=== PATIENT | male | born 1945 | race Caucasian/White ===

== ENCOUNTER 2017-12-15 10:30 | Outpatient (RCR) | payer OTHER, SELFPAY ==
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
--- NOTE | 2017-12-15 10:30 | DT_ITS ---
This patient was seen during an EMR downtime December 12, 2017 - December 19, 2017. This patient may have a combination of paper and electronic documentation or all paper documentation. All documentation is viewable within the e-chart portion of [facility] for each patient visit.
--- NOTE | 2018-01-08 13:30 | HP.PTDCSUM ---
HP - PT D/C Summary It has been my pleasure to treat ALBINO JIMENEZ JR under orders from Out of Town Doctor, for the diagnosis of LUMBAR STENOSIS for a total of 6 visit(s). Discharge Date: 12/15/17 Please see the following information for a summary of their discharge status. - Subjective Subjective: PATIENT STATES THE POOL HAS HELPED ME QUITE A BIT. LBP AND RIGHT LE ACHING AND WEAKNESS HAVE IMPROVED. STTES HE HAS HIS WON POOL. RIGHT LOW BACK PAIN RANGING 0-5/10. - Pain Lumbar Spine Pain Intensity (Out of 10): 3 Hips Pain Intensity (Out of 10): Unrated - Overall Improvement % Improvement: 50 - Objective Objective/Function: PATIENT DEMO'S INDEP TRANSFER SIT TO STAND WITHOUT UE ASSIST. INDEP GAIT INTO PT WITHOUT AD BUT INCREASED TRUNK FLEX. LLE MMT 5/5. RIGHT LE HIP FLEX 4/5, KNEE EXT 4/5 KNEE FLEX 4/5, ANKLE DORSI FLEX 5/5. LUMBAR MVMT LOSS: FLEX - NIL, EXT - LEO, TINO SG - MOD. PATIENT DENIES INCREASED LBP WITH TESING TODAY. INDEP WITH WRITTEN POOL PROGRAM. - Goals Goal 1:: DECREASE C/O BACK AND LE SX'S Goal Progress: Goal Met Goal 2:: IMPROVE LIFTING, WALKING, SITTING, STANDING, SOCIAL LIFE, TRAVEL AND HOMEMAKING FUNCTION Goal Progress: Not Progressing Goal 3:: INSTRUCT IN PROPHYLAXIS Goal Progress: Goal Met - Plan Plan: D/C TO [facility] AT THIS TIME. [facility] - D/C Information If there are questions or concerns regarding this patient's physical therapy, please feel free to call me at [phone]. Thank you for the referral of this patient. Sincerely, Clarice Horner
== END 2017-12-15 19:00 | disposition home or self-care (01) ==
LOC: PT 10:30
DX: M48.062 Spinal stenosis, lumbar region with neurogenic claudication (principal)
CPT/HCPCS: 97113; 97162; 97164; 97530; G8978; G8979; G8980

== ENCOUNTER 2018-06-09 10:00 | Outpatient (RCR) | payer OTHER, SELFPAY ==
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
--- NOTE | 2018-06-09 11:05 | HP.PTDCSUM ---
- PT D/C Summary It has been my pleasure to treat ALBINO JIMENEZ Jr. under orders from [facility] for the diagnosis of SPONDYLOSIS, LUMBAR REGION for a total of 8 visit(s). Discharge Date: 06/09/18 Please see the following information for a summary of their discharge status. - Subjective Subjective: I FEE PRETTY GOOD TODAY. PATIENT REPORTS HE IS BETTER. STATES HIS TORSO IS MOVING BETTER AND HE IS WALKING BETTER. PATIENT REPORTS HIS PAIN IS RANGING 0-7/10 NOW. PATIENT REPORTS HE HAS BEEN DISCHARGED [facility] WITH A HEP. HE PLANS TO JOIN THE [facility] TO CONTINUE INDEP WATER EX AT THIS TIME. - Pain Lumbar Spine Pain Intensity (Out of 10): 2 Neck/Shoulders Pain Intensity (Out of 10): Unrated - Overall Improvement % Improvement: 40 - Objective Objective/Function: INDEP TRANSFER SIT TO STAND WITHOUT UE ASSIST EASILY WITH ONE ATTEMPT TODAY. Motor deficit: TINO LE'S 5/5 WITH MMT EXCEPT HIPS GRADED 4+/5. Sensory deficit: TINO LE LIGHT TOUCH SENSATION APPEARS TO BE INTACT AND SYMMETRICAL EVEN IN RIGHT THIGH PER PATIENT REPORT. ROM deficit: VERY TIGHT TINO HIP FLEXORS, HS'S AND GASTROC SOLEUS COMPLEX'S. Dural Signs: NEGATIVE TINO LE DURAL SIGNS. Lumbar mvmt loss: flex - MIN. ext - LEO. R SG - MOD L SG - MOD. PATIENT DENIED INCREASED LOW BACK PAIN WITH LUMBAR ROM TESTING INTO ALL PLANES. Core strength: POOR. Palpation: NO ACUTE PALPABLE TENDERNESS IN THE LUMBAR, SACRAL OR HIP REGIONS. LUMBAR OSWESTRY HAS IMPROVED FROM 23 TO 18. - Goals Goal 1:: DECREASE C/O TINO LOW BACK AND TINO LE SX'S Goal Progress: Goal Met Goal 2:: IMPROVE LIFTING, WALKING, SITTING, STANDING, SLEEP, SOCIAL LIFE, TRAVEL AND HOMEMAKING FUNCTION Goal Progress: Goal Met Goal 3:: INSTRUCT IN PROPHYLAXIS/INDEP AQUATIC THERAPY PROGRAM Goal Progress: Goal Met - Plan Plan: ALL GOALS MET. D/C TO INDEP EX. PATIENT WAS AGREEABLE. - D/C Information If there are questions or concerns regarding this patient's physical therapy, please feel free to call me at [phone]. Thank you for the referral of this patient. Sincerely, Clarice Horner
== END 2018-06-09 19:00 | disposition home or self-care (01) ==
LOC: PT 10:00
DX: M47.896 Other spondylosis, lumbar region (principal)
CPT/HCPCS: 97113; 97162; 97530; G8978; G8979

== ENCOUNTER → 2021-07-09 17:41 | Outpatient (CLI) | payer OTHER, SELFPAY ==
--- NOTE | 2021-07-09 17:56 | CT_ITS ---
STUDY: CT CHEST WITHOUT CONTRAST- LOW DOSE SCREENING PROTOCOL REASON FOR EXAM: Male, 75 years old. Current smoker. 75 pack per year history. No current symptoms of lung cancer or pulmonary infection. Shared decision-making with referring PCP documented in patient''s record. RADIATION DOSAGE (If Supplied By Facility): CTDIvol = ( 3.02 ) mGy, DLP = ( 115.51 ) mGycm TECHNIQUE: Low dose screening CT examination performed from the base of the neck to the upper abdomen. Sagittal and coronal reformatted images performed. Sagittal and coronal MIP images provided. The measurements provided are average, rounded measurements per ACR guidelines. COMPARISON: None. FINDINGS: Mild bilateral apical scarring. Mild emphysema. Right lower lobe linear scar. Linear scar in the lingula. No noncalcified nodule or mass. There is no demonstrated pleural abnormality. Normal heart and pericardium. There are calcifications of the coronary arteries. Normal mediastinum. Normal hilar regions. Normal unenhanced pulmonary arteries. There is atherosclerotic calcification of the aortic arch with tortuosity and elongation of the aortic arch and descending thoracic aorta. Normal osseous structures. There is no demonstrated abnormality of the visualized upper abdomen. CT/Low Dose CT Lung Screening IMPRESSION: 1. No significant indeterminate incidental findings requiring additional imaging. 2. Incidental findings include mild emphysema and bilateral apical scarring. ASSESSMENT CATEGORY: LungRADS 1 - Negative. Continue annual screening with LDCT in 12 months, per established ACR guidelines. Electronically Signed: Haja Talamantes MD at 10:08 EST Tel , Service support ,
== END ==
DX: F17.210 Nicotine dependence, cigarettes, uncomplicated (principal)
CPT/HCPCS: 71271

== ENCOUNTER 2022-08-12 18:22 | Inpatient (IN) | payer OTHER, SELFPAY ==
[2022-08-12] VITALS (8 sets, daily range): BP systolic 112–146; BP diastolic 67–86; PULSE 100–114; RESP 20–28; TEMP 36.6–36.8; O2SAT 90–94; BMI 28.6
--- NOTE | 2022-08-12 18:26 | HP.PCM.HOS_ITS ---
HPI - General General Date of Admission: 08/12/22 Date of Service: 08/12/22 Chief Complaint: shortness of breath HPI Narrative ALBINO JIMENEZ, is a 76 M who presents 2 days of shortness of breath. Patient today was doing well and had been off oxygen, patient normally is on oxygen around 2 L due to his underlying COPD, but beginning yesterday, started getting more short of breath and coughing. Patient was coughing up some yellow phlegm. Shortness of breath just got worse and presented to [facility] ED today. Patient was found to have a right-sided pneumonia as well as a lactic acid of 6. Patient was checked for influenza and COVID which were both negative. Patient received ceftriaxone and azithromycin there. Patient requested transfer to [facility]. [facility] Medical History (Updated 08/12/22 @ 18:[address] Felix Ribeiro DO) COPD (chronic obstructive pulmonary disease) Heart attack Perforated ulcer PUD (peptic ulcer disease) TIA (transient ischemic attack) Allergy/AdvReac Type Severity Reaction Status Date / Time oxycodone AdvReac Upset Verified 08/12/22 18:32 Stomach Family History Grandmother Lung cancer Father COPD (chronic obstructive pulmonary disease) Grandfather Bone cancer Brother Bone cancer Surgical History H/O hernia repair Total knee replacement status Social History Smoking Status: Former smoker Tobacco: How many years used: 65 how long ago did patient quit smokin months ago substance use type: does not use ROS ROS Narrative All review of systems were negative except as mentioned above in the history of present illness and the other review of systems. Vital Signs Vital Signs Vital Signs: 08/12/22 18:00 Temperature 36.7 C Temperature Source Oral Pulse Rate 100 Respiratory Rate 22 H Blood Pressure 146/86 H Blood Pressure Mean 106 Blood Pressure Source Monitor Blood Pressure Position Semi-Fowlers Blood Pressure Location Left Arm Pulse Ox 94 Oxygen Delivery Method Nasal Cannula Oxygen Flow Rate (L/min) 3 Weight Weight: 88.042 kg Body Mass Index (BMI) 28.6 Physical Exam Narrative - Physical Exam General: Alert, Oriented x3, Cooperative HEENT: Atraumatic, PERRLA, EOMI, Normocephalic Oral: Moist Mucosa, No Gingival or Mucosal Lesions/ Ulcerations Neck: Supple, No JVD, Negative Carotid Bruits Lungs: Diminished. Faint wheeze. Cardiovascular: Regular rate, Normal S1, Normal S2, No murmurs Abdomen: Bowel Sounds Present, Soft, Non Tender, Non-Distended, No Hepato-sple nomegaly Extremities: No clubbing, No cyanosis, No edema, Capillary Refill Less than 3 Seconds Skin: No rashes, No breakdown Musculoskeletal: No Tenderness to Palpation of Joints or Extremities Neurological: Neuro grossly intact Psych/Mental Status: Normal Affect, Appropriate Results Lab / Micro Data Lab results narrative: CBC: White count 10, hemoglobin 14, platelets 198 BMP: Sodium 132, potassium 4, creatinine 1.12 Troponin 8.7 Influenza a and B- COVID-19 negative Lactic acid of 6 and subsequent lactic acid of 2.7 Chest x-ray not available Assessment & Plan Assessment/Plan (1) Pneumonia: PLAN: Suspect pneumococcal Check sputum culture, strep and Legionella antigens Outside hospital, influenza and COVID-19 were negative Continue with antibiotics with ceftriaxone and azithromycin which he received at the outside hospital Pep therapy (2) COPD exacerbation: PLAN: Steroids and bronchodilators (3) Lactic acidosis: PLAN: Probably due to his respiratory distress and not sepsis. Currently patient is stable. PLAN: Plan Chronic conditions * CAD * PUD VTE prophylaxis with enoxaparin. Charges/Coding Visit Charges Inpatient E&M: 91805 In Hosp L3
[2022-08-12] MEDS: Ipratropium/Albuterol Sulfate 3 ML AMPUL.NEB INHALATION ×2 (19:09→22:37)
[2022-08-12] MEDS: predniSONE 20 MG Tablet 40 MG PO (19:37)
[2022-08-12] MEDS: guaiFENesin 1,200 MG Tablet 1200 MG PO (23:30)
[2022-08-13] VITALS (23 sets, daily range): BP systolic 101–124; BP diastolic 66–85; PULSE 100–123; RESP 16–24; TEMP 36.7–37; O2SAT 90–99
[2022-08-13] MEDS: Albuterol 2.5 MG/3 ML VIAL.NEB. INHALATION ×2 (00:26→05:30)
[2022-08-13] MEDS: 0.9% Saline Lock 10 ML Syringe IV ×2 (01:57→22:19)
--- NOTE | 2022-08-13 02:11 | RAD_ITS ---
EXAM: XR CHEST, 1 VIEW CLINICAL INDICATION: SOB TECHNIQUE: Frontal view of the chest. This report was created using [employer] report generation technology. COMPARISON: None. FINDINGS: LUNGS AND PLEURAL SPACES: Mild bibasilar atelectasis. No pneumothorax. No effusion. No acute airspace disease. HEART: Unremarkable. Cardiac silhouette not enlarged. MEDIASTINUM: Central airways and mediastinal contour are unremarkable. BONES/JOINTS: Unremarkable. SOFT TISSUES: Unremarkable. RAD/Chest 1 View (Portable) IMPRESSION: No acute findings in the chest. Electronically Signed: Jose Luis Lackey MD at 3:03 EST ,
[2022-08-13] MEDS: Ipratropium/Albuterol Sulfate 3 ML AMPUL.NEB INHALATION ×6 (02:40→23:17)
[2022-08-13] MEDS: 0.9% Normal Saline 1,000 ML 75 ML IV (03:05)
[2022-08-13] MEDS: Benzonatate 100 MG Capsule PO (03:14)
[2022-08-13 06:00] LABS: Absolute Neutrophil Count 9.1 X10^3/uL (2.0-7.7); Basophil# 0.04 X10^3/uL; Basophil% 0.4 % (0-1); Eosinophil# 0.01 X10^3/uL; Eosinophils% 0.1 % (0-5); Hematocrit 40.7 % (40-54); Hemoglobin 13.4 g/dL (13.0-16.5); Lymphocyte % 6.9 % (19-41); Mean Corp Hgb Conc 32.9 g/dL (32-36); Mean Corpuscular Hgb 32.5 pg (27.0-32.0); Mean Corpuscular Volume 98.8 fL (80-94); Mean Platelet Vol. 10.4 fl (6.2-12.0); Monocyte% 2.9 % (0-10); NRBC Flagged by Analyzer 0 % (0-5); Neutrophil # 9.06 X10^3/uL (2.7-7.7); Neutrophil % 88.9 % (47-70); Platelet Count 186 K/mm3 (150-450); RBC Distribution Width CV 14.7 % (11.6-14.6); RBC Distribution Width SD 53.1 fl (35.1-43.9); Red Blood Count 4.12 M/mm3 (4.6-6.2); White Blood Count 10.2 K/mm3 (4.4-11.0)
[2022-08-13 06:21] LABS: Anion Gap 9 (5-15); BUN 18 mg/dL (7-18); Calcium,Total 9.2 mg/dL (8.5-10.1); Chloride 102 mmol/L (98-107); Creatinine, Serum 0.75 mg/dL (0.70-1.30); EST Glomerular Filtration Rate 108 mL/min (>60); Est Glom Filt Rate - Afr Amer 130 mL/min (>60); Estimated Creatinine Clearance 63.83 ml/min; Glucose 126 mg/dL (74-106); Potassium 3.7 mmol/L (3.5-5.1); Sodium Level 136 mmol/L (136-145)
--- NOTE | 2022-08-13 06:30 | NURSING ---
Patient had a coughing spell and was struggling to breathe Oxygen increased from 7L to 10L by charge nurse
--- NOTE | 2022-08-13 06:46 | PCM.PN.BLA ---
Progress Note Called to see at 3am progressive shortness of breath. Patient was admitted as a transfer from pulmonary emergency room. He was reportedly more short of breath, his oxygen requirement had gone up to 7 to 8 L of oxygen Stat chest x-ray is negative for acute infiltrate Patient's prednisone was changed to IV Solu-Medrol for acute COPD exacerbation He was continued on breathing treatment. Physical exam shows a mildly dyspneic patient on 7 to 8 L of oxygen, oxygen sat was 91% Focused Chest exam: Mild use of accessory muscles of respiration, diminished breath sounds, scattered wheezes Further reports of worsening hypoxia to 10 L; ABG requested, pulmonology consulted
--- NOTE | 2022-08-13 07:08 | CPS ---
Pt not using PEP currently because it causes severe coughing spells/spasms. reminded him to DB & C.
[2022-08-13 07:40] LABS: Allen Test Positive; Base Excess -4 mmol/L (-2 to +2); Bicarbonate 20.8 mmol/L (22-26); Blood Gas Specimen Type ART; O2 Delivery Device Cannula; PO2 60 mmHG (75-100); SITE R Radial; SO2 92 % (95-99); Total Carbon Dioxide 22 mmol/L; pCO2 31.3 mmHg (35-45); pH 7.43 (7.35-7.45)
--- NOTE | 2022-08-13 08:34 | CT_ITS ---
STUDY: CTA CHEST REASON FOR EXAM: Male, 76 years old. RESPIRATORY FAILURE -- R/O PE. Shortness of breath. Hypoxia. RADIATION DOSAGE (If Supplied By Facility): CTDIvol = ( 7.75 ) mGy, DLP = ( 527.88 ) mGycm TECHNIQUE: The examination was performed with the intravenous administration of IV 75mL [id number]-[id number]. Post-processing of the angiographic images was performed, with multiplanar reformation and 3D reconstruction. Individualized dose optimization techniques were used for this CT. COMPARISON: Comparison is made with prior study dated 07/09/2021. FINDINGS: Normal enhancement of the main pulmonary artery and right and left pulmonary arteries. Normal enhancement of the bilateral peripheral pulmonary arteries. There is no demonstrated pulmonary embolism. There is atherosclerotic calcification of the aortic arch with tortuosity. There is no demonstrated aortic dissection. There are calcifications of the coronary arteries. Calcified subcarinal lymph nodes. Normal hilar regions. Normal visualized trachea and bronchi. Hyperinflation. Emphysematous changes more prominent in the upper lobes. Increased markings at the lung bases with areas of confluence worse in the left lower lobe suggestive of a atelectasis and/or infiltrate superimposed on the scarring. Mild degree of bronchiectasis. Calcified granuloma in the right lower lobe. Minimal pleural thickening. Normal chest wall structures. Normal osseous structures. Prior cholecystectomy. CT/CTA Chest W/WO Contrast IMPRESSION: Emphysematous changes worse in the upper lobes. Atelectasis and/or infiltrates at the lung bases superimposed on chronic scarring and bronchiectasis. Electronically Signed: Ricky Pino MD at 9:40 EST ,
--- NOTE | 2022-08-13 08:58 | CPS ---
Explained NT sx'ing to patient and the reason why, pt tolerated it fairly well via right nares. one small white mucus plug was aspirated. Pt said he can breathe better after sx.
[2022-08-13] MEDS: guaiFENesin 1,200 MG Tablet 1200 MG PO ×3 (09:35→22:20)
[2022-08-13] MEDS: Enoxaparin 40 MG/0.4 ML Syringe SC (09:35)
--- NOTE | 2022-08-13 10:41 | CON.PCM.CC_ITS ---
Assessment & Plan Assessment/Plan (1) COPD exacerbation: PLAN: Plan RECOMMENDATIONS: 1. Continue bronchodilators, steroids, mucolytic 2. Consider transitioning to Airvo 3. Obtain echocardiogram for pulmonary hypertension 4. Wean supplemental oxygen as tolerated 5. Continue antibiotics pending sputum culture 6. No need to transfer to intensive care unit at this time IMPRESSIONS: 1. Acute hypoxic respiratory failure secondary to COPD/bronchiectasis exacerbation Patient does not appear to have any significant infiltrate on CT scan of the chest. However, patient does have bronchiectasis and advanced emphysematous changes. Patient is appropriately being treated with bronchodilators, steroids, antibiotics and mucolytic's. Would recommend continuing antibiotics until sputum culture can be evaluated. Will obtain an echocardiogram for evaluation of pulmonary hypertension as a confounding factor. Patient does not have significant lower extremity edema to suggest congestive heart failure, but does carry a diagnosis of previous [place]. 2. Advanced age/lack of wafer polishing worker/hyperglycemia Complicates care, management, recovery and prognosis. We will continue to watch blood sugars on daily labs. Cannot exclude the need for sliding scale insulin and basal insulin given the need for steroids secondary to problem #1. Patient will need an outpatient established wafer polishing worker to evaluate for complications and optimization of baseline function. HPI Consult Data Date of Consult: 08/13/22 HPI Narrative Reason for Consultation: Hypoxic respiratory failure HPI Narrative: ALBINO HUDSON, is a 76 M, with past medical history listed below, who presents as a direct transfer from [facility] secondary to hypoxic respiratory failure. Patient does carry diagnosis of COPD and is on 2 L nasal cannula chronically. Patient reportedly started to develop increased shortness of breath and coughing productive of yellow sputum over the last 2 to 3 days. Patient reportedly had a right-sided pneumonia with a lactate of 6. Viral studies were negative as an outpatient. Patient did receive ceftriaxone and azithromycin prior to discharge/transfer. Since being at [facility], patient has required increased FiO2 up to 10 L/min. Patient states he is very dyspneic, but overall feels subjectively improved compared to previous. Patient did have an NT suction this morning and thought this was significantly helpful. Patient still has shortness of breath with minimal exertion and feels that in retrospect he has been going downhill for months. Patient does carry diagnosis of COPD. Patient states he is never seen a wafer polishing worker or had a pulmonary function test previously. Patient is on triple therapy at home along with 2 L nasal cannula. Patient states he is readily compliant with his supplemental oxygen. Patient states that his breathing is gotten so poor that he actually quit smoking recently. Patient states he is to meet with a wafer polishing worker at the [place] in September and was hoping to make it till then. Patient is not aware of any sick contacts. Patient denies any current chest pain, palpitations, nausea or vomiting. Patient has not had any aspiration events. Patient is not reporting any lower extremity edema. Patient is not aware of any other work-up. Patient has not had a history of PE that he is aware of. Review of systems otherwise negative from a constitutional, HEENT, respiratory, cardiovascular, GI, genitourinary, musculoskeletal, skin, neurologic, psychiatric and hematologic system unless stated above. [facility] Medical History COPD (chronic obstructive pulmonary disease) Heart attack Perforated ulcer PUD (peptic ulcer disease) TIA (transient ischemic attack) Home Medications atorvastatin 40 mg tablet 40 mg PO QHS Check with primary doctor 08/13/22 [History Last Taken Unknown] cholecalciferol (vitamin D3) 50 mcg (2,000 unit) tablet 50 mcg PO DAILY Check with primary doctor 08/13/22 [History Last Taken Unknown] cyclobenzaprine 10 mg tablet 10 mg PO QHS PRN PRN muscle spasms 08/13/22 [History Last Taken Unknown] fluticasone 250 mcg-salmeterol 50 mcg/dose blistr powdr for inhalation 1 inh inhalation BID Check with primary doctor 08/13/22 [History Last Taken Unknown] gabapentin 900 mg PO/SL QHS Check with primary doctor 08/13/22 [History Last Taken Unknown] gabapentin 600 mg tablet 600 mg PO DAILY Check with primary doctor 08/13/22 [History Last Taken Unknown] ipratropium 0.5 mg-albuterol 3 mg (2.5 mg base)/3 mL nebulization soln 3 ml inhalation Q6H PRN Shortness Of Breath 08/13/22 [History Last Taken Unknown] isosorbide mononitrate 30 mg tablet,extended release 24 hr 30 mg PO DAILY Check with primary doctor 08/13/22 [History Last Taken Unknown] lisinopril 5 mg tablet 5 mg PO DAILY Check with primary doctor 08/13/22 [History Last Taken Unknown] metoprolol succinate 100 mg tablet,extended release 24 hr 100 mg PO DAILY Check with primary doctor 08/13/22 [History Last Taken Unknown] pantoprazole 40 mg tablet,delayed release 40 mg PO DAILY Check with primary doctor 08/13/22 [History Last Taken Unknown] tiotropium bromide 2.5 mcg/actuation mist for inhalation (Spiriva Respimat) 2 puff inhalation BID Check with primary doctor 08/13/22 [History Last Taken Unknown] tramadol 50 mg tablet 50 mg PO Q6H PRN Breakthrough Pain 08/13/22 [History Last Taken Unknown] trazodone 50 mg tablet 50 mg PO QHS PRN leg cramps 08/13/22 [History Last Taken Unknown] Allergy/AdvReac Type Severity Reaction Status Date / Time oxycodone AdvReac Upset Verified 08/12/22 18:32 Stomach Family History Grandmother Lung cancer Father COPD (chronic obstructive pulmonary disease) Grandfather Bone cancer Brother Bone cancer Surgical History H/O hernia repair Total knee replacement status Social History Smoking Status: Former smoker Tobacco: How many years used: 65 how long ago did patient quit smokin months ago substance use type: does not use ROS ROS Narrative See HPI Physical Exam Const alert and oriented x3 General Appearance: in distress Positive for moderate (Respiratory) and frail HEENT normocephalic and head/scalp atraumatic HEENT Narrative: Slight temporal wasting noted Eyes PERRL, EOMs intact bilaterally, conjunctivae normal and no scleral icterus Neck full ROM, supple and no JVD Chest Chest: abnormal inspection of the chest increased A-P diameter Resp Auscultation: wheezes expiratory wheezes and lower bilaterally; Negative for rales or rhonchi Cardio regular rhythm, S1 normal heart sound, S2 normal heart sound, no murmurs, no rub and no gallops Rate: tachycardic GI normal to inspection, nondistended, normoactive bowel sounds Extremity General Extremity: clubbing; Negative for edema Skin Skin Narrative: Dermal atrophy noted Neuro oriented x3, CN's II-XII intact bilaterally, moves all extremities and no focal motor deficits Psych Activity / Motor Behavior: restless Mood & Affect: anxious Medical Records Data Attestation: I reviewed the patient's medical records Lab / Micro Data Attestation: I reviewed the patient's lab results. Result Diagrams: 08/13/22 05:32 08/13/22 05:32 Labs: Laboratory Results - last 24 hr 08/13/22 05:32: WBC 10.2, RBC 4.12 L, Hgb 13.4, Hct 40.7, MCV 98.8 H, MCH 32.5 H , MCHC 32.9, RDW Std Deviation 53.1 H, RDW Coeff of Chadd 14.7 H, Plt Count 186, MPV 10.4, Immature Gran % (Auto) 0.800, Neut % (Auto) 88.9 H, Lymph % (Auto) 6.9 L, [place] % (Auto) 2.9, Eos % (Auto) 0.1, Baso % (Auto) 0.4, Absolute Neuts (auto) 9.1 H, Absolute Lymphs (auto) 0.70 L, Nucleated RBC % 0 08/13/22 05:32: Sodium 136, Potassium 3.7, Chloride 102, Carbon Dioxide 25.0, A nion Gap 9, BUN 18, Creatinine 0.75, Estim Creat Clear Calc 63.83, Est GFR (MDRD) Af Amer 130, Est GFR (MDRD) Non-Af 108, BUN/Creatinine Ratio 24.0 H, Glucose 126 H, Calcium 9.2 Micro: Microbiology 08/13/22 00:10 Urine, Clean Catch Legionella Antigen - Final 08/13/22 00:10 Urine, Clean Catch Streptococcus pneumoniae Antigen (M - Final ABG Data ABG results: ABG 08/13/22 07:32 Specimen Type ART Sample Site R Radial pH 7.43 Bicarbonate Actual 20.8 L Total CO2 22 Base Excess -4 L O2 Saturation 92 L ABG pCO2 31.3 L ABG pO2 60 L Deven Test Positive O2 Delivery Device Cannula Liter Flow 10.0 Attestation: I personally reviewed and interpreted this ABG as follows: (Partially compensated metabolic acidosis with increased AA gradient) Radiology Impression Chest X-Ray 08/13/22 02:11 IMPRESSION: No acute findings in the chest. Electronically Signed: Jose Luis Lackey MD at 3:03 EST , Chest CTA 08/13/22 08:34 IMPRESSION: Emphysematous changes worse in the upper lobes. Atelectasis and/or infiltrates at the lung bases superimposed on chronic scarring and bronchiectasis. Electronically Signed: Ricky Pino MD at 9:40 EST , Charges/Coding Visit Charges Inpatient E&M: 33097 Init Hosp L3
--- NOTE | 2022-08-13 10:45 | ECHOCS_ITS ---
Reason For Study: PHTN Procedure This was a 2D Doppler, Color Flow transthoracic echocardiogram. Exam performed portable in patient room. Left Ventricle Normal LV size. The estimated ejection fraction is 70 %. Unable to assess diastolic dysfunction. No regional wall motion abnormalities noted. Right Ventricle Normal RV size. Normal systolic function. Atria Normal left atrium. Normal right atrium. No doppler evidence for ASD. Mitral Valve There is no mitral valve stenosis. No mitral valve insufficiency. Tricuspid Valve There is no tricuspid stenosis. Unable to estimate RV systolic pressure due to inadequate jet, pulmonary artery pressure probably normal. Aortic Valve There is no aortic stenosis. No aortic valve insufficiency. Pulmonic Valve There is no pulmonic valvular stenosis. No pulmonic valve insufficiency. Great Vessels Normal aortic root. Pericardium/Pleural No pericardial effusion. MMode/2D Measurements & Calculations Ao root diam: 3.3 cm LAV(MOD-bp): 49.5 ml LVAd ap4: 22.2 cm2 LAV(MOD-bp) Indexed: 24.3 ml/m2 LVLd ap4: 7.3 cm LAV(MOD-sp2): 55.5 ml EDV(MOD-sp4): 56.4 ml LAV(MOD-sp4): 44.7 ml EDV(sp4-el): 57.6 ml LVAs ap4: 11.2 cm2 LVLs ap4: 6.6 cm ESV(MOD-sp4): 16.4 ml ESV(sp4-el): 16.1 ml EF(MOD-sp4): 70.9 % EF(sp4-el): 72.0 % SV(MOD-sp4): 40.0 ml SV(sp4-el): 41.5 ml LA A4 area: 17.1 cm2 LA dimension(2D): 3.5 cm RA A4 area: 12.1 cm2 Doppler Measurements & Calculations MV E max miesha: 133.7 cm/sec MV V2 max: 124.7 cm/sec Ao V2 max: 134.6 cm/sec MV max P.3 mmHg Ao max P.3 mmHg MV V2 mean: 77.1 cm/sec Ao V2 mean: 89.7 cm/sec MV mean P.8 mmHg Ao mean P.7 mmHg MV V2 VTI: 25.2 cm Ao V2 VTI: 20.2 cm LV V1 max: 124.0 cm/sec LV V1 max P.2 mmHg ECHO/Echo Complete W/ Contrast Interpretation Summary The estimated ejection fraction is 70 %. Unable to assess diastolic dysfunction. Ordering Physician: Flip Snyder Referring Physician: SHANNON PCP Performed By: Lolly Peralta RCS
--- NOTE | 2022-08-13 12:45 | CM.UR ---
Addendum entered by Clarice Nieves 08/13/22 15:39: Call received back from Mary Jo @ [facility]. [facility] She states pt is not active w/HHC. She states they have a home-based care team made up of: SW, leather scrubber, therapy, and SW who do assessments in the home and make recommendations, but they do not provide in-home care or therapy. She states, if pt does need HHC @ discharge they can notify Dr Yeh and then they would evaluate if pt meets criteria for HHC thru the [facility]. OFFSET PRESS OPERATOR APPRENTICE CM, Roxanne, made aware of above. Addendum entered by Clarice Nieves 08/13/22 14:55: Call placed to the [facility] @ [phone]. Message left on nurse Mary Jo's VM for return call to verify home O2 orders and HHC. Original Note: CAROL RAMOS SKIP TRACER RICHARD to room to meet with patient for initial transition planning/care coordination assessment. CAROL RAMOS introduced self and role at [facility]. Pt voices understanding and consents to assessment at this time. Pt sitting up in chair in room in no distress at this time. in room visiting. Pt is A/O at this time and answers all questions appropriately. Care providers, pharmacy, and demographics verified/updated at this time. PCP: [facility] Dr Yeh. Pt had an appt yesterday but had to cancel d/t coming to hospital Specialists: Quill Winder @ [facility]. [place] [employer]--pt has an initial visit/appt scheduled in September. Palliative Care: Discussed Palliative care for mgmt of COPD and questions answered. Pt states he would like to discuss this with his before deciding if he would like a referral placed to meet w/liaison. CAROL RAMOS informed him RICHARD can f/u with him on Tuesday re: his decision. He voices appreciation. Preferred Pharmacy: [facility] Retail Insurance: Anca CUR[employer] [facility]: None. [facility] all meds throught the [facility] Living Will/HPOA: Has LW and HCPOA, who is his . Pt is considering doing updated POA paperwork to list alternatives, but wants to talk things over with his first. CAROL RAMOS informed him KATHIE can f/u with him on Tuesday re: if he wishes to complete new AD. He voices appreciation. Елена VÁZQUEZ, made aware. LNOK: , Trini. 4 children Living Arrangements: Lives w/his in one-story home w/2 steps to enter. Pt states does okay with the stairs. Indep w/ADL's and manages his own medications. does most home mgmt tasks. works daytime caregiver and prepares meals for pt to heat up when she is away. Transportation: DME: States has the following DME: shower chair, quad cane, electric scooter, grab bars, hand held shower, walker, medical alert, nebulizer, [facility] 2 l/m n/c. Pt has concentrator and portable oxygen tanks. states she can bring one in for pt to go home on @ d/c. Pt does not have a pulse ox. He states he was supposed to get one @ his app[facility] yesterday. Pt states no need for further DME at this time. HHC/SNF: No hx of SNF. Pt states he [facility], leather scrubber, therapist, and SW and he would like to resume with them when he discharges home. OFFSET PRESS OPERATOR APPRENTICE Roxanne RAMOS, made aware . Pt wishes to return home and states has no concerns with going home at time of discharge. CM to follow for any increase in home oxygen needs and any further discharge planning/needs. Pt and voice no further concerns/needs at this time. Advised them to ask for CM if any further questions/concerns/needs arise. They voice understanding. PLAN: Home w/[facility]. Follow for any increase in O2 @ d/c. Pt may need a pulse ox. SW to f/u with pt next week re: if he wishes to do new AD CM to f/u with pt next week re: possible Palliative referral. Michael BSN RN RICHARD
[2022-08-13] MEDS: levoFLOXacin 750 MG Tablet PO (12:46)
[2022-08-13] MEDS: Isosorbide Mononitrate 30 MG Tablet PO (15:46)
[2022-08-13] MEDS: Lisinopril 5 MG Tablet PO (15:46)
[2022-08-13] MEDS: Metoprolol(XL)Succ 100 MG Tablet PO (15:46)
[2022-08-13] MEDS: Gabapentin 600 MG Tablet PO (15:46)
--- NOTE | 2022-08-13 17:05 | PN.HOSP_ITS ---
Subjective Subjective Patient was seen and examined today, his oxygen requirement is increased today, at the time of this dictation, he is on Airvo. Pulmonary medicine saw the patient today and recommended continuing bronchodilators, IV corticosteroids, and antibiotic coverage-they felt that the patient had a flareup of his bronchiectasis and COPD. Patient's oxygen requirement at home is usually 2 L. He states he has been on oxygen since June of last year. Pulmonary medicine does not think the patient has a community-acquired pneumonia. Objective Data Objective Data Vital Signs: Vital Signs Temp Pulse Resp BP Pulse Ox O2 Del Method O2 Flow Rate 98.4 F 111 H 16 122/74 H 96 Airvo 40 08/13/22 14:35 08/13/22 15:46 08/13/22 15:22 08/13/22 14:35 08/13/22 15:22 08/13/22 15:22 08/13/22 15:22 FiO2 79 08/13/22 15:22 Oxygen Flow Rate (L/min) 40 Oxygen Delivery Method Airvo Weight: 88.042 kg Body Mass Index (BMI) 28.6 Intake & Output: Intake and Output for Last 24 Hours 08/11/22 08/12/22 08/13/22 23:59 23:59 23:59 Intake Total 575 / 575 Output Total 1200 / 1200 Balance -625 / -625 Lab / Micro Data Result Diagrams: 08/13/22 05:32 08/13/22 05:32 Labs: Laboratory Results - last 24 hr 08/13/22 05:32: WBC 10.2, RBC 4.12 L, Hgb 13.4, Hct 40.7, MCV 98.8 H, MCH 32.5 H , MCHC 32.9, RDW Std Deviation 53.1 H, RDW Coeff of Chadd 14.7 H, Plt Count 186, MPV 10.4, Immature Gran % (Auto) 0.800, Neut % (Auto) 88.9 H, Lymph % (Auto) 6.9 L, [place] % (Auto) 2.9, Eos % (Auto) 0.1, Baso % (Auto) 0.4, Absolute Neuts (auto) 9.1 H, Absolute Lymphs (auto) 0.70 L, Nucleated RBC % 0 08/13/22 05:32: Sodium 136, Potassium 3.7, Chloride 102, Carbon Dioxide 25.0, Anion Gap 9, BUN 18, Creatinine 0.75, Estim Creat Clear Calc 63.83, Est GFR (MDRD) Af Amer 130, Est GFR (MDRD) Non-Af 108, BUN/Creatinine Ratio 24.0 H, Gluc ose 126 H, Calcium 9.2 Micro: Microbiology 08/12/22 22:50 Sputum, Expectorated/Coughed Gram Stain - Final 08/12/22 22:50 Sputum, Expectorated/Coughed Respiratory Culture - Preliminary Culture exhibits no growth. 08/13/22 00:10 Urine, Clean Catch Legionella Antigen - Final 08/13/22 00:10 Urine, Clean Catch Streptococcus pneumoniae Antigen (M - Final ABG Data ABG results: ABG 08/13/22 07:32 Specimen Type ART Sample Site R Radial pH 7.43 Bicarbonate Actual 20.8 L Total CO2 22 Base Excess -4 L O2 Saturation 92 L ABG pCO2 31.3 L ABG pO2 60 L Deven Test Positive O2 Delivery Device Cannula Liter Flow 10.0 Radiography Diagnostic Testing: Radiology Impression Chest X-Ray 08/13/22 02:11 IMPRESSION: No acute findings in the chest. Electronically Signed: Jose Luis Lackey MD at 3:03 EST , Chest CTA 08/13/22 08:34 IMPRESSION: Emphysematous changes worse in the upper lobes. Atelectasis and/or infiltrates at the lung bases superimposed on chronic scarring and bronchiectasis. Electronically Signed: Ricky Pino MD at 9:40 EST , Physical Exam Const alert, oriented x3, no apparent distress and average body habitus Constitutional Narrative: Patient appears older than his stated age General Appearance: cooperative, well kempt and well developed Orientation / Consciousness: awake, oriented to person, oriented to place and oriented to time HEENT normocephalic, head/scalp atraumatic and moist oral mucous membranes Eyes PERRL, EOMs intact bilaterally and conjunctivae normal Neck supple, no JVD, thyroid normal and no carotid bruits General: trachea midline Resp normal respiratory effort, no retractions and no use of accessory muscles Resp Narrative: Patient has expiratory rhonchi at the right base, overall breath sounds are diminished bilaterally Auscultation: rhonchi right lower; Negative for rales or wheezes Cardio regular rate, regular rhythm, S1 normal heart sound, S2 normal heart sound, no murmurs, no rub and no gallops GI normal to inspection, nondistended, normoactive bowel sounds, soft to palpation, non-tender and non-distended Extremity no clubbing, cyanosis or edema Skin no rashes or lesions noted General Skin Exam: no breakdown Neuro oriented x3, CN's II-XII intact bilaterally, moves all extremities, no focal motor deficits and no sensory deficits noted Sensorium / Orientation: awake, alert, oriented to person, oriented to place and oriented to time Speech: speech normal Psych affect normal Assessment & Plan Assessment/Plan (1) COPD exacerbation: PLAN: Plan 1. Exacerbation of COPD-patient will remain on his present medications, pulmonary medicine is participating in his care #2 acute on chronic hypoxic respiratory failure-pulse ox will be monitored, oxygen will be adjusted accordingly #3 coronary artery disease-complicates care, medical course, recovery, and prognosis #4 hyperlipidemia-patient is on atorvastatin #5 bronchiectasis-patient will remain on Levaquin at this time, pulmonary medicine is participating in his care. Total clinical time spent by myself addressing with patient's medical issues, reviewing all the data, and collaborating with the patient's care team: 37 minutes Charges/Coding Visit Charges Inpatient E&M: 77977 Subs Hosp L2
--- NOTE | 2022-08-13 21:22 | CPS ---
Offered vest to pt, he suggested 8:30 pm. Pt was sleeping at that time, will ask again at 10:45pm.
[2022-08-13] MEDS: Gabapentin 300 MG Capsule 900 MG PO (22:18)
[2022-08-13] MEDS: Atorvastatin Calcium 40 MG Tablet PO (22:20)
[2022-08-14] VITALS (15 sets, daily range): BP systolic 102–119; BP diastolic 63–85; PULSE 74–105; RESP 14–24; TEMP 36.6–36.7; O2SAT 92–97
[2022-08-14] MEDS: Acetaminophen 325 MG Tablet 650 MG PO (00:47)
[2022-08-14] MEDS: Albuterol 2.5 MG/3 ML VIAL.NEB. INHALATION (01:30)
[2022-08-14] MEDS: 0.9% Saline Lock 10 ML Syringe IV ×3 (06:30→21:34)
[2022-08-14] MEDS: levoFLOXacin 750 MG Tablet PO (06:30)
[2022-08-14 06:56] LABS: Absolute Lymphocyte Count 0.75 X10^3/uL (0.83-4.51); Absolute Neutrophil Count 11.4 X10^3/uL (2.0-7.7); Basophil# 0.02 X10^3/uL; Basophil% 0.2 % (0-1); Hematocrit 39.7 % (40-54); Lymphocyte # 0.75 X10^3/ul (0.83-4.51); Lymphocyte % 5.8 % (19-41); Mean Corp Hgb Conc 32.7 g/dL (32-36); Mean Corpuscular Volume 100.8 fL (80-94); Mean Platelet Vol. 10.1 fl (6.2-12.0); Monocyte# 0.67 X10^3/uL; Monocyte% 5.2 % (0-10); NRBC Flagged by Analyzer 0 % (0-5); Neutrophil # 11.35 X10^3/uL (2.7-7.7); Neutrophil % 87.9 % (47-70); Platelet Count 199 K/mm3 (150-450); RBC Distribution Width CV 15.1 % (11.6-14.6); RBC Distribution Width SD 55.9 fl (35.1-43.9); Red Blood Count 3.94 M/mm3 (4.6-6.2); White Blood Count 12.9 K/mm3 (4.4-11.0)
[2022-08-14] MEDS: Ipratropium/Albuterol Sulfate 3 ML AMPUL.NEB INHALATION ×5 (07:23→23:00)
[2022-08-14 07:30] LABS: Anion Gap 6 (5-15); BUN 23 mg/dL (7-18); BUN/Creat Ratio 29.8 RATIO (10-20); Calcium,Total 9.3 mg/dL (8.5-10.1); Chloride 104 mmol/L (98-107); Creatinine, Serum 0.77 mg/dL (0.70-1.30); EST Glomerular Filtration Rate 104 mL/min (>60); Est Glom Filt Rate - Afr Amer 126 mL/min (>60); Estimated Creatinine Clearance 63.83 ml/min; Glucose 122 mg/dL (74-106); Potassium 4.7 mmol/L (3.5-5.1); Sodium Level 136 mmol/L (136-145)
--- NOTE | 2022-08-14 08:19 | PCM.PN.INT ---
Assessment & Plan Assessment/Plan (1) COPD exacerbation: PLAN: Plan RECOMMENDATIONS: 1. Continue bronchodilators, steroids at current dosing, mucolytic 2. Wean Airvo as tolerated. Likely transition to nasal cannula once 50% or less 3. Obtain echocardiogram for pulmonary hypertension 4. Wean supplemental oxygen as tolerated 5. Potentially discontinue antibiotics if culture negative at 48 hours 6. No need to transfer to intensive care unit at this time IMPRESSIONS: 1. Acute hypoxic respiratory failure secondary to COPD/bronchiectasis exacerbation Patient does not appear to have any significant infiltrate on CT scan of the chest. However, patient does have bronchiectasis and advanced emphysematous changes. Patient is appropriately being treated with bronchodilators, steroids, antibiotics and mucolytic's. Would recommend continuing antibiotics until sputum culture can be evaluated. Will obtain an echocardiogram for evaluation of pulmonary hypertension as a confounding factor. Patient does not have significant lower extremity edema to suggest congestive heart failure, but does carry a diagnosis of previous MS. Patient appears to be responding well to therapy, but will keep steroids at the current dosing until oxygenation improves 2. Advanced age/lack of deputy county clerk/hyperglycemia Complicates care, management, recovery and prognosis. We will continue to watch blood sugars on daily labs. Cannot exclude the need for sliding scale insulin and basal insulin given the need for steroids secondary to problem #1. Patient will need an outpatient established deputy county clerk to evaluate for complications and optimization of baseline function. Subjective Subjective Patient did well overnight. Patient did have to be transition to Airvo to maintain oxygen saturations. Patient states the vest has been helpful in dealing with secretions. Patient continues to have shortness of breath with minimal exertion. Objective Data Objective Data Vital Signs: Vital Signs Temp Pulse Resp BP Pulse Ox O2 Del Method O2 Flow Rate 36.6 C 79 24 H 116/85 H 94 Airvo 40 08/14/22 02:45 08/14/22 07:21 08/14/22 07:21 08/14/22 02:45 08/14/22 02:45 08/14/22 07:30 08/14/22 07:30 FiO2 70 08/14/22 07:30 Oxygen Flow Rate (L/min) 40 Oxygen Delivery Method Airvo Weight: 88.042 kg Body Mass Index (BMI) 28.6 Intake & Output: Intake and Output for Last 24 Hours 08/12/22 08/13/22 08/14/22 23:59 23:59 23:59 Intake Total 815 / 1215 600 / 600 Output Total 1550 / 2000 750 / 750 Balance -735 / -785 -150 / -150 Lab / Micro Data Attestation: I reviewed the patient's lab results. Result Diagrams: 08/14/22 06:35 08/14/22 06:35 Labs: Laboratory Results - last 24 hr 08/14/22 06:35: WBC 12.9 H, RBC 3.94 L, Hgb 13.0, Hct 39.7 L, MCV 100.8 H, MCH 33.0 H, MCHC 32.7, RDW Std Deviation 55.9 H, RDW Coeff of Chadd 15.1 H, Plt Count 199, MPV 10.1, Immature Gran % (Auto) 0.900, Neut % (Auto) 87.9 H, Lymph % (Auto) 5.8 L, [place] % (Auto) 5.2, Eos % (Auto) 0.0, Baso % (Auto) 0.2, Absolute Neuts (auto) 11.4 H, Absolute Lymphs (auto) 0.75 L, Nucleated RBC % 0 08/14/22 06:35: Sodium 136, Potassium 4.7, Chloride 104, Carbon Dioxide 26.0, Anion Gap 6, BUN 23 H, Creatinine 0.77, Estim Creat Clear Calc 63.83, Est GFR (MDRD) Af Amer 126, Est GFR (MDRD) Non-Af 104, BUN/Creatinine Ratio 29.8 H, Glucose 122 H, Calcium 9.3 Micro: Microbiology 08/12/22 22:50 Sputum, Expectorated/Coughed Gram Stain - Final 08/12/22 22:50 Sputum, Expectorated/Coughed Respiratory Culture - Preliminary Culture exhibits no growth. 08/13/22 00:10 Urine, Clean Catch Legionella Antigen - Final 08/13/22 00:10 Urine, Clean Catch Streptococcus pneumoniae Antigen (M - Final Radiography Diagnostic Testing: Radiology Impression Chest CTA 08/13/22 08:34 IMPRESSION: Emphysematous changes worse in the upper lobes. Atelectasis and/or infiltrates at the lung bases superimposed on chronic scarring and bronchiectasis. Electronically Signed: Ricky Pino MD at 9:40 EST , Physical Exam Const alert and oriented x3 Constitutional Narrative: On Airvo during my evaluation General Appearance: frail; Negative for in distress HEENT normocephalic and head/scalp atraumatic Eyes PERRL, EOMs intact bilaterally, conjunctivae normal and no scleral icterus Neck full ROM, supple and no JVD Chest Chest: abnormal inspection of the chest increased A-P diameter Resp Auscultation: wheezes expiratory wheezes and lower bilaterally; Negative for rales or rhonchi Cardio regular rhythm, S1 normal heart sound, S2 normal heart sound, no murmurs, no rub and no gallops Rate: tachycardic GI normal to inspection, nondistended, normoactive bowel sounds Extremity General Extremity: clubbing; Negative for edema Skin Skin Narrative: Dermal atrophy noted Neuro oriented x3, CN's II-XII intact bilaterally, moves all extremities and no focal motor deficits Psych cooperative and affect normal Charges/Coding Visit Charges Inpatient E&M: 91529 Subs Hosp L3
[2022-08-14] MEDS: guaiFENesin 1,200 MG Tablet 1200 MG PO ×2 (08:58→21:34)
[2022-08-14] MEDS: Pantoprazole Sodium 40 MG Tablet PO (08:58)
[2022-08-14] MEDS: Isosorbide Mononitrate 30 MG Tablet PO (08:58)
[2022-08-14] MEDS: Enoxaparin 40 MG/0.4 ML Syringe SC (08:58)
[2022-08-14] MEDS: Metoprolol(XL)Succ 100 MG Tablet PO (08:59)
[2022-08-14] MEDS: Lisinopril 5 MG Tablet PO (08:59)
--- NOTE | 2022-08-14 10:41 | PN.HOSP_ITS ---
Subjective Subjective Mr. Clement is a 76-year-old white male who presented to the emergency department on 08/12/2022 with worsening shortness of breath that has persistently gotten worse over the 2 days prior to presentation. At baseline he is on 2 L supplemental oxygen for his COPD but beginning the day prior to presentation he got more short of breath and developed coughing with production of yellow phlegm. His shortness of breath worsen and he presented to an outside ER because of that. He was found to have a right-sided pneumonia as well as a lactic acid of 6 on presentation. He was checked for influenza and COVID both of which were negative. He received ceftriaxone and azithromycin and transfer was requested to [facility]. Since being hospitalized he required increased FiO2 requirements up to 10 L/min and was very dyspneic but subjectively reported he was improved prior to presentation outside hospital. He was NT suctioned yesterday which he reported helped him considerably. He does carry a diagnosis of COPD however he is never followed up as an outpatient with pulmonary medicine or had pulmonary function test. He is on triple therapy at home along with supplemental oxygen as noted above. Patient states he is compliant at baseline. He does have an appointment to follow-up with a residential gas heat technician at the [facility] in September. He was evaluated by pulmonary medicine and given the fact that there is no significant infiltrate on the CTA of his chest pneumonia diagnosis is in doubt however it is suspected he has bronchiectasis and advanced emphysematous COPD. He is currently on 15 L of heated high flow nasal cannula, but did require Airvo at 40 L/min and an FiO2 of 70% through the night. Patient does feel his breathing is overall better. He remains on Airvo at this time. Having some sputum production. I did review utilization of the Acapella with him and discussed its importance. CODE STATUS reviewed the patient he opted for DNR CCA okay for short-term intubation. Objective Data Objective Data Vital Signs: Vital Signs Temp Pulse Resp BP Pulse Ox O2 Del Method O2 Flow Rate 98.1 F 87 16 119/68 93 High Flow 15 08/14/22 08:56 08/14/22 08:59 08/14/22 08:56 08/14/22 08:59 08/14/22 08:56 08/14/22 08:56 08/14/22 08:56 FiO2 70 08/14/22 07:30 Oxygen Flow Rate (L/min) 15 Oxygen Delivery Method High Flow Weight: 88.042 kg Body Mass Index (BMI) 28.6 Intake & Output: Intake and Output for Last 24 Hours 08/12/22 08/13/22 02 23:59 23:59 23:59 Intake Total 815 / 1215 600 / 600 Output Total 1550 / 2000 750 / 750 Balance -735 / -785 -150 / -150 Lab / Micro Data Result Diagrams: 08/14/22 06:35 08/14/22 06:35 Labs: Laboratory Results - last 24 hr 08/14/22 06:35: WBC 12.9 H, RBC 3.94 L, Hgb 13.0, Hct 39.7 L, MCV 100.8 H, MCH 3 3.0 H, MCHC 32.7, RDW Std Deviation 55.9 H, RDW Coeff of Chadd 15.1 H, Plt Count 199, MPV 10.1, Immature Gran % (Auto) 0.900, Neut % (Auto) 87.9 H, Lymph % (Auto) 5.8 L, [place] % (Auto) 5.2, Eos % (Auto) 0.0, Baso % (Auto) 0.2, Absolute Neuts (auto) 11.4 H, Absolute Lymphs (auto) 0.75 L, Nucleated RBC % 0 08/14/22 06:35: Sodium 136, Potassium 4.7, Chloride 104, Carbon Dioxide 26.0, Anion Gap 6, BUN 23 H, Creatinine 0.77, Estim Creat Clear Calc 63.83, Est GFR (MDRD) Af Amer 126, Est GFR (MDRD) Non-Af 104, BUN/Creatinine Ratio 29.8 H, Glucose 122 H, Calcium 9.3 Micro: Microbiology 08/12/22 22:50 Sputum, Expectorated/Coughed Gram Stain - Final 08/12/22 22:50 Sputum, Expectorated/Coughed Respiratory Culture - Preliminary Culture exhibits no growth. 08/13/22 00:10 Urine, Clean Catch Legionella Antigen - Final 08/13/22 00:10 Urine, Clean Catch Streptococcus pneumoniae Antigen (M - Final Physical Exam Const alert and oriented x3 Constitutional Narrative: Older white male sitting up in a chair at the bedside, currently on Airvo, family at bedside, patient appears comfortable nontoxic HEENT head/scalp atraumatic and moist oral mucous membranes HEENT Narrative: Dentition is poor, Mallampati is 2, no thrush Head and Scalp: normocephalic Resp Resp Narrative: Diffusely diminished, bibasilar wheezes Auscultation: wheezes; Negative for crackles or rhonchi Cardio regular rate, regular rhythm, S1 normal heart sound, S2 normal heart sound, no murmurs, no rub, no gallops and no clicks GI normal to inspection, nondistended, normoactive bowel sounds, soft to palpation, non-tender and non-distended Extremity no clubbing, cyanosis or edema Extremity Narrative: 2+ pedal pulses Neuro oriented x3, moves all extremities and no focal motor deficits Speech: speech normal Psych affect normal Psych Narrative: Pleasant, appropriately interactive Assessment & Plan Assessment/Plan (1) Acute and chronic respiratory failure with hypoxia: (2) Bronchiectasis: (3) COPD exacerbation: (4) Lactic acidosis: (5) Leukocytosis: (6) Hyperglycemia: PLAN: Plan Acute hypoxic respiratory failure secondary to acute exacerbation of COPD/bronchiectasis -Continue bronchodilators -Continue mucolytic's -Continue steroids at current dose -Check respiratory viral panel -Strep pneumo and Legionella antigens are negative Sputum culture is pending -Echocardiogram pending -Currently on heated high flow nasal cannula at 15 L -Wean as able -Baseline supplemental O2 is 2 L -Continue empiric antibiotics for now -If cultures are negative on Tuesday we will discontinue antibiotics -May be able to consider additional diuretics depending on echocardiogram Leukocytosis -Was normal on presentation -Have trended up -Likely related to steroids with demargination of neutrophils Lactic acidosis -Suspect related to hypoxia -Likely resolved -Patient clinically improving -No reason to reassess at this time -Anion gap is normal Hyperglycemia -Mild -Blood sugars running in the 120s predominantly -Likely related to steroid use -No reason to address further at this time Hyperlipidemia -Continue home atorvastatin Neuropathy -Continue home gabapentin Hypertension -Continue home Imdur -Continue home lisinopril -Continue home metoprolol GERD -Continue home Protonix Chronic pain -Continue home Ultram DVT prophylaxis -Continue enoxaparin 40 mg daily CODE STATUS -DNR CCA with no intubation per discussion at the bedside today Charges/Coding Visit Charges Inpatient E&M: 86776 Subs Hosp L2
[2022-08-14] MEDS: Atorvastatin Calcium 40 MG Tablet PO (21:34)
[2022-08-14] MEDS: Gabapentin 300 MG Capsule 900 MG PO (21:34)
[2022-08-15] VITALS (12 sets, daily range): BP systolic 102–117; BP diastolic 62–72; PULSE 67–93; RESP 15–20; TEMP 36.7–37.3; O2SAT 90–96
[2022-08-15] MEDS: Ipratropium/Albuterol Sulfate 3 ML AMPUL.NEB INHALATION ×6 (03:30→23:13)
[2022-08-15] MEDS: levoFLOXacin 750 MG Tablet PO (05:20)
[2022-08-15] MEDS: 0.9% Saline Lock 10 ML Syringe IV ×3 (05:20→21:15)
[2022-08-15 06:44] LABS: Absolute Neutrophil Count 7.7 X10^3/uL (2.0-7.7); Basophil# 0.01 X10^3/uL; Basophil% 0.1 % (0-1); Hematocrit 39.6 % (40-54); Hemoglobin 12.7 g/dL (13.0-16.5); Lymphocyte % 8.6 % (19-41); Mean Corp Hgb Conc 32.1 g/dL (32-36); Mean Corpuscular Hgb 32.4 pg (27.0-32.0); Mean Platelet Vol. 10.2 fl (6.2-12.0); Monocyte# 0.71 X10^3/uL; Monocyte% 7.7 % (0-10); NRBC Flagged by Analyzer 0 % (0-5); Neutrophil # 7.65 X10^3/uL (2.7-7.7); Neutrophil % 82.6 % (47-70); Platelet Count 211 K/mm3 (150-450); Red Blood Count 3.92 M/mm3 (4.6-6.2); White Blood Count 9.3 K/mm3 (4.4-11.0)
[2022-08-15 07:35] LABS: ALB/GLOB Ratio 1.1 RATIO (0.9-2.4); AST(SGOT) 19 U/L (15-37); Alanine Aminotransfer ALT/SGPT 20 U/L (16-61); Albumin, Serum 3.4 g/dL (3.2-5.0); Alkaline Phosphatase 49 U/L (45-117); Anion Gap 8 (5-15); BUN 25 mg/dL (7-18); BUN/Creat Ratio 29.4 RATIO (10-20); Chloride 103 mmol/L (98-107); Creatinine, Serum 0.85 mg/dL (0.70-1.30); EST Glomerular Filtration Rate 93 mL/min (>60); Est Glom Filt Rate - Afr Amer 113 mL/min (>60); Estimated Creatinine Clearance 75.09 ml/min; Globulin 3.1 g/dL (2.2-4.2); Glucose 117 mg/dL (74-106); Magnesium 2.2 mg/dL (1.6-2.6); Phosphorus 2.9 mg/dL (2.5-4.9); Potassium 4.3 mmol/L (3.5-5.1); Protein, Total 6.5 g/dL (6.4-8.2); Sodium Level 137 mmol/L (136-145); Thyroid Stim Hormone (TSH) 0.26 uIU/mL (0.358-3.74)
--- NOTE | 2022-08-15 08:33 | PCM.PN.INT ---
Assessment & Plan Assessment/Plan (1) COPD exacerbation: PLAN: Plan RECOMMENDATIONS: 1. Continue bronchodilators and mucolytic. Wean steroids 2. Wean Airvo as tolerated. Likely transition to nasal cannula later today 3. Patient will need a walking oximetry prior to discharge 4. Wean supplemental oxygen as tolerated 5. Okay to discontinue antibiotics from my perspective IMPRESSIONS: 1. Acute hypoxic respiratory failure secondary to COPD/bronchiectasis exacerbation Patient does not appear to have any significant infiltrate on CT scan of the chest. However, patient does have bronchiectasis and advanced emphysematous changes. Patient is appropriately being treated with bronchodilators, steroids, antibiotics and mucolytic's. Likely okay to discontinue antibiotics from my perspective. Echocardiogram is suggestive of diastolic dysfunction. Patient does not have significant lower extremity edema to suggest congestive heart failure, but does carry a diagnosis of previous MD. Patient appears to be responding well to therapy,, so will wean steroids 2. 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 We will continue to watch blood sugars on daily labs. Cannot exclude the need for sliding scale insulin and basal insulin given the need for steroids secondary to problem #1. Patient will need an outpatient established advanced practice psychiatric nurse to evaluate for complications and optimization of baseline function. Subjective Subjective Patient did well overnight. Patient subjectively feels improved compared to yesterday. Patient still has some shortness of breath with exertion, but overall feels he is moving in the right direction. Cough frequency is also improving. Objective Data Objective Data Vital Signs: Vital Signs Temp Pulse Resp BP Pulse Ox O2 Del Method O2 Flow Rate 36.8 C 80 20 H 105/62 93 Airvo 60 08/15/22 03:40 08/15/22 07:04 08/15/22 07:04 08/15/22 03:40 08/15/22 07:04 08/15/22 07:57 08/15/22 07:57 FiO2 64 08/15/22 07:57 Oxygen Flow Rate (L/min) 60 Oxygen Delivery Method Airvo Weight: 88.042 kg Body Mass Index (BMI) 28.6 Intake & Output: Intake and Output for Last 24 Hours 08/13/22 08/14/22 08/15/22 23:59 23:59 23:59 Intake Total 815 / 1215 1300 / 1540 480 / 480 Output Total 1550 / 2000 2800 / 3460 1260 / 1260 Balance -735 / -785 -1500 / -1920 -780 / -780 Lab / Micro Data Attestation: I reviewed the patient's lab results. Result Diagrams: 08/15/22 06:10 08/15/22 06:10 Labs: Laboratory Results - last 24 hr 08/15/22 06:10: WBC 9.3, RBC 3.92 L, Hgb 12.7 L, Hct 39.6 L, MCV 101.0 H, MCH 32.4 H, MCHC 32.1, RDW Std Deviation 56.0 H, RDW Coeff of Chadd 15.0 H, Plt Count 211, MPV 10.2, Immature Gran % (Auto) 1.000 H, Neut % (Auto) 82.6 H, Lymph % (Auto) 8.6 L, [place] % (Auto) 7.7, Eos % (Auto) 0.0, Baso % (Auto) 0.1, Absolute Neuts (auto) 7.7, Absolute Lymphs (auto) 0.80 L, Nucleated RBC % 0 08/15/22 06:10: Sodium 137, Potassium 4.3, Chloride 103, Carbon Dioxide 26.0, Anion Gap 8, BUN 25 H, Creatinine 0.85, Estim Creat Clear Calc 75.09, Est GFR (MDRD) Af Amer 113, Est GFR (MDRD) Non-Af 93, BUN/Creatinine Ratio 29.4 H, Glucose 117 H, Calcium 9.0, Phosphorus 2.9, Magnesium 2.2, Total Bilirubin 0.60, AST 19, ALT 20, Alkaline Phosphatase 49, Total Protein 6.5, Albumin 3.4, Globulin 3.1, Albumin/Globulin Ratio 1.1, TSH 0.26 L Micro: Microbiology 08/12/22 22:50 Sputum, Expectorated/Coughed Gram Stain - Final 08/12/22 22:50 Sputum, Expectorated/Coughed Respiratory Culture - Final Presumptive C albicans 08/13/22 00:10 Urine, Clean Catch Legionella Antigen - Final 08/13/22 00:10 Urine, Clean Catch Streptococcus pneumoniae Antigen (M - Final Radiography Diagnostic Testing: Radiology Impression Echocardiogram 08/13/22 10:45 Interpretation Summary The estimated ejection fraction is 70 %. Unable to assess diastolic dysfunction. Ordering Physician: Flip Snyder Referring Physician: SHANNON PCP Performed By: Lolly Peralta RCS Physical Exam Const alert and oriented x3 Constitutional Narrative: On Airvo during my evaluation General Appearance: frail; Negative for in distress HEENT normocephalic and head/scalp atraumatic Eyes PERRL, EOMs intact bilaterally, conjunctivae normal and no scleral icterus Neck full ROM, supple and no JVD Chest Chest: abnormal inspection of the chest increased A-P diameter Resp Auscultation: wheezes expiratory wheezes (Improved compared to previous) and lower bilaterally; Negative for rales or rhonchi Cardio regular rate, regular rhythm, S1 normal heart sound, S2 normal heart sound, no murmurs, no rub and no gallops GI normal to inspection, nondistended, normoactive bowel sounds Extremity General Extremity: clubbing; Negative for edema Skin Skin Narrative: Dermal atrophy noted Neuro oriented x3, CN's II-XII intact bilaterally, moves all extremities and no focal motor deficits Psych cooperative and affect normal Charges/Coding Visit Charges Inpatient E&M: 43354 Subs Hosp L2
[2022-08-15] MEDS: Pantoprazole Sodium 40 MG Tablet PO (08:47)
[2022-08-15] MEDS: Metoprolol(XL)Succ 100 MG Tablet PO (08:47)
[2022-08-15] MEDS: Enoxaparin 40 MG/0.4 ML Syringe SC (08:47)
[2022-08-15] MEDS: Lisinopril 5 MG Tablet PO (08:48)
[2022-08-15] MEDS: guaiFENesin 1,200 MG Tablet 1200 MG PO ×2 (08:48→21:15)
[2022-08-15 09:09] LABS: T4 Free Direct 1.24 ng/dL (0.76-1.46)
[2022-08-15] MEDS: Isosorbide Mononitrate 30 MG Tablet PO (10:22)
[2022-08-15] MEDS: Acetaminophen 325 MG Tablet 650 MG PO (11:31)
--- NOTE | 2022-08-15 14:50 | PN.HOSP_ITS ---
Subjective Subjective Patient subjectively reports that he feels much better. Has been weaned to Airvo at 60 L/min with an FiO2 of 64%. I think we can trial him on high flow today and this also was discussed with him by pulmonary medicine. He denies any current issues. Objective Data Objective Data Vital Signs: Vital Signs Temp Pulse Resp BP Pulse Ox O2 Del Method O2 Flow Rate 99.1 F 84 18 110/67 93 High Flow 15 08/15/22 08:45 08/15/22 11:12 08/15/22 11:12 08/15/22 08:47 08/15/22 11:12 08/15/22 11:12 08/15/22 11:12 FiO2 49 08/15/22 08:45 Oxygen Flow Rate (L/min) 15 Oxygen Delivery Method High Flow Weight: 88.042 kg Body Mass Index (BMI) 28.6 Intake & Output: Intake and Output for Last 24 Hours 08/13/22 08/14/22 08/15/22 23:59 23:59 23:59 Intake Total 815 / 1215 1300 / 1540 480 / 480 Output Total 1550 / 2000 2800 / 3460 1260 / 1260 Balance -735 / -785 -1500 / -1920 -780 / -780 Lab / Micro Data Result Diagrams: 08/15/22 06:10 08/15/22 06:10 Labs: Laboratory Results - last 24 hr 08/15/22 06:10: WBC 9.3, RBC 3.92 L, Hgb 12.7 L, Hct 39.6 L, MCV 101.0 H, MCH 32.4 H, MCHC 32.1, RDW Std Deviation 56.0 H, RDW Coeff of Chadd 15.0 H, Plt Count 211, MPV 10.2, Immature Gran % (Auto) 1.000 H, Neut % (Auto) 82.6 H, Lymph % (Auto) 8.6 L, [place] % (Auto) 7.7, Eos % (Auto) 0.0, Baso % (Auto) 0.1, Absolute Neuts (auto) 7.7, Absolute Lymphs (auto) 0.80 L, Nucleated RBC % 0 08/15/22 06:10: Sodium 137, Potassium 4.3, Chloride 103, Carbon Dioxide 26.0, Anion Gap 8, BUN 25 H, Creatinine 0.85, Estim Creat Clear Calc 75.09, Est GFR (MDRD) Af Amer 113, Est GFR (MDRD) Non-Af 93, BUN/Creatinine Ratio 29.4 H, Glucose 117 H, Calcium 9.0, Phosphorus 2.9, Magnesium 2.2, Total Bilirubin 0.60, AST 19, ALT 20, Alkaline Phosphatase 49, Total Protein 6.5, Albumin 3.4, Globulin 3.1, Albumin/Globulin Ratio 1.1, TSH 0.26 L 08/15/22 06:10: Free T4 1.24 Micro: Microbiology 08/15/22 08:34 Mucosa - Nasopharyngeal Respiratory Panel (PCR) - Final 08/12/22 22:50 Sputum, Expectorated/Coughed Gram Stain - Final 08/12/22 22:50 Sputum, Expectorated/Coughed Respiratory Culture - Final Presumptive C albicans 08/13/22 00:10 Urine, Clean Catch Legionella Antigen - Final 08/13/22 00:10 Urine, Clean Catch Streptococcus pneumoniae Antigen (M - Final Physical Exam Const alert, oriented x3, no apparent distress and average body habitus Constitutional Narrative: Older white male sitting up in bed, currently on Airvo, patient appears comfortable, nontoxic, watching television HEENT normocephalic, head/scalp atraumatic and moist oral mucous membranes HEENT Narrative: No thrush Resp normal respiratory effort, no retractions and no use of accessory muscles Resp Narrative: Diffusely diminished, diffuse scattered wheezes greater at the bases in the apices Auscultation: wheezes; Negative for crackles, rales or rhonchi Cardio regular rate, regular rhythm, S1 normal heart sound, S2 normal heart sound, no murmurs, no rub, no gallops and no clicks GI normal to inspection, nondistended, normoactive bowel sounds, soft to palpation, non-tender and non-distended Extremity no clubbing, cyanosis or edema Extremity Narrative: 2+ pedal pulses Neuro oriented x3, moves all extremities and no focal motor deficits Speech: speech normal Psych affect normal Psych Narrative: Pleasant, appropriately interactive Assessment & Plan Assessment/Plan (1) Acute and chronic respiratory failure with hypoxia: (2) Bronchiectasis: (3) COPD exacerbation: (4) Lactic acidosis: (5) Leukocytosis: (6) Hyperglycemia: (7) Euthyroid sick syndrome: PLAN: Plan Acute hypoxic respiratory failure secondary to acute exacerbation of COPD/bronchiectasis -Continue bronchodilators -Continue mucolytic's -Continue steroids at current dose -Respiratory viral panel is negative -Strep pneumo and Legionella antigens are negative -CTA of the chest done on admission shows emphysematous changes worse in the upper lobes as well as atelectasis and/or infiltrates at the lung bases with chronic scarring and bronchiectasis -COVID and flu negative at outside facility -Sputum culture thus far is only showing Yolanda albicans -Echocardiogram showed an EF of 70% with estimated pulmonary artery pressure normal and no valvular abnormalities -Currently on Airvo at 60 L/min and 64% FiO2 -Continue empiric antibiotics for now -If cultures are negative on Tuesday we will discontinue antibiotics -We will trial IV Lasix 20 mg IV push x1 dose to see if this helps with FiO2 wean Abnormal TSH -TSH 0.26 -Free T4 assessed and noted to be 1.24 -Suspect euthyroid sick with acute illness Leukocytosis -Normalized Lactic acidosis -Resolved Hyperglycemia -Mild -Blood sugars running in the 120s predominantly -Likely related to steroid use -No reason to address further at this time Hyperlipidemia -Continue home atorvastatin Neuropathy -Continue home gabapentin Hypertension -Continue home Imdur -Continue home lisinopril -Continue home metoprolol GERD -Continue home Protonix Chronic pain -Continue home Ultram DVT prophylaxis -Continue enoxaparin 40 mg daily CODE STATUS -DNR CCA with no intubation per discussion on 08/14/2021 Charges/Coding Visit Charges Inpatient E&M: 47824 Subs Hosp L2
[2022-08-15] MEDS: Furosemide 20 MG/2 ML VIAL IV (15:46)
--- NOTE | 2022-08-15 15:48 | CPS ---
when I walked into room, pt stated his nose was bleeding and the high flow NC is giving him a stuffed up nose. check pluse ox pt was 88%. placed pt back on Airvo at this time 60L and 50%. said he feels much better.
[2022-08-15] MEDS: Gabapentin 300 MG Capsule 900 MG PO (21:15)
[2022-08-15] MEDS: Atorvastatin Calcium 40 MG Tablet PO (21:15)
[2022-08-15] MEDS: traZODone 50 MG Tablet PO (21:24)
[2022-08-16] VITALS (17 sets, daily range): BP systolic 100–133; BP diastolic 65–84; PULSE 64–87; RESP 16–20; TEMP 36.2–36.8; O2SAT 88–96
[2022-08-16] MEDS: Ipratropium/Albuterol Sulfate 3 ML AMPUL.NEB INHALATION ×6 (02:46→23:45)
[2022-08-16] MEDS: levoFLOXacin 750 MG Tablet PO (06:29)
[2022-08-16 06:49] LABS: Absolute Lymphocyte Count 0.81 X10^3/uL (0.83-4.51); Absolute Neutrophil Count 5.2 X10^3/uL (2.0-7.7); Basophil# 0.01 X10^3/uL; Basophil% 0.1 % (0-1); Hematocrit 39.3 % (40-54); Hemoglobin 13.1 g/dL (13.0-16.5); Lymphocyte # 0.81 X10^3/ul (0.83-4.51); Lymphocyte % 11.8 % (19-41); Mean Corp Hgb Conc 33.3 g/dL (32-36); Mean Corpuscular Hgb 32.8 pg (27.0-32.0); Mean Corpuscular Volume 98.3 fL (80-94); Mean Platelet Vol. 10.3 fl (6.2-12.0); Monocyte# 0.79 X10^3/uL; Monocyte% 11.5 % (0-10); NRBC Flagged by Analyzer 0 % (0-5); Neutrophil # 5.18 X10^3/uL (2.7-7.7); Neutrophil % 75.1 % (47-70); Platelet Count 203 K/mm3 (150-450); RBC Distribution Width CV 14.7 % (11.6-14.6); RBC Distribution Width SD 53.5 fl (35.1-43.9); White Blood Count 6.9 K/mm3 (4.4-11.0)
[2022-08-16 07:13] LABS: Anion Gap 7 (5-15); BUN 26 mg/dL (7-18); BUN/Creat Ratio 32.3 RATIO (10-20); Calcium,Total 8.9 mg/dL (8.5-10.1); Chloride 104 mmol/L (98-107); Creatinine, Serum 0.81 mg/dL (0.70-1.30); EST Glomerular Filtration Rate 99 mL/min (>60); Est Glom Filt Rate - Afr Amer 120 mL/min (>60); Glucose 130 mg/dL (74-106); Potassium 4.2 mmol/L (3.5-5.1); Sodium Level 137 mmol/L (136-145)
[2022-08-16] MEDS: Pantoprazole Sodium 40 MG Tablet PO (08:41)
[2022-08-16] MEDS: guaiFENesin 1,200 MG Tablet 1200 MG PO ×2 (08:41→20:38)
[2022-08-16] MEDS: Isosorbide Mononitrate 30 MG Tablet PO (08:41)
[2022-08-16] MEDS: Lisinopril 5 MG Tablet PO (08:41)
[2022-08-16] MEDS: Enoxaparin 40 MG/0.4 ML Syringe SC (08:41)
[2022-08-16] MEDS: 0.9% Saline Lock 10 ML Syringe IV ×3 (08:41→20:39)
[2022-08-16] MEDS: Metoprolol(XL)Succ 100 MG Tablet PO (11:22)
--- NOTE | 2022-08-16 13:45 | PN.CC_ITS ---
Assessment & Plan Assessment/Plan (1) COPD exacerbation: PLAN: Plan RECOMMENDATIONS: 1. Continue scheduled bronchodilators and steroids. 2. Continue to wean supplemental oxygen for saturations greater than 90%. 3. Consider ongoing diuresis as tolerated by hemodynamics and renal function. 4. Encourage incentive spirometer use and mobilize patient as tolerated. 5. Recommend close outpatient pulmonary follow-up within 2 weeks of discharge. IMPRESSIONS: 1. Acute hypoxemic respiratory failure Likely secondary to underlying COPD with exacerbation. The patient did have radiographic evidence of bronchiectasis and advanced emphysematous changes. For now, it is reasonable to continue scheduled bronchodilators and IV steroids. Continue to wean supplemental oxygen as tolerated for saturations greater than 90%. Lastly, gentle diuresis can be considered as tolerated by hemodynamics and renal function, given concern for possible underlying heart failure with preserved ejection fraction. 2. History of neuropathy/hypertension/GERD/chronic pain syndrome Complicates care, management, recovery and prognosis. Continue home medications as indicated. This note was generated with [employer] dictation software. It may contain incorrect words, spelling, and punctuation that were not noted in checking the note before signing. Subjective Subjective The patient was seen and examined at the bedside this morning. Events from the last 24 hours have been reviewed. The patient is currently afebrile, hemodynamically stable and maintaining appropriate oxygen saturations on 10 L/min. The patient is documented to be overall net -4.7 L for the hospitalization. Objective Data Objective Data The patient's most recent lab work, culture data and imaging studies have all been personally reviewed. Infectious work-up has been unrevealing to date. Surface echocardiogram demonstrated normal LV size and function with an ejection fraction of 70%. Vital Signs: Vital Signs Temp Pulse Resp BP Pulse Ox O2 Del Method O2 Flow Rate 97.2 F L 80 16 133/84 H 93 High Flow 10 08/16/22 09:00 08/16/22 11:22 08/16/22 11:02 08/16/22 11:22 08/16/22 12:17 08/16/22 12:17 08/16/22 12:17 FiO2 45 08/16/22 10:00 Oxygen Flow Rate (L/min) 10 Oxygen Delivery Method High Flow Weight: 194 lb 1.59 oz Body Mass Index (BMI) 28.6 Intake & Output: Intake and Output for Last 24 Hours 08/14/22 08/15/22 08/16/22 23:59 23:59 23:59 Intake Total 1300 / 1540 1200 / 1200 1400 / 1400 Output Total 2800 / 3460 2560 / 2560 2500 / 2500 Balance -1500 / -1920 -1360 / -1360 -1100 / -1100 Lab / Micro Data Attestation: I reviewed the patient's lab results. Result Diagrams: 08/16/22 06:10 08/17/22 06:58 Labs: Laboratory Results - last 24 hr 08/16/22 06:10: WBC 6.9, RBC 4.00 L, Hgb 13.1, Hct 39.3 L, MCV 98.3 H, MCH 32.8 H, MCHC 33.3, RDW Std Deviation 53.5 H, RDW Coeff of Chadd 14.7 H, Plt Count 203, MPV 10.3, Immature Gran % (Auto) 1.500 H, Neut % (Auto) 75.1 H, Lymph % (Auto) 11.8 L, [place] % (Auto) 11.5 H, Eos % (Auto) 0.0, Baso % (Auto) 0.1, Absolute Neuts (auto) 5.2, Absolute Lymphs (auto) 0.81 L, Nucleated RBC % 0 08/16/22 06:10: Sodium 137, Potassium 4.2, Chloride 104, Carbon Dioxide 26.0, Anion Gap 7, BUN 26 H, Creatinine 0.81, Estim Creat Clear Calc 78.80, Est GFR (MDRD) Af Amer 120, Est GFR (MDRD) Non-Af 99, BUN/Creatinine Ratio 32.3 H, Glucose 130 H, Calcium 8.9 Micro: Microbiology 08/15/22 08:34 Mucosa - Nasopharyngeal Respiratory Panel (PCR) - Final 08/12/22 22:50 Sputum, Expectorated/Coughed Gram Stain - Final 08/12/22 22:50 Sputum, Expectorated/Coughed Respiratory Culture - Final Presumptive C albicans 08/13/22 00:10 Urine, Clean Catch Legionella Antigen - Final 08/13/22 00:10 Urine, Clean Catch Streptococcus pneumoniae Antigen (M - Final Physical Exam Const alert and no apparent distress Constitutional Narrative: Currently working with physical therapy. General Appearance: cooperative HEENT normocephalic, head/scalp atraumatic and moist oral mucous membranes Eyes PERRL, EOMs intact bilaterally and conjunctivae normal Neck supple General: trachea midline Chest inspection of chest normal Resp Auscultation: wheezes and diminished lung sounds Cardio regular rate and regular rhythm GI normal to inspection, nondistended, normoactive bowel sounds Extremity no clubbing, cyanosis or edema Skin no rashes or lesions noted Neuro oriented x3, CN's II-XII intact bilaterally and moves all extremities Psych cooperative and affect normal Charges/Coding Visit Charges Inpatient E&M: 19924 Subs Hosp L2
--- NOTE | 2022-08-16 15:02 | PN.HOSP_ITS ---
Subjective Subjective Patient reports that overall he does feel like he is improving. He did state he got a little bit of a bloody nose on high flow yesterday. Breathing is overall better. Objective Data Objective Data Vital Signs: Vital Signs Temp Pulse Resp BP Pulse Ox O2 Del Method O2 Flow Rate 97.2 F L 80 16 133/84 H 94 High Flow 10 08/16/22 09:00 08/16/22 11:22 08/16/22 11:02 08/16/22 11:22 08/16/22 14:35 08/16/22 14:35 08/16/22 14:35 FiO2 45 08/16/22 10:00 Oxygen Flow Rate (L/min) 10 Oxygen Delivery Method High Flow Weight: 88.042 kg Body Mass Index (BMI) 28.6 Intake & Output: Intake and Output for Last 24 Hours 08/14/22 08/15/22 08/16/22 23:59 23:59 23:59 Intake Total 1300 / 1540 1200 / 1200 1400 / 1400 Output Total 2800 / 3460 2560 / 2560 2500 / 2500 Balance -1500 / -1920 -1360 / -1360 -1100 / -1100 Lab / Micro Data Result Diagrams: 08/16/22 06:10 08/16/22 06:10 Labs: Laboratory Results - last 24 hr 08/16/22 06:10: WBC 6.9, RBC 4.00 L, Hgb 13.1, Hct 39.3 L, MCV 98.3 H, MCH 32.8 H, MCHC 33.3, RDW Std Deviation 53.5 H, RDW Coeff of Chadd 14.7 H, Plt Count 203, MPV 10.3, Immature Gran % (Auto) 1.500 H, Neut % (Auto) 75.1 H, Lymph % (Auto) 11.8 L, [place] % (Auto) 11.5 H, Eos % (Auto) 0.0, Baso % (Auto) 0.1, Absolute Neuts (auto) 5.2, Absolute Lymphs (auto) 0.81 L, Nucleated RBC % 0 08/16/22 06:10: Sodium 137, Potassium 4.2, Chloride 104, Carbon Dioxide 26.0, Anion Gap 7, BUN 26 H, Creatinine 0.81, Estim Creat Clear Calc 78.80, Est GFR (MDRD) Af Amer 120, Est GFR (MDRD) Non-Af 99, BUN/Creatinine Ratio 32.3 H, Glucose 130 H, Calcium 8.9 Micro: Microbiology 08/15/22 08:34 Mucosa - Nasopharyngeal Respiratory Panel (PCR) - Final 08/12/22 22:50 Sputum, Expectorated/Coughed Gram Stain - Final 08/12/22 22:50 Sputum, Expectorated/Coughed Respiratory Culture - Final Presumptive C albicans 08/13/22 00:10 Urine, Clean Catch Legionella Antigen - Final 08/13/22 00:10 Urine, Clean Catch Streptococcus pneumoniae Antigen (M - Final Physical Exam Const alert, oriented x3, no apparent distress and average body habitus Constitutional Narrative: Older white male sitting up in bed, currently on Airvo, patient appears comfortable, nontoxic, watching television HEENT normocephalic, head/scalp atraumatic and moist oral mucous membranes HEENT Narrative: Mallampati 2, no thrush Neck supple and no JVD Resp normal respiratory effort, no retractions and no use of accessory muscles Resp Narrative: Diffusely diminished, diffuse scattered wheezes greater at the bases in the apices, air movement is improved Auscultation: wheezes; Negative for crackles, rales or rhonchi Cardio regular rate, regular rhythm, S1 normal heart sound, S2 normal heart sound, no murmurs, no rub, no gallops and no clicks GI normal to inspection, nondistended, normoactive bowel sounds, soft to palpation and non-tender Extremity no clubbing, cyanosis or edema Extremity Narrative: 2+ pedal pulses Neuro oriented x3, moves all extremities and no focal motor deficits Speech: speech normal Psych affect normal Psych Narrative: Pleasant, appropriately interactive Assessment & Plan Assessment/Plan (1) Acute and chronic respiratory failure with hypoxia: (2) Bronchiectasis: (3) COPD exacerbation: (4) Lactic acidosis: (5) Leukocytosis: (6) Hyperglycemia: (7) Euthyroid sick syndrome: PLAN: Plan Acute hypoxic respiratory failure secondary to acute exacerbation of [employer] D/bronchiectasis -Continue bronchodilators -Continue mucolytic's -Continue Solu-Medrol every 12 -Respiratory viral panel is negative -Strep pneumo and Legionella antigens are negative -CTA of the chest done on admission shows emphysematous changes worse in the upper lobes as well as atelectasis and/or infiltrates at the lung bases with chronic scarring and bronchiectasis -COVID and flu negative at outside facility -Sputum culture thus far is only showing Yolanda albicans -Echocardiogram showed an EF of 70% with estimated pulmonary artery pressure normal and no valvular abnormalities -Currently on Airvo at 60 L/min and 45% FiO2 -Will trial high flow nasal cannula -We will discontinue antibiotics -We will go ahead and dose another 20 mg IV push today and reassess tomorrow as it seemed that the 20 mg dose did help some yesterday Abnormal TSH -TSH 0.26 -Free T4 assessed and noted to be 1.24 -Suspect euthyroid sick with acute illness Hyperglycemia -Mild -Blood sugars running in the 120-130 range predominantly -Likely related to steroid use -No reason to address further at this time Hyperlipidemia -Continue home atorvastatin Neuropathy -Continue home gabapentin Hypertension -Continue home Imdur -Continue home lisinopril -Continue home metoprolol GERD -Continue home Protonix Chronic pain -Continue home Ultram DVT prophylaxis -Continue enoxaparin 40 mg daily CODE STATUS -DNR CCA with no intubation per discussion on 08/14/2021 Charges/Coding Visit Charges Inpatient E&M: 37080 Subs Hosp L2 Reason for Visit Reason for Visit: Diagnoses Chronic obstructive pulmonary disease with (acute) exacerbation (08/12/22) Bronchiectasis, uncomplicated (08/12/22) Acute and chronic respiratory failure with hypoxia (08/12/22)
[2022-08-16] MEDS: Furosemide 20 MG/2 ML VIAL IV (17:40)
[2022-08-16] MEDS: Gabapentin 300 MG Capsule 900 MG PO (20:37)
[2022-08-16] MEDS: Atorvastatin Calcium 40 MG Tablet PO (20:40)
[2022-08-17] VITALS (19 sets, daily range): BP systolic 106–114; BP diastolic 60–80; PULSE 71–83; RESP 16–21; TEMP 36.7–36.9; O2SAT 90–96
[2022-08-17] MEDS: Ipratropium/Albuterol Sulfate 3 ML AMPUL.NEB INHALATION ×6 (03:40→23:10)
[2022-08-17 07:54] LABS: Anion Gap 8 (5-15); BUN 27 mg/dL (7-18); BUN/Creat Ratio 30.8 RATIO (10-20); Calcium,Total 9.1 mg/dL (8.5-10.1); Chloride 103 mmol/L (98-107); Creatinine, Serum 0.88 mg/dL (0.70-1.30); EST Glomerular Filtration Rate 90 mL/min (>60); Est Glom Filt Rate - Afr Amer 109 mL/min (>60); Estimated Creatinine Clearance 72.53 ml/min; Glucose 127 mg/dL (74-106); Sodium Level 137 mmol/L (136-145)
[2022-08-17] MEDS: Enoxaparin 40 MG/0.4 ML Syringe SC (09:14)
[2022-08-17] MEDS: Pantoprazole Sodium 40 MG Tablet PO (09:14)
[2022-08-17] MEDS: Metoprolol(XL)Succ 100 MG Tablet PO (09:14)
[2022-08-17] MEDS: guaiFENesin 1,200 MG Tablet 1200 MG PO ×2 (09:14→22:21)
[2022-08-17] MEDS: Furosemide 20 MG/2 ML VIAL IV (09:15)
[2022-08-17] MEDS: 0.9% Saline Lock 10 ML Syringe IV ×2 (09:15→22:26)
--- NOTE | 2022-08-17 16:44 | PCM.PN.HOSP ---
Reason for Visit Reason for Visit: Diagnoses Elevated white blood cell count, unspecified (08/12/22) Sick-euthyroid syndrome (08/12/22) Acidosis, unspecified (08/12/22) Pneumonia, unspecified organism (08/12/22) Chronic obstructive pulmonary disease with (acute) exacerbation (08/12/22) Bronchiectasis, uncomplicated (08/12/22) Acute and chronic respiratory failure with hypoxia (08/12/22) Hyperglycemia, unspecified (08/12/22) Subjective Subjective Patient is much improved clinically. He states his shortness of breath is improving and his sputum production is decreased. He has been weaned to 7 L heated high flow nasal cannula from 10 L yesterday. Objective Data Objective Data Vital Signs: Vital Signs Temp Pulse Resp BP Pulse Ox O2 Del Method O2 Flow Rate 98.4 F 83 20 H 109/74 96 Nasal Cannula 6 08/17/22 14:52 08/17/22 14:52 08/17/22 14:52 08/17/22 14:52 08/17/22 15:35 08/17/22 16:40 08/17/22 16:40 FiO2 45 08/16/22 10:00 Oxygen Flow Rate (L/min) 6 Oxygen Delivery Method Nasal Cannula Weight: 88.042 kg Body Mass Index (BMI) 28.6 Intake & Output: Intake and Output for Last 24 Hours 08/15/22 08/16/22 08/17/22 23:59 23:59 23:59 Intake Total 1200 / 1200 1400 / 1400 500 / 500 Output Total 2560 / 2560 2500 / 2500 Balance -1360 / -1360 -1100 / -1100 500 / 500 Lab / Micro Data Result Diagrams: 08/16/22 06:10 08/17/22 06:58 Labs: Laboratory Results - last 24 hr 08/17/22 06:58: Sodium 137, Potassium 4.0, Chloride 103, Carbon Dioxide 26.0, Anion Gap 8, BUN 27 H, Creatinine 0.88, Estim Creat Clear Calc 72.53, Est GFR (MDRD) Af Amer 109, Est GFR (MDRD) Non-Af 90, BUN/Creatinine Ratio 30.8 H, Glucose 127 H, Calcium 9.1 Micro: Microbiology 08/15/22 08:34 Mucosa - Nasopharyngeal Respiratory Panel (PCR) - Final 08/12/22 22:50 Sputum, Expectorated/Coughed Gram Stain - Final 08/12/22 22:50 Sputum, Expectorated/Coughed Respiratory Culture - Final Presumptive C albicans 08/13/22 00:10 Urine, Clean Catch Legionella Antigen - Final 08/13/22 00:10 Urine, Clean Catch Streptococcus pneumoniae Antigen (M - Final Physical Exam Const alert, oriented x3, no apparent distress and average body habitus Constitutional Narrative: Older white male sitting up in bed, has been weaned to heated high flow nasal cannula patient appears comfortable, nontoxic, watching television HEENT normocephalic, head/scalp atraumatic and moist oral mucous membranes HEENT Narrative: Edentulous, no thrush Resp normal respiratory effort, no retractions, no use of accessory muscles and clear to auscultation bilaterally Resp Narrative: Diffusely diminished, wheezing has resolved Auscultation: Negative for crackles, rales, rhonchi or wheezes Cardio regular rate, regular rhythm, S1 normal heart sound, S2 normal heart sound, no murmurs, no rub, no gallops and no clicks GI normal to inspection, nondistended, normoactive bowel sounds, soft to palpation, non-tender and non-distended Extremity no clubbing, cyanosis or edema Extremity Narrative: 2+ pedal pulses Neuro oriented x3, moves all extremities and no focal motor deficits Speech: speech normal Psych affect normal Psych Narrative: Pleasant, appropriately interactive Assessment & Plan Assessment/Plan (1) Acute and chronic respiratory failure with hypoxia: (2) Bronchiectasis: (3) COPD exacerbation: (4) Lactic acidosis: (5) Leukocytosis: (6) Hyperglycemia: (7) Euthyroid sick syndrome: PLAN: Plan Acute hypoxic respiratory failure secondary to acute exacerbation of COPD/bronchiectasis -Continue bronchodilators -Continue mucolytic's -Continue Solu-Medrol every 12 -At the time of discharge we will plan on slow taper of Solu-Medrol -Respiratory viral panel is negative -Strep pneumo and Legionella antigens are negative -CTA of the chest done on admission shows emphysematous changes worse in the upper lobes as well as atelectasis and/or infiltrates at the lung bases with chronic scarring and bronchiectasis -COVID and flu negative at outside facility -Sputum culture thus far is only showing Yolanda albicans -Echocardiogram showed an EF of 70% with estimated pulmonary artery pressure normal and no valvular abnormalities -Currently on heated high flow nasal cannula at 6 L -I did discuss with the patient he would need to be on regular nasal cannula with exertion at 6 L last prior to discharge -Continue daily Lasix and monitor BMPs daily Abnormal TSH -TSH 0.26 -Free T4 assessed and noted to be 1.24 -Suspect euthyroid sick with acute illness Hyperglycemia -Mild -Blood sugars running in the 120-130 range predominantly -Likely related to steroid use -No reason to address further at this time Hyperlipidemia -Continue home atorvastatin Neuropathy -Continue home gabapentin Hypertension -Continue home Imdur -Continue home lisinopril -Continue home metoprolol GERD -Continue home Protonix Chronic pain -Continue home Ultram DVT prophylaxis -Continue enoxaparin 40 mg daily CODE STATUS -DNR CCA with no intubation per discussion on 08/14/2021 Charges/Coding Visit Charges Inpatient E&M: 91974 Subs Hosp L2
[2022-08-17] MEDS: Acetaminophen 325 MG Tablet 650 MG PO (19:32)
[2022-08-17] MEDS: Gabapentin 300 MG Capsule 900 MG PO (22:20)
[2022-08-17] MEDS: Atorvastatin Calcium 40 MG Tablet PO (22:21)
[2022-08-17] MEDS: traZODone 50 MG Tablet PO (22:26)
[2022-08-17] MEDS: traMADol 50 MG Tablet PO (22:26)
[2022-08-18] VITALS (11 sets, daily range): BP systolic 108–117; BP diastolic 66–72; PULSE 60–79; RESP 15–20; TEMP 36.4–36.8; O2SAT 86–96
--- NOTE | 2022-08-18 01:15 | NURSING ---
This rn assuming care of pt at this time.
[2022-08-18] MEDS: Ipratropium/Albuterol Sulfate 3 ML AMPUL.NEB INHALATION ×3 (03:53→11:18)
[2022-08-18 05:55] LABS: Absolute Lymphocyte Count 0.83 X10^3/uL (0.83-4.51); Absolute Neutrophil Count 7.4 X10^3/uL (2.0-7.7); Basophil# 0.03 X10^3/uL; Basophil% 0.3 % (0-1); Hematocrit 42.9 % (40-54); Hemoglobin 14.6 g/dL (13.0-16.5); Lymphocyte # 0.83 X10^3/ul (0.83-4.51); Mean Corpuscular Hgb 33.1 pg (27.0-32.0); Mean Corpuscular Volume 97.3 fL (80-94); Mean Platelet Vol. 10.2 fl (6.2-12.0); Monocyte# 0.74 X10^3/uL; Monocyte% 8.1 % (0-10); NRBC Flagged by Analyzer 0 % (0-5); Neutrophil # 7.38 X10^3/uL (2.7-7.7); Neutrophil % 80.3 % (47-70); Platelet Count 228 K/mm3 (150-450); RBC Distribution Width CV 14.6 % (11.6-14.6); RBC Distribution Width SD 52.7 fl (35.1-43.9); Red Blood Count 4.41 M/mm3 (4.6-6.2); White Blood Count 9.2 K/mm3 (4.4-11.0)
[2022-08-18 06:35] LABS: Anion Gap 7 (5-15); BUN 30 mg/dL (7-18); BUN/Creat Ratio 32.2 RATIO (10-20); Chloride 104 mmol/L (98-107); Creatinine, Serum 0.93 mg/dL (0.70-1.30); EST Glomerular Filtration Rate 84 mL/min (>60); Est Glom Filt Rate - Afr Amer 101 mL/min (>60); Estimated Creatinine Clearance 68.63 ml/min; Glucose 137 mg/dL (74-106); Potassium 3.9 mmol/L (3.5-5.1); Sodium Level 135 mmol/L (136-145)
[2022-08-18] MEDS: Metoprolol(XL)Succ 100 MG Tablet PO (09:48)
[2022-08-18] MEDS: guaiFENesin 1,200 MG Tablet 1200 MG PO (09:48)
[2022-08-18] MEDS: Isosorbide Mononitrate 30 MG Tablet PO (09:48)
[2022-08-18] MEDS: Pantoprazole Sodium 40 MG Tablet PO (09:48)
[2022-08-18] MEDS: Enoxaparin 40 MG/0.4 ML Syringe SC (09:48)
[2022-08-18] MEDS: Lisinopril 5 MG Tablet PO (09:48)
--- NOTE | 2022-08-18 12:16 | CASEMGMT ---
Addendum entered and electronically signed by Cyndi Clark RN 08/18/22 12:21: Instructed pt that a pulse oximeter can be purchased at [facility]. Pt expressed understanding. Cecilio Clark RN CM Original Note: CAROL RAMOS face to face with patient. Discussed discharge needs. Pt states he is interested in obtaining a suction/yankauer machine for home use, would like to purchase a pulse oximeter, and continue with the home services through the [facility]. States he would like prescriptions covered by the [facility] and does not have other coverage through his medicare. States [facility] in [place] [facility] so changed pt's preferred pharmacy to [facility] in [place]. Quote from [employer] obtained for Y[employer]auer suction machine and provided to pt. Message left for Mary Jo at the [facility] to notify of pt's discharge for resumption of the home service evaluation process. States his is able to bring him a portable O2 tank to go home on. Pt denies any additional needs at this time. Cecilio Clark RN CM
--- NOTE | 2022-08-18 13:01 | DS.PCM_ITS ---
Providers Date of Admission: 08/12/22 Date of Discharge: 08/18/22 Consultations 08/13/22 06:45 Consult: Mechanical Maintenance Technician / Pulmonary Medicine Routine Consulting Provider: Pulmonary Medicine leticia Suero Reason for Consult: Resp failure EMERGENT Consult: No MD Notified: Yes Date Notified: 08/13/22 Time Notified: 06:45 Method of Notification: Text Reason For Visit: PNEUMONIA Diagnosis Discharge Diagnosis (1) Acute and chronic respiratory failure with hypoxia: Status: Chronic Code(s): J96.21 - Acute and chronic respiratory failure with hypoxia (2) Bronchiectasis: Status: Acute Code(s): J47.9 - Bronchiectasis, uncomplicated (3) COPD exacerbation: Status: Chronic Code(s): J44.1 - Chronic obstructive pulmonary disease with (acute) exacerbation (4) Lactic acidosis: Status: Acute Code(s): E87.20 - Acidosis, unspecified (5) Leukocytosis: Status: Acute Code(s): D72.829 - Elevated white blood cell count, unspecified (6) Hyperglycemia: Status: Acute Code(s): R73.9 - Hyperglycemia, unspecified (7) Euthyroid sick syndrome: Status: Acute Code(s): E07.81 - Sick-euthyroid syndrome Medications at Discharge Home Medications atorvastatin 40 mg tablet 40 mg PO QHS Check with primary doctor 08/13/22 cholecalciferol (vitamin D3) 50 mcg (2,000 unit) tablet 50 mcg PO DAILY Check with primary doctor 08/13/22 cyclobenzaprine 10 mg tablet 10 mg PO QHS PRN PRN muscle spasms 08/13/22 fluticasone 250 mcg-salmeterol 50 mcg/dose blistr powdr for inhalation 1 inh inhalation BID Check with primary doctor 08/13/22 gabapentin 900 mg PO/SL QHS Check with primary doctor 08/13/22 gabapentin 600 mg tablet 600 mg PO DAILY Check with primary doctor 08/13/22 ipratropium 0.5 mg-albuterol 3 mg (2.5 mg base)/3 mL nebulization soln 3 ml inhalation Q6H PRN Shortness Of Breath 08/13/22 isosorbide mononitrate 30 mg tablet,extended release 24 hr 30 mg PO DAILY Check with primary doctor 08/13/22 lisinopril 5 mg tablet 5 mg PO DAILY Check with primary doctor 08/13/22 metoprolol succinate 100 mg tablet,extended release 24 hr 100 mg PO DAILY Check with primary doctor 08/13/22 pantoprazole 40 mg tablet,delayed release 40 mg PO DAILY Check with primary doctor 08/13/22 tiotropium bromide 2.5 mcg/actuation mist for inhalation (Spiriva Respimat) 2 puff inhalation BID Check with primary doctor 08/13/22 tramadol 50 mg tablet 50 mg PO Q6H PRN Breakthrough Pain 08/13/22 trazodone 50 mg tablet 50 mg PO QHS PRN leg cramps 08/13/22 guaifenesin 1,200 mg tablet, extended release 12 hr (Mucus Relief ER) 1,200 mg PO BID #0 tabs 08/18/22 prednisone 10 mg tablet 10 mg PO DAILY #40 tabs 08/18/22 Hospital Course Operations None Procedures 2-D Echocardiogram and - (CTA of the chest) Summary of Care Provided Minutes Spent on Discharge: 37 Hospital Course: Mr. Clement is a 76-year-old white male who presented to the emergency dep artment at an outside hospital on 08/12/2022 with worsening shortness of breath that was persistently worsening over 2 days prior to presentation. At baseline the patient reported he was on 2 L of supplemental oxygen however when reviewed with his DME supplier he is actually supposed to be on 3 L. The day prior to presentation he became more short of breath and developed a cough with production of yellow sputum. His shortness of breath was worse so he presented to an outside emergency department. He was found to have a right-sided pneumonia as well as a lactic acid of 6 on presentation. He was assessed for COVID and influenza, both of which were negative. He received ceftriaxone and azithromycin and transferred to [facility]. He was initially maintained on azithromycin and ceftriaxone. His oxygen requirements steadily increased to the point where he did require Airvo but we were slowly able to wean him back to his baseline 3 L x 2 02/27/2023. We did assess a strep pneumo and Legionella antigen both of which were negative, respiratory viral panel which was negative, and a sputum culture which only showed Yolanda albicans. Antibiotic therapy was discontinued. Because of his increase in FiO2 requirements, pulmonary medicine was consulted and recommended obtaining an echocardiogram. His EF was 70% and he had no valvular abnormalities. He was maintained on steroids, aggressive pulmonary toilet, incentive spirometry and Pep therapy, and supplemental oxygen. As noted he slowly improved with time and we were able to test him with an ambulatory pulse ox on 08/18/2022 which demonstrated him requiring 3 L at rest and with exertion. This is his baseline oxygen requirement. He was discharged home with a slow steroid taper and the prescription was faxed to his pharmacy. We also recommended to continue Mucinex at discharge as well. We did ask him to follow-up with pulmonary medicine within the next month and he is to call tomorrow to make an appointment. He is also to follow-up with his PCP at the [facility] within the next 2 to 4 weeks. Discharge diagnoses: Acute on chronic hypoxic respiratory failure-resolved Acute exacerbation of COPD Bronchiectasis Euthyroid sick Hyperglycemia Hyperlipidemia Neuropathy Hypertension GERD Chronic pain Physical Exam Narrative Patient report she is feeling well and anxious to go home Const alert, oriented x3, no apparent distress and average body habitus Constitutional Narrative: Older white male sitting up in bed, on nasal cannula at 3 L, patient appears comfortable, nontoxic, watching television General Appearance: cooperative, comfortable, well kempt and well developed Orientation / Consciousness: awake, oriented to person, oriented to place and oriented to time Exam Limitations: no limitations Nutritional Appearance: overweight HEENT normocephalic, head/scalp atraumatic and moist oral mucous membranes HEENT Narrative: A dentulous, Mallampati 2, no thrush, mild hearing loss Eyes PERRL, EOMs intact bilaterally and conjunctivae normal Eyes Narrative: No scleral icterus Neck no lymphadenopathy, supple, no JVD, thyroid normal and no carotid bruits General: trachea midline Resp normal respiratory effort, no retractions, no use of accessory muscles and clear to auscultation bilaterally Resp Narrative: Diffusely diminished but air movement has improved dramatically since admission, all adventitious sounds are resolved Auscultation: Negative for crackles, rales, rhonchi or wheezes Cardio regular rate, regular rhythm, S1 normal heart sound, S2 normal heart sound, no murmurs, no rub, no gallops and no clicks GI normal to inspection, nondistended, normoactive bowel sounds, soft to palpation, non-tender and non-distended Extremity normal to inspection and no clubbing, cyanosis or edema Extremity Narrative: 2+ pedal pulses Skin no rashes or lesions noted, no wounds, skin turgor normal and no jaundice Neuro oriented x3, CN's II-XII intact bilaterally, moves all extremities, no focal motor deficits and no sensory deficits noted Sensorium / Orientation: awake, alert, oriented to person, oriented to place and oriented to time Speech: speech normal Psych affect normal Psych Narrative: Pleasant, appropriately interactive Weight / BMI Weight Weight: 88.042 kg Body Mass Index (BMI) 28.6 ABG / Lab / Microbiology Data Result Diagrams: 08/18/22 05:29 08/18/22 05:29 Laboratory: Laboratory Results - last 24 hr 08/18/22 05:29: WBC 9.2, RBC 4.41 L, Hgb 14.6, Hct 42.9, MCV 97.3 H, MCH 33.1 H, MCHC 34.0, RDW Std Deviation 52.7 H, RDW Coeff of Chadd 14.6, Plt Count 228, MPV 10.2, Immature Gran % (Auto) 2.300 H, Neut % (Auto) 80.3 H, Lymph % (Auto) 9.0 L , [place] % (Auto) 8.1, Eos % (Auto) 0.0, Baso % (Auto) 0.3, Absolute Neuts (auto) 7.4, Absolute Lymphs (auto) 0.83, Nucleated RBC % 0 08/18/22 05:29: Sodium 135 L, Potassium 3.9, Chloride 104, Carbon Dioxide 24.0, Anion Gap 7, BUN 30 H, Creatinine 0.93, Estim Creat Clear Calc 68.63, Est GFR (MDRD) Af Amer 101, Est GFR (MDRD) Non-Af 84, BUN/Creatinine Ratio 32.2 H, Glucose 137 H, Calcium 9.0 Microbiology: Microbiology 08/15/22 08:34 Mucosa - Nasopharyngeal Respiratory Panel (PCR) - Final 08/12/22 22:50 Sputum, Expectorated/Coughed Gram Stain - Final 08/12/22 22:50 Sputum, Expectorated/Coughed Respiratory Culture - Final Presumptive C albicans 08/13/22 00:10 Urine, Clean Catch Legionella Antigen - Final 08/13/22 00:10 Urine, Clean Catch Streptococcus pneumoniae Antigen (M - Final D/C Instructions Discharge Diet: Low fat / Low cholesterol Discharge Activity: Return to Normal Activity Meaningful Use Info Meaningful Use Diagnoses (Choose all that apply): None applicable Discharge Plan Admission Admit Date/Time: 08/12/22 18:22 Primary Reason for Your Visit: Shortness of breath Attending Provider: Rupali Grubbs Consulting Providers: Flip Snyder ; Jake Palomino ; Romie Pino ; Regulo Hernandez ; Kimberlee Timmons NP ; Felix Ribeiro ; Juan Lowe Instructions Additional Instructions / Restrictions: 1. Please wear 3 L of oxygen at all times Discharge Orders/Prescriptions Prescriptions: New Mucus Relief ER 1,200 mg Tablet Extended Release 12hr 1,200 mg PO BID Qty: 0 0RF prednisone 10 mg tablet 10 mg PO DAILY Qty: 40 0RF Rx Instructions: 4 tablets x 4 days, 3 tablets x 4 days, 2 tablets x 4 days, 1 tablet x 4 days Continued cyclobenzaprine 10 mg Tablet 10 mg PO QHS PRN PRN (Reason: muscle spasms) gabapentin 600 mg Tablet 600 mg PO DAILY trazodone 50 mg Tablet 50 mg PO QHS PRN (Reason: leg cramps) gabapentin 900 mg PO/SL QHS atorvastatin 40 mg Tablet 40 mg PO QHS fluticasone propion-salmeterol 250-50 mcg/dose Blister With Device 1 inh INHALATION BID ipratropium-albuterol 0.5 mg-3 mg(2.5 mg base)/3 mL Solution For Nebulization 3 ml INHALATION Q6H PRN (Reason: Shortness Of Breath) isosorbide mononitrate 30 mg Tablet Extended Release 24 Hr 30 mg PO DAILY metoprolol succinate 100 mg Tablet Extended Release 24 Hr 100 mg PO DAILY tramadol 50 mg Tablet 50 mg PO Q6H PRN (Reason: Breakthrough Pain) pantoprazole 40 mg Tablet,Delayed Release (Dr/Ec) 40 mg PO DAILY lisinopril 5 mg Tablet 5 mg PO DAILY cholecalciferol (vitamin D3) 50 mcg (2,000 unit) Tablet 50 mcg PO DAILY Spiriva Respimat 2.5 mcg/actuation Mist 2 puff INHALATION BID Referrals / Follow Up: Jake Palomino DO [Med Staff - Active Staff] - Within 1 Month (Call tomorrow to jennifer jackson an appointment to be seen within the next month) Disposition Disposition (needs filled in before D/C Order can be placed): Home, Self Care Charges/Coding Visit Charges Inpatient E&M: 41164 Disch Hosp >30min
--- NOTE | 2022-08-18 13:27 | CASEMGMT ---
CAROL CM: Return call received from Mary Jo at Dr. Barajas's office with the [facility]. Mary Jo requested copy of DC summary and therapy notes for Dr. Barajas to evaluate any home service needs. This was faxed as requested. Cecilio Clark RN CM
== END 2022-08-18 14:35 | disposition home or self-care (01) | DRG 190 ==
PROVIDERS: Internal Medicine; Visit Provider Internal Medicine
DX: J44.1 Chronic obstructive pulmonary disease with (acute) exacerbation (principal); J96.21 Acute and chronic respiratory failure with hypoxia; E87.20 Acidosis, unspecified; G62.9 Polyneuropathy, unspecified; B37.9 Candidiasis, unspecified; E07.81 Sick-euthyroid syndrome; I25.10 Atherosclerotic heart disease of native coronary artery without angina pectoris; I10 Essential (primary) hypertension; K21.9 Gastro-esophageal reflux disease without esophagitis; E78.5 Hyperlipidemia, unspecified; Z87.891 Personal history of nicotine dependence; Z66 Do not resuscitate; R73.9 Hyperglycemia, unspecified; Z79.01 Long term (current) use of anticoagulants; G89.29 Other chronic pain
CPT/HCPCS: 31720; 36415; 36600; 71045; 71275; 80048; 80053; 82803; 83735; 84100; 84439; 84443; 85025; 87070; 87205; 87449; 87633; 93306; 94640; 94660; 94667; 94668; 94762; 97110; 97162; 97165; 97530; 97535; 99252; J7030; Q9967; A4216; C8929; G0463; J0696; J1940

== ENCOUNTER 2024-05-03 10:49 | Emergency (ER) | payer OTHER, SELFPAY ==
[2024-05-03] VITALS (8 sets, daily range): BP systolic 121–143; BP diastolic 71–87; PULSE 88–105; RESP 16–22; TEMP 36.3–37.4; O2SAT 93–98; BMI 23.8
--- NOTE | 2024-05-03 12:14 | EDS_ITS ---
HPI History of Present Illness Chief Complaint: Shortness of Breath Informant: patient Narrative Narrative: 78-year-old male presenting to the emergency room chief complaint of dyspnea. Patient states that over the past 3 days he has had cough shortness of breath hot and cold flashes and rhinorrhea. He notes that he has a history of COPD has been using his aerosols. He called his microelectronics technician at the [facility] in [place] who referred him to emergency. He does not wear home oxygen. No diarrhea nor sore throat. He does note that his cough is occasionally productive of sputum. [facility] Medical History Bronchiectasis PUD (peptic ulcer disease) TIA (transient ischemic attack) Perforated ulcer COPD (chronic obstructive pulmonary disease) Heart attack Home Medications ?Medication ?Instructions ?Recorded ?Last Taken ?Type atorvastatin 40 mg tablet 40 mg PO QHS cholesterol 08/13/22 Unknown History cholecalciferol (vitamin D3) 50 50 mcg PO DAILY vitamin 08/13/22 Unknown History mcg (2,000 unit) tablet cyclobenzaprine 10 mg tablet 10 mg PO QHS PRN PRN muscle spasms 08/13/22 Unknown History fluticasone 250 mcg-salmeterol 50 1 inh inhalation BID breathing 08/13/22 Unknown History mcg/dose blistr powdr for inhalation gabapentin 900 mg PO/SL QHS nerve pain 08/13/22 Unknown History gabapentin 600 mg tablet 600 mg PO DAILY nerve pain 08/13/22 Unknown History ipratropium 0.5 mg-albuterol 3 mg 3 ml inhalation Q6H PRN Shortness 08/13/22 Unknown History (2.5 mg base)/3 mL nebulization Of Breath soln isosorbide mononitrate 30 mg 30 mg PO DAILY heart 08/13/22 Unknown History tablet,extended release 24 hr lisinopril 5 mg tablet 5 mg PO DAILY blood pressure 08/13/22 Unknown History metoprolol succinate 100 mg 100 mg PO DAILY blood pressure 08/13/22 Unknown History tablet,extended release 24 hr pantoprazole 40 mg tablet,delayed 40 mg PO DAILY reflux 08/13/22 Unknown History release tiotropium bromide 2.5 2 puff inhalation BID breathing 08/13/22 Unknown History mcg/actuation mist for inhalation (Spiriva Respimat) tramadol 50 mg tablet 50 mg PO Q6H PRN Breakthrough Pain 08/13/22 Unknown History trazodone 50 mg tablet 50 mg PO QHS PRN leg cramps 08/13/22 Unknown History guaifenesin 1,200 mg tablet, 1,200 mg PO BID #0 tabs 08/18/22 Unknown Rx extended release 12 hr (Mucus Relief ER) prednisone 10 mg tablet 10 mg PO DAILY #40 tabs 08/18/22 Unknown Rx nirmatrelvir 300 mg (150 mg See Rx Instructions PO .COMPLEX 05/03/24 Unknown Rx x2)-ritonavir 100 mg tablet,dose #30 tabs pack (Paxlovid) prednisone 20 mg tablet 60 mg (3 x 20 mg) PO DAILY #15 05/03/24 Unknown Rx TABLETS Allergy/AdvReac Type Severity Reaction Status Date / Time oxycodone AdvReac Upset Verified 05/03/24 10:49 Stomach Family History Grandmother Lung cancer Father COPD (chronic obstructive pulmonary disease) Grandfather Bone cancer Brother Bone cancer Surgical History H/O hernia repair Total knee replacement status Social History Smoking Status: Former smoker Tobacco: How many years used: 65 how long ago did patient quit smokin months ago substance use type: does not use ROS ROS ED Constitutional Constitutional ED: Reports chills and sweats; Denies weight loss Eyes Eyes: Denies change in vision or diplopia ENT ENT ED: Reports rhinorrhea; Denies ear pain or sore throat Cardiovascular Cardiovascular: Denies chest pain, orthopnea, palpitations or racing heartbeat Respiratory/Chest Respiratory/Chest: Reports cough, dyspnea, dyspnea on exertion and sputum; Denies orthopnea Gastrointestinal Gastrointestinal: Denies abdominal pain, diarrhea, nausea or vomiting Genitourinary Genitourinary ED: Denies dysuria, hematuria or urinary frequency Musculoskeletal Musculoskeletal: Denies arthralgias or myalgias Integumentary Denies abscess or rash Neurologic Neurologic: Denies headache(s) or weakness Psychiatric Psychiatric: Denies anxiety, depression, suicidal ideation or suicidal thoughts Endocrine Endocrinology: Denies polydipsia, polyphagia or polyuria Allergic/Immunologic Allergic/Immunologic ED: Denies mouth swelling, tongue swelling or urticaria EXAM Physical Exam Const Vital Signs: 05/03/24 10:50 05/03/24 10:51 05/03/24 11:25 Temperature 99.3 F H 97.3 F L Temperature Source Temporal Oral Pulse Rate 105 H 95 Respiratory Rate 20 H 22 H Respiratory Effort Normal Respiratory Depth Normal Respiratory Pattern Normal Blood Pressure 138/84 H 131/73 H Blood Pressure Mean 102 92 Pulse Ox 98 97 Oxygen Delivery Method Room Air Room Air Room Air 05/03/24 11:51 05/03/24 12:00 05/03/24 12:47 Temperature 97.4 F L 98.2 F Temperature Source Oral Oral Pulse Rate 90 88 91 Respiratory Rate 20 H 20 H 16 Respiratory Effort Respiratory Depth Respiratory Pattern Normal Blood Pressure 138/80 H 121/75 H Blood Pressure Mean 99 90 Pulse Ox 98 98 Oxygen Delivery Method Room Air Room Air 05/03/24 13:00 05/03/24 14:19 Temperature 98.2 F 97.9 F Temperature Source Oral Pulse Rate 101 H 89 Respiratory Rate 16 16 Respiratory Effort Respiratory Depth Respiratory Pattern Blood Pressure 133/71 H 143/87 H Blood Pressure Mean 91 105 Pulse Ox 93 93 Oxygen Delivery Method Room Air Positive well nourished and well developed General Appearance ED: well developed and NAD HEENT Reports normocephalic, head/scalp atraumatic and moist mucous membranes Eyes PERRL and EOMs intact bilaterally Neck no lymphadenopathy, supple and no JVD Resp Resp Narrative: Mild conversational dyspnea Auscultation: wheezes expiratory wheezes and inspiratory wheezes and diminished lung sounds Cardio regular rate, regular rhythm and no murmurs GI normal to inspection, nondistended, normoactive bowel sounds and non-tender Palpation: soft Back/Spine no CVA tenderness and normal ROM Extremity normal to inspection General Extremety ED: Negative for edema General Extremity: Negative for edema Neuro oriented x3 and CN's II-XII intact bilaterally Sensorium / Orientation: alert Motor Exam: strength 5/5 throughout Psych mental status grossly normal Mood & Affect: Negative for depressed or tearful Skin no rashes or lesions noted and no wounds MDM MDM MDM Narrative Medical decision making narrative: Differential diagnosis includes but not limited to viral syndrome pneumonia pneumothorax COPD exacerbation acute bronchitis bronchospasm pleural effusion Patient is COVID-positive troponin is 8 my independent interpretation the chest x-ray is no acute process. White count returns normal at 6 hemoglobin 12.5 patient received breathing treatments and Solu-Medrol. Repeat examination he is 98% on room air at rest. He is lung auscultation shows significant improvement. I no longer hear any wheezing. Spoke with him regarding admission versus outpatient treatment. I will start him on Paxlovid which we discussed as well as prednisone. He has albuterol nebulizers at home would recommend using those every 3-4 hours. He is advised that if he is worsening or has concerns he needs to come back to emergency he notes understanding. History & Record Review Discussion w/independent historian: Patient and Family Lab Data Attestation: I reviewed the patient's lab results. Labs: Laboratory Results - last 24 hr 05/03/24 12:05 WBC 6.0 RBC 4.12 L Hgb 12.5 L Hct 37.4 L MCV 90.8 MCH 30.3 MCHC 33.4 RDW Std Deviation 48.5 H RDW Coeff of Chadd 14.6 Plt Count 227 MPV 10.1 Immature Gran % (Auto) 0.300 Neut % (Auto) 66.9 Lymph % (Auto) 18.9 L [place] % (Auto) 13.6 H Eos % (Auto) 0.0 Baso % (Auto) 0.3 Absolute Neuts (auto) 4.0 Absolute Lymphs (auto) 1.13 Nucleated RBC % 0 Sodium 136 Potassium 3.2 L Chloride 104 Carbon Dioxide 23.0 Anion Gap 9 BUN 11 Creatinine 0.73 Estim Creat Clear Calc 74.81 Est GFR (MDRD) Af Amer 134 Est GFR (MDRD) Non-Af 110 BUN/Creatinine Ratio 15.0 Glucose 89 Calcium 9.4 Troponin I High Sens 8 Radiography Diagnostic Testing: Clinical Impression(s) from Imaging Studies Chest X-Ray 05/03/24 12:40 IMPRESSION: COPD/emphysema Electronically Signed: Ye Gonzalez MD at 13:10 EDT , EKG Initial EKG: Attestation: I personally reviewed and interpreted this EKG as follows: Comments: Normal sinus rhythm ventricular rate of 94 bpm Discharge Plan Triage Chief Complaint: Shortness of Breath ED Provider: Freddie Ramos Dx/Rx/DC Orders Clinical Impression: COVID-19, COPD exacerbation Instructions: ED COPD Flare Prescriptions: New prednisone 20 mg tablet 60 mg PO DAILY Qty: 15 0RF Paxlovid 300 mg (150 mg x 2)-100 mg tablets,dose pack See Rx Instructions .ROUTE .COMPLEX Qty: 30 0RF Rx Instructions: take TWO 150 mg tablets of nirmatrelvir with ONE 100 mg tablet of ritonavir twice daily for 5 days No Action cyclobenzaprine 10 mg Tablet 10 mg PO QHS PRN PRN (Reason: muscle spasms) gabapentin 600 mg Tablet 600 mg PO DAILY trazodone 50 mg Tablet 50 mg PO QHS PRN (Reason: leg cramps) gabapentin 900 mg PO/SL QHS atorvastatin 40 mg Tablet 40 mg PO QHS fluticasone propion-salmeterol 250-50 mcg/dose Blister With Device 1 inh INHALATION BID ipratropium-albuterol 0.5 mg-3 mg(2.5 mg base)/3 mL Solution For Nebulization 3 ml INHALATION Q6H PRN (Reason: Shortness Of Breath) isosorbide mononitrate 30 mg Tablet Extended Release 24 Hr 30 mg PO DAILY metoprolol succinate 100 mg Tablet Extended Release 24 Hr 100 mg PO DAILY tramadol 50 mg Tablet 50 mg PO Q6H PRN (Reason: Breakthrough Pain) pantoprazole 40 mg Tablet,Delayed Release (Dr/Ec) 40 mg PO DAILY lisinopril 5 mg Tablet 5 mg PO DAILY cholecalciferol (vitamin D3) 50 mcg (2,000 unit) Tablet 50 mcg PO DAILY Spiriva Respimat 2.5 mcg/actuation Mist 2 puff INHALATION BID Mucus Relief ER 1,200 mg Tablet Extended Release 12hr 1,200 mg PO BID Qty: 0 0RF prednisone 10 mg tablet 10 mg PO DAILY Qty: 40 0RF Rx Instructions: 4 tablets x 4 days, 3 tablets x 4 days, 2 tablets x 4 days, 1 tablet x 4 days Primary Care Provider: Abby Barajas Referrals: Abby Barajas MD [Primary Care Provider] - Keep Ladonna appointment Activity Restrictions/Additional Instructions: I would recommend using a albuterol aerosol every 3-4 hours as we discussed. You certainly have the potential to worsen. If you have any or feel that you are worsening please return to emergency Print Language: Ivorian Disposition Disposition: Home, Self Care Discharge Date/Time: 05/03/24 14:20
--- NOTE | 2024-05-03 12:14 | EKG12_ITS ---
Test Reason : SOB Blood Pressure : / mmHG Vent. Rate : 094 BPM Atrial Rate : 094 BPM P-R Int : 196 ms QRS Dur : 100 ms QT Int : 372 ms P-R-T Axes : 080 -68 066 degrees QTc Int : 465 ms Normal sinus rhythm Left axis deviation Abnormal ECG Confirmed by FREDY WEAVER, DALE ([id number]), pictures editor MARYAM ALLEN ([id number]) on 05/04/2024 9:59:14 AM Referred By: Confirmed By:DALE DANIEL MD
[2024-05-03 12:32] LABS: Absolute Lymphocyte Count 1.13 X10^3/uL (0.83-4.51); Basophil# 0.02 X10^3/uL; Basophil% 0.3 % (0-1); Hematocrit 37.4 % (40-54); Hemoglobin 12.5 g/dL (13.0-16.5); Lymphocyte # 1.13 X10^3/ul (0.83-4.51); Lymphocyte % 18.9 % (19-41); Mean Corp Hgb Conc 33.4 g/dL (32-36); Mean Corpuscular Hgb 30.3 pg (27.0-32.0); Mean Corpuscular Volume 90.8 fL (80-94); Mean Platelet Vol. 10.1 fl (6.2-12.0); Monocyte# 0.81 X10^3/uL; Monocyte% 13.6 % (0-10); NRBC Flagged by Analyzer 0 % (0-5); Neutrophil # 3.99 X10^3/uL (2.7-7.7); Neutrophil % 66.9 % (47-70); Platelet Count 227 K/mm3 (150-450); RBC Distribution Width CV 14.6 % (11.6-14.6); RBC Distribution Width SD 48.5 fl (35.1-43.9); Red Blood Count 4.12 M/mm3 (4.6-6.2)
[2024-05-03] MEDS: MethylPREDNISolone 125 MG/2 ML Vial IV (12:32)
--- NOTE | 2024-05-03 12:40 | RAD_ITS ---
STUDY: X-RAY CHEST REASON FOR EXAM: Male, 78 years old. cough TECHNIQUE: 2 AP portable view of the chest. COMPARISON: None. FINDINGS: No visualized consolidation or infiltrates. Scattered interstitial thickening/fibrosis. There is hyperinflation of the lungs consistent with chronic obstructive lung disease (COPD). There is no demonstrated pleural abnormality. Normal size heart. Normal mediastinum and santa. Normal visualized pulmonary arteries. There is atherosclerotic calcification of the aortic arch with tortuosity. There are diffuse degenerative changes of the visualized thoracic spine. Normal visualized ribs, clavicles, and shoulders. There is no demonstrated abnormality of the visualized soft tissue structures of the upper abdomen. RAD/Chest 1 View (Portable) IMPRESSION: COPD/emphysema Electronically Signed: Ye Gonzalez MD at 13:10 EDT ,
[2024-05-03] MEDS: Albuterol 2.5 MG/3 ML VIAL.NEB. INHALATION (12:47)
[2024-05-03] MEDS: Ipratropium/Albuterol Sulfate 3 ML AMPUL.NEB INHALATION (12:47)
[2024-05-03 13:38] LABS: Anion Gap 9 (5-15); BUN 11 mg/dL (7-18); Calcium,Total 9.4 mg/dL (8.5-10.1); Chloride 104 mmol/L (98-107); Creatinine, Serum 0.73 mg/dL (0.70-1.30); EST Glomerular Filtration Rate 110 mL/min (>60); Est Glom Filt Rate - Afr Amer 134 mL/min (>60); Estimated Creatinine Clearance 74.81 ml/min; Glucose 89 mg/dL (74-106); Potassium 3.2 mmol/L (3.5-5.1); Sodium Level 136 mmol/L (136-145); Troponin-I HS 8 pg/mL (3.0-78.0)
--- OUTSIDE RECORDS SUMMARY | 2024-05-03 14:26 | XMS RPT_ITS | CCD ---
Author Organization [facility] ion Partnership [facility] Care Team Providers Care Miller Head Wet Process Name Role Phone JESSICA ELIZONDO Unavailable Unavailable Physician, PCP Unknown Unavailable Unavailab YIFAN White Admitting Unavail able YIFAN CAMACHO Attending Unavail able No, Physician Primary Care Provider Unavailabl e Shyann, Physician Primary Care Provider UnavailMIMI Israel MD Attending Unavailable MIMI SANTA MD Primary Care Unavailable MIMI SANTA MD Admitting Unavailable BRIDGER WILEY Attending Unavailable BRIDGER WILEY Attending Unavailable BRIDGER WILEY Referring Unavailable LUIS WHITAKER Attending Unavailable NO, PHYSICIAN Primary Care Unavailable Allergies Allergy Classification Reported Allergen(s) Allergy Type Date of Onset Reaction(s) Facility (3 sources) oxyCODONE; Translations: [OXYCODONE] Drug Allergy 3 [facility] Repository (1 source) BEE STING; Translations: [BEE STING] Propensity to adverse reactions (disorder) [facility] Repository (2 sources) tamsulosin; Translations: [TAMSULOSIN] Drug Allergy 3 [facility] 3 Repository (2 sources) BEE VENOM PROTEIN (HONEY BEE); Translations: [BEE VENOM PROTEIN (HONEY BEE)] Propensity to adverse reactions to drug (disorder) 4 [facility] 3 Repository (2 sources) VENOM-YELLOW JACKET; Translations: [VENOM-YELLOW JACKET] Propensity to adverse reactions to drug (disorder) 6 [facility] 3 Repository Medications Current Medications Medication Drug Class(es) Dates Sig (Normalized) Sig (Original) 200 actuat albuterol 0.09 mg/actuat metered dose inhaler (1 source) beta2-Adrenergic Agonist take 2 puff(s) by inhalation every six hours as needed for wheezing albuterol 90 mcg/actuation inhaler Inhale 2 puffs every 6 (six) hours as needed for wheezing . 0 Active albuterol 90 mcg/actuation inhaler (1 source) take 2 puff(s) by inhalation every six hours as needed for wheezing albuterol 90 mcg/actuation inhaler Inhale 2 puffs every 6 (six) hours as needed for wheezing . 0 Active atorvastatin 40 mg oral tablet (2 sources) HMG-CoA Reductase Inhibitor take 1 tablet by mouth once daily atorvastatin (LIPITOR) 40 MG tablet Take 40 mg by mouth daily . 0 Active Budesonide / formoterol (2 sources) Corticosteroid, beta2-Adrenergic Agonist take 2 puff(s) by inhalation twice daily budesonide-formotero l (SYMBICORT) 160-4.5 mcg/actuation inhaler Inhale 2 puffs 2 (two) times a day . 0 Active cyclobenzaprine hydrochloride 10 mg oral tablet (2 sources) Muscle Relaxant take 1 tablet by mouth three times daily as needed for muscle spasms cyclobenzaprine (FLEXERIL) 10 MG tablet Take 10 mg by mouth 3 (three) times a day as needed for muscle spasms . 0 Active lisinopril 5 mg oral tablet (2 sources) Angiotensin Converting Enzyme Inhibitor take 1 tablet by mouth once daily lisinopril (PRINIVIL,ZESTRIL) 5 MG tablet Take 5 mg by mouth daily . 0 Active meloxicam 15 mg oral tablet (2 sources) Nonsteroidal Anti-inflammatory Drug take 1 tablet by mouth once daily meloxicam (MOBIC) 15 MG tablet Take 15 mg by mouth daily . 0 Active metoprolol tartrate 50 mg oral tablet (2 sources) beta-Adrenergic Kim take 1 tablet by mouth twice daily metoprolol tartrate (LOPRESSOR) 50 MG tablet Take 50 mg by mouth 2 (two) times a day . 0 Active nitroglycerin 0.4 mg sublingual tablet (2 sources) Nitrate Vasodilator nitroGLYCERI N (NITROSTAT) 0.[address] 0.4 mg under the tongue every 5 (five) minutes as needed for chest pain , if no relief after 3 doses call 911 . 0 Active tiotropium 0.018 mg inhalant powder (2 sources) Anticholinergic take 1 capsule by inhalation once daily tiotropium (SPIRIVA) [address] 18 mcg into inhaler and inhale daily . 0 Active Completed/Discontinued Medications Medication Drug Class(es) Dates Sig (Normalized) Sig (Original) calcium chloride 0.0014 meq/ml / potassium chloride 0.004 meq/ml / sodium chloride 0.103 meq/ml / sodium lactate 0.028 meq/ml injectable solution (2 sources) Start: 04-27-2019 End: 04-27-2019 take 100 mL intravenous route every hour 100 mL/hr, Intravenous, Continuous, Starting Tue04/27/19 at 1030, PACU (only) Start: 04-27-2019 End: 04-27-2019 lactated Ringers infusion gabapentin 300 mg oral capsule (1 source) Anti-epileptic Agent End: 04-27-2019 gabapentin (NEURONTIN) 300 MG capsule Take 300 mg by mouth every 8 (eight) hours (Days supply per fill: {DAYS SUPPLY:13033}) . 0 04/27/2019 Discontinued (Stop Taking at Discharge) 1 ml hydrALAZINE hydrochloride 20 mg/ml injection (1 source) Arteriolar Vasodilator Start: 04-27-2019 End: 04-27-2019 5 mg, Intravenous, Every 15 min PRN, SBP greater than 160 or DBP greater than 90, Starting Tue04/27/19 at 0933, For 4 doses, PACU (only) [] Do not give more than 20 mg total. [] Hold for HR greater than 100. [] Administer if labetalol or metoprolol ineffective at maximum dose or not ordered. 4 ml labetalol hydrochloride 5 mg/ml cartridge (1 source) beta-Adrenergic Kim Start: 04-27-2019 End: 04-27-2019 5 mg, Intravenous, Every 5 min PRN, SBP greater than 180 or DBP greater than 120, Starting Tue04/27/19 at 0933, For 4 doses, PACU (only) [] Do not give more than 20 mg total. [] Hold for HR less than 50. 2 ml ondansetron 2 mg/ml injection (1 source) Serotonin-3 Receptor Antagonist Start: 04-27-2019 End: 04-27-2019 take 4 mg intravenous route every twenty-four hours as needed 4 mg, Intravenous, Once as needed, nausea, vomiting, Starting Tue04/27/19 at 0933, For 1 dose, PACU (only) Administer first as needed for nausea/vomiting, or as directed by anesthesia 2 ml prochlorperazine 5 mg/ml injection (1 source) Phenothiazine Start: 04-27-2019 End: 04-27-2019 2.5 mg, Intravenous, Every 15 min PRN, nausea, Starting 04/27/19 at 0933, For 2 doses, PACU (only) Admini ster if ondansetron (Zofran), promethazine (Phenergan), and Metocolopramide (Reglan) ineffective or not ordered, or as directed by anesthesia, as needed for nausea/vomiting&nb sp; Do not give more than 2 doses. sodium phosphate, dibasic 59.3 mg/ml / sodium phosphate, monobasic 161 mg/ml enema (1 source) Start: 04-27-2019 End: 04-27-2019 sodium phosphates (FLEETS ADULT) 19-7 gram/118 mL enema 1 each Problems Problem Classification Problem Date Documented Da te Episodic/Chronic Calculus of urinary tract (4 sources) Calculus of kidney; Translations: [Calculus of kidney] Onset: 01-25-2024 Episodic Genitourinary symptoms and ill-defined conditions (2 sources) Nocturia; Translations: [Nocturia] Onset: 01-25-2024 Episodic Hyperplasia of prostate (2 sources) Benign prostatic hyperplasia with lower urinary tract symptoms; Translations: [Benign prostatic hyperplasia with lower urinary tract symptoms] Onset: 01-25-2024 Chronic Results Test Name Value Interpretation Reference Range Facility XR ABDOMEN 1 VIEWon 01-25-20 24 XR ABDOMEN 1 VIEW Interpreted By: José Gomez, STUDY: XR ABDOMEN 1 VIEW; 01/25/2024 11:14 am INDICATION: Signs/Symptoms:KIDNEY STONES. COMPARISON: None. ACCESSION NUMBER(S): [id number] ORDERING CLINICIAN: BRIDGER WILEY FINDINGS: Abdomen, two views No abnormal calcifications over the abdomen. Nonobstructive bowel gas pattern. Limited evaluation of pneumoperitoneum on supine imaging, however no gross evidence of free air is noted. Visualized lungs are clear. Osseous structures demonstrate no acute bony changes. IMPRESSION: 1. No radiopaque renal or ureteral calculi seen MACRO: None Signed by: José Gomez 01/26/2024 9:23 PM Dictation workstation: [id number] [facility] CT ABDOMEN/PELVIS WOon 11-13 CT ABDOMEN/PELVIS WO [address] [address] Patient: TIMUR JIMENEZ Phone#: : 1945 Age: 78 Gender: M Pt. Type: Out Account: [id number] Location: [facility] Ordering: MIMI SANTA Exam Date: 11/14/2023/7:22 Family Phys: Charge Code: 268818 Physician: Furnas Order #: [id number] Dose#: [id number] PROCEDURE: CT ABDOMEN/PELVIS WITHOUT CONTRAST COMPARISON: [facility], CT, ABDOMEN/PELVIS W CON, 10/07/2020, 16:14. INDICATIONS: Pain. TECHNIQUE: CT images were created without intravenous contrast. All CT scans at this facility use dose modulation, iterative reconstruction, and/or weight based dosing when appropriate to reduce radiation dose to as low as reasonably achievable. IV CONTRAST: No IV contrast used,0ml TOTAL DOSE: 8.60 CTDIvol(mGy) FINDINGS: LIVER: Normal. No enlargement, atrophy, abnormal density, or significant focal lesion. BILIARY: The gallbladder is absent. Surgical clips are present. PANCREAS: Normal. No lesion, fluid collection, ductal dilatation, or atrophy. SPLEEN: Calcified granulomas are present. No enlargement or focal lesion. KIDNEYS: Bilateral nonobstructing renal calculi are present. ADRENALS: Normal. No mass or enlargement. AORTA/VASCULAR: Calcification is present. No aneurysm. RETROPERITONEUM: Normal. No mass or adenopathy. BOWEL/MESENTERY: Large volume stool retention is present. ABDOMINAL WALL: Normal. No mass or hernia. URINARY BLADDER: Normal. No visible focal wall thickening, lesion, or calculus. PELVIC NODES: Normal. No adenopathy. PELVIC ORGANS: Normal. No visible mass. Pelvic organs appropriate for patient age. BONES: Moderately severe degenerative changes the spine are present.. No bony lesion or fracture. LUNG BASES: Normal. No visible pulmonary or pleural disease. OTHER: Negative. CONCLUSION: 1. Large volume stool retention. 2. Nonobstructing bilateral renal calculi. Continued Report - Page 2 of 2 Patient: TIMUR JIMENEZ Phone#: : [phone] Age: 78 Gender: M Pt. Type: Out Account: [id number] Location: [facility] Ordering: MIMI SANTA Exam Date: 11/14/2023/7:22 Family Phys: Charge Code: [id number] Physician: Furnas Order #: [id number] Dose#: [id number] 3. Dense aortic and branch artery calcification. Dictated by: Giselle Humphries MD on 11/14/2023 at 16:42 Approved by: Giselle Humphries MD on 11/14/2023 at 17:13 Normal [facility] CVFLURVon 06-29-2022 FLU A PCR Negative [facility] Comment on above: Result Comment: Note s Performed By: #### C VFLURV #### [place] [id number] FLU B PCR Negative [facility] Comment on above: Result Comment: Note s Performed By: #### C VFLURV #### [place] [id number] RSV PCR Negative [facility] Comment on above: Result Comment: Note s Performed By: #### C VFLURV #### [place] [address] SARS-CoV-2 (COVID-19) RNA ALEXUS+probe Ql (Unsp spec) Negative [facility] Comment on above: Result Comment: Note s This test has been authorized by FDA under an EUA for use by authorized laboratories and has not been FDA cleared or approved. Results from the Xpert Xpress SARS-CoV-2/Flu/RSV or Xpert Xpress SARS-CoV-2 only test should be correlated with the clinical history, epidemiological data, and other data available to the clinician evaluating the patient. Performance of the Xpert Xpress SARS-CoV-2/Flu/RSV or Xpert Xpress SARS-CoV-2 only test has only been established in nasopharyngeal swab specimens. Erroneous test results might occur from improper specimen collection; failure to follow the recommended sample collection, handling, and storage procedures; technical error; or sample mix-up.False negative results may occur if virus is present at levels below the analytical limit of detection. Viral nucleic acid may persist in vivo, independent of virus viability. Detection of analyte target(s) does not imply that the corresponding virus(es) are infectious or are the causative agents for clinical symptoms.Recent patient exposure to FluMist or other live attenuated influenza vaccines may cause inaccurate positive results. Performed By: #### C VFLURV #### [place] [address] SCAN OTHER ORDERSon 04-25-20 19 Ordered by an unspecified provider. [facility] PROGRESSon 10-05-2018 Protein mass conc HNO ID: [id number] Author: Cassidy Alfaro Service: ? Author Type: Feed Mixer Helper Type: Progress Notes Filed: 10/05/2018 10:11 AM Note Text: [facility] LUNCH COUNTER MANAGER QUICKNOTE Provider Action/FYI: I spoke with jenn and [facility]. Dr. Barron removed as pcp. Patient identified by name and . Cassidy Alfaro CMA [facility] PROGRESSon 10-02-2018 Protein mass conc HNO ID: [id number] Author: Maria G Velazquez Service: ? Author Type: Nurse Practitioner Type: Progress Notes Filed: 10/05/2018 10:11 AM Note Text: Needs OV then will place labs. 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 PSR Action/FYI: Due for Physical Patient identified by name and date of . Last BP/Labs: Blood Pressure: Last 3 Encounter BP Readings: Date: BP: 09/23/2017 120/60 06/24/2017 134/86 03/21/2017 110/60 Lipids: Cholesterol, Total (mg/dL) Date Value 10/22/2016 118 04/15/2016 178 HDL Cholesterol (mg/dL) Date Value 10/22/2016 46 04/15/2016 67 LDL Cholesterol (mg/dL) Date Value 10/22/2016 55 04/15/2016 93 Triglyceride (mg/dL) Date Value 10/22/2016 86 04/15/2016 92 HGB A1C: No results found for: HBA1C TSH: No results found for: TSH) ? Patient has the following care gap registry disease diagnosis:CHF ? HTN ? hyperlipidemia ? Patient has the following open care gaps: Health Maintenance Due: HEPATITIS C SCREENING due on 1990 ABDOMINAL AORTIC ANEURYSM SCREENING TOPIC due on 11/05/2011 PNEUMOVAX AGE 65 AND OVER WITH 5YR LOOKBACK(1) due on 11/05/2011 LDL CHOLESTEROL due on 10/22/2017 - order pending FECAL OCCULT BLOOD due on 12/09/2017 INFLUENZA(1) due on 03/11/2018 ANNUAL PCP TEAM CHRONIC DISEASE VISIT due on 09/23/2018 BP CONTROLLED (<130/80) due on 09/23/2018 ? Last office visit: 09/23/2017 ? Future office visit:Physical next available with pcp or director manufacturing engineering TRESA Lemus APRN.[facility] 10/05/2018 10:11 AM Signed Needs OV then will place labs. Maria G Velazquez APRN.[facility] Alfaro CMA 10/05/2018 10:11 AM Signed [facility] LUNCH COUNTER MANAGER QUICKNOTE Provider Action/FYI: I spoke with jenn and [facility]. Dr. Barron removed as pcp. Patient identified by name and . Cassidy Alfaro CMA Allergies As of Date: 09/29/2018 Noted Allergy Reaction VENOM-JONO ARREOLA 01/07/2016 7 - Swelling Date Reviewed: 09/23/2017 Reviewed by: Connie Bhatia LPN - Fully Assessed Reason for Visit: PHMA/Care Gap Outreach [3605] Primary Visit Diagnosis:Hyperlipide halima, mixed [E78.2] Other Visit Diagnoses:Hypertensio n, essential [I10] Obstructive chronic bronchitis with exacerbation (HCC) [J44.1] Order(s):LIPID PANEL BASIC [SQLIPB] Order #: [id number] FUTURE COMP METABOLIC PANEL [SQCMP] Order #: [id number] FUTURE CBC [SQCBC] Order #: [id number] FUTURE Prescriptions as of 09/29/2018 Sig: OXYCODONE 10 MG TABLET Take 1 tablet by mouth three * OXYCODONE 10 MG TABLET Take 1 tablet by mouth three * OXYCODONE 10 MG TABLET Take 1 tablet by mouth three * POLYETHYLENE GLYCOL 3350 17 G* 1 tablespoon a day for consti* METOPROLOL TARTRATE 50 MG TAB* Take 1 tablet by mouth twice * GABAPENTIN 300 MG CAPSULE Take 1 capsule by mouth at be* CYCLOBENZAPRINE 10 MG TABLET Take 1 tablet by mouth twice * DOCUSATE SODIUM 100 MG TABLET Take 1 tablet by mouth twice * LISINOPRIL 5 MG TABLET Take 1 tablet by mouth once d* BLOOD PRESSURE MONITOR KIT 1 Kit once daily as needed. O* ATORVASTATIN 80 MG TABLET Take 80 mg by mouth once rhett* ALBUTEROL SULFATE HFA 90 MCG/* Inhale 2 Puffs as instructed. BUDESONIDE-FORMOTEROL HFA 160* Inhale 2 Puffs as instructed * FLUNISOLIDE 25 MCG (0.025 %) * Use 2 Sprays in the nose twic* NITROSTAT 0.4 MG SUBLINGUAL T* Dissolve one(1) tablet under * Problem List As Of Date 09/29/2018 Noted Resolved CONGESTIVE HEART FAILURE NOS [I50.9] More... Coronary atherosclerosis [I25.10] More... ESOPHAGEAL REFLUX [K21.9] More... DYSTHYMIC DISORDER [F34.1] More... PMH - PAST MEDICAL HISTORY OF More... HYPERTENSION NOS [I10] More... MIXED HYPERLIPIDEMIA [E78.2] More... CVA [I67.89] OBST CHRON BRONCHITIS WITH EXAC [J44.1] More... Controlled substance agreement signed [Z79.899] INVALID FOR* Hyperlipidemia, mixed [E78.2] INVALID FOR* Chronic pain of both knees [M25.561, M25.562, G*INVALID FOR* Primary osteoarthritis of both knees [M17.0] INVALID FOR* Constipation due to pain medication [K59.03] INVALID FOR* Arthritis, multiple joint involvement [M12.9] INVALID FOR* Other chronic pain [G89.29] INVALID FOR* Hypertension, essential [I10] INVALID FOR* Overweight (BMI 25.0-29.9) [E66.3] INVALID FOR* Encounter Status:Closed by CASSIDY ALFARO CMA on 10/05/18 [facility] PROGRESSon 09-29-2018 Protein mass conc HNO ID: [id number] Author: Cassidy Alfaro Service: ? Author Type: Feed Mixer Helper Type: Progress Notes Filed: 10/05/2018 10:11 AM Note Text: [facility] CARE GAP REGISTRY DOCUMENTATION (OUTSIDE TEAMLET) Provider Action/FYI: Please file labs and advise if wanting anything additional. PSR Action/FYI: Due for Physical Patient identified by name and date of . Last BP/Labs: Blood Pressure: Last 3 Encounter BP Readings: Date: BP: 09/23/2017 120/60 06/24/2017 134/86 03/21/2017 110/60 Lipids: Cholesterol, Total (mg/dL) Date Value 10/22/2016 118 04/15/2016 178 HDL Cholesterol (mg/dL) Date Value 10/22/2016 46 04/15/2016 67 LDL Cholesterol (mg/dL) Date Value 10/22/2016 55 04/15/2016 93 Triglyceride (mg/dL) Date Value 10/22/2016 86 04/15/2016 92 HGB A1C: No results found for: HBA1C TSH: No results found for: TSH) ? Patient has the following care gap registry disease diagnosis:CHF ? HTN ? hyperlipidemia ? Patient has the following open care gaps: Health Maintenance Due: HEPATITIS C SCREENING due on 1990 ABDOMINAL AORTIC ANEURYSM SCREENING TOPIC due on 11/05/2011 PNEUMOVAX AGE 65 AND OVER WITH 5YR LOOKBACK(1) due on 11/05/2011 LDL CHOLESTEROL due on 10/22/2017 - order pending FECAL OCCULT BLOOD due on 12/09/2017 INFLUENZA(1) due on 03/11/2018 ANNUAL PCP TEAM CHRONIC DISEASE VISIT due on 09/23/2018 BP CONTROLLED (<130/80) due on 09/23/2018 ? Last office visit: 09/23/2017 ? Future office visit:Physical next available with pcp or director manufacturing engineering Cassidy Alfaro CMA Normal [facility] XR Chest 2 Viewson 8 XR Chest 2 views EXAMINATION TYPE: XR Chest 2 Views DATE OF EXAM : 05/08/2018 11:57 AMHISTORY: H/O CADFINDINGS: The cardiac silhouette is normal. The lungs are expanded and clear. There is no pleural effusion. Pulmonary vascularity is normal.IMPRESSION: Normal chestMokeenan Kwan thanks you for the opportunity to care for your patient. Workstation ID: [id number] FINAL REPORT Dictated By: Trini Santillan MD 05/08/2018 14:03Assigned Physician: Trini Santilaln MDviewewilly and Electronically Signed By: Trini Santillan MD 05/08/2018 14:03Transcribed by: YANELY 05/08/2018 14:03Technologist: VIK Friedman [facility] [place] 11-29-2017 [facility] Patient Outreach ([facility]) TIMUR JIMENEZ ([id number]) 1945 M Date Time Provider Department 11/29/17 [facility] During your visit today, we recorded the following information about you: Allergies As of Date: 11/29/2017 Noted Allergy Reaction VENOM-YELLOW JACKET 01/07/2016 7 - Swelling Date Reviewed: 09/23/2017 Reviewed by: Connie Maribel-Green AQUATIC DIRECTOR - Fully Assessed Visit Diagnosis:Medication management [Z28.910] Order(s):LIPID PANEL BASIC [SQLIPB] Order #: [id number] FUTURE Prescriptions as of 11/29/2017 Sig: OXYCODONE 10 MG TABLET Take 1 tablet by mouth three * OXYCODONE 10 MG TABLET Take 1 tablet by mouth three * POLYETHYLENE GLYCOL 3350 17 G* 1 tablespoon a day for consti* METOPROLOL TARTRATE 50 MG TAB* Take 1 tablet by mouth twice * GABAPENTIN 300 MG CAPSULE Take 1 capsule by mouth at be* CYCLOBENZAPRINE 10 MG TABLET Take 1 tablet by mouth twice * DOCUSATE SODIUM 100 MG TABLET Take 1 tablet by mouth twice * LISINOPRIL 5 MG TABLET Take 1 tablet by mouth once d* BLOOD PRESSURE MONITOR KIT 1 Kit once daily as needed. O* ATORVASTATIN 80 MG TABLET Take 80 mg by mouth once rhett* ALBUTEROL SULFATE HFA 90 MCG/* Inhale 2 Puffs as instructed. BUDESONIDE-FORMOTEROL HFA 160* Inhale 2 Puffs as instructed * FLUNISOLIDE 25 MCG (0.025 %) * Use 2 Sprays in the nose twic* NITROSTAT 0.4 MG SUBLINGUAL T* Dissolve one(1) tablet under * Problem List As Of Date 11/29/2017 Noted Resolved CONGESTIVE HEART FAILURE NOS [I50.9] More... Coronary atherosclerosis [I25.10] More... ESOPHAGEAL REFLUX [K21.9] More... DYSTHYMIC DISORDER [F34.1] More... PMH - PAST MEDICAL HISTORY OF More... HYPERTENSION NOS [I10] More... MIXED HYPERLIPIDEMIA [E78.2] More... CVA [I67.89] OBST CHRON BRONCHITIS WITH EXAC [J44.1] More... Controlled substance agreement signed [Z44.088] INVALID FOR* Hyperlipidemia, mixed [E78.2] INVALID FOR* Chronic pain of both knees [M25.561, M25.562, G*INVALID FOR* Primary osteoarthritis of both knees [M17.0] INVALID FOR* Constipation due to pain medication [K59.03] INVALID FOR* Arthritis, multiple joint involvement [M12.9] INVALID FOR* Other chronic pain [G89.29] INVALID FOR* Hypertension, essential [I10] INVALID FOR* Overweight (BMI 25.0-29.9) [E66.3] INVALID FOR* Encounter Status:Closed by EPIC, PRODUSER on 04/21/18 Normal [facility] Vital Signs Date Time Vital Sign Value Performing Clinician Anali jacobson 04-27-2019 09:50-0400 BP Diastolic 82 mm[Hg] [facility] 04-27-2019 09:50-0400 BP Systolic 115 mm[Hg] [facility] 04-27-2019 09:50-0400 Pulse (Heart Rate) 85 /min [facility] 04-27-2019 09:50-0400 Pulse Oximetry 94 % [facility] 04-27-2019 09:50-0400 Respiratory Rate 16 /min [facility] 04-27-2019 09:28-0400 Body Temperature 98.4 [degF] [facility] 04-27-2019 08:17-0400 BMI (Body Mass Index) 28.35 kg/m2 [facility] 04-27-2019 08:17-0400 Body weight 87.09 kg [facility] 04-27-2019 08:17-0400 Height 175.3 cm [facility] Encounters Encounter Date Encounter Type Care Provider Facility Start: 03-06-2024 ambulatory LUIS WHITAKER [facility] Ambulatory Start: 01-26-2024 End: 01-26-[address] [facility] Ambulatory Start: 01-25-2024 End: 01-25-2024 ambulatory [facility] Start: 01-25-2024 End: 01-25-[address] [facility] Start: 11-14-2023 End: 11-14-2023 ambulatory [facility] Start: 08-16-2020 End: 08-16-2020 Orders Only Anu Ya Work Phone: [facility] Start: 04-27-2019 End: 04-27-2019 Patient encounter procedure [facility] Start: 04-27-2019 End: 04-27-2019 Subsequent hospital visit by physician Yifan Camacho Work Phone: [facility] Start: 05-09-2018 End: 05-09-2018 Patient encounter procedure JESSICA Somers CARO Facility:[facility] Procedures Date Procedure Procedure Detail Performing Clinician Start: 04-27-2019 Colonoscopy Yifan Camacho Work Phone: Start: 04-25-2019 SCAN OTHER ORDERS Provi radha Not In System Plan of Treatment Date Care Activity Detail Author Procedure on tissue specimen [facility] Comment on above: Once for 1 Occurrenc es starting 04/27/2019, 1 completed Payers Date Payer Category Payer Unknown [id number] 2019 Unknown [id number] 2019 Unknown [facility] xx xxxxxxx 2019-Present xxxxxxxxx [id number] 2019 Unknown [place] [facility] xx [id number] 2019-Present [id number] 2011 Medicare MEDICARE MEDICAR E PART A & B xxxxxxxxxx 2011-Present [place] xxxxxxxxxx [id number] 2011 Medicare MEDICARE MEDICAR E PART A & B [id number] 2011-Present [place] [id number] 2011 Medicare [id number] 1945 Unknown [id number] 1945 Unknown [id number] 1945 Unknown [id number] 4 1945 Unknown [id number] 4 1945 Unknown [id number] 3 1945 Unknown [id number] Unknown [id number] Social History Date Type Detail Facility Start: 04-27-2019 End: 04-30-2019 Tobacco smoking status NHIS Current every day smoker [facility] Start: 04-27-2019 End: 04-30-2019 Cigarettes smoked current (pack per day) - Reported [facility] Start: 04-27-2019 End: 04-30-2019 Alcohol intake Current drinker of alcohol (finding) [facility] Start: 04-27-2019 Alcohol Comment occ [facility] Sex Assigned At Not on file [facility] Start: 04-30-2019 Tobacco use and exposure Never used [facility] Clinical Note 08-17-2022 Note Date & Type Note Facility 08-17-2022 Note . MICRO - Microbiology PROCEDURE: Blood Culture (bacterial) [*1] SOURCE: Blood BODY SITE: COLLECTED DATE/TIME: 08/12/2022 13:16 EST RECEIVED DATE/TIME: 08/12/2022 18:58 EST START DATE/TIME: 08/12/2022 18:58 EST FREE TEXT SOURCE: FINAL REPORTS Final Report [] Verified Date/Time/Personnel: 08/17/2022 18:59 EST Blood Culture: No Growth at 5 days. PRELIMINARY REPORTS Preliminary Report [] Verified Date/Time/Personnel: 08/12/2022 19:59 EST Culture has been received in lab and is no growth to date. Routine cultures are held for 5 days. Performing Locations *1: This test was performed at: [facility], [address] [place] [address], [id number] , [facility] Clinical Note 08-17-2022 Note Date & Type Note Facility 08-17-2022 Note . MICRO - Microbiology PROCEDURE: Blood Culture (bacterial) [*1] SOURCE: Blood BODY SITE: COLLECTED DATE/TIME: 08/12/2022 13:20 EST RECEIVED DATE/TIME: 08/12/2022 18:58 EST START DATE/TIME: 08/12/2022 18:58 EST FREE TEXT SOURCE: FINAL REPORTS Final Report [] Verified Date/Time/Personnel: 08/17/2022 18:59 EST Blood Culture: No Growth at 5 days. PRELIMINARY REPORTS Preliminary Report [] Verified Date/Time/Personnel: 08/12/2022 19:59 EST Culture has been received in lab and is no growth to date. Routine cultures are held for 5 days. Performing Locations *1: This test was performed at: [address]) Clinical Note 06-14-2022 Note Date & Type Note Facility 06-14-2022 Note . MICRO - Microbiology PROCEDURE: Blood Culture (bacterial) [*1] SOURCE: Blood BODY SITE: COLLECTED DATE/TIME: 06/08/2022 19:00 EST RECEIVED DATE/TIME: 06/09/2022 18:05 EST START DATE/TIME: 06/09/2022 18:06 EST FREE TEXT SOURCE: FINAL REPORTS Final Report [] Verified Date/Time/Personnel: 06/14/2022 18:59 EST Blood Culture: No Growth at 5 days. PRELIMINARY REPORTS Preliminary Report [] Verified Date/Time/Personnel: 06/09/2022 18:59 EST Culture has been received in lab and is no growth to date. Routine cultures are held for 5 days. Performing Locations *1: This test was performed at: [address], [address] [place] [address] ([place]) Clinical Note 06-14-2022 Note Date & Type Note Facility 06-14-2022 Note . MICRO - Microbiology PROCEDURE: Blood Culture (bacterial) [*1] SOURCE: Blood BODY SITE: COLLECTED DATE/TIME: 06/08/2022 19:00 EST RECEIVED DATE/TIME: 06/09/2022 18:06 EST START DATE/TIME: 06/09/2022 18:07 EST FREE TEXT SOURCE: FINAL REPORTS Final Report [] Verified Date/Time/Personnel: 06/14/2022 18:59 EST Blood Culture: No Growth at 5 days. PRELIMINARY REPORTS Preliminary Report [] Verified Date/Time/Personnel: 06/09/2022 18:59 EST Culture has been received in lab and is no growth to date. Routine cultures are held for 5 days. 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 Your doctor and dietitian will help you make a high-fiber eating plan based on your personal needs.The plan will include the things you like to eat. It will also make sure that you get 30 grams of fiber a day. Before you make changes to the way you eat, be sure to talk with your doctor or dietitian. Follow-up care is a da silva part of your treatment and safety. Be sure to make and go to all appointments, and call your doctor if you are having problems. It's also a good idea to know your test resultsand keep a list of the medicines you take. How can you care for yourself at home? You can increase how much fiber you get if you eat more of certain foods. These foods include: ? Whole-grain breads and cereals. ? Fruits, such as pears, apples, and peaches. Eat the skins, peels, and seeds, if you can. ? Vegetables, such as broccoli, cabbage, spinach, carrots, asparagus, and squash. ? Starchy vegetables. These include potatoes with skins, kidney beans, and parsons beans. Take a fiber supplement every day if your doctor recommends it. Examples are Benefiber, Citrucel, FiberCon, and Metamucil. Ask your doctor how much to take. Drink plenty of fluids, enough so that your urine is light yellow or clear like water. If you have kidney, heart, or liver disease and have to limit fluids, talk with your doctor before you increase the amount of fluids you drink. Get some exercise every day. Exercise helps stool move through the colon. It also helps prevent constipation. Keep a food diary. Try to notice and write down what foods cause gas, pain, or other symptoms. Thenyou can avoid these foods. Where can you learn more? Log into your personal health record on https://[employer] and enter U654 in the Education box to learn more about High-Fiber Diet: Care Instructions. Current as of: May 17, 2018 Content Version: .[id number] [employer]. Care instructions adapted under license by your healthcare professional. If you have questions about a medical condition or this instruction, always ask your healthcare professional. [employer] disclaims any warranty or liability for your use of this information. Diverticulosis: Care Instructions Your Care Instructions In diverticulosis, pouches called diverticula form in the wall of the large intestine (colon). The pouches do not cause any pain or other symptoms. Most people who have diverticulosis do not know they have it. But the pouches sometimes bleed, and if they become infected, they can cause pain and other symptoms. When this happens, it is called diverticulitis. Diverticula form when pressure pushes the wall of the colon outward at certain weak points. A diet that is too low in fiber can cause diverticula. Follow-up care is a da silva part of your treatment and safety. Be sure to make and go to all appointments, and call your doctor if you are having problems. It's also a good idea to know your test resultsand keep a list of the medicines you take. How can you care for yourself at home? Include fruits, leafy green vegetables, beans, and whole grains in your diet each day. These foods are high in fiber. Take a fiber supplement, such as Citrucel or Metamucil, every day if needed. Read and follow all instructions on the label. Drink plenty of fluids, enough so that your urine is light yellow or clear like water. If you have kidney, heart, or liver disease and have to limit fluids, talk with your doctor before you increase the amount of fluids you drink. Get at least 30 minutes of exercise on most days of the week. Walking is a good choice. You also may want to do other activities, such as running, swimming, cycling, or playing tennis or team sports. Cut out foods that cause gas, pain, or other symptoms. When should you call for help? Call your doctor now or seek immediate medical care if: You have belly pain. You pass maroon or very bloody stools. You have a fever. You have nausea and vomiting. You have unusual changes in your bowel movements or abdominal swelling. You have burning pain when you urinate. You have abnormal vaginal discharge. You have shoulder pain. You have cramping pain that does not get better when you have a bowel movement or pass gas. You pass gas or stool from your urethra while urinating. Watch closely for changes in your health, and be sure to contact your doctor if you have any problems. Where can you learn more? Log into your personal health record on https://[employer] and enter K072 in the Education box to learn more about Diverticulosis: Care Instructions. Current as of: May 17, 2018 Content Version: [id number] [employer]. Care instructions adapted under license by your healthcare professional. If you have questions about a medical condition or this instruction, always ask your healthcare professional. [employer] disclaims any warranty or liability for your use of this information. Hemorrhoids: Care Instructions Your Care Instructions Hemorrhoids are enlarged veins that develop in the anal canal. Bleeding during bowel movements, itching, swelling, and rectal pain are the most common symptoms. They can be uncomfortable at times, but hemorrhoids rarely are a serious problem. You can treat most hemorrhoids with simple changes to your diet and bowel habits. These changes include eating more fiber and not straining to pass stools. Most hemorrhoids do not need surgery or other treatment unless they are very large and painful or bleed a lot. Follow-up care is a da silva part of your treatment and safety. Be sure to make and go to all appointments, and call your doctor if you are having problems. It's also a good idea to know your test resultsand keep a list of the medicines you take. How can you care for yourself at home? Sit in a few inches of warm water (sitz bath) 3 times a day and after bowel movements. The warm water helps with pain and itching. Put ice on your anal area several times a day for 10 minutes at a time. Put a thin cloth between the ice and your skin. Follow this by placing a warm, wet towel on the area for another 10 to 20 minutes. Take pain medicines exactly as directed. ? If the doctor gave you a prescription medicine for pain, take it as prescribed. ? If you are not taking a prescription pain medicine, ask your doctor if you can take an qvop-zzy-qjzyxvm medicine. Keep the anal area clean, but be gentle. Use water and a fragrance-free soap, such as Ivory, or usebaby wipes or medicated pads, such as Tucks. Wear cotton underwear and loose clothing to decrease moisture in the anal area. Eat more fiber. Include foods such as whole-grain breads and cereals, raw vegetables, raw and driedfruits, and beans. Drink plenty of fluids, enough so that your urine is light yellow or clear like water. If you have kidney, heart, or liver disease and have to limit fluids, talk with your doctor before you increase the amount of fluids you drink. Use a stool softener that contains bran or psyllium. You can save money by buying bran or psyllium (available in bulk at most health food stores) and sprinkling it on foods or stirring it into fruit juice. Or you can use a product such as Metamucil or Hydrocil. Practice healthy bowel habits. ? Go to the bathroom as soon as you have the urge. ? Avoid straining to pass stools. Relax and give yourself time to let things happen naturally. ? Do not hold your breath while passing stools. ? Do not read while sitting on the toilet. Get off the toilet as soon as you have finished. Take your medicines exactly as prescribed. Call your doctor if you think you are having a problem with your medicine. When should you call for help? Call 911 anytime you think you may need emergency care. For example, call if: You pass maroon or very bloody stools. Call your doctor now or seek immediate medical care if: You have increased pain. You have increased bleeding. Watch closely for changes in your health, and be sure to contact your doctor if: Your symptoms have not improved after 3 or 4 days. Where can you learn more? Log into your personal health record on https://[employer] and enter F228 in the Education box to learn more about Hemorrhoids: Care Instructions. Current as of: May 17, 2018 Content Version: .[id number] [employer]. Care instructions adapted under license by your healthcare professional. If you have questions about a medical condition or this instruction, always ask your healthcare professional. [employer] disclaims any warranty or liability for your use of this information. Colon Polyps: Care Instructions Your Care Instructions Colon polyps are growths in the colon or the rectum. The cause of most colon polyps is not known, and most people who get them do not have any problems. But a certain kind can turn into cancer. For this reason, regular testing for colon polyps is important for people as they get older. It is also important for anyone who has an increased risk for colon cancer. Polyps are usually found through routine colon cancer screening tests. Although most colon polyps are not cancerous, they are usually removed and then tested for cancer. Screening for colon cancer saves lives because the cancer can usually be cured if it is caught early. If you have a polyp that is the type that can turn into cancer, you may need more tests to examine your entire colon. The doctor will remove any other polyps that he or she finds, and you will be tested more often. Follow-up care is a da silva part of your treatment and safety. Be sure to make and go to all appointments, and call your doctor if you are having problems. It's also a good idea to know your test resultsand keep a list of the medicines you take. How can you care for yourself at home? Regular exams to look for colon polyps are the best way to prevent polyps from turning into colon cancer. These can include stool tests, sigmoidoscopy, colonoscopy, and CT colonography. Talk with your doctor about a testing schedule that is right for you. To prevent polyps There is no home treatment that can prevent colon polyps. But these steps may help lower your risk for cancer. Stay active. Being active can help you get to and stay at a healthy weight. Try to exercise on mostdays of the week. Walking is a good choice. Eat well. Choose a variety of vegetables, fruits, legumes (such as peas and beans), fish, poultry, and whole grains. Do not smoke. If you need help quitting, talk to your doctor about stop-smoking programs and medicines. These can increase your chances of quitting for good. If you drink alcohol, limit how much you drink. Limit alcohol to 2 drinks a day for men and 1 drinka day for women. When should you call for help? Call your doctor now or seek immediate medical care if: You have severe belly pain. Your stools are maroon or very bloody. Watch closely for changes in your health, and be sure to contact your doctor if: You have a fever. You have nausea or vomiting. You have a change in bowel habits (new constipation or diarrhea). Your symptoms get worse or are not improving as expected. Where can you learn more? Log into your personal health record on https://[employer] and enter C571 in the Education box to learn more about Colon Polyps: Care Instructions. Current as of: June 28, 2018 Content Version: 12.1 3322-7070 [employer]. Care instructions adapted under license by your healthcare professional. If you have questions about a medical condition or this instruction, always ask your healthcare professional. [employer] disclaims any warranty or liability for your use of this information. documented in this encounter Additional Source Comments (unrecognized sect ion and content) No Status Records FoundNo Status Records FoundNo Status Records FoundNo Status Records FoundNo Status Records FoundNo Status Records FoundNo Status Records FoundNo Status Records Found INFORMATION SOURCE (unrecogn ized section and content) DATE CREATED AUTHOR 06/12/2018 [facility] DATE CREATED AUTHOR AUTHOR'S ORGANIZ ATION 10/09/2018 [facility] DATE CREATED AUTHOR AUTHOR'S ORGANIZ ATION 04/27/2019 [facility] DATE CREATED AUTHOR AUTHOR'S ORGANIZ ATION 08/18/2022 [facility] ([place]) DATE CREATED AUTHOR AUTHOR'S ORGANIZ ATION 11/15/2023 [facility] DATE CREATED AUTHOR AUTHOR'S ORGANIZ ATION 01/29/2024 [facility] DATE CREATED AUTHOR AUTHOR'S ORGANIZ ATION 01/29/2024 [facility] DATE CREATED AUTHOR AUTHOR'S ORGANIZ ATION 03/08/2024 [facility] Reason for Visit (unrecogniz ed section and content) Status Reason Specialty Diagnoses / Procedures Referre d By Contact Referred To Contact Diagnoses Z12.11 SCREENING COLONOSCOPY Procedures COLONOSCOPY Yifan Camacho MD - 04/27/2019 9:02 AM EDT H&P Notes (unrecognized sect ion and content) INTERVAL HISTORY AND PHYSICAL Patient Name: Timur Jimenez Admit Date: [id number] MR #: [id number] : 1945 The H&P has been reviewed and the patient has been examined. I concur with the findings of the H&P. There are no significant changes. It is appropriate to proceed with the planned procedure. Yifan Camacho MD 04/27/2019 9:02 AM documented in this encounter Jessica Romo RN - 04/27/2019 8:21 AM Jessica Pizarro RN - 04/27/2019 8:13 AM Jessica Pizarro RN - 04/27/2019 7:57 AM EDT Nursing Notes (unrecognized section and content) carola held d/t CAD history. Pt. States he had a sip of black coffee at 0530 today. Pt. Is allergic to yellow Jackets - eyes got swollen shut - was stung on forehead. Pt is with Trini documented in this encounter FOR RECORDS PERTAINING TO PATIENTS WHO ARE OR HAVE BEEN ENROLLED IN A CHEMICAL DEPENDENCY/SUBSTANCEABUSE PROGRAM, SOME INFORMATION MAY BE OMITTED. This clinical summary was aggregated from multiple sources. Caution should be exercised in using it in the provision of clinical care. This summary normalizes information from multiple sources, and as a consequence, information in this document may materially change the coding, format and clinical context of patient data. In addition, data may be omitted in some cases. CLINICAL DECISIONS SHOULD BE BASED ON THE PRIMARY CLINICAL RECORDS. [facility] [employer] [facility]. provides no warranty or guarantee of the accuracy or completeness of information in this document.
== END 2024-05-03 14:20 | disposition home or self-care (01) ==
PROVIDERS: Emergency Provider Emergency Medicine; PCP Internal Medicine; Visit Provider Emergency Medicine
DX: U07.1 COVID-19 (principal); J44.1 Chronic obstructive pulmonary disease with (acute) exacerbation; Z87.891 Personal history of nicotine dependence; I25.2 Old myocardial infarction; Z86.73 Personal history of transient ischemic attack (TIA), and cerebral infarction without residual deficits
CPT/HCPCS: 71045; 80048; 84484; 85025; 87631; 93005; 94640; 96374; 99284

== ENCOUNTER 2024-08-03 17:28 | Observation (INO) | payer OTHER, SELFPAY ==
[2024-08-03] VITALS (11 sets, daily range): BP systolic 85–220; BP diastolic 53–147; PULSE 95–118; RESP 18–23; TEMP 36.1–36.8; O2SAT 96–100; BMI 23.8; BMI 23.2
--- NOTE | 2024-08-03 17:34 | CT_ITS ---
We are attempting to reach an attending provider to discuss findings. An addendum with communication details will be sent when the communication is complete. INDICATION: Neuro deficit, acute, stroke suspected EXAMINATION: CT BRAIN - CT Head Stroke Protocol W/O Contrast Injection TECHNIQUE: Multiple axial images were obtained of the head without intravenous contrast. The protocol utilizes one or more of the following dose reduction techniques: automated exposure control, adjustment of mA and/or kV according to patient size,and/or use of iterative reconstruction technique. IV Contrast dosage and agent: None. RADIATION DOSAGE (If Supplied By Facility): CTDIvol = ( ) mGy, DLP = ( 880.47 ) mGycm COMPARISON: FINDINGS: BRAIN PARENCHYMA: No intra- or extra-axial hemorrhage. No evidence of acute infarct. No intracranial mass or mass effect. Periventricular white matter hypoattenuation likely representing chronic small vessel ischemic changes There is preservation of the dolan/white matter interface. Posterior fossa structures are unremarkable. CSF SPACES: Mild cortical atrophy. No hydrocephalus. Basal cisterns are patent. CALVARIUM, SKULL BASE, PARANASAL SINUSES AND MASTOID AIR CELLS: Clear. No discrete lytic or blastic abnormalities. ORBITS: Both globes, extraocular muscles, optic nerves and retrobulbar fat appear unremarkable. Calcific plaquing of the cavernous carotids bilaterally as well as severe calcific plaquing of the distal left vertebral which appears severely narrowed and right vertebral which appears occluded distally.. CT/STROKE Brain/Head without Cont IMPRESSION: Mild atrophy and periventricular white matter ischemic changes.. No mass or acute bleed. If concern for acute infarct MRI recommended especially if symptoms suggest posterior fossa stroke due to severe vertebral artery atherosclerosis Electronically Signed: Cruz Perez MD at 17:49 EST ,
--- NOTE | 2024-08-03 17:34 | EKG12_ITS ---
Test Reason : STROKE ALERT Blood Pressure : */* mmHG Vent. Rate : 107 BPM Atrial Rate : 107 BPM P-R Int : 190 ms QRS Dur : 90 ms QT Int : 344 ms P-R-T Axes : 66 -67 67 degrees QTcB Int : 459 ms Sinus tachycardia with occasional Premature ventricular complexes Left axis deviation Abnormal ECG Confirmed by DEEP WEAVER, MELANY ([id number]), clinical editor MARYAM ALLEN ([id number]) on 08/07/2024 6:09:17 AM Referred By: Confirmed By: MELANY ADAME MD
--- NOTE | 2024-08-03 17:35 | CT_ITS ---
We are attempting to reach an attending provider to discuss findings. An addendum with communication details will be sent when the communication is complete. STUDY: CTA HEAD AND NECK WITH CONTRAST REASON FOR EXAM: Male, 78 years old. Neuro deficit, acute, stroke suspected RADIATION DOSAGE (If Supplied By Facility): CTDIvol = ( 23.73 ) mGy, DLP = ( 733.63 ) mGycm TECHNIQUE: CT angiography was performed with a multi-detector CT scanner. Data acquisition was obtained from the skull base through the vertex following intravenous administration of [id number] 100ML. MIP images were reconstructed from the axial data set. Post-processing of the angiographic images was performed, with multiplanar reformation and 3D reconstruction. Individualized dose optimization techniques were used for this CT. The protocol utilizes one or more of the following dose reduction techniques: automated exposure control, adjustment of mA and/or kV according to patient size,and/or use of iterative reconstruction technique. COMPARISON: CT brain August 03, 2024 FINDINGS: Normal bilateral petrous carotid arteries. There is calcified plaque formation of the right cavernous carotid artery, with a moderate stenosis (50-75%). There is calcified plaque formation of the left cavernous carotid artery, with a moderate stenosis (50-75%). Normal right A1 segments of the anterior cerebral artery. Normal left A1 segments of the anterior cerebral artery. Normal intact anterior communicating artery (ACOM). Normal bilateral A2 segments of the anterior cerebral arteries. Normal right M1 and M2 segments of the middle cerebral arteries, with a normal M1 bifurcation. Normal left M1 and M2 segments of the middle cerebral arteries, with a normal M1 bifurcation. There is non-visualization of the right posterior communicating artery (PCOM). There is non-visualization of the left posterior communicating artery (PCOM). Left vertebral artery is dominant. Severe stenosis right vertebral artery with occlusion or near occlusion distally. Less than 50% stenosis left vertebral artery due to diffuse plaque. Normal basilar artery with a normal basilar bifurcation. The visualized bilateral superior cerebellar (SCA) arteries are normal. Normal bilateral P1, P2 and visualized P3 segments of the posterior cerebral arteries. There is no demonstrated aneurysm of the eek of [place]. There is no demonstrated abnormality of the visualized brain. AORTIC ARCH: Normal visualized aortic arch. Normal origins of the brachiocephalic, left common carotid, and left subclavian arteries. RIGHT CAROTID ARTERIES: Normal right common carotid artery (CCA). Normal right common carotid bulb. Normal origin of the right internal carotid (ICA) artery without a hemodynamically significant stenosis. Normal visualized cervical portion of the right internal carotid artery. Normal origin of the right external carotid artery (ECA). LEFT CAROTID ARTERIES: Normal left common carotid artery (CCA). Normal left common carotid bulb. Normal origin of the left internal carotid (ICA) artery without a hemodynamically significant stenosis. Normal visualized cervical portion of the left internal carotid artery. Normal origin of the left external carotid artery (ECA). VERTEBRAL ARTERIES: Calcified plaque at the origin of the left vertebral artery with probable moderate stenosis. Left vertebral artery is dominant. There is also calcified plaque and mild stenosis of the V4 segment on the left. The right vertebral artery is patent proximally but demonstrates severe stenosis of the V4 segment distally. 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 Severe stenosis distal right vertebral artery. Moderate stenosis at the origin of the left vertebral artery. Electronically Signed: Jayy Mauricio MD at 18:27 EST ,
--- NOTE | 2024-08-03 17:36 | EX.ED.DYSGE1 ---
HPI History of Present Illness Chief Complaint: Stroke Alert [facility] Medical History (Updated 08/03/24 @ 19:[address] Shannen Jung MD) Benign essential tremor Chronic pain syndrome Neuropathy Tobacco use HLD (hyperlipidemia) HTN (hypertension) Bronchiectasis PUD (peptic ulcer disease) TIA (transient ischemic attack) Perforated ulcer COPD (chronic obstructive pulmonary disease) Heart attack Home Medications ?Medication ?Instructions ?Recorded ?Last Taken ?Type atorvastatin 40 mg tablet 40 mg PO QHS cholesterol 08/13/22 08/02/24 History cholecalciferol (vitamin D3) 50 50 mcg PO QODAY vitamin 08/13/22 08/02/24 History mcg (2,000 unit) tablet cyclobenzaprine 10 mg tablet 10 mg PO QHS PRN PRN muscle spasms 08/13/22 08/02/24 History fluticasone 250 mcg-salmeterol 50 1 inh inhalation BID breathing 08/13/22 08/03/24 History mcg/dose blistr powdr for inhalation gabapentin 600 mg tablet 600 mg PO BID nerve pain 08/13/22 08/03/24 History ipratropium 0.5 mg-albuterol 3 mg 3 ml inhalation Q6H PRN Shortness 08/13/22 08/03/24 History (2.5 mg base)/3 mL nebulization Of Breath soln isosorbide mononitrate 30 mg 30 mg PO DAILY heart 08/13/22 08/03/24 History tablet,extended release 24 hr lisinopril 5 mg tablet 5 mg PO DAILY blood pressure 08/13/22 08/03/24 History metoprolol succinate 100 mg 100 mg PO DAILY blood pressure 08/13/22 08/03/24 History tablet,extended release 24 hr pantoprazole 40 mg tablet,delayed 40 mg PO DAILY reflux 08/13/22 08/03/24 History release tramadol 50 mg tablet 50 mg PO Q6H PRN Breakthrough Pain 08/13/22 08/03/24 History trazodone 50 mg tablet 50 mg PO QHS PRN leg cramps 08/13/22 08/02/24 History albuterol sulfate 90 mcg/actuation 2 inh inhalation Q6H PRN shortness 08/03/24 08/03/24 History aerosol inhaler (Ventolin HFA) of breath or wheezing Allergy/AdvReac Type Severity Reaction Status Date / Time oxycodone AdvReac Upset Verified 08/03/24 20:32 Stomach Family History Grandmother Lung cancer Father COPD (chronic obstructive pulmonary disease) Grandfather Bone cancer Brother Bone cancer Mother Heart disease Surgical History H/O hernia repair Total knee replacement status Social History household members: spouse Smoking Status: Former smoker Tobacco: How many years used: 66 how long ago did patient quit smoking: Quit ~ 6 months ago (current date 08/03/24), prior 1-1.5 ppd. alcohol intake: former details: Sober x 5 years. substance use type: does not use EXAM Physical Exam Const Vital Signs: 08/03/24 17:30 08/03/24 17:34 08/03/24 17:34 Temperature 96.9 F L Temperature Source Temporal Pulse Rate 118 H 110 H Respiratory Rate 20 H 23 H Blood Pressure 220/147 H 100/53 L Blood Pressure Mean 171 68 Pulse Ox 97 98 Oxygen Delivery Method Room Air Room Air Room Air 08/03/24 17:41 08/03/24 18:00 08/03/24 18:30 Temperature 98.2 F Temperature Source Oral Pulse Rate 104 H 101 H Respiratory Rate 18 18 Blood Pressure 110/93 H 89/65 L Blood Pressure Mean 98 73 Pulse Ox 98 97 Oxygen Delivery Method Room Air Room Air 08/03/24 19:00 08/03/24 19:07 Temperature 97.8 F Temperature Source Pulse Rate 95 95 Respiratory Rate 18 18 Blood Pressure 85/62 L 85/62 L Blood Pressure Mean 69 69 Pulse Ox 96 96 Oxygen Delivery Method Room Air MDM MDM MDM Narrative Medical decision making narrative: HISTORY OF PRESENT ILLNESS: 78-year-old male presents with concern for acute stroke. Last well was 10 AM on 08/03/2024. He is brought in by his who provides majority history. She states at approximately 10 AM the patient did have a trouble with his speech. He refused coming to the hospital initially. She denies any falls. Denies any blood thinners. States he has problems with his heart, COPD, hypertension. Patient does note issues with his speech as well. REVIEW OF SYSTEMS: Pertinent positives: Speech difficulties Pertinent negatives: Chest pain PHYSICAL EXAM: Nursing triage notes reviewed, Vital signs reviewed Constitutional: please see mdm HENT: MMM Eyes: Pupils equal round and reactive to light, Extraocular muscles intact Neck: No stridor, no JVD, full neck ROM Lungs: Clear to auscultation, No wheezing or rales. No increased work of breathing, no conversational dyspnea, no accessory muscle use, no nasal flaring. No respiratory distress noted Heart: Regular rate and rhythm, No murmurs, No rubs and No gallops, 2+ distal pulses (radial, femoral, posterior tibial) in all extremities Abdomen: Soft, there is no tenderness, rigidity, rebound or guarding, no obvious peritoneal signs, no palpable pulsatile abdominal masses, no auscultated abdominal bruit : No CVAT Extremities: No edema Neuro: alert, oriented to person and time, place, intact strength sensation bilateral upper lower extremities, no ataxia, noted aphasia and dysarthria NIH of 2 Skin: No rash or lesions noted MEDICAL DECISION MAKING: Chief Complaint: Speech difficulties External records reviewed: Reviewed prior imaging studies, reviewed prior medical history, reviewed current medications. No blood thinners noted Factors affecting care: COPD, peptic ulcer disease, TIA, Social determinants of health: Smoker History obtained from others: The patient's Consults: Stroke neurology, radiology, internal medicine (Dr. Jung) [facility] Narrative: The patient was initially hypertensive with a blood pressure 220/147, tachycardic with a heart rate of 118, breathing at 20 times a minute. Initial NIH of 2 for aphasia and dysarthria. His last known well was approximately 7-1/2 hours prior to arrival, he was not a TNK candidate. Given his focal neurologic deficit within the 24-hour window I did activate a stroke team was taken immediately to the CT suite for CT scan of the head without contrast and a CTA of the head neck with contrast I considered the following differential diagnosis: Acute CVA, TIA, Jorje's paralysis, ICH, focal seizure Broad lab and images were obtained. Frequent neurologic checks were obtained. Patient was kept on the monitor. ALL IMAGES (IF OBTAINED) HAVE BEEN PERSONALLY REVIEWED AND INTERPRETED BY MYSELF. EKG with sinus tachycardia, LAD, QTc 459, no STEMI, occasional PVCs. CBC with no leukocytosis, n no anemia, no thrombocytopenia No coagulopathy BMP with mild hypokalemia, no acute kidney injury, High-sensitivity troponin is negative, no evidence of myocardial ischemia I have personally reviewed the patient's chest x-ray. Chest x-ray is unremarkable for pulmonary edema, pneumothorax, pneumonia or focal cardiopulmonary abnormality. CT scan of the head without contrast shows no evidence of obvious ICH or mass CT of the head and neck showed no evidence of large vessel occlusion. Upon reevaluation patient blood pressure improved to 103/83, heart rate improved to 104, respiratory rate improved 18. Discussed with stroke neurologist Dr. Francine Grubbs who noted the patient does not meet criteria for TNK given last known well. He still candidate for thrombectomy. She states if the CT of the head and neck are negative for large vessel occlusion can be admitted here [facility] for MRI and further risk factor modification. Given negative CTA, no large vessel occlusion and no indication for transfer for thrombectomy discussed with hospitalist who recommended admission to the PCU. The patient and/or family, caregivers express understanding. The patient and/or family, caregivers agrees with the plan. Shared decision making: I will have a discussion with the patient and or visitors regarding risk/benefits of further testing or admission. They will be made aware of of the risk/benefits inherent in this decision they will be given the opportunity to voice understanding. Total critical care time today provided was at least 35 minutes. This excludes separately billable procedures. Critical care time (if documented) is secondary to the patient having high probability of clinically significant/life threatening deterioration in the patient's condition which required my urgent intervention. Impression: 1. Acute CVA 2. History of COPD 3. History of hypertension Dispo: Admit to PCU This note was generated with [employer] dictation software. It may contain incorrect words, spelling, and punctuation that were not noted in review of the chart prior to signing. Lab Data Labs: Laboratory Results - last 24 hr 08/03/24 17:44 WBC 9.5 RBC 4.37 L Hgb 13.0 Hct 39.4 L MCV 90.2 MCH 29.7 MCHC 33.0 RDW Std Deviation 49.6 H RDW Coeff of Chadd 14.9 H Plt Count 230 MPV 9.8 Immature Gran % (Auto) 0.600 Neut % (Auto) 65.3 Lymph % (Auto) 19.1 Daniels % (Auto) 14.6 H Eos % (Auto) 0.0 Baso % (Auto) 0.4 Absolute Neuts (auto) 6.2 Absolute Lymphs (auto) 1.82 Nucleated RBC % 0 PT 15.6 H INR 1.2 APTT 26.8 Sodium 141 Potassium 3.3 L Chloride 107 Carbon Dioxide 25.0 Anion Gap 9 BUN 26 H Creatinine 1.54 H Estim Creat Clear Calc 38.86 Est GFR (MDRD) Af Amer 57 L Est GFR (MDRD) Non-Af 47 L BUN/Creatinine Ratio 16.9 Glucose 109 H Calcium 9.5 Magnesium 2.2 Troponin I High Sens 29 Radiography Diagnostic Testing: Clinical Impression(s) from Imaging Studies Brain CT 08/03/24 17:34 IMPRESSION: Mild atrophy and periventricular white matter ischemic changes.. No mass or acute bleed. If concern for acute infarct MRI recommended especially if symptoms suggest posterior fossa stroke due to severe vertebral artery atherosclerosis Electronically Signed: Cruz Perez MD at 17:49 EST , ADDENDUM: 08/03/24 1804 IMPRESSION: Mild atrophy and periventricular white matter ischemic changes.. No mass or acute bleed. If concern for acute infarct MRI recommended especially if symptoms suggest posterior fossa stroke due to severe vertebral artery atherosclerosis N.B. : The above Results were Read Back by Cruz Perez MD to Mich Madera, , , and understanding confirmed on 08/03/2024 17:58:01 (ET). 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 Severe stenosis distal right vertebral artery. Moderate stenosis at the origin of the left vertebral artery. 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 Severe stenosis distal right vertebral artery. Moderate stenosis at the origin of the left vertebral artery. N.B. : The above Results were Read Back by Jayy Mauricio MD to Mich Madera DO, and understanding confirmed on 08/03/2024 18:28:02 (ET). Electronically Signed: Jayy Mauricio MD at 18:27 EST , Chest X-Ray 08/03/24 18:05 IMPRESSION: Hyperinflation but no acute cardiopulmonary pathology. Electronically Signed: Cruz Perez MD at 18:52 EST , Discharge Plan Disposition Disposition: Acute Care Hospital [facility] Discharge Date/Time: 08/03/24 20:08
[2024-08-03 17:56] LABS: Absolute Lymphocyte Count 1.82 X10^3/uL (0.83-4.51); Absolute Neutrophil Count 6.2 X10^3/uL (2.0-7.7); Basophil# 0.04 X10^3/uL; Basophil% 0.4 % (0-1); Hematocrit 39.4 % (40-54); Lymphocyte # 1.82 X10^3/ul (0.83-4.51); Lymphocyte % 19.1 % (19-41); Mean Corpuscular Hgb 29.7 pg (27.0-32.0); Mean Corpuscular Volume 90.2 fL (80-94); Mean Platelet Vol. 9.8 fl (6.2-12.0); Monocyte# 1.39 X10^3/uL; Monocyte% 14.6 % (0-10); NRBC Flagged by Analyzer 0 % (0-5); Neutrophil % 65.3 % (47-70); Platelet Count 230 K/mm3 (150-450); RBC Distribution Width CV 14.9 % (11.6-14.6); RBC Distribution Width SD 49.6 fl (35.1-43.9); Red Blood Count 4.37 M/mm3 (4.6-6.2); White Blood Count 9.5 K/mm3 (4.4-11.0)
--- NOTE | 2024-08-03 18:05 | RAD_ITS ---
STUDY: X-RAY CHEST REASON FOR EXAM: Male, 78 years old. Neuro deficit, acute, stroke suspected TECHNIQUE: AP portable COMPARISON: May 03, 2024 FINDINGS: Lungs are hyperinflated but clear.. There is no demonstrated pleural abnormality. Normal size heart. Normal mediastinum and santa. Normal visualized pulmonary arteries. Mildly calcified aortic arch and descending thoracic aorta. Mild degenerative changes of thoracic spine.. Normal visualized ribs, clavicles, and shoulders. There is no demonstrated abnormality of the visualized soft tissue structures of the upper abdomen. RAD/Chest 1 View IMPRESSION: Hyperinflation but no acute cardiopulmonary pathology. Electronically Signed: Cruz Perez MD at 18:52 EST ,
[2024-08-03 18:06] LABS: International Normalized Ratio 1.2; Prothrombin Time (Protime)PT. 15.6 SECONDS (11.7-14.9)
[2024-08-03 18:11] LABS: Partial Thromboplast Time 26.8 Seconds (24.1-36.2)
[2024-08-03 18:17] LABS: Anion Gap 9 (5-15); BUN 26 mg/dL (7-18); BUN/Creat Ratio 16.9 RATIO (10-20); Calcium,Total 9.5 mg/dL (8.5-10.1); Chloride 107 mmol/L (98-107); Creatinine, Serum 1.54 mg/dL (0.70-1.30); EST Glomerular Filtration Rate 47 mL/min (>60); Est Glom Filt Rate - Afr Amer 57 mL/min (>60); Estimated Creatinine Clearance 38.86 ml/min; Glucose 109 mg/dL (74-106); Potassium 3.3 mmol/L (3.5-5.1); Sodium Level 141 mmol/L (136-145); Troponin-I HS 29 pg/mL (3.0-78.0)
--- NOTE | 2024-08-03 19:26 | PCM.HP.STD ---
HPI - General General Date of Admission: 08/03/24 Date of Service: 08/03/24 Chief Complaint: Slurred speech, difficulty with words, dizziness. HPI Narrative The patient is a 78 y/o M w/ PMHx: Chronic essential tremors, Nonobstructive CAD w/ Hx NC, GERD w/ Hx perforated peptic ulcer/PUD, COPD/bronchiectasis, Hx TIA, Former EtOH abuse, Former Tobacco use, possible CKD underlying disease but uncertain as GFR vacillates although primarily stage I in appearance, HTN, HLD, Chronic neck pain w/ associated Chronic neuropathy w/ chronic LUE radiculopathy who presents to the [facility] ED on 08/03/24 with history of last known well 10 AM 07/30/2024 on day of presentation brought in by his noted that initially had onset of difficulty with his speech specifically slurred speech with expressive aphasia and mild dizziness but refused to present to the hospital however eventually she was able to bring him in. Workup in the ED included T96.9 Temporally, heart rate 118, BP 220/147, respiratory rate 20, 97% on room air with most recent repeat vitals T98.2 Orally, heart rate 101, BP 89/65, respiratory rate 18, 97% room air, CBC with WC of 9.5, and 113, platelet 230 without marked shift, unremarkable coags aside PT 15.6, BMP with potassium 3.3, BUN/plan 26/1.54, GFR 47, glucose 109, troponin 29, CT brain with mild atrophy and periventricular white matter ischemic changes with no acute intracranial findings, CTA head and neck with moderate stenosis bilateral cavernous segments of the internal carotid arteries, severe stenosis of the distal right vertebral artery, moderate stenosis at the origin of the left vertebral artery, chest x-ray with no acute cardiopulmonary findings, EKG with ST with nonspecific changes with no acute evidence of ischemia. In the ED per ED physician she had NIHSS 2 for aphasia and dysarthria. She improved and repeat NIHSS per Stroke Neurologist 1 for mild to moderate dysarthria only. In the ED given patient's symptoms less than 24 hours stroke alert was initiated. ED discussed case with stroke neurologist Dr. Grubbs. Patient did not meet TNK criteria. ON LICENSE OF [facility] Medical History (Updated 08/03/24 @ 19:[address] Shannen Jung MD) Benign essential tremor Chronic pain syndrome Neuropathy Tobacco use HLD (hyperlipidemia) HTN (hypertension) Bronchiectasis PUD (peptic ulcer disease) TIA (transient ischemic attack) Perforated ulcer COPD (chronic obstructive pulmonary disease) Heart attack Home Medications ?Medication ?Instructions ?Recorded ?Last Taken ?Type atorvastatin 40 mg tablet 40 mg PO QHS cholesterol 08/13/22 08/02/24 History cholecalciferol (vitamin D3) 50 50 mcg PO QODAY vitamin 08/13/22 08/02/24 History mcg (2,000 unit) tablet cyclobenzaprine 10 mg tablet 10 mg PO QHS PRN PRN muscle spasms 08/13/22 08/02/24 History fluticasone 250 mcg-salmeterol 50 1 inh inhalation BID breathing 08/13/22 08/03/24 History mcg/dose blistr powdr for inhalation gabapentin 600 mg tablet 600 mg PO BID nerve pain 08/13/22 08/03/24 History ipratropium 0.5 mg-albuterol 3 mg 3 ml inhalation Q6H PRN Shortness 08/13/22 08/03/24 History (2.5 mg base)/3 mL nebulization Of Breath soln isosorbide mononitrate 30 mg 30 mg PO DAILY heart 08/13/22 08/03/24 History tablet,extended release 24 hr lisinopril 5 mg tablet 5 mg PO DAILY blood pressure 08/13/22 08/03/24 History metoprolol succinate 100 mg 100 mg PO DAILY blood pressure 08/13/22 08/03/24 History tablet,extended release 24 hr pantoprazole 40 mg tablet,delayed 40 mg PO DAILY reflux 08/13/22 08/03/24 History release tramadol 50 mg tablet 50 mg PO Q6H PRN Breakthrough Pain 08/13/22 08/03/24 History trazodone 50 mg tablet 50 mg PO QHS PRN leg cramps 08/13/22 08/02/24 History albuterol sulfate 90 mcg/actuation 2 inh inhalation Q6H PRN shortness 08/03/24 08/03/24 History aerosol inhaler (Ventolin HFA) of breath or wheezing Allergy/AdvReac Type Severity Reaction Status Date / Time oxycodone AdvReac Upset Verified 08/03/24 17:30 Stomach Family History Grandmother Lung cancer Father COPD (chronic obstructive pulmonary disease) Grandfather Bone cancer Brother Bone cancer Mother Heart disease Surgical History H/O hernia repair Total knee replacement status Social History household members: spouse Smoking Status: Former smoker Tobacco: How many years used: 65 how long ago did patient quit smoking: Quit ~ 6 months ago (current date 08/03/24), prior 1-1.5 ppd. alcohol intake: former details: Sober x 5 years. substance use type: does not use ROS ROS Narrative Admission Review of Systems: CONSTITUTIONAL: No weight loss, fever, chills, + weakness or fatigue. HEENT: + Dizziness. Eyes: No visual loss, blurred vision, double vision or yellow sclerae. Ears, Nose, Throat: No hearing loss, sneezing, congestion, runny nose or sore throat. SKIN: No rash or itching, lesions, wounds. CARDIOVASCULAR: + Dizziness. No chest pain, chest pressure or chest discomfort, palpitations, edema, orthopnea, syncopal events. RESPIRATORY: + Chronic dyspnea, intermittent cough with occasional sputum, occasional wheezing. No hemoptysis. GASTROINTESTINAL: No anorexia, nausea, vomiting or diarrhea, abdominal pain, melena, BRBPR. GENITOURINARY: No dysuria, frequency, urgency or retention. NEUROLOGICAL: + Transient expressive aphasia/dysarthria which is improving, dizziness. Chronic LUE paresthesias. No headache, syncope, paralysis, ataxia, focal weakness, change in bowel or bladder control, seizure. MUSCULOSKELETAL: + muscle, back pain, joint pain or stiffness. HEMATOLOGIC: No anemia, bleeding or bruising. LYMPHATICS: No enlarged nodes. No history of splenectomy. PSYCHIATRIC: No history of depression or anxiety. ENDOCRINOLOGIC: No reports of sweating, cold or heat intolerance. No polyuria or polydipsia. ALLERGIES: No history of asthma, hives, eczema or rhinitis. Vital Signs Vital Signs Vital Signs: 08/03/24 17:30 08/03/24 17:34 08/03/24 17:34 Temperature 96.9 F L Temperature Source Temporal Pulse Rate 118 H 110 H Respiratory Rate 20 H 23 H Blood Pressure 220/147 H 100/53 L Blood Pressure Mean 171 68 Pulse Ox 97 98 Oxygen Delivery Method Room Air Room Air Room Air 08/03/24 17:41 08/03/24 18:00 08/03/24 18:30 Temperature 98.2 F Temperature Source Oral Pulse Rate 104 H 101 H Respiratory Rate 18 18 Blood Pressure 110/93 H 89/65 L Blood Pressure Mean 98 73 Pulse Ox 98 97 Oxygen Delivery Method Room Air Room Air 08/03/24 19:00 08/03/24 19:07 Temperature 97.8 F Temperature Source Pulse Rate 95 95 Respiratory Rate 18 18 Blood Pressure 85/62 L 85/62 L Blood Pressure Mean 69 69 Pulse Ox 96 96 Oxygen Delivery Method Room Air Weight Weight: 156 lb 8.451 oz Body Mass Index (BMI) 23.8 Physical Exam Narrative Physical Examination: General: Awake, alert, oriented x 3 and cooperative, seated upright in the ED bed in no apparent distress, notes improvement of his symptoms. Skin: Normal color, normal turgor, no icterus, no cyanosis. HEENT: AT/NC, EOMI, PERRLA, mildly dry MM, no carotid bruits or JVD noted. Lungs: Diminished, > bases, mildly increased RR without distress, occasional wheezing with patient noting this is his baseline, no rales or ronchi. Heart: Mildly tachycardic with regular rhythm; no gallop, rub audible. Abdomen: Soft, NTTP, ND, mildly hyperactive BS, no appreciated HSM. Extremities: No cyanosis, clubbing, or edema. Neurological: Patient awake, alert, oriented as noted, cognitive function intact; pupils equally reactive to light and accommodation, cranial nerves grossly normal, improving aphasia, improving dysarthria per who is present, fluid conversation, chronic unchanged LUE radiculopathy/paresthesias, chronic notable BL UE essential tremors, moving all 4 extremities, no focal deficits, strength mildly to moderately globally decreased, FTN appropriate aside from essential tremors, HTS appropriate, equivocal babinski. Psychiatric: Affect appears fatigued otherwise normal, no acute evidence of depressive or anxiety feelings. Results Lab / Micro Data 08/03/24 17:44 08/03/24 17:44 Labs: Laboratory Results - last 24 hr 08/03/24 17:44: WBC 9.5, RBC 4.37 L, Hgb 13.0, Hct 39.4 L, MCV 90.2, MCH 29.7, MCHC 33.0, RDW Std Deviation 49.6 H, RDW Coeff of Chadd 14.9 H, Plt Count 230, MPV 9.8, Immature Gran % (Auto) 0.600, Neut % (Auto) 65.3, Lymph % (Auto) 19.1, [place] % (Auto) 14.6 H, Eos % (Auto) 0.0, Baso % (Auto) 0.4, Absolute Neuts (auto) 6.2, Absolute Lymphs (auto) 1.82, Nucleated RBC % 0, PT 15.6 H, INR 1.2, APTT 26.8, Sodium 141, Potassium 3.3 L, Chloride 107, Carbon Dioxide 25.0, Anion Gap 9, BUN 26 H, Creatinine 1.54 H, Estim Creat Clear Calc 38.86, Est GFR (MDRD) Af Amer 57 L, Est GFR (MDRD) Non-Af 47 L, BUN/Creatinine Ratio 16.9, Glucose 109 H, Calcium 9.5, Troponin I High Sens 29 Imaging Radiology Impression Brain CT 08/03/24 17:34 IMPRESSION: Mild atrophy and periventricular white matter ischemic changes.. No mass or acute bleed. If concern for acute infarct MRI recommended especially if symptoms suggest posterior fossa stroke due to severe vertebral artery atherosclerosis Electronically Signed: Cruz Perez MD at 17:49 EST Reading Location ID and State: [facility] / [place] Tel [phone], Service support , ADDENDUM: 08/03/24 1804 IMPRESSION: Mild atrophy and periventricular white matter ischemic changes.. No mass or acute bleed. If concern for acute infarct MRI recommended especially if symptoms suggest posterior fossa stroke due to severe vertebral artery atherosclerosis N.B. : The above Results were Read Back by Cruz Perez MD to Mich Madera, , , and understanding confirmed on 08/03/2024 17:58:01 (ET). 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 Severe stenosis distal right vertebral artery. Moderate stenosis at the origin of the left vertebral artery. Electronically Signed: Jayy Mauricio MD at 18:27 EST Reading Location ID and State: [facility] / [place] Tel , Service support , ADDENDUM: 08/03/24 1834 IMPRESSION: Moderate stenosis bilateral cavernous segments internal carotid arteries. Severe stenosis distal right vertebral artery. Moderate stenosis at the origin of the left vertebral artery. N.B. : The above Results were Read Back by Jayy Mauricio MD to Mich Madera DO, and understanding confirmed on 08/03/2024 18:28:02 (ET). Electronically Signed: Jayy Mauricio MD at 18:27 EST Reading Location ID and State: [facility] / [place] Tel , Service support , Chest X-Ray 08/03/24 18:05 IMPRESSION: Hyperinflation but no acute cardiopulmonary pathology. Electronically Signed: Cruz Perez MD at 18:52 EST , Assessment & Plan Assessment/Plan (1) CVA (cerebral vascular accident): PLAN: Plan The patient is a 78 y/o M w/ PMHx: Chronic essential tremors, Nonobstructive CAD w/ Hx NC, GERD w/ Hx perforated peptic ulcer/PUD, COPD/bronchiectasis, Hx TIA, Former EtOH abuse, Former Tobacco use, possible CKD underlying disease but uncertain as GFR vacillates although primarily stage I in appearance, HTN, HLD, Chronic neck pain w/ associated Chronic neuropathy w/ chronic LUE radiculopathy who presents to the [facility] ED on 08/03/24 with history of last known well 10 AM 07/30/2024 on day of presentation brought in by his noted that initially had onset of difficulty with his speech specifically slurred speech with expressive aphasia and mild dizziness but refused to present to the hospital however eventually she was able to bring him in. #1. Aphasia, expressive, dysarthria, mild dizziness concerning for CVA with significant moderate stenosis bilateral cavernous segments of the ICAs as well as severe stenosis distal right vertebral artery and moderate stenosis at the origin of the left vertebral artery: Will admit to PCU, will obtain MRI Brain, ECHO, PT/OT/Speech/Nutrition evaluation per protocol. Will allow permissive HTN, will administer full-strength aspirin and maintain on baby asa, statin w/ AM FLP, fall precautions. Mag, TSH, FLP, HgbA1c requested. Maintain on fall and aspiration precautions. Continue neurology consultation. Will need aggressive follow-up also given noted findings on CTA as high risk especially with bilateral disease in the vertebral arteries. #2. Acute kidney injury with previous GFR consistent with primarily stage I although transiently GFR has been in stage II range but certainly could have been acute: Unclear etiology, possibly dehydration component and medications. Admission BUN/Cr 26/1.54, GFR 47, prior baseline creatinine noted to be primarily 0.7-0.8. Will hydrate, hold nephrotoxic medications and repeat chemistry in AM. Urinalysis requested. If not improving worsens further we will further investigate. #3. Hypokalemia: Admission K+ 3.3, magnesium level requested, supplementation given, repeat level in AM. #4. Chronic COPD/bronchiectasis: Will hold home inhalers in the interim maintain on ATC budesonide therapy, PRN albuterol, HOB, IS parameters. #5. Hypertension: Will maintain permissive hypertension especially given noted findings on CTA, will have as needed agents per stroke protocol only. #6. Hyperlipidemia: Continue home statin regimen. AM FLP. #7. Chronic pain syndrome/chronic neuropathy: Continue patient on gabapentin regimen. Will hold for sedation. #8. GERD: Continue patient on PPI. #9. Chronic essential tremors: Holding BB therapy, notable chronic essential tremors primarily upper extremities. #10. Nonobstructive CAD: Patient does have history of previous NC x 2 who reports and notes that [facility] issues to his underlying lung disease and exposure previously to agent orange but uncertain, notes he is had previous cardiac catheterization with nonobstructive disease, current medications did not list aspirin therapy but initiated as noted, continue statin, temporally maintaining permissive hypertension. #11. DVT prophylaxis: Lovenox. #12. CODE status: Patient HCPOA is not in place but his who is present would be his medical decision maker and living will is currently in place. Discussed CODE status at length including difference between FULL code, DNR-CCA and DNR-CC status. Following discussions about the differences in these status, requested DNR-CCA, no intubation. Advanced Care Planning Face to Face Time: 16 minutes. Charges/Coding Visit Charges Inpatient E&M: 45584 Init Hosp L3 Procedures Hospitalists Procedures: 00648 Advncd Care Plan 30 Min
--- NOTE | 2024-08-03 20:15 | ECHOD_ITS ---
Reason For Study: TIA/CVA Procedure This was a 2D Doppler, Color Flow transthoracic echocardiogram. Exam performed portable in patient room. Left Ventricle Normal LV size. The estimated ejection fraction is 65 %. No evidence for diastolic dysfunction. No regional wall motion abnormalities noted. Right Ventricle Normal RV size. Normal systolic function. Atria The left and right atria are normal. No doppler evidence for ASD. Mitral Valve There is no mitral valve stenosis. No mitral valve insufficiency. Tricuspid Valve There is no tricuspid stenosis. No tricuspid valve insufficiency. Aortic Valve Trisinus/trileaflet aortic valve. There is no aortic stenosis. No aortic valve insufficiency. Pulmonic Valve There is no pulmonic valvular stenosis. No pulmonic valve insufficiency. Great Vessels Normal aortic root. Pericardium/Pleural No pericardial effusion. MMode/2D Measurements & Calculations LVIDd: 5.1 cm IVSd: 0.75 cm LAV(MOD-bp): 35.1 ml LVIDs: 3.2 cm LVPWd: 0.78 cm LAV(MOD-bp) Indexed: 19.0 ml/m2 FS: 38.3 % LAV(MOD-sp2): 32.3 ml LAV(MOD-sp4): 30.6 ml SV(MOD-sp4): 46.1 ml SV(sp4-el): 43.0 ml LVAd ap4: 25.1 cm2 LVLd ap4: 8.0 cm SI(MOD-sp4): 25.0 ml/m2 EDV(MOD-sp4): 70.4 ml EDV(sp4-el): 66.8 ml LVAs ap4: 13.6 cm2 LVLs ap4: 6.6 cm ESV(MOD-sp4): 24.3 ml ESV(sp4-el): 23.8 ml EF(MOD-sp4): 65.5 % EF(sp4-el): 64.4 % LA A4 area: 14.1 cm2 RA A4 area: 14.8 cm2 Time Measurements MV dec time: 0.09 sec Doppler Measurements & Calculations MV E max chandana: 86.5 cm/sec Lat Peak E' Chandana: 12.4 cm/sec Med Peak E' Chandana: 7.3 cm/sec MV A max chandana: 101.1 cm/sec E/E' lat: 7.0 E/E' med: 11.8 MV E/A: 0.86 MV dec slope: 945.6 cm/sec2 Ao V2 max: 144.7 cm/sec LV V1 max: 135.6 cm/sec Ao max P.4 mmHg LV V1 max P.4 mmHg Ao V2 mean: 91.0 cm/sec LV V1 mean P.8 mmHg Ao mean P.0 mmHg LV V1 mean: 92.2 cm/sec Ao V2 VTI: 24.2 cm LV V1 VTI: 22.8 cm AV (velocity ratio): 0.94 PA V2 max: 117.5 cm/sec PA V2 mean: 80.0 cm/sec ECHO/Echo Complete Interpretation Summary The estimated ejection fraction is 65 %. No evidence for diastolic dysfunction. Ordering Physician: Shannen Jung Referring Physician: Jenn Mora Performed By: Lolly Peralta RCS
--- NOTE | 2024-08-03 20:18 | CM.ED ---
Social Work Reason for visit: Stroke alert SW met with patient and . stated she had a hard time convincing patient to go the hospital. stated he has had strokes in the past. Emotional support provided. No further needs identified. Dalia Oden, RELAY MECHANIC, PSYCHOLOGY ASSOCIATE
[2024-08-03 20:30] LABS: Magnesium 2.2 mg/dL (1.6-2.6)
[2024-08-03] MEDS: 0.9% Normal Saline (1000mL) 1,000 ML 100 ML IV (21:45)
[2024-08-03] MEDS: Atorvastatin Calcium 40 MG Tablet PO (21:47)
[2024-08-03] MEDS: Potassium Chloride Oral Tablet 20 MEQ 40 MEQ PO (21:47)
[2024-08-03] MEDS: Gabapentin 600 MG Tablet PO (21:47)
[2024-08-03] MEDS: Aspirin 325 MG Tablet PO (21:47)
[2024-08-04] VITALS (11 sets, daily range): BP systolic 92–146; BP diastolic 60–77; PULSE 87–108; RESP 16–24; TEMP 36.6–37.1; O2SAT 94–100; BMI 23.2
[2024-08-04] MEDS: Albuterol 2.5 MG/3 ML VIAL.NEB. INHALATION ×3 (01:17→18:56)
[2024-08-04] MEDS: Acetaminophen 325 MG Tablet 650 MG PO ×2 (04:40→16:53)
[2024-08-04] MEDS: Budesonide Respules 0.5 MG/2 ML AMPUL.NEB. INHALATION ×2 (07:02→18:56)
[2024-08-04 07:18] LABS: Absolute Lymphocyte Count 1.92 X10^3/uL (0.83-4.51); Absolute Neutrophil Count 3.8 X10^3/uL (2.0-7.7); Basophil# 0.02 X10^3/uL; Basophil% 0.3 % (0-1); Hematocrit 37.4 % (40-54); Hemoglobin 11.9 g/dL (13.0-16.5); Lymphocyte # 1.92 X10^3/ul (0.83-4.51); Lymphocyte % 28.6 % (19-41); Mean Corp Hgb Conc 31.8 g/dL (32-36); Mean Corpuscular Hgb 29.1 pg (27.0-32.0); Mean Corpuscular Volume 91.4 fL (80-94); Monocyte# 0.93 X10^3/uL; Monocyte% 13.8 % (0-10); NRBC Flagged by Analyzer 0 % (0-5); Neutrophil # 3.82 X10^3/uL (2.7-7.7); Neutrophil % 56.9 % (47-70); Platelet Count 215 K/mm3 (150-450); RBC Distribution Width CV 14.8 % (11.6-14.6); Red Blood Count 4.09 M/mm3 (4.6-6.2); White Blood Count 6.7 K/mm3 (4.4-11.0)
--- NOTE | 2024-08-04 07:57 | PN.HOSP_ITS ---
Reason for Visit Reason for Visit: Diagnoses Cerebral infarction, unspecified (08/03/24) Subjective Subjective Patient is a 78-year-old gentleman was brought to the emergency department by the with slurred speech, and dizziness. Last known well was outside the window for TNK. Admitted to a monitored bed for possible CVA workup. Objective Data Objective Data Vital Signs: Vital Signs Temp Pulse Resp BP Pulse Ox O2 Del Method 97.8 F 100 18 109/71 94 Room Air 08/04/24 04:28 08/04/24 04:28 08/04/24 04:28 08/04/24 04:28 08/04/24 04:28 08/04/24 04:30 Oxygen Delivery Method Room Air Weight: 71.4 kg Body Mass Index (BMI) 23.2 Lab / Micro Data 08/04/24 06:27 08/03/24 17:44 Labs: Laboratory Results - last 24 hr 08/03/24 17:44: WBC 9.5, RBC 4.37 L, Hgb 13.0, Hct 39.4 L, MCV 90.2, MCH 29.7, MCHC 33.0, RDW Std Deviation 49.6 H, RDW Coeff of Chadd 14.9 H, Plt Count 230, MPV 9.8, Immature Gran % (Auto) 0.600, Neut % (Auto) 65.3, Lymph % (Auto) 19.1, [place] % (Auto) 14.6 H, Eos % (Auto) 0.0, Baso % (Auto) 0.4, Absolute Neuts (auto) 6.2, Absolute Lymphs (auto) 1.82, Nucleated RBC % 0, PT 15.6 H, INR 1.2, APTT 26.8, Sodium 141, Potassium 3.3 L, Chloride 107, Carbon Dioxide 25.0, Anion Gap 9, BUN 26 H, Creatinine 1.54 H, Estim Creat Clear Calc 38.86, Est GFR (MDRD) Af Amer 57 L, Est GFR (MDRD) Non-Af 47 L, BUN/Creatinine Ratio 16.9, Glucose 109 H, Calcium 9.5, Magnesium 2.2, Troponin I High Sens 29 08/04/24 06:27: WBC 6.7, RBC 4.09 L, Hgb 11.9 L, Hct 37.4 L, MCV 91.4, MCH 29.1, MCHC 31.8 L, RDW Std Deviation 50.0 H, RDW Coeff of Chadd 14.8 H, Plt Count 215, MPV 10.0, Immature Gran % (Auto) 0.400, Neut % (Auto) 56.9, Lymph % (Auto) 28.6, [place] % (Auto) 13.8 H, Eos % (Auto) 0.0, Baso % (Auto) 0.3, Absolute Neuts (auto) 3.8, Absolute Lymphs (auto) 1.92, Nucleated RBC % 0 Radiography Diagnostic Testing: Radiology Impression Brain CT 08/03/24 17:34 IMPRESSION: Mild atrophy and periventricular white matter ischemic changes.. No mass or acute bleed. If concern for acute infarct MRI recommended especially if symptoms suggest posterior fossa stroke due to severe vertebral artery atherosclerosis Electronically Signed: Cruz Perez MD at 17:49 EST Reading Location ID and State: [address] [place] [address] Tel , Service support , ADDENDUM: 08/03/24 1804 IMPRESSION: Mild atrophy and periventricular white matter ischemic changes.. No mass or acute bleed. If concern for acute infarct MRI recommended especially if symptoms suggest posterior fossa stroke due to severe vertebral artery atherosclerosis N.B. : The above Results were Read Back by Cruz Perez MD to Mich Madera, DO, and understanding confirmed on 08/03/2024 17:58:01 (ET). 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 Severe stenosis distal right vertebral artery. Moderate stenosis at the origin of the left vertebral artery. 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 Severe stenosis distal right vertebral artery. Moderate stenosis at the origin of the left vertebral artery. N.B. : The above Results were Read Back by Jayy Mauricio MD to Mich Madera DO, and understanding confirmed on 08/03/2024 18:28:02 (ET). Electronically Signed: Jayy Mauricio MD at 18:27 EST , Chest X-Ray 08/03/24 18:05 IMPRESSION: Hyperinflation but no acute cardiopulmonary pathology. Electronically Signed: Cruz Perez MD at 18:52 EST , Physical Exam Narrative GENERAL: cooperative HEENT: Atraumatic; normocephalic EYES; Anicteric, Normal Conjunctiva NECK; supple, normal thyroid, RESPIRATORY: Diminished to auscultation CARDIOVASCULAR: Regular S1 S2, GI: soft, normoactive bowel sounds, : No Renal angle tenderness; EXTREMITIES: No edema, no clubbing, MUSCULOSKELETAL: no muscle wasting NEURO: Awake; no lateralizing signs. Tremors at rest SKIN: No Rash PSYCH; Flat affect Assessment & Plan Assessment/Plan (1) CVA (cerebral vascular accident): PLAN: Plan Patient is a 78-year-old gentleman was brought to the emergency department by the with slurred speech, and dizziness. Last known well was outside the window for TNK. Admitted to a monitored bed for possible CVA workup. 1. Suspected CVA ? Patient presented with expressive aphasia and dysarthria as well as dizziness. Admitted to monitored bed requested for every 4 neurochecks ordered 2D echo as well as MRI. CT of the head and neck obtained on admission demonstrated m oderate stenosis bilateral cavernous segments internal carotid arteries. Severe stenosis distal right vertebral artery. Moderate stenosis at the origin of the left vertebral artery. Patient was started on antiplatelet therapy as well as statin therapy and consult placed to [facility] 2. Acute kidney injury ? Patient started on rehydration with subsequent monitoring of electrolytes ordered 3. Essential hypertension ? Will allow for permissive hypertension given patient presentation 4. Hypokalemia ? Corrected for protocol repeat labs ordered for a.m. 5. Dyslipidemia ?Patient is on statin therapy, continued at home dose 6. COPD ? Currently not in exacerbation aerosol treatment as needed 7. GERD ? On PPI 7. History of peptic ulcer disease with complication including perforated peptic ulcer ? Currently on PPI 8. DVT prophylaxis ? On enoxaparin Time spent in the patient's overall evaluation,decision-making process, review of diagnostic data, adjustment of management, discussion with other providers, nursing nursing and ancillary staff involved in patient's care documentation, 50 Minutes Charges/Coding Visit Charges Inpatient E&M: 98136 [facility] Hosp L3
--- NOTE | 2024-08-04 08:00 | MRI_ITS ---
STUDY: MRI BRAIN WITHOUT CONTRAST REASON FOR EXAM: Male, 78 years old. CVA TECHNIQUE: Multiplanar multisequence imaging of the brain was performed without the administration of intravenous contrast. COMPARISON: Noncontrast head CT 08/03/2024 FINDINGS: The ventricles, cisterns, and sulci are prominent consistent with age-related volume loss. There is no restricted diffusion to suggest acute ischemia or infarction. No succeptibility artifict to suggest intracranial hemorrhage or mineralization. Major intracranial signal voids are preserved. There is high T2/FLAIR signal seen in the periventricular deep white matter. There is no midline shift, mass effect, or extra axial fluid collections are seen. No CP angle or IAC mass is seen. The orbits are unremarkable. The sella turcica and craniovertebral junction are within normal limits. The visualized paranasal sinuses are clear. Inflammatory signal changes in the left mastoid air cells. MRI/Brain without Contrast IMPRESSION: Chronic microvascular ischemic changes. No intracranial hemorrhage, acute infarct, or space occupying lesion seen on this noncontrast MRI of the brain. Electronically Signed: Bi Nava MD at 16:56 EST ,
[2024-08-04] MEDS: 0.9% Saline Lock 10 ML Syringe IV ×2 (08:07→18:33)
[2024-08-04] MEDS: Aspirin 81 MG TAB.CHEW PO (08:07)
--- NOTE | 2024-08-04 08:50 | STROKE.CONS ---
Assessment and Plan: Stroke Assessment/Plan ALBINO JIMENEZ Jr. is a 78 M with a history of Chronic essential tremors, Nonobstructive CAD w/ Hx MS, GERD w/ Hx perforated peptic ulcer/PUD, COPD/bronchiectasis, Hx TIA, Former EtOH abuse, Former Tobacco use, possible CKD, HTN, HLD, Chronic neck pain w/ associated Chronic neuropathy w/ chronic LUE radiculopathy who presents with difficulty with his speech specifically slurred speech with expressive aphasia and mild dizziness. This has resolved. Likely had a TIA. Not a TNK or thrombectomy candidate. Neurological examination shows mild decreased sensation on left. Neuroimaging shows the following: CT brain with mild atrophy and periventricular white matter ischemic changes with no acute intracranial findings CTA head and neck with moderate stenosis bilateral cavernous segments of the internal carotid arteries, severe stenosis of the distal right vertebral artery, moderate stenosis at the origin of the left vertebral artery MRI Brain: Negative DWI per my read LDL: 37 HbA1C: 5.4 Plan Continue ASA Statin to keep LDL <70 Stroke w/up pending - ECHO. If negative can get 30 day event monitor as out patient HTN: Gradually normalize it PT,OT, Speech, swallow evaluation Stroke education Thanks for the consultation. Spent 30 minutes in evaluation of this patient HPI Consult Data Date of Consult: 08/04/24 HPI Narrative HPI Narrative: ALBINO JIMENEZ, is a 78 M with Chronic essential tremors, Nonobstructive CAD w/ Hx MS, GERD w/ Hx perforated peptic ulcer/PUD, COPD/bronchiectasis, Hx TIA, Former EtOH abuse, Former Tobacco use, possible CKD underlying disease but uncertain as GFR vacillates although primarily stage I in appearance, HTN, HLD, Chronic neck pain w/ associated Chronic neuropathy w/ chronic LUE radiculopathy who presents to the ED on 08/03/24 with history of last known well 10 AM 08/03/2024 on day of presentation brought in by his noted that initially had onset of difficulty with his speech specifically slurred speech with expressive aphasia and mild dizziness. In the ED he had NIHSS 2 for aphasia and dysarthria that improved to 1 for mild to moderate dysarthria only. Patient did not meet TNK criteria as out of window.he feels he is back to baseline CT brain with mild atrophy and periventricular white matter ischemic changes with no acute intracranial findings CTA head and neck with moderate stenosis bilateral cavernous segments of the internal carotid arteries, severe stenosis of the distal right vertebral artery, moderate stenosis at the origin of the left vertebral artery chest x-ray with no acute cardiopulmonary findings, EKG with ST with nonspecific changes with no acute evidence of ischemia. [facility] Medical History (Updated 08/03/24 @ 19:[address] Shannen Jung MD) Benign essential tremor Chronic pain syndrome Neuropathy Tobacco use HLD (hyperlipidemia) HTN (hypertension) Bronchiectasis PUD (peptic ulcer disease) TIA (transient ischemic attack) Perforated ulcer COPD (chronic obstructive pulmonary disease) Heart attack Home Medications ?Medication ?Instructions ?Recorded ?Last Taken ?Type atorvastatin 40 mg tablet 40 mg PO QHS cholesterol 08/13/22 08/02/24 History cholecalciferol (vitamin D3) 50 50 mcg PO QODAY vitamin 08/13/22 08/02/24 History mcg (2,000 unit) tablet cyclobenzaprine 10 mg tablet 10 mg PO QHS PRN PRN muscle spasms 08/13/22 08/02/24 History fluticasone 250 mcg-salmeterol 50 1 inh inhalation BID breathing 08/13/22 08/03/24 History mcg/dose blistr powdr for inhalation gabapentin 600 mg tablet 600 mg PO BID nerve pain 08/13/22 08/03/24 History ipratropium 0.5 mg-albuterol 3 mg 3 ml inhalation Q6H PRN Shortness 08/13/22 08/03/24 History (2.5 mg base)/3 mL nebulization Of Breath soln isosorbide mononitrate 30 mg 30 mg PO DAILY heart 08/13/22 08/03/24 History tablet,extended release 24 hr lisinopril 5 mg tablet 5 mg PO DAILY blood pressure 08/13/22 08/03/24 History metoprolol succinate 100 mg 100 mg PO DAILY blood pressure 08/13/22 08/03/24 History tablet,extended release 24 hr pantoprazole 40 mg tablet,delayed 40 mg PO DAILY reflux 08/13/22 08/03/24 History release tramadol 50 mg tablet 50 mg PO Q6H PRN Breakthrough Pain 08/13/22 08/03/24 History trazodone 50 mg tablet 50 mg PO QHS PRN leg cramps 08/13/22 08/02/24 History albuterol sulfate 90 mcg/actuation 2 inh inhalation Q6H PRN shortness 08/03/24 08/03/24 History aerosol inhaler (Ventolin HFA) of breath or wheezing Allergy/AdvReac Type Severity Reaction Status Date / Time oxycodone AdvReac Upset Verified 08/03/24 20:32 Stomach Family History Grandmother Lung cancer Father COPD (chronic obstructive pulmonary disease) Grandfather Bone cancer Brother Bone cancer Mother Heart disease Surgical History H/O hernia repair Total knee replacement status Social History household members: spouse Smoking Status: Current some day smoker tobacco type: cigarettes Tobacco: How many years used: 66 how long ago did patient quit smoking: Quit ~ 6 months ago (current date 08/03/24), prior 1-1.5 ppd. alcohol intake: former details: Sober x 5 years. substance use type: does not use Vital Signs Vital Signs Vital Signs: 08/03/24 17:30 08/03/24 17:34 08/03/24 17:34 Temperature 96.9 F L Temperature Source Temporal Pulse Rate 118 H 110 H Pulse Strength Respiratory Rate 20 H 23 H Respiratory Effort Respiratory Depth Respiratory Pattern Blood Pressure 220/147 H 100/53 L Blood Pressure Mean 171 68 Blood Pressure Source Blood Pressure Position Blood Pressure Location Pulse Ox 97 98 Oxygen Delivery Method Room Air Room Air Room Air 08/03/24 17:41 08/03/24 18:00 08/03/24 18:30 Temperature 98.2 F Temperature Source Oral Pulse Rate 104 H 101 H Pulse Strength Respiratory Rate 18 18 Respiratory Effort Respiratory Depth Respiratory Pattern Blood Pressure 110/93 H 89/65 L Blood Pressure Mean 98 73 Blood Pressure Source Blood Pressure Position Blood Pressure Location Pulse Ox 98 97 Oxygen Delivery Method Room Air Room Air 08/03/24 19:00 08/03/24 19:07 08/03/24 19:30 Temperature 97.8 F Temperature Source Pulse Rate 95 95 111 H Pulse Strength Respiratory Rate 18 18 20 H Respiratory Effort Respiratory Depth Respiratory Pattern Blood Pressure 85/62 L 85/62 L 99/61 Blood Pressure Mean 69 69 73 Blood Pressure Source Blood Pressure Position Blood Pressure Location Pulse Ox 96 96 98 Oxygen Delivery Method Room Air Room Air 08/03/24 20:00 08/03/24 20:30 08/03/24 20:30 Temperature 97.4 F L Temperature Source Oral Pulse Rate 106 H 104 H Pulse Strength Respiratory Rate 18 18 Respiratory Effort Normal Non-Labored Respiratory Depth Normal Respiratory Pattern Normal Blood Pressure 93/60 103/83 H Blood Pressure Mean 71 89 Blood Pressure Source Monitor Blood Pressure Position Semi-Fowlers Blood Pressure Location Left Arm Pulse Ox 98 100 Oxygen Delivery Method Room Air Room Air Room Air 08/03/24 22:00 08/03/24 23:20 08/04/24 00:28 Temperature 98.0 F Temperature Source Oral Pulse Rate 103 H Pulse Strength Normal (2+) Respiratory Rate 18 Respiratory Effort Respiratory Depth Respiratory Pattern Blood Pressure 92/60 Blood Pressure Mean 70 Blood Pressure Source Manual Blood Pressure Position Semi-Fowlers Blood Pressure Location Left Arm Pulse Ox 97 94 Oxygen Delivery Method Room Air Room Air 08/04/24 01:16 08/04/24 04:28 08/04/24 04:30 Temperature 97.8 F Temperature Source Oral Pulse Rate 101 H 100 Pulse Strength Respiratory Rate 24 H 18 Respiratory Effort Normal Non-Labored Respiratory Depth Normal Respiratory Pattern Normal Normal Blood Pressure 109/71 Blood Pressure Mean 83 Blood Pressure Source Monitor Blood Pressure Position Semi-Fowlers Blood Pressure Location Left Arm Pulse Ox 94 Oxygen Delivery Method Room Air Room Air 08/04/24 07:02 08/04/24 07:02 08/04/24 08:10 Temperature Temperature Source Pulse Rate 108 H 101 H Pulse Strength Respiratory Rate 20 H Respiratory Effort Normal Non-Labored Respiratory Depth Normal Respiratory Pattern Normal Normal Blood Pressure Blood Pressure Mean Blood Pressure Source Blood Pressure Position Blood Pressure Location Pulse Ox 96 Oxygen Delivery Method Room Air Room Air 08/04/24 08:14 Temperature 98 F Temperature Source Oral Pulse Rate 95 Pulse Strength Respiratory Rate 18 Respiratory Effort Respiratory Depth Respiratory Pattern Blood Pressure 95/72 Blood Pressure Mean 79 Blood Pressure Source Monitor Blood Pressure Position Semi-Fowlers Blood Pressure Location Left Arm Pulse Ox 94 Oxygen Delivery Method Room Air Weight Weight: 71.4 kg Body Mass Index (BMI) 23.2 EEG Results Procedure Details EEG Procedure Details: ALBINO ESCALONAHIP Carmita is a 78 year old M with a past medical history of , who presents for evaluation of Electroencephalogram on DATE at TIME NIHSS NIHSS Nursing Documentation NIHSS Nursing Documentation: NIHSS: Ischemic Stroke/TIA Start: 08/03/24 20:15 Text: For PCU Patients: NIH and Neuro Check every 4 Status: Active hours, PRN and with change in RN caregiver. Freq: [id number] Protocol: Activity Type Activity Date Activity User E-sign Co-sign Detail Recorded Client Recorded Date Recorded By Document 08/04/24 08:18 JS desktop 08/04/24 08:18 JS 08/04/24 08:18 NIH Stroke Scale [NIHSS] A score of 0 is normal or asymptomatic . Total possible score is 42. Inpatient: RN or Physician to activate a stroke alert for onset of new stroke symptoms or with NIHSS increase >/= 3 points. Following change in neurological status, NIHSS will be performed per physician order or more frequently PRN. -1a. Level of Consciousness Alert; keenly responsive -1b. LOC Questions Answers BOTH questions correctly. -1c. LOC Commands Performs both tasks correctly . -2. Best Gaze Normal -3. Visual No visual loss -4. Facial Palsy Normal symmetrical movements -5a. Left Arm No drift; arm holds 90 (or 45 ) degrees for full 10 seconds -5b. Right Arm No drift; arm holds 90 (or 45 ) degrees for full 10 seconds -6a. Left Leg No drift; leg holds 30-degree position for full 5 seconds -6b. Right Leg No drift; leg holds 30-degree position for full 5 seconds -7. Limb Ataxia Absent -8. Sensory Mild-to- moderate sensory loss; -9. Best Language No aphasia; normal -10. Dysarthria Normal -11. Extinction and Inattention No abnormality -Total 1 Query Text:A score of 0 is normal or asymptomatic. Total possible score is 42 . ED: Notify Physician for NIHSS increase by > / = 3 points. Inpatient: RN or Physician to activate a stroke alert for NIHSS increase of > / = 3 points. Coma Scale [Assess] -Eye Opening Spontaneous -Motor Obeys Commands -Verbal Oriented [Total] -Coma Scale Total 15 NIHSS 1a. Level of Consciousness: Alert; keenly responsive 1b. LOC Questions: Answers BOTH questions correctly. 1c. LOC Commands: Performs both tasks correctly. 2. Best Gaze: Normal 3. Visual: No visual loss 4. Facial Palsy: Normal symmetrical movements 5a. Left Arm: No drift; arm holds 90 (or 45) degrees for full 10 seconds 5b. Right Arm: No drift; arm holds 90 (or 45) degrees for full 10 seconds 6a. Left Leg: No drift; leg holds 30-degree position for full 5 seconds 6b. Right Leg: No drift; leg holds 30-degree position for full 5 seconds 7. Limb Ataxia: Absent 8. Sensory: [id number] sensory loss; 10. Dysarthria: Normal 11. Extinction and Inattention: No abnormality Total: 1 Physical Exam Const Orientation / Consciousness: awake and oriented to person HEENT normocephalic Eyes EOMs intact bilaterally Resp normal respiratory effort Neuro Neuro Narrative: Awake, alert, oriented X3 No aphasia or dysarthria Cranial nerves 2-12 intact Motor power 5/5 Sensation: Decreased on the left No ataxia Lab / Micro Data 08/04/24 06:27 08/04/24 06:27 Labs: Laboratory Results - last 24 hr 08/03/24 17:44: WBC 9.5, RBC 4.37 L, Hgb 13.0, Hct 39.4 L, MCV 90.2, MCH 29.7, MCHC 33.0, RDW Std Deviation 49.6 H, RDW Coeff of Chadd 14.9 H, Plt Count 230, MPV 9.8, Immature Gran % (Auto) 0.600, Neut % (Auto) 65.3, Lymph % (Auto) 19.1, Mcleod % (Auto) 14.6 H, Eos % (Auto) 0.0, Baso % (Auto) 0.4, Absolute Neuts (auto) 6.2, Absolute Lymphs (auto) 1.82, Nucleated RBC % 0, PT 15.6 H, INR 1.2, APTT 26.8, Sodium 141, Potassium 3.3 L, Chloride 107, Carbon Dioxide 25.0, Anion Gap 9, BUN 26 H, Creatinine 1.54 H, Estim Creat Clear Calc 38.86, Est GFR (MDRD) Af Amer 57 L, Est GFR (MDRD) Non-Af 47 L, BUN/Creatinine Ratio 16.9, Glucose 109 H, Calcium 9.5, Magnesium 2.2, Troponin I High Sens 29 08/04/24 06:27: WBC 6.7, RBC 4.09 L, Hgb 11.9 L, Hct 37.4 L, MCV 91.4, MCH 29.1, MCHC 31.8 L, RDW Std Deviation 50.0 H, RDW Coeff of Chadd 14.8 H, Plt Count 215, MPV 10.0, Immature Gran % (Auto) 0.400, Neut % (Auto) 56.9, Lymph % (Auto) 28.6, Mcleod % (Auto) 13.8 H, Eos % (Auto) 0.0, Baso % (Auto) 0.3, Absolute Neuts (auto) 3.8, Absolute Lymphs (auto) 1.92, Nucleated RBC % 0 Imaging Radiology Impression Brain CT 08/03/24 17:34 IMPRESSION: Mild atrophy and periventricular white matter ischemic changes.. No mass or acute bleed. If concern for acute infarct MRI recommended especially if symptoms suggest posterior fossa stroke due to severe vertebral artery atherosclerosis Electronically Signed: Cruz Perez MD at 17:49 EST Reading Location ID and State: [facility] / ID Tel [phone], Service support , ADDENDUM: 08/03/24 1804 IMPRESSION: Mild atrophy and periventricular white matter ischemic changes.. No mass or acute bleed. If concern for acute infarct MRI recommended especially if symptoms suggest posterior fossa stroke due to severe vertebral artery atherosclerosis N.B. : The above Results were Read Back by Cruz Perez MD to Mich Madera, DO, and understanding confirmed on 08/03/2024 17:58:01 (ET). 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 Severe stenosis distal right vertebral artery. Moderate stenosis at the origin of the left vertebral artery. Electronically Signed: Jayy Mauricio MD at 18:27 EST Reading Location ID and State: [facility] / MD Tel , Service support , ADDENDUM: 08/03/24 1834 IMPRESSION: Moderate stenosis bilateral cavernous segments internal carotid arteries. Severe stenosis distal right vertebral artery. Moderate stenosis at the origin of the left vertebral artery. N.B. : The above Results were Read Back by Jayy Mauricio MD to Mich Madera DO, and understanding confirmed on 08/03/2024 18:28:02 (ET). Electronically Signed: Jayy Mauricio MD at 18:27 EST Reading Location ID and State: [facility] / MD Tel , Service support , Chest X-Ray 08/03/24 18:05 IMPRESSION: Hyperinflation but no acute cardiopulmonary pathology. Electronically Signed: Cruz Perez MD at 18:52 EST , Active Medications Active Medications Active Medications: Current Medications Generic Name Dose Route Start Last Admin Trade Name Freq PRN Reason Stop Dose Admin Acetaminophen 650 mg 08/03/24 20:15 08/04/24 04:40 Acetaminophen 325 Mg Tablet PO 650 mg Q4H PRN PRN Administration Fever, pain 1-10/10 Al Hydroxide/Mg Hydroxide 30 ml 08/03/24 20:15 Mag Hydrox/Al Hydrox/Simeth 30 Ml Udc PO Q6H PRN PRN Gastric Burning Albuterol Sulfate 2.5 mg 08/03/24 20:15 08/04/24 07:02 Albuterol 2.5 Mg/3 Ml Vial.Neb. INHALATION 2.5 mg Q2H PRN PRN Administration Dyspnea, wheezing Aspirin 81 mg 08/04/24 08:00 08/04/24 08:07 Aspirin 81 Mg Tab.Chew PO 81 mg BREAKFAST BRITTANIE Administration Atorvastatin Calcium 40 mg 08/03/24 22:00 08/03/24 21:47 Atorvastatin Calcium 40 Mg Tablet PO 40 mg QHS BRITTANIE Administration Budesonide 0.5 mg 08/03/24 20:15 08/04/24 07:02 Budesonide Respules 0.5 Mg/2 Ml Ampul.Neb. INHALATION 0.5 mg BID.RT BRITTANIE Administration Enoxaparin Sodium 40 mg 08/04/24 10:00 Enoxaparin 40 Mg/0.4 Ml Syringe SC DAILY BRITTANIE Gabapentin 600 mg 08/03/24 22:00 08/03/24 21:47 Gabapentin 600 Mg Tablet PO 600 mg BID BRITTANIE Administration Guaifenesin 20 ml 08/03/24 20:15 Guaifenesin 10 Ml Udc (200mg/10ml) PO Q4H PRN PRN COUGH Hydralazine HCl 5 mg 08/03/24 20:15 Hydralazine 20 Mg/Ml Vial IV 08/04/24 20:15 Q30M PRN maintain BP parameters with HR <60 Sodium Chloride 100 mls @ 15 mls/hr 08/03/24 20:17 IV .Q6H40M PRN Saline Flush Sodium Chloride 100 mls @ 15 mls/hr 08/03/24 20:17 IV .Q6H40M PRN Additional IVPB Infusion Labetalol HCl 10 mg 08/03/24 20:15 Labetalol 20mg/4ml Syringe IV 08/04/24 20:15 Q10M PRN PRN maintain BP parameters with HR >/=60 Melatonin 3 mg 08/03/24 20:15 Melatonin 3 Mg Tablet PO QHS PRN PRN INSOMNIA Ondansetron HCl 4 mg 08/03/24 20:15 Ondansetron 4 Mg/2 Ml Vial IV Q8H PRN PRN NAUSEA/VOMITING Pantoprazole Sodium 40 mg 08/04/24 10:00 Pantoprazole Sodium 40 Mg Tablet PO DAILY BRITTANIE Prochlorperazine Edisylate 5 mg 08/03/24 20:15 Prochlorperazine 10 Mg/2 Ml Vial IV Q4H PRN PRN Breakthrough Nausea/Vomiting Senna/Docusate Sodium 2 tablet 08/03/24 20:15 Senna/Docusate Sodium 1 Tablet PO BID PRN PRN Constipation Sodium Chloride 10 - 40 ml 08/03/24 20:17 08/04/24 08:07 0.9% Saline Lock 10 Ml Syringe IV 10 ml UD PRN Administration SALINE FLUSH Tramadol HCl 50 mg 08/03/24 20:15 Tramadol 50 Mg Tablet PO Q6H PRN Breakthrough Pain 1-10 Trazodone HCl 50 mg 08/03/24 20:15 Trazodone 50 Mg Tablet PO QHS PRN leg cramps
[2024-08-04 09:40] LABS: ALB/GLOB Ratio 1.1 RATIO (0.9-2.4); AST(SGOT) 11 U/L (15-37); Alanine Aminotransfer ALT/SGPT 11 U/L (16-61); Albumin, Serum 3.3 g/dL (3.2-5.0); Alkaline Phosphatase 71 U/L (45-117); Anion Gap 7 (5-15); BUN 23 mg/dL (7-18); Chloride 109 mmol/L (98-107); Cholesterol 104 mg/dL (200); EST Glomerular Filtration Rate 77 mL/min (>60); Est Glom Filt Rate - Afr Amer 93 mL/min (>60); Estimated Creatinine Clearance 61.86 ml/min; Globulin 2.9 g/dL (2.2-4.2); Glucose 101 mg/dL (74-106); High Density Lipoprotein 50 mg/dL; Potassium 3.7 mmol/L (3.5-5.1); Protein, Total 6.2 g/dL (6.4-8.2); Sodium Level 139 mmol/L (136-145); Thyroid Stim Hormone (TSH) 0.689 uIU/mL (0.358-3.740); Triglycerides 86 mg/dL; Very Low Density Lipoprotein 17 mg/dL (5-40)
--- NOTE | 2024-08-04 09:40 | CASEMGMT ---
Social Work SW met w/pt, PHQ-9 completed. Pt scored a 4. He was diagnosed earlier this week w/lung disease, so has been coping w/this. He also has had 4 TIAs since January, so states concentration and memory have been difficult since then. Pt has depression at his baseline, takes duloxetine and buspirone, states they help. Pt has been in counseling in the past, not at present. Pt is not interested in counseling resources at this time. SW offered support to pt in light of his recent diagnosis and now current hospital stay. SW remains available for support to pt should it be needed. YURI Moreno
[2024-08-04 10:20] LABS: Hemoglobin A1c 5.4 % (3.8-5.6)
[2024-08-04] MEDS: Gabapentin 600 MG Tablet PO ×2 (11:13→21:13)
[2024-08-04] MEDS: Pantoprazole Sodium 40 MG Tablet PO (11:13)
[2024-08-04] MEDS: Enoxaparin 40 MG/0.4 ML Syringe SC (11:13)
--- NOTE | 2024-08-04 15:38 | CASEMGMT ---
Addendum entered by Shy Serna 08/04/24 15:41: Social Work Please note, PHQ-9 entered at 9:38 was in error, the corrected PHQ-9 was documented at 15:37. YURI Moreno Original Note: Social Work PHQ-9 completed, pt scored a 1, no indications of depression. GUSTAVO MorenoS
[2024-08-04 16:05] LABS: Phosphorus 3.3 mg/dL (2.5-4.9)
--- NOTE | 2024-08-04 16:21 | CASEMGMT ---
Social Work SW reviewed therapy evaluations, PT recommending outpt therapy. OT and METHODS TIME ANALYST not recommending further therapy. SW spoke w/pt in regard to oupt PT, pt states he will follow up at the [facility], has an appt on Tuesday. Pt declined any outpt referrals for therapy at this time. YURI Moreno
--- NOTE | 2024-08-04 18:20 | CASEMGMT ---
CAROL RAMOS NOTE: Intro role of CM to patient and ROSS form explained re: Observation status for treatment of stroke symptoms.? Explained hospitalization will be paid per?his insurance policy for Outpatient billing?and condition will continue to be evaluated for Inpt necessity. Also let pt know that [facility] sends paper in the billing packet with their phone number if questions arise. Pt verbalizes understanding and does not have further questions. ?Form signed, copy made and placed in chart, and original given to pt. Michael ASENCIO RN CM
[2024-08-04] MEDS: Magnesium Sulfate 2 GM in Dextrose 5%-Water (100mL Bag) 100 ML IV (18:31)
[2024-08-04] MEDS: Atorvastatin Calcium 40 MG Tablet PO (21:13)
[2024-08-05] MEDS: Acetaminophen 325 MG Tablet 650 MG PO (01:10)
[2024-08-05 05:20] VITALS: BP 117/82; PULSE 97; RESP 16; TEMP 36.7; O2SAT 96
[2024-08-05 05:40] VITALS: BMI 23.8
[2024-08-05 06:51] VITALS: PULSE 101; RESP 20
[2024-08-05] MEDS: Budesonide Respules 0.5 MG/2 ML AMPUL.NEB. INHALATION (06:51)
[2024-08-05] MEDS: Albuterol 2.5 MG/3 ML VIAL.NEB. INHALATION (06:51)
--- NOTE | 2024-08-05 07:14 | DS.PCM_ITS ---
Providers Date of Admission: 08/03/24 Primary Care Physician: Dr. Abby Barajas MD Consultations 08/03/24 20:15 Consult: Tele-Neurology Routine Consulting Provider: [facility] Reason for Consult: Acute Ischemic Stroke/TIA EMERGENT Consult: No Notified: Yes Date Notified: 08/04/24 Time Notified: 05:44 Method of Notification: Answering Service Nursing Unit Staff Notify [facility] of Tele-Neurology Consult: Yes Reason For Visit: CVA? Diagnosis Discharge Diagnosis (1) CVA (cerebral vascular accident): Status: Acute Code(s): I63.9 - Cerebral infarction, unspecified Plan Patient is a 78-year-old gentleman was brought to the emergency department by the with slurred speech, and dizziness. Last known well was outside the window for TNK. Admitted to a monitored bed for possible CVA workup. 1. Transient ischemic attack ? Patient presented with expressive aphasia and dysarthria as well as dizziness. Admitted to monitored bed requested for every 4 neurochecks ordered 2D echo as well as MRI. CT of the head and neck obtained on admission demonstrated m oderate stenosis bilateral cavernous segments internal carotid arteries. Severe stenosis distal right vertebral artery. Moderate stenosis at the origin of the left vertebral artery. Patient was started on antiplatelet therapy as well as statin therapy and consult placed to [facility] teleneuro ? 08/05/2024 MRI did show chronic microvascular ischemic changes. No intracranial hemorrhage, acute infarct, or space occupying lesion seen on this noncontrast MRI of the brain.. 2D echo demonstrated estimated ejection fraction is 65 %. No evidence for diastolic dysfunction. Patient had runs of nonsustained VT was found to have magnesium of 2.0 additional magnesium given. Patient was discharged home with a 30-day event monitor 2. Acute kidney injury ? Patient started on rehydration with subsequent monitoring of electrolytes ordered ? Resolved with rehydration 3. Essential hypertension ? Will allow for permissive hypertension given patient presentation 4. Hypokalemia ? Corrected for protocol repeat labs ordered for a.m. 5. Dyslipidemia ?Patient is on statin therapy, continued at home dose 6. COPD ? Currently not in exacerbation aerosol treatment as needed 7. GERD ? On PPI 7. History of peptic ulcer disease with complication including perforated peptic ulcer ? Currently on PPI 8. DVT prophylaxis ? On enoxaparin Time spent in the patient's overall evaluation,decision-making process, review of diagnostic data, adjustment of management, discussion with other providers, nursing nursing and ancillary staff involved in patient's care documentation, 35 Minutes Medications at Discharge Home Medications atorvastatin 40 mg tablet 40 mg PO QHS cholesterol 08/13/22 cholecalciferol (vitamin D3) 50 mcg (2,000 unit) tablet 50 mcg PO QODAY vitamin 08/13/22 cyclobenzaprine 10 mg tablet 10 mg PO QHS PRN PRN muscle spasms 08/13/22 fluticasone 250 mcg-salmeterol 50 mcg/dose blistr powdr for inhalation 1 inh inhalation BID breathing 08/13/22 gabapentin 600 mg tablet 600 mg PO BID nerve pain 08/13/22 ipratropium 0.5 mg-albuterol 3 mg (2.5 mg base)/3 mL nebulization soln 3 ml inhalation Q6H PRN Shortness Of Breath 08/13/22 isosorbide mononitrate 30 mg tablet,extended release 24 hr 30 mg PO DAILY heart 08/13/22 lisinopril 5 mg tablet 5 mg PO DAILY blood pressure 08/13/22 metoprolol succinate 100 mg tablet,extended release 24 hr 100 mg PO DAILY blood pressure 08/13/22 pantoprazole 40 mg tablet,delayed release 40 mg PO DAILY reflux 08/13/22 tramadol 50 mg tablet 50 mg PO Q6H PRN Breakthrough Pain 08/13/22 trazodone 50 mg tablet 50 mg PO QHS PRN leg cramps 08/13/22 albuterol sulfate 90 mcg/actuation aerosol inhaler (Ventolin HFA) 2 inh inhalation Q6H PRN shortness of breath or wheezing 08/03/24 aspirin 81 mg chewable tablet 81 mg PO BREAKFAST #90 tabs 08/05/24 magnesium oxide 400 mg (241.3 mg magnesium) tablet (MagOx) 400 mg PO DAILY #60 tabs 08/05/24 Physical Exam Narrative GENERAL: cooperative HEENT: Atraumatic; normocephalic EYES; Anicteric, Normal Conjunctiva NECK; supple, normal thyroid, RESPIRATORY: Diminished to auscultation CARDIOVASCULAR: Regular S1 S2, GI: soft, normoactive bowel sounds, : No Renal angle tenderness; EXTREMITIES: No edema, no clubbing, MUSCULOSKELETAL: no muscle wasting NEURO: Awake; no lateralizing signs. Tremors at rest SKIN: No Rash PSYCH; Flat affect Weight / BMI Weight Weight: 73.3 kg Body Mass Index (BMI) 23.8 ABG / Lab / Microbiology Data 08/04/24 06:27 08/04/24 06:27 Laboratory: Laboratory Results - last 24 hr 08/04/24 06:27: Sodium 139, Potassium 3.7, Chloride 109 H, Carbon Dioxide 23.0, Anion Gap 7, BUN 23 H, Creatinine 1.00, Estim Creat Clear Calc 61.86, Est GFR (MDRD) Af Amer 93, Est GFR (MDRD) Non-Af 77, BUN/Creatinine Ratio 23.0 H, Glucose 101, Hemoglobin A1c 5.4, Calcium 9.0, Phosphorus 3.3, Magnesium 2.0, Total Bilirubin 0.60, AST 11 L, ALT 11 L, Alkaline Phosphatase 71, Total Protein 6.2 L, Albumin 3.3, Globulin 2.9, Albumin/Globulin Ratio 1.1, Triglycerides 86, Cholesterol 104, LDL Cholesterol 37, VLDL Cholesterol 17, HDL Cholesterol 50, TSH 0.689 Radiography Diagnostic Testing: Radiology Impression Echocardiogram 08/03/24 20:15 Interpretation Summary The estimated ejection fraction is 65 %. No evidence for diastolic dysfunction. Ordering Physician: Shannen Jung Referring Physician: Jenn Mora Performed By: Lolly Peralta RCS Brain MRI 08/04/24 08:00 IMPRESSION: Chronic microvascular ischemic changes. No intracranial hemorrhage, acute infarct, or space occupying lesion seen on this noncontrast MRI of the brain. Electronically Signed: Bi Nava MD at 16:56 EST , D/C Instructions Discharge Diet: No restrictions Discharge Activity: Return to Normal Activity Call your doctor if you observe: Fever of 101 or Higher, Shortness of breath, Fainting spells and Chest pain DC O2, CPAP, BIPAP Needs Home O2 Discharge instructions: No Meaningful Use Info Meaningful Use Meaningful Use Diagnoses (Choose all that apply): None applicable Ischemic Stroke Statin Dosing Therapy Reference: STATIN DOSE THERAPY REFERENCE: * Patients > 75 years receive moderate or high dose statin therapy. * Patients 75 years or YOUNGER should receive HIGH intensity statin dose unless contraindicated. You will be required to document reason for non-treatment if statin daily dose does not meet guidelines. HIGH DOSE STATIN THERAPY DAILY Atorvastatin > than or = to 40 mg Rosuvastatin > than or = to 20 mg Amlodipine + Atorvastatin > than or = to 2.5/40 mg Ezetimibe + Simvastatin 10/80 mg Simvastatin 80mg Discharge Plan Admission Admit Date/Time: 08/03/24 19:27 Attending Provider: Oz Mart Primary Care Provider: Abby Barajas Consulting Providers: Jacobo Krause; Ulises Greco; Bee Avina; Naz Terrell; Cynthia Lieberman; Umesh Garcia; Katalina Mckenzie; Enmanuel Contreras; Shekhar Mckeon; Nirmal Barbosa; Amna Jimenez; Shakeel Varela; Wandy Valenzuela; Roman Younger; Garret Carney; Jani Cordero; Cedric Nielsen; Jesus Avery; Francine Grubbs; Rj Sampson; Shannen Jung Discharge Orders/Prescriptions Prescriptions: New aspirin 81 mg Tablet,Chewable 81 mg PO BREAKFAST Qty: 90 0RF magnesium oxide [MagOx] 400 mg (241.3 mg magnesium) tablet 400 mg PO DAILY Qty: 60 0RF Continued cyclobenzaprine 10 mg Tablet 10 mg PO QHS PRN PRN (Reason: muscle spasms) gabapentin 600 mg Tablet 600 mg PO BID Patient Comments: pt states he takes 2 am and 3 hs trazodone 50 mg Tablet 50 mg PO QHS PRN (Reason: leg cramps) atorvastatin 40 mg Tablet 40 mg PO QHS fluticasone propion-salmeterol 250-50 mcg/dose Blister With Device 1 inh INHALATION BID ipratropium-albuterol 0.5 mg-3 mg(2.5 mg base)/3 mL Solution For Nebulization 3 ml INHALATION Q6H PRN (Reason: Shortness Of Breath) isosorbide mononitrate 30 mg Tablet Extended Release 24 Hr 30 mg PO DAILY metoprolol succinate 100 mg Tablet Extended Release 24 Hr 100 mg PO DAILY tramadol 50 mg Tablet 50 mg PO Q6H PRN (Reason: Breakthrough Pain) pantoprazole 40 mg Tablet,Delayed Release (Dr/Ec) 40 mg PO DAILY lisinopril 5 mg Tablet 5 mg PO DAILY cholecalciferol (vitamin D3) 50 mcg (2,000 unit) Tablet 50 mcg PO QODAY albuterol sulfate [Ventolin HFA] 90 mcg/actuation HFA aerosol inhaler 2 inh inhalation Q6H PRN (Reason: shortness of breath or wheezing) Other Ambulatory Orders: 30 Day Event Recorder Preventi (Urgent) Timeframe: 1 Day Facility: [facility] - Location: Cardiovascular Services Ordered By: Dr. Oz Mart Referrals / Follow Up: Abby Barajas MD [Primary Care Provider] - Disposition Disposition (needs filled in before D/C Order can be placed): Home, Self Care Charges/Coding Visit Charges Inpatient E&M: 85022 Disch Hosp >30min
[2024-08-05] MEDS: Aspirin 81 MG TAB.CHEW PO (07:40)
[2024-08-05] MEDS: Pantoprazole Sodium 40 MG Tablet PO (07:40)
[2024-08-05] MEDS: Gabapentin 600 MG Tablet PO (08:54)
[2024-08-05 08:55] VITALS: BP 124/84; PULSE 101; RESP 16; O2SAT 95
[2024-08-05 10:21] VITALS: BMI 23.8
== END 2024-08-05 08:18 | disposition home or self-care (01) ==
LOC: ED 17:48 → PCU 20:13
PROVIDERS: Admitting Provider Family Medicine; Emergency Provider Emergency Medicine; PCP Internal Medicine; Visit Provider Internal Medicine
DX: G45.9 Transient cerebral ischemic attack, unspecified (principal); J44.9 Chronic obstructive pulmonary disease, unspecified; G89.4 Chronic pain syndrome; R42 Dizziness and giddiness; I10 Essential (primary) hypertension; K27.9 Peptic ulcer, site unspecified, unspecified as acute or chronic, without hemorrhage or perforation; E78.5 Hyperlipidemia, unspecified; G25.0 Essential tremor; E87.6 Hypokalemia; R47.01 Aphasia; R47.81 Slurred speech; K21.9 Gastro-esophageal reflux disease without esophagitis; Z87.891 Personal history of nicotine dependence; N17.9 Acute kidney failure, unspecified; Z79.51 Long term (current) use of inhaled steroids; Z79.899 Other long term (current) drug therapy; R47.1 Dysarthria and anarthria; G62.9 Polyneuropathy, unspecified; I25.10 Atherosclerotic heart disease of native coronary artery without angina pectoris; Z66 Do not resuscitate
CPT/HCPCS: 36415; 70450; 70496; 70498; 70551; 71045; 80048; 80053; 80061; 83036; 83735; 84100; 84443; 84484; 85025; 85610; 85730; 93005; 93306; 94640; 94668; 94762; 96360; 96361; 96372; 97162; 97166; 97802; 99221; 99285; 99406; Q9967; A4216; G0378

== ENCOUNTER → 2024-11-06 | Outpatient (CLI) | payer OTHER, SELFPAY | END | disposition home or self-care (01) | LOC: PSN 07:28 | PROVIDERS: PCP Internal Medicine | DX: J44.9 Chronic obstructive pulmonary disease, unspecified (principal) | CPT/HCPCS: 94060; 94726; 94729 ==

== ENCOUNTER → 2024-12-21 | Outpatient (CLI) | payer OTHER, SELFPAY ==
--- OUTSIDE RECORDS SUMMARY | 2024-12-21 06:22 | XMS RPT_ITS | CCD ---
Author Organization [facility] CliniSyfl Care Team Providers Care Swim Coach Name Role Phone JESSICA ELIZONDO Unavailable Unavailable Physician, PCP Unknown Unavailable Unavailab RAFA White Admitting Unavail able RAFA CAMACHO Attending Unavail able No, Physician Primary Care Provider Unavailabl e No, Physician Primary Care Provider Unavailabl e Town Doctor, Out of Primary Care Provider Dr. Felix De Leon Admit Provider Dr. Felix Ribeiro Attending Provider Dr. Felix Ribeiro Other Provider Dr. Flip Snyder Other Provider Dr. Jake Plaomino Other Provider Dr. Romie Pino Other Provider [phone] Regulo Neil Other Provider Unavailab pao Timmons TRUCK CRANE OPERATOR, TRUCK CRANE OPERATOR-C Kimberlee Other Provider Dr. Sima Emmanuel Attending Provider [phone] Flip Snyder Attending Provider Dr. Juan Lowe Other Provider Dr. William Vaughn Attending Provider Dr. Rupali Grubbs Other Provider Dr. Rupali Grubbs Attending Provider Dr. Jake Palomino Attending Provider MIMI SANTA MD Attending Unavailable MIMI SANTA MD Primary Care Unavailable MIMI SANTA MD Admitting Unavailable BRIDGER WILEY Attending Unavailable BRIDGER WILEY Attending Unavailable LUIS WHITAKER Attending Unavailable NO, PHYSICIAN Primary Care Unavailable Unavailable Primary Care Provider Unavailbrit WILEY, BRIDGER W Referring Unavailable Jenn WEAVER, Dr. Mora Primary Care Provider Cassy VELASCO, Dr. Epps Emergency Provider Fabiana WEAVER, Dr. Shannen Harley Admit Provider Fabiana WEAVER, Dr. Shannen Harley Other Provider Nelida WEAVER, Jacobo Other Provider Unavailable Fannie WEAVER, Dr. Montgomery Other Provider Bee Avina MD Other Provider Unavailable Xander VELASCO, Dr. Childs Other Provider Luisana WEAVER, Dr. Marie Other Provider Radha WEAVER, Dr. Calvo Other Provider Jonah WEAVER, Dr. Darden Other Provider Ben WEAVER, Dr. Singer Other Provider Mike WEAVER, Dr. Corrigan Other Provider Familia WEAVER, Dr. Kinney Other Provider Barbara WEAVER, Amna Other Provider Avery WEAVER, Dr. Beckford Other Provider Nicolas WEAVER, Dr. Saba Other Provider Carisa WEAVER, Dr. Owens Other Provider Rommel WEAVER, Dr. Garret Ceron Other Provider Gil WEAVER, Dr. Gunter Other Provider Morales WEAVER, Dr. Steele Other Provider Gena WEAVER, Dr. Lee Other Provider Romie WEAVER, Dr. Escamilla Other Provider Unavailable Adrián WEAVER, Yousecleopatra Other Provider Unavailable Dr. Jessica Mart MD Attending Provider Unavailzachery Jung MD, Dr. Shannen Harley Attending Provider Barron WEAVER, Dr. Clinton Other Provider Unavailable Johana WEAVER, Dr. Thoams Attending Provider CA CORRIGAN Attending Provider [phone] [place] CORRIGAN Referring Provider [phone] [id number] Jenn WEAVER, Dr. Mora Referring Provider [phone] Vanna WEAVER, Dr. Donis Attending Provider [phone] Shannen Jung Admitting Unavailable [place], Jacobo Consulting Unavailable [facility] Unavailable Jessica Mart Attending Unavailable Adeli, Amir Consulting Unavailable Hinduja, Bee Consulting Unavailable Xander, Naz Consulting Unavailable Zha, Cynthia Consulting Unavailable Radha, Umesh Consulting Unavailable Jonah, Katalina Consulting Unavailable Bittar, Enmanuel Consulting Unavailable Shekhar Mckeon Consulting Unavailable Nirmal Barbosa Consulting Unavailable BeAmna fernandez Consulting Unavailable Gusprasad, Shakeel Consulting Unavailable Nicolas, Wandy Consulting Unavailable Ridha, Mohamed Consulting Unavailable Zaghlouleh, Mhd Osmany Consulting UnavailJani Storey Consulting Unavailable Nielsen, Rami Consulting Unavailable Gena, Jesus Consulting Unavailable Romie, Francine Consulting Unavailable Hannawi, Yousef Consulting Unavailable Shannen Jung Consulting Unavailable FANNY, S Referring Unavailable [facility] Unavailable Jake Palomino Attending Unavailable William Vaughn Attending Unavailformerly [facility] Unavailable Shannen Jung Admitting Unavailable Nelida, Jacobo Consulting Unavailable [facility] Unavailable Jessica Mart Attending Unavailable Adeli, Amir Consulting Unavailable Hinduja, Bee Consulting Unavailable Xander, Naz Consulting Unavailable Zha, Cynthia Consulting Unavailable Radha, Umesh Consulting Unavailable Jonah, Katalina Consulting Unavailable Bittar, Enmanuel Consulting Unavailable Shekhar Mckeon Consulting Unavailable Nirmal Barbosa Consulting Unavailable Amna Jimenez Consulting Unavailable Shakeel Varela Consulting Unavailable Nicolas, Wandy Consulting Unavailable Ridha, Mohamed Consulting Unavailable Zaghlouleh, Mhd Osmany Consulting UnavailJani Storey Consulting Unavailable Nielsen, Rami Consulting Unavailable Gena, Jesus Consulting Unavailable Romie, Francine Consulting Unavailable Hannawi, Yousef Consulting Unavailable Shannen Jung Consulting Unavailable Jessica Mart Consulting Unavailable White, Shannen L Admitting Unavailable White, Shannen L Consulting Unavailable White, Shannen L Attending Unavailable [facility] Unavailable Gagandeep Prabhakar Attending Unavailable [place] [facility] [facility] Unavailable [place] Referring Unavailable Freddie Ramos Attending Unavailable [facility] Unavailable Angeles ESCOBEDO Attending Unavailable Allergies Allergy Classification Reported Allergen(s) Allergy Type Date of Onset Reaction(s) Facility (8 sources) oxyCODONE; Translations: [OXYCODONE] Drug Allergy 3 Unknown [facility] (1 source) oxyCODONE Drug Allergy [facility] (1 source) BEE STING; Translations: [BEE STING] Propensity to adverse reactions (disorder) [facility] (5 sources) tamsulosin; Translations: [TAMSULOSIN] Drug Allergy 3 Dizziness [facility] 3 Repository (8 sources) BEE VENOM PROTEIN (HONEY BEE); Translations: [BEE VENOM PROTEIN (HONEY BEE)] Propensity to adverse reactions to drug (disorder) 4 Unknown [facility] 3 Repository (5 sources) VENOM-YELLOW JACKET; Translations: [VENOM-YELLOW JACKET] Propensity to adverse reactions to drug (disorder) 6 Swelling [facility] 3 Repository (1 source) oxyCODONE Drug Allergy 5 [facility] Repository Medications Current Medications Medication Drug Class(es) Dates Sig (Normalized) Sig (Original) acetaminophen 325 mg oral tablet (3 sources) Start: 08-09-2022 acetaminophen (Tylenol) 325 mg tablet Take 1 tablet (325 mg) by mouth. 08/09/2022 Active [id number] 200 actuat albuterol 0.09 mg/actuat metered dose inhaler (6 sources) beta2-Adrenergic Agonist Start: 08-03-2024 Albuterol Sulfate (Ventolin Hfa) 90 mcg/actuation HFA aerosol inhaler Active 2 NMA INHALATION EVERY 6 HOURS as needed for shortness of breath or wheezing August 03, 2024 1:00am Start: 01-23-2024 albuterol 90 m cg/actuation inhaler Inhale. 01/23/2024 Active take 2 puff(s) by in halation every six hours as needed for wheezing albuterol 90 mcg/actuation inhaler Inhale 2 puffs every 6 (six) hours as needed for wheezing . 0 Active albuterol 0.833 mg/ml / ipratropium bromide 0.167 mg/ml inhalation solution (6 sources) Anticholinergic, beta2-Adrenergic Agonist Start: 06-06-2023 ipratropium-albuteroL (Duo-Neb) 0.5-2.5 mg/3 mL nebulizer solution Inhale. 06/06/2023 Active Start: 08-13-2022 take 1 mL by inhalat ion every six hours as needed Ipratropium-Albuterol 0.5 mg-3 mg(2.5 mg base)/3 mL Solution For Nebulization Active 3 mL INHALATION EVERY 6 HOURS as needed for Shortness Of Breath August 13, 2022 1:00am Start: 08-13-2022 take 1 mL by inhalat ion every six hours Ipratropium-Albuterol Active 3 ML INHALATION EVERY 6 HOURS August 13, 2022 12:00am albuterol 90 mcg/actuation inhaler (1 source) take 2 puff(s) by inhalation every six hours as needed for wheezing albuterol 90 mcg/actuation inhaler Inhale 2 puffs every 6 (six) hours as needed for wheezing . 0 Active 24 hr alfuzosin hydrochloride 10 mg extended release oral tablet (3 sources) alpha-Adrenergic Kim Start: 024 take 1 tablet by mouth every twenty-four hours alfuzosin (Uroxatral) 10 mg 24 hr tablet Take 1 tablet (10 mg) by mouth. 11/17/2023 Active aspirin 81 mg chewable tablet (5 sources) Platelet Aggregation Inhibitor, Nonsteroidal Anti-inflammatory Drug Start: 025 take 1 tablet by mouth at breakfast Aspirin 81 mg Tablet,Chewable Active 81 mg PO WITH BREAKFAST August 05, 2024 1:00am Start: 12-03-2022 aspirin 500 mg EC tablet Take by mouth. 12/03/2022 Active atorvastatin 40 mg oral tablet (8 sources) HMG-CoA Reductase Inhibitor Start: 08-13-2022 take 1 tablet by mouth at bedtime Atorvastatin 40 mg Tablet Active 40 mg PO AT BEDTIME August 13, 2022 1:00am take 1 tablet by mouth once rhett y atorvastatin (LIPITOR) 40 MG tablet Take 40 mg by mouth daily . 0 Active budesonide 0.032 mg/actuat metered dose nasal spray (3 sources) Corticosteroid Start: 09-20-2023 budesonide (Rhinocort AQ) 32 mcg/actuation nasal spray Administer into affected nostril(s). 09/20/2023 Active Budesonide / formoterol (2 sources) Corticosteroid, beta2-Adrenergic Agonist take 2 puff(s) by inhalation twice daily budesonide-formote rol (SYMBICORT) 160-4.5 mcg/actuation inhaler Inhale 2 puffs 2 (two) times a day . 0 Active Budesonide-Glyco pyr-Formoterol (5 sources) Corticosteroid, beta2-Adrenergic Agonist Start: 10-29-2024 Budesonide-Glycopy r-Formoterol (Breztri Aerosphere) 160-9-4.8 mcg/actuation HFA aerosol inhaler Active 2 NMA INHALATION TWICE A DAY October 29, 2024 12:00am Start: 01-23-2024 budesonide-gly copyr-formoterol (BREZTRI) 160-9-4.8 mcg/actuation HFA aerosol inhaler Inhale. 01/23/2024 Active cholecalciferol 0.05 mg oral tablet (6 sources) Vitamin D Start: 08-13-2022 take 1 tablet by mouth every other day Cholecalciferol (Vitamin D3) 50 mcg (2,000 unit) Tablet Active 50 ug PO EVERY OTHER DAY August 13, 2022 1:00am Start: 08-13-2022 cholecalcifero l (Vitamin D-3) 50 MCG (2000 UT) tablet Take by mouth. 08/13/2022 Active cyclobenzaprine hydrochloride 10 mg oral tablet (6 sources) Muscle Relaxant Start: 01-26-2024 take 1 tablet by mouth twice daily as needed for muscle spasms cyclobenzaprine (Flexeril) 10 mg tablet Indications: Kidney stones Take 1 tablet (10 mg) by mouth 2 times a day as needed for muscle spasms. 30 tablet 01/26/2024 Active Start: 08-13-2022 take 1 tablet by az th at bedtime as needed for muscle spasms Cyclobenzaprine 10 mg Tablet Active 10 mg PO AT BEDTIME NEEDED as needed for muscle spasms August 13, 2022 1:00am take 1 tablet by az th three times daily as needed for muscle spasms cyclobenzaprine (FLEXERIL) 10 MG tablet Take 10 mg by mouth 3 (three) times a day as needed for muscle spasms . 0 Active ferrous sulfate 325 mg oral tablet (2 sources) Start: 10-29-2024 take 1 tablet by mouth every other day Ferrous Sulfate 325 mg (65 mg iron) tablet Active 325 mg PO .QOD October 29, 2024 12:00am fexofenadine hydrochloride 180 mg oral tablet (3 sources) Histamine-1 Receptor Antagonist Start: 09-20-2023 fexofenadine (Megha) 180 mg tablet Take 1 tablet (180 mg) by mouth. 09/20/2023 Active Fluticasone Propion-Salmeterol (3 sources) Corticosteroid, beta2-Adrenergic Agonist Start: 08-13-2022 Fluticasone Propion-Salmeterol 250-50 mcg/dose Blister With Device Active 1 NMA INHALATION TWICE A DAY August 13, 2022 1:00am Start: 08-13-2022 Fluticasone Pr opion-Salmeterol Active 1 INH INHALATION TWICE A DAY August 13, 2022 12:00am gabapentin 300 mg oral capsule (10 sources) Anti-epileptic Agent Start: 11-08-2023 gabapenti n (Neurontin) 300 mg capsule Take 2 capsules (600 mg) by mouth. 11/08/2023 Active Start: 08-13-2022 take 1 tablet by az th twice daily Gabapentin 600 mg Tablet Active 600 mg PO TWICE A DAY August 13, 2022 1:00am Start: 08-13-2022 End: 08-03-2024 take 900 mg by mouth at bedtime gabapentin Discontinue d 900 mg SL/PO AT BEDTIME August 13, 2022 1:00am August 03, 2024 8:14pm Start: 08-13-2022 take 600 mg by mouth once rhett y Gabapentin Active 600 MG PO DAILY August 13, 2022 12:00am Start: 08-13-2022 take 900 mg by mouth at bedtim e gabapentin Active 900 MG SL/PO AT BEDTIME August 13, 2022 12:00am End: 04-27-2019 gabapentin (NEURONTIN) 300 M G capsule Take 300 mg by mouth every 8 (eight) hours (Days supply per fill: {DAYS SUPPLY:49743}) . 0 04/27/2019 Discontinued (Stop Taking at Discharge) 24 hr isosorbide mononitrate 30 mg extended release oral tablet (6 sources) Nitrate Vasodilator Start: 08-13-2022 take 1 tablet by mouth every twenty-four hours isosorbide mononitrate ER (Imdur) 30 mg 24 hr tablet Take 1 tablet (30 mg) by mouth. 08/13/2022 Active Start: 08-13-2022 take 1 tablet by az th once daily, then take 1 tablet by mouth every twenty-four hours Isosorbide Mononitrate 30 mg Tablet Extended Release 24 Hr Active 30 mg PO DAILY August 13, 2022 1:00am lisinopril 5 mg oral tablet (5 sources) Angiotensin Converting Enzyme Inhibitor Start: 08-13-2022 take 1 tablet by mouth once daily Lisinopril 5 mg Tablet Active 5 mg PO DAILY August 13, 2022 1:00am take 1 tablet by mouth once rhett y lisinopril (PRINIVIL,ZESTRIL) 5 MG tablet Take 5 mg by mouth daily . 0 Active loratadine 10 mg oral tablet (2 sources) Start: 10-29-2024 take 1 capsule by mouth once daily Loratadine (Allergy Relief (Loratadine)) 10 mg capsule Active 10 mg PO daily October 29, 2024 12:00am losartan potassium 25 mg oral tablet (3 sources) Angiotensin 2 Receptor Kim Start: 10-20-2023 losartan (Cozaar) 25 mg tablet Take 1 tablet (25 mg) by mouth. 10/20/2023 Active magnesium oxide 400 mg oral tablet (2 sources) Start: 08-05-2024 take 1 tablet by mouth once daily Magnesium Oxide (Magox) 400 mg (241.3 mg magnesium) tablet Active 400 mg PO DAILY August 05, 2024 1:00am meloxicam 15 mg oral tablet (2 sources) Nonsteroidal Anti-inflammatory Drug take 1 tablet by mouth once daily meloxicam (MOBIC) 15 MG tablet Take 15 mg by mouth daily . 0 Active 24 hr metoprolol succinate 100 mg extended release oral tablet (8 sources) beta-Adrenergic Kim Start: 08-13-2022 take 1 tablet by mouth every twenty-four hours metoprolol succinate XL (Toprol-XL) 100 mg 24 hr tablet Take 1 tablet (100 mg) by mouth. 08/13/2022 Active Start: 08-13-2022 take 1 tablet by az th once daily Metoprolol Succinate 100 mg Tablet Extended Release 24 Hr Active 100 mg PO DAILY August 13, 2022 1:00am take 1 tablet by az th twice daily metoprolol tartrate (LOPRESSOR) 50 MG tablet Take 50 mg by mouth 2 (two) times a day . 0 Active montelukast 10 mg oral tablet (3 sources) Leukotriene Receptor Antagonist Start: 06-15-2023 montelukast (Singulair) 10 mg tablet Take 1 tablet (10 mg) by mouth. 06/15/2023 Active nitroglycerin 0.4 mg sublingual tablet (5 sources) Nitrate Vasodilator nitroglyceri n (Nitrostat) 0.[address] 1 tablet (0.4 mg) under the tongue every 5 minutes if needed. Active pantoprazole 40 mg delayed release oral tablet (6 sources) Proton Pump Inhibitor Start: 08-13-2022 take 1 tablet by mouth once daily Pantoprazole 40 mg Tablet,Delayed Release (Dr/Ec) Active 40 mg PO DAILY August 13, 2022 1:00am Roflumilast (5 sources) Phosphodiesterase 4 Inhibitor Start: 10-29-2024 take 1 tablet by mouth once daily Roflumilast 250 mcg tablet Active 500 ug PO daily October 29, 2024 12:00am Start: 09-20-2023 roflumilast (D aliresp) 500 mcg tablet Take 1 tablet (500 mcg) by mouth. 09/20/2023 Active topiramate 50 mg oral tablet (3 sources) Start: 03-22-2023 topiramate (Topamax) 50 mg tablet Take 1 tablet (50 mg) by mouth. 03/22/2023 Active traMADol hydrochloride 50 mg oral tablet (3 sources) Opioid Agonist Start: 08-13-2022 take 1 tablet by mouth every six hours as needed for pain Tramadol 50 mg Tablet Active 50 mg PO EVERY 6 HOURS as needed for Breakthrough Pain August 13, 2022 1:00am traZODone hydrochloride 50 mg oral tablet (3 sources) Serotonin Reuptake Inhibitor Start: 08-13-2022 take 1 tablet by mouth at bedtime as needed Trazodone 50 mg Tablet Active 50 mg PO AT BEDTIME as needed for leg cramps August 13, 2022 1:00am Completed/Discontinued Medications Medication Drug Class(es) Dates Sig (Normalized) Sig (Original) calcium chloride 0.0014 meq/ml / potassium chloride 0.004 meq/ml / sodium chloride 0.103 meq/ml / sodium lactate 0.028 meq/ml injectable solution (2 sources) Start: 04-27-2019 End: 04-27-2019 take 100 mL intravenous route every hour 100 mL/hr, Intravenous, Continuous, Starting Tue04/27/19 at 1030, PACU (only) Start: 04-27-2019 End: 04-27-2019 lactated Ringers infusion 12 hr guaiFENesin 1200 mg extended release oral tablet (3 sources) Start: 08-18-2022 End: 08-03-2024 take 1 tablet by mouth twice daily, then take 1 tablet by mouth every twelve hours Guaifenesin (Mucus Relief Er) 1,200 mg Tablet Extended Release 12hr Discontinued 1200 mg PO TWICE A DAY 0 August 18, 2022 1:00am August 03, 2024 8:16pm 1 ml hydrALAZINE hydrochloride 20 mg/ml injection [...] [] Hold for HR less than 50. Nirmatrelvir-Ritona vir (Paxlovid) 300 mg (150 mg x 2)-100 mg tablets,dose pack (2 sources) Start: 05-03-2024 End: 08-03-2024 Nirmatrelvir-Subhash navir (Paxlovid) 300 mg (150 mg x 2)-100 mg tablets,dose pack Discontinued 0 PO .COMPLEX May 03, 2024 12:00am August 03, 2024 8:13pm take TWO 150 mg tablets of nirmatrelvir with ONE 100 mg tablet of ritonavir twice daily for 5 days 2 ml ondansetron 2 mg/ml injection (1 source) Serotonin-3 Receptor Antagonist Start: 04-27-2019 End: 04-27-2019 take 4 mg intravenous route every twenty-four hours as needed 4 mg, Intravenous, Once as needed, nausea, vomiting, Starting Tue04/27/19 at 0933, For 1 dose, PACU (only) Administer first as needed for nausea/vomiting, or as directed by anesthesia predniSONE 20 mg oral tablet (8 sources) Start: 05-03-2024 End: 08-03-2024 take 3 tablets by mouth once daily Prednisone 20 mg tablet Discontinued 60 mg PO DAILY May 03, 2024 12:00am August 03, 2024 8:17pm Start: 01-23-2024 predniSONE (De ltasone) 20 mg tablet Take 2 tablets (40 mg) by mouth. 01/23/2024 Active Start: 08-18-2022 End: 08-03-2024 Prednisone 10 mg tablet Disc ontinued 10 mg PO DAILY August 18, 2022 1:00am August 03, 2024 8:16pm 4 tablets x 4 days, 3 tablets x 4 days, 2 tablets x 4 days, 1 tablet x 4 days 2 ml prochlorperazine 5 mg/ml injection (1 source) Phenothiazine Start: 04-27-2019 End: 04-27-2019 2.5 mg, Intravenous, Every 15 min PRN, nausea, Starting Tue04/27/19 at 0933, For 2 doses, PACU (only) Administer if ondansetron (Zofran), promethazine (Phenergan), and Metocolopramide (Reglan) ineffective or not ordered, or as directed by anesthesia, as needed for nausea/vomiting Do not give more than 2 doses. sodium phosphate, dibasic 59.3 mg/ml / sodium phosphate, monobasic 161 mg/ml enema (1 source) Start: 04-27-2019 End: 04-27-2019 sodium phosphates (FLEETS ADULT) 19-7 gram/118 mL enema 1 each 60 actuat tiotropium 0.0025 mg/actuat inhalation spray (5 sources) Anticholinergic Start: 08-13-2022 End: 08-03-2024 take 2.5 ug by inhalation twice daily Tiotropium Olga (Spiriva Respimat) 2.5 mcg/actuation Mist Discontinued 2 NMA INHALATION TWICE A DAY August 13, 2022 1:00am August 03, 2024 8:14pm Start: 08-13-2022 take 1 puff(s) by in halation twice daily Tiotropium Olga (Spiriva Respimat) 2.5 mcg/actuation Mist Active 2 PUFF INHALATION TWICE A DAY August 13, 2022 12:00am take 1 capsule by in halation once daily tiotropium (SPIRIVA) [address] 18 mcg into inhaler and inhale daily . 0 Active Problems Active Problems Problem Classification Problem Date Documented Date Episodic/Chronic Acute cerebrovascular disease (5 sources) Cerebrovascular accident; Translations: [Cerebral infarction, unspecified] Onset: 08-06-2024 08-13-2024 Chronic Acute myocardial infarction (2 sources) Myocardial infarction; Translations: [Acute myocardial infarction, unspecified] 10-29-2024 Chronic Comment on above: Nonobstructive CAD Chronic obstructive pulmonary disease and bronchiectasis (13 sources) Bronchiectasis; Translations: [Bronchiectasis, uncomplicated] Onset: 11-26-2024 08-14-2022 Chronic Conditions associated with dizziness or vertigo (3 sources) Dizziness; Translations: [Dizziness and giddiness] Onset: 11-22-2024 10-29-2024 Episodic Coronary atherosclerosis and other heart disease (3 sources) Coronary arteriosclerosis; Translations: [Atherosclerotic heart disease of [place] coronary artery without angina pectoris] Onset: 11-22-2024 10-29-2024 Chronic Deficiency and other anemia (2 sources) Iron deficiency anemia; Translations: [Iron deficiency anemia, unspecified] 10-29-2024 Episodic Diabetes mellitus without complication (4 sources) Hyperglycemia; Translations: [Hyperglycemia, unspecified] 08-14-2022 Episodic Diseases of white blood cells (4 sources) Leukocytosis; Translations: [Elevated white blood cell count, unspecified] 08-14-2022 Chronic Disorders of lipid metabolism (3 sources) Hyperlipidemia; Translations: [Hyperlipidemia, unspecified] Onset: 11-22-2024 10-29-2024 Chronic Essential hypertension (3 sources) Hypertensive disorder; Translations: [Essential (primary) hypertension] Onset: 11-22-2024 10-29-2024 Chronic Fluid and electrolyte disorders (4 sources) Lactic acidosis; Translations: [Lactic acidosis] 08-12-2022 Episodic Gastroduodenal ulcer (except hemorrhage) (4 sources) Peptic ulcer with perforation; Translations: [Chronic or unspecified peptic ulcer, site unspecified, with perforation] 10-29-2024 Chronic Genitourinary symptoms and ill-defined conditions (4 sources) Nocturia; Translations: [Nocturia] Onset: 01-25-2024 Episodic Hyperplasia of prostate (4 sources) Benign prostatic hyperplasia with lower urinary tract symptoms; Translations: [Benign prostatic hyperplasia] Onset: 01-25-2024 Chronic Nutritional deficiencies (2 sources) Vitamin D deficiency; Translations: [Vitamin D deficiency, unspecified] 10-29-2024 Chronic Other diseases of kidney and ureters (2 sources) Renal mass; Translations: [Other specified disorders of kidney and ureter] 10-29-2024 Chronic Other hereditary and degenerative nervous system conditions (2 sources) Essential tremor; Translations: [Essential tremor] 10-29-2024 Chronic Other lower respiratory disease (2 sources) Dyspnea; Translations: [Shortness of breath] 10-29-2024 Episodic Other lower respiratory disease (1 source) Shortness of breath; Translations: [Shortness of breath] Onset: 11-22-2024 Episodic Other nervous system disorders (2 sources) Neuropathy; Translations: [Polyneuropathy, unspecified] 10-29-2024 Chronic Other nervous system disorders (2 sources) Chronic pain syndrome; Translations: [Chronic pain syndrome] 10-29-2024 Chronic Respiratory failure; insufficiency; arrest (adult) (4 sources) Eesfi-zy-lmuextj respiratory failure; Translations: [Acute and chronic respiratory failure with hypoxia] 08-14-2022 Chronic Thyroid disorders (4 sources) Sick-euthyroid syndrome; Translations: [Sick-euthyroid syndrome] 08-15-2022 Episodic Transient cerebral ischemia (3 sources) Transient cerebral ischemia; Translations: [Transient cerebral ischemic attack, unspecified] Onset: 08-23-2024 10-29-2024 Chronic Viral infection (2 sources) Disease caused by 2019-nCoV; Translations: [COVID-19] 10-29-2024 Episodic Past or Other Problems Problem Classification Problem Date Documented Da te Episodic/Chronic Calculus of urinary tract (7 sources) Calculus of kidney; Translations: [Kidney stone] Onset: 01-25-2024 Episodic Unclassified (3 sources) Onset: 01-25-2024 01-25-2024 Results Test Name Value Interpretation Reference Range Facility 12 Lead EKG performed by [facility] on 11-21-2024 12 Lead EKG performed by [facility] [address] [place] [address] 12 Lead EKG performed by [facility] 11/21/24 0919 MR#: [id number] Acct: [id number] Name: TIMUR JIMENEZ Jr. Rep #: [id number] : 1945 79 From: Gagandeep Prabhakar MD Attending Dr: Dr. Gagandeep Prabhakar MD Status: DEP A MB Ordering Dr: Gagandeep Prabhakar MD Date: 11/21/24 Location: [facility] Sex: M C Admitted: [facility]/12 Lead EKG performed by [facility] ECG Report Interpretation ------Sinus Bradycardia -First degree A-V block Sabiha = 224-Left axis -anterior fascicular block. -Old anterior infarct. Low voltage with rightward P-axis and rotation -possible pulmonary disease. ABNORMAL Electronically signed on 11/28/2024 at 09:40 by Gagandeep Prabhakar Software Version [id number] 11/28/24 0942 Date Gagandeep Prabhakar MD CC: Dr. Mimi Santa MD Date Dictated: 11/21/24918 Date Transcribed: 11/21/24918 Building Appraiser: [place] Signed Normal [facility] Cardiology Visit Reporton Cardiology Visit Report [facility] [address] [place] [address] OFFICE VISIT Date of Service: 11/21/24 MR#: [id number] Acct: [id number] Name: TIMUR JIMENEZ Jr. Rep #: [id number] : 1945 Provider: Dr. Gagandeep Prabhakar MD Age/Sex: 79/M Location: [facility] Status: Signed HPI HPI History of Present Illness Details: 79-year-old man from the [facility] with a history of hypertension hyperlipidemia who it appears was diagnosed with a renal mass back in August 2024. It was felt that this would likely be a renal cell carcinoma and he is being referred here for further evaluation and preop evaluation regarding his stability for abdominal surgery. He denies any chest pain or shortness of breath or paroxysmal nocturnal dyspnea or pedal edema he has had no neck arm or jaw discomfort to suggest angina. He does have evidence of some peripheral vascular disease but his lipid profile demonstrates a total cholesterol of 104 LDL of 37 HDL of 50 and an echo done in July 2024 demonstrated an ejection fraction of 65% with no evidence of valvular abnormality or diastolic dysfunction. He has continued to be compliant with his medications and his last stress test which she had in 2018 demonstrated no evidence of reversible ischemia. His physical exam today is unremarkable his electrocardiogram demonstrates sinus bradycardia with a first-degree AV block and left anterior fascicular block with a rate of 54 bpm is noted. 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 Accompanied by: Self Is patient in pain?: No Allergies bee venom protein (honey bee) Allergy (Severe, Verified 11/21/24 09:26) Angioedema oxycodone Adverse Reaction (Verified 11/21/24 09:26) Upset Stomach Medications ???Medication ???Instructions ???Recorded ???Confirmed ???Type atorvastatin 40 mg tablet 40 mg PO QHS cholesterol 08/13/22 10/29/24 History cholecalciferol (vitamin D3) 50 50 mcg PO QODAY vitamin 08/13/22 0 10/29/24 History mcg (2,000 unit) tablet cyclobenzaprine 10 mg tablet 10 mg PO QHS PRN PRN muscle spasms 08/13/22 10/29/24 History fluticasone 250 mcg-salmeterol 50 1 inh inhalation BID breathing 10/29/24 History mcg/dose blistr powdr for inhalation gabapentin 600 mg tablet 600 mg PO BID nerve pain 08/13/22 10/29/24 History ipratropium 0.5 mg-albuterol 3 mg 3 ml inhalation Q6H PRN Shortness 08/13/22 10/29/24 History (2.5 mg base)/3 mL nebulization Of Breath soln isosorbide mononitrate 30 mg 30 mg PO DAILY heart 08/13/2210/10 History tablet,extended release 24 hr lisinopril 5 mg tablet 5 mg PO DAILY blood pressure 08/1310/29/24 History metoprolol succinate 100 mg 100 mg PO DAILY blood pressure 09/3010/29/24 History tablet,extended release 24 hr pantoprazole 40 mg tablet,delayed 40 mg PO DAILY reflux 08/13/22 History release tramadol 50 mg tablet 50 mg PO Q6H PRN Breakthrough Pain 08/13/22 10/29/24 History trazodone 50 mg tablet 50 mg PO QHS PRN leg cramps 10/29/24 History albuterol sulfate 90 mcg/actuation 2 inh inhalation Q6H PRN shortne ss 08/03/24 10/29/24 History aerosol inhaler (Ventolin HFA) of breath or wheezing aspirin 81 mg chewable tablet 81 mg PO BREAKFAST #90 tabs 10/29/24 Rx magnesium oxide 400 mg (241.3 mg 400 mg PO DAILY #60 tabs 08/05/24 10/29/24 Rx magnesium) tablet (MagOx) budesonide 160 mcg-glycopyr 9 2 inh inhalation BID 10/29/24 04/2 08/04 History mcg-formot 4.8 mcg/actuation HFA inhaler (Breztri Aerosphere) ferrous sulfate 325 mg (65 mg 325 mg PO .QOD 10/29/24 10/29/24 H istory iron) tablet loratadine 10 mg capsule (Allergy 10 mg PO QDAY 10/29/24 10/29/24 H istory Relief (loratadine)) roflumilast 250 mcg tablet 500 mcg PO QDAY 10/29/24 10/29/24 History Have you fallen in the past year?: No Nurse's Note: pt states he does not know his meds and did not bring a list [facility] Medical History Pre-operative cardiovascular examination Iron deficiency anemia Vitamin D deficiency CAD (coronary artery disease) Renal mass Dizziness SOB (shortness of breath) Benign essential tremor Chronic pain syndrome Neuropathy HLD (hyperlipidemia) HTN (hypertension) PUD (peptic ulcer disease) TIA (transient ischemic attack) Perforated ulcer COPD (chronic obstructive pulmonary disease) Heart attack Surgical History ... Normal [facility] Absolute lymphocyte countOrd ered By: Fabiana on 08-04-2024 Lymphocytes Auto (Unsp spec) [#/Vol] 1.92 10*3/uL 0.83-4.51 [facility] Absolute neutrophil countOrd ered By: on 08-04-2024 Neutrophils (Bld) [#/Vol] 3.8 10*3/uL 2.0-7.7 [facility] Albumin to globulin ratioOrd ered By: on 08-04-2024 Albumin/Globulin [Mass ratio] 1.1 {ratio} 0.9-2.4 [facility] Automated lymphocyte count a s percentage of total leukocytesOrdered By: on 08-04-2024 Lymphocytes/100 WBC Auto (Unsp spec) 28.6 % 19-41 [facility] Basophil percentageOrdered B y: on 08-04-2024 Basophils/100 WBC (Bld) 0.3 % 0-1 [facility] Bilirubin, totalOrdered By: Shannen Jung on 08-04-2024 Bilirubin [Mass/Vol] 0.60 mg/dL 0.20-1.00 [facility] Comment on above: For patients on eltr ombopag therapy, use of Dimension Empire TBIL is not recommended. Blood urea nitrogen (BUN)/cr eatinine ratioOrdered By: Shannen Jung on 08-04-2024 Urea nitrogen/Creatinine [Mass ratio] 23.0 mg/mg High 10-20 [facility] Brain without Contraston Brain without Contrast [facility] Imaging Services [address] [place] [address] Brain without Contrast MR#: [id number] Acct: [id number] Name: TIMUR JIMENEZ Jr. Rep #: [id number] : 1945 M 78 From: Bi Nava MD PCP: Dr. Mimi Santa MD Status: ADM JUSTO Study: Brain without Contrast Date of Exam: 08/04/24 Exam# [id number] Ordering Dr: Shannen Jung MD [id number] STUDY: MRI BRAIN WITHOUT CONTRAST REASON FOR EXAM: Male, 78 years old. CVA TECHNIQUE: Multiplanar multisequence imaging of the brain was performed without the administration of intravenous contrast. COMPARISON: Noncontrast head CT 08/03/2024 FINDINGS: The ventricles, cisterns, and sulci are prominent consistent with age-related volume loss. There is no restricted diffusion to suggest acute ischemia or infarction. No succeptibility artifict to suggest intracranial hemorrhage or mineralization. Major intracranial signal voids are preserved. There is high T2/FLAIR signal seen in the periventricular deep white matter. There is no midline shift, mass effect, or extra axial fluid collections are seen. No CP angle or IAC mass is seen. The orbits are unremarkable. The sella turcica and craniovertebral junction are within normal limits. The visualized paranasal sinuses are clear. Inflammatory signal changes in the left mastoid air cells. MRI/Brain without Contrast IMPRESSION: Chronic microvascular ischemic changes. No intracranial hemorrhage, acute infarct, or space occupying lesion seen on this noncontrast MRI of the brain. Electronically Signed: Bi Nava MD at 16:56 EST , CC: Dr. Shannen Jung MD; Dr. Mimi Santa MD Building Appraiser: Signed Normal [facility] CBC W/Diff, Automatedon 07-12 Absolute Lymph 1.92 X10 3/uL Normal 0.83-4.51 [facility] Comment on above: Performed By: #### L 500.4100, L500.4050, L501.9985, L100.0100, L501.9520 ####[facility] [address] [place], [address] Absolute Neut 3.8 X10 3/uL Normal 2.0-7.7 [facility] Comment on above: Performed By: #### L 500.4100, L500.4050, L501.9985, L100.0100, L501.9520 ####[facility] [address] [place], [address] Basophils/100 WBC (Bld) 0.3 % Normal 0-1 [facility] Comment on above: Performed By: #### L 500.4100, L500.4050, L501.9985, L100.0100, L501.9520 ####[facility] [address] [place], [address] Eosinophils/100 WBC (Bld) 0.0 % Normal 0-5 [facility] Comment on above: Performed By: #### L 500.4100, L500.4050, L501.9985, L100.0100, L501.9520 ####[facility] [address] [place], [address] Erythrocyte distribution width (RBC) [Ratio] 14.8 % High 11.6-14.6 [facility] Comment on above: Performed By: #### L 500.4100, L500.4050, L501.9985, L100.0100, L501.9520 ####[facility] [address] [place], [address] Hematocrit (Bld) [Volume fraction] 37.4 % Low 40-54 [facility] Comment on above: Performed By: #### L 500.4100, L500.4050, L501.9985, L100.0100, L501.9520 ####[facility] [address] [place], [address] Hemoglobin (Bld) [Mass/Vol] 11.9 g/dL Low 13.0-16.5 [facility] Comment on above: Performed By: #### L 500.4100, L500.4050, L501.9985, L100.0100, L501.9520 ####[facility] [address] [place], [address] IG% 0.400 Normal 0.0-0.9 [facility] Comment on above: Result Comment: IG% - Immature Granulocytes (promyelocytes, myelocytes and metamyelocytes) > 1% indicates that a LEFT SHIFT is Present. Performed By: #### L 500.4100, L500.4050, L501.9985, L100.0100, L501.9520 ####[facility] [address] [place], [address] Lymphocytes/100 WBC (Bld) 28.6 % Normal 19-41 [facility] Comment on above: Performed By: #### L 500.4100, L500.4050, L501.9985, L100.0100, L501.9520 ####[facility] [address] [place], [address] MCH (RBC) [Entitic mass] 29.1 pg Normal 27.0-32.0 [facility] Comment on above: Performed By: #### L 500.4100, L500.4050, L501.9985, L100.0100, L501.9520 ####[facility] [address] [place], [address] MCHC (RBC) [Mass/Vol] 31.8 g/dL Low 32-36 [facility] Comment on above: Performed By: #### L 500.4100, L500.4050, L501.9985, L100.0100, L501.9520 ####[facility] [address] [place], [address] MCV (RBC) [Entitic vol] 91.4 fL Normal 80-94 [facility] Comment on above: Performed By: #### L 500.4100, L500.4050, L501.9985, L100.0100, L501.9520 ####[facility] [address] [place], [address] Monocytes/100 WBC (Bld) 13.8 % High 0-10 [facility] Comment on above: Performed By: #### L 500.4100, L500.4050, L501.9985, L100.0100, L501.9520 ####[facility] [address] [place], [address] Neutrophils/100 WBC (Bld) 56.9 % Normal 47-70 [facility] Comment on above: Performed By: #### L 500.4100, L500.4050, L501.9985, L100.0100, L501.9520 ####[facility] [address] [place], [address] Nucleated RBC (Bld) [#/Vol] 0 10*3/uL Normal 0-5 [facility] Comment on above: Performed By: #### L 500.4100, L500.4050, L501.9985, L100.0100, L501.9520 ####[facility] [address] [place], [address] Platelet mean volume (Bld) [Entitic vol] 10.0 fL Normal 6.2-12.0 [facility] Comment on above: Performed By: #### L 500.4100, L500.4050, L501.9985, L100.0100, L501.9520 ####[facility] [address] [place], [address] Platelets (Bld) [#/Vol] 215 10*3/uL Normal 150-450 [facility] Comment on above: Performed By: #### L 500.4100, L500.4050, L501.9985, L100.0100, L501.9520 ####[facility] [address] [place], [address] RBC (Bld) [#/Vol] 4.09 10*6/uL Low 4.6-6.2 [facility] Comment on above: Performed By: #### L 500.4100, L500.4050, L501.9985, L100.0100, L501.9520 ####[facility] [address] [place], [address] RDW SD 50.0 fl High 35.1-43.9 [facility] Comment on above: Performed By: #### L 500.4100, L500.4050, L501.9985, L100.0100, L501.9520 ####[facility] [address] [place], [address] WBC (Bld) [#/Vol] 6.7 10*3/uL Normal 4.4-11.0 [facility] Comment on above: Performed By: #### L 500.4100, L500.4050, L501.9985, L100.0100, L501.9520 ####[facility] [address] [place], [address] Carbon dioxide measurementOr dered By: Shannen Jung on 08-04-2024 CO2 [Moles/Vol] 23.0 mmol/L 21.0-32.0 [facility] Chloride measurementOrdered By: Shannen Jung on 08-04-2024 Chloride [Moles/Vol] 109 mmol/L High 98-107 [facility] Comprehensive Metabolic Prof ilon 08-04-2024 Albumin [Mass/Vol] 3.3 g/dL Normal 3.2-5.0 [facility] Comment on above: Performed By: #### L 500.4100, L500.4050, L501.9985, L100.0100, L501.9520 ####[facility] [address] [place], [address] Albumin/Globulin [Mass ratio] 1.1 {ratio} Normal 0.9-2.4 [facility] Comment on above: Performed By: #### L 500.4100, L500.4050, L501.9985, L100.0100, L501.9520 ####[facility] [address] [place], [address] ALK P 71 U/L Normal 45-117 [facility] Comment on above: Performed By: #### L 500.4100, L500.4050, L501.9985, L100.0100, L501.9520 ####[facility] [address] [place], [address] ALT [Catalytic activity/Vol] 11 U/L Low 16-61 [facility] Comment on above: Performed By: #### L 500.4100, L500.4050, L501.9985, L100.0100, L501.9520 ####[facility] [address] [place], [address] AST [Catalytic activity/Vol] 11 U/L Low 15-37 [facility] Comment on above: Performed By: #### L 500.4100, L500.4050, L501.9985, L100.0100, L501.9520 ####[facility] [address] [place], [address] Bilirubin [Mass/Vol] 0.60 mg/dL Normal 0.20-1.00 [facility] Comment on above: Result Comment: For patients on eltrombopag therapy, use of Dimension Empire TBIL is not recommended. Performed By: #### L 500.4100, L500.4050, L501.9985, L100.0100, L501.9520 ####[facility] [address] [place], [address] BUN/CRE 23.0 RATIO High 10-20 [facility] Comment on above: Performed By: #### L 500.4100, L500.4050, L501.9985, L100.0100, L501.9520 ####[facility] [address] [place], [address] CA,Total 9.0 mg/dL Normal 8.5-10.1 [facility] Comment on above: Performed By: #### L 500.4100, L500.4050, L501.9985, L100.0100, L501.9520 ####[facility] [address] [place], [address] Chloride [Moles/Vol] 109 mmol/L High 98-107 [facility] Comment on above: Performed By: #### L 500.4100, L500.4050, L501.9985, L100.0100, L501.9520 ####[facility] [address] [place], [address] CO2 [Moles/Vol] 23.0 mmol/L Normal 21.0-32.0 [facility] Comment on above: Performed By: #### L 500.4100, L500.4050, L501.9985, L100.0100, L501.9520 ####[facility] [address] [place], [address] Creatinine [Mass/Vol] 1.00 mg/dL Normal 0.70-1.30 [facility] Comment on above: Result Comment: The validity of the calculated GFR GFRAA in patients over 70 years has not been determined. Clinical correlation is essential. Performed By: #### L 500.4100, L500.4050, L501.9985, L100.0100, L501.9520 ####[facility] [address] [place], [address] ECRCL 61.86 ml/min Normal [facility] Comment on above: Performed By: #### L 500.4100, L500.4050, L501.9985, L100.0100, L501.9520 ####[facility] [address] [place], [address] EST GFR - AA 93 mL/min Normal >60 [facility] Comment on above: Result Comment: Afri can Cymraes GFR Calc Performed By: #### L 500.4100, L500.4050, L501.9985, L100.0100, L501.9520 ####[facility] [address] [place], [address] GAP 7 Normal 5-15 [facility] Comment on above: Performed By: #### L 500.4100, L500.4050, L501.9985, L100.0100, L501.9520 ####[facility] [address] [place], [address] GFR/1.73 sq M.predicted among non-blacks MDRD (S/P/Bld) [Vol rate/Area] 77 mL/min/{1.73_m2} Normal >60 [facility] Comment on above: Result Comment: Non- GFR Calc Performed By: #### L 500.4100, L500.4050, L501.9985, L100.0100, L501.9520 ####[facility] [address] [place], [address] Globulin (S) [Mass/Vol] 2.9 g/dL Normal 2.2-4.2 [facility] Comment on above: Performed By: #### L 500.4100, L500.4050, L501.9985, L100.0100, L501.9520 ####[facility] [address] [place], [address] Glucose [Mass/Vol] 101 mg/dL Normal 74-106 [facility] Comment on above: Result Comment: Fast ing Glucose result from 100 to 125 mg/dL suggests IMPAIRED HOMEOSTASIS per A.D.A. criteria. Performed By: #### L 500.4100, L500.4050, L501.9985, L100.0100, L501.9520 ####[facility] [address] [place], [address] Potassium [Moles/Vol] 3.7 mmol/L Normal 3.5-5.1 [facility] Comment on above: Performed By: #### L 500.4100, L500.4050, L501.9985, L100.0100, L501.9520 ####[facility] [address] [place], [address] Sodium [Moles/Vol] 139 mmol/L Normal 136-145 [facility] Comment on above: Performed By: #### L 500.4100, L500.4050, L501.9985, L100.0100, L501.9520 ####[facility] [address] [place], [place], [id number] T PROT 6.2 g/dL Low 6.4-8.2 [facility] Comment on above: Performed By: #### L 500.4100, L500.4050, L501.9985, L100.0100, L501.9520 ####[facility] [address] [place], [address] Urea nitrogen [Mass/Vol] 23 mg/dL High 7-18 [facility] Comment on above: Performed By: #### L 500.4100, L500.4050, L501.9985, L100.0100, L501.9520 ####[facility] [address] [place], [place], [id number] Eosinophil percentageOrdered By: Shannen Jung on 08-04-2024 Eosinophils/100 WBC (Bld) 0.0 % 0-5 [facility] Erythrocyte distribution wid th ratioOrdered By: [facility] Fabiana on 08-04-2024 Erythrocyte distribution width (RBC) [Ratio] 14.8 % High 11.6-14.6 [facility] Erythrocyte distribution wid th standard deviationOrdered By: Shannen Fabiana on 08-04-2024 Erythrocyte distribution width (RBC) [Ratio] 50.0 fl High 35.1-43.9 [facility] Glomerular filtration rate ( GFR) estimationOrdered By: Shannen Jung on 08-04-2024 GFR/1.73 sq M.predicted among non-blacks MDRD (S/P/Bld) [Vol rate/Area] 77 mL/min/{1.73_m2} >60 [facility] Comment on above: Non- GFR Calc Glucose measurementOrdered B y: Shannen Jung on 08-04-2024 Glucose [Mass/Vol] 101 mg/dL 74-106 [facility] Comment on above: Fasting Glucose resu lt from 100 to 125 mg/dL suggests IMPAIRED HOMEOSTASIS per A.D.A. criteria. Hematocrit Auto (Bld) [Volum e fraction]Ordered By: Shannen Jung on 08-04-2024 Hematocrit (Bld) [Volume fraction] 37.4 % Low 40-54 [facility] Hemoglobin A1con 08-04-2024 HbA1c (Bld) [Mass fraction] 5.4 % Normal 3.8-5.6 [facility] Comment on above: Result Comment: Norm al < 5.7 % Prediabetic 5.7 - 6.4 % Diabetic >or= 6.5 % Please note range changes. Performed By: #### L 500.4100, L500.4050, L501.9985, L100.0100, L501.9520 ####[facility] [address] [place], [place], [id number] Hemoglobin A1c percentageOrd ered By: Shannen Jung on 08-04-2024 HbA1c (Bld) [Mass fraction] 5.4 % 3.8-5.6 [facility] Comment on above: Normal < 5.7 % Predi abetic 5.7 - 6.4 % Diabetic >or= 6.5 % Please note range changes. Hemoglobin measurementOrdere d By: Shannen Jung on 08-04-2024 Hemoglobin (Bld) [Mass/Vol] 11.9 g/dL Low 13.0-16.5 [facility] High density lipoprotein (HD L) measurementOrdered By: Shannen Jung on 08-04-2024 Cholesterol in HDL [Mass/Vol] 50 mg/dL >40 [facility] Comment on above: The drugs N-Acetylcy steine and Metamizole may falsely depress this assay. Reference Range HDL <40 mg/dL Low HDL Cholesterol HDL >or= 60 mg/dL High HDL Cholesterol Immature granulocytes/100 WB C Auto (Bld)Ordered By: Shannen Jung on 08-04-2024 Immature granulocytes/100 WBC (Bld) 0.400 % 0.0-0.9 [facility] Comment on above: IG% - Immature Granu locytes (promyelocytes, myelocytes and metamyelocytes) > 1% indicates that a LEFT SHIFT is Present. Laboratory - Chemistry and C hemistry - challengeOrdered By: Shannen Jung on 08-04-2024 AST [Catalytic activity/Vol] 11 U/L Low 15-37 [facility] Lipid Profileon 08-04-2024 Cholesterol [Mass/Vol] 104 mg/dL Normal 200 [facility] Comment on above: Result Comment: <200 mg/dL Desirable 200-240 mg/dL Borderline >240 mg/dL High Risk Performed By: #### L 500.4100, L500.4050, L501.9985, L100.0100, L501.9520 ####[facility] [address] [place], [address] Cholesterol in HDL [Mass/Vol] 50 mg/dL Normal [facility] - [employer] Comment on above: Result Comment: The drugs N-Acetylcysteine and Metamizole may falsely depress this assay. Reference Range HDL <40 mg/dL Low HDL Cholesterol HDL >or= 60 mg/dL High HDL Cholesterol Performed By: #### L 500.4100, L500.4050, L501.9985, L100.0100, L501.9520 ####[facility] [id number] [place], [address] Cholesterol in LDL [Mass/Vol] 37 mg/dL Normal 0-130 [facility] Comment on above: Performed By: #### L 500.4100, L500.4050, L501.9985, L100.0100, L501.9520 ####[facility] [address] [place], [address] Cholesterol in VLDL [Mass/Vol] 17 mg/dL Normal 5-40 [facility] Comment on above: Performed By: #### L 500.4100, L500.4050, L501.9985, L100.0100, L501.9520 ####[facility] [id number] [place], [address] Triglyceride [Mass/Vol] 86 mg/dL Normal [facility] Comment on above: Result Comment: The drugs N-Acetylcysteine and Metamizole may falsely depress this assay. Serum Triglycerides Reference Interval Normal <150 mg/dL Borderline high 150 - 199 mg/dL High 200 - 499 mg/dL Very High > or = 500 mg/dL Performed By: #### L 500.4100, L500.4050, L501.9985, L100.0100, L501.9520 ####[facility] [address] [place], [address] Low density lipoprotein (LDL ) cholesterol measurementOrdered By: Shannen Jung on 08-04-2024 Cholesterol in LDL [Mass/Vol] 37 mg/dL 0-130 [facility] MCV (mean corpuscular volume ) determinationOrdered By: Shannen Jung on 08-04-2024 MCV (RBC) [Entitic vol] 91.4 fL 80-94 [facility] MR/CON.PCM.NEon 08-04-2024 MR/CON.PCM.NE [facility] Medical Records Department [address] [place] [address] Consultation - Neurology 08/04/24 0850 MR#: [id number] Acct: [id number] Name: TIMUR JIMENEZ JrCarmita Rep #: [id number] : 1945 78 From: Bee Avina MD PCP: Dr. Mimi Santa MD Status:ADM JUSTO Location: [place] [address] Assessment and Plan: Stroke Assessment/Plan TIMUR JIMENEZ Jr. is a 78 M with a history of Chronic essential tremors, Nonobstructive CAD w/ Hx KS, GERD w/ Hx perforated peptic ulcer/PUD, COPD/bronchiectasis, Hx TIA, Former EtOH abuse, Former Tobacco use, possible CKD, HTN, HLD, Chronic neck pain w/ associated Chronic neuropathy w/ chronic LUE radiculopathy who presents with difficulty with his speech specifically slurred speech with expressive aphasia and mild dizziness. This has resolved. Likely had a TIA. Not a TNK or thrombectomy candidate. Neurological examination shows mild decreased sensation on left. Neuroimaging shows the following: CT brain with mild atrophy and periventricular white matter ischemic changes with no acute intracranial findings CTA head and neck with moderate stenosis bilateral cavernous segments of the internal carotid arteries, severe stenosis of the distal right vertebral artery, moderate stenosis at the origin of the left vertebral artery MRI Brain: Negative DWI per my read LDL: 37 HbA1C: 5.4 Plan Continue ASA Statin to keep LDL <70 Stroke w/up pending - ECHO. If negative can get 30 day event monitor as out patient HTN: Gradually normalize it PT,OT, Speech, swallow evaluation Stroke education Thanks for the consultation. Spent 30 minutes in evaluation of this patient HPI Consult Data Date of Consult: 08/04/24 HPI Narrative HPI Narrative: TIMUR JIMENEZ, is a 78 M with Chronic essential tremors, Nonobstructive CAD w/ Hx KS, GERD w/ Hx perforated peptic ulcer/PUD, COPD/bronchiectasis, Hx TIA, Former EtOH abuse, Former Tobacco use, possible CKD underlying disease but uncertain as GFR vacillates although primarily stage I in appearance, HTN, HLD, Chronic neck pain w/ associated Chronic neuropathy w/ chronic LUE radiculopathy who presents to the ED on 08/03/24 with history of last known well 10 AM 08/03/2024 on day of presentation brought in by his noted that initially had onset of difficulty with his speech specifically slurred speech with expressive aphasia and mild dizziness. In the ED he had NIHSS 2 for aphasia and dysarthria that improved to 1 for mild to moderate dysarthria only. Patient did not meet TNK criteria as out of window.he feels he is back to baseline CT brain with mild atrophy and periventricular white matter ischemic changes with no acute intracranial findings CTA head and neck with moderate stenosis bilateral cavernous segments of the internal carotid arteries, severe stenosis of the distal right vertebral artery, moderate stenosis at the origin of the left vertebral artery chest x-ray with no acute cardiopulmonary findings, EKG with ST with nonspecific changes with no acute evidence of ischemia. [facility] Medical History (Updated 08/03/24 @ 19:[address] Shannen Jung MD) Benign essential tremor Chronic pain syndrome Neuropathy Tobacco use HLD (hyperlipidemia) HTN (hypertension) Bronchiectasis PUD (peptic ulcer disease) TIA (transient ischemic attack) Perforated ulcer COPD (chronic obstructive pulmonary disease) Heart attack Home Medications ???Medication ???Instructions ???Recorded ???Last Taken ???Type atorvastatin 40 mg tablet 40 mg PO QHS cholesterol 08/13/22 08/02/24 History cholecalciferol (vitamin D3) 50 50 mcg PO QODAY vitamin 08/13/22 08/02/24 History mcg (2,000 unit) tablet cyclobenzaprine 10 mg tablet 10 mg PO QHS PRN PRN muscle spasms 08/13/22 08/02/24 History fluticasone 250 mcg-salmeterol 50 1 inh inhalation BID breathing 08/13/22 08/03/24 History mcg/dose blistr powdr for inhalation gabapentin 600 mg tablet 600 mg PO BID nerve pain 08/13/22 08/03/24 History ipratropium 0.5 mg-albuterol 3 mg 3 ml inhalation Q6H PRN Shortness 08/13/22 08/03/24 History (2.5 mg base)/3 mL nebulization Of Breath soln isosorbide mononitrate 30 mg 30 mg PO DAILY heart 08/13/22 08/03/24 History tablet,extended release 24 hr lisinopril 5 mg tablet 5 mg PO DAILY blood pressure 08/13/22 08/03/24 History metoprolol succinate 100 mg 100 mg PO DAILY blood pressure 08/13/22 08/03/24 History tablet,extended release 24 hr pantoprazole 40 mg tablet,delayed 40 mg PO DAILY reflux 08/13/22 08/03/24 History release tramadol 50 mg tablet 50 mg PO Q6H PRN Breakthrough Pain 08/13/22 08/03/24 History trazodone 50 mg tablet 50 mg PO QHS PRN leg cramps 08/13/22 08/02/24 History albuterol sulfate 90 mcg/actuation 2 inh inhalation Q6H PRN shortness 08/03/24 08/03/24 History aerosol inha (more content not included)... Normal [facility] Magnesiumon 08-04-2024 Magnesium [Mass/Vol] 2.0 mg/dL Normal 1.6-2.6 [facility] Comment on above: Performed By: #### L 501.2300, L501.5200 ####[facility] [id number] [place], [place], [id number] Magnesium measurementOrdered By: Jessica Mart on 08-04-2024 Magnesium [Mass/Vol] 2.0 mg/dL 1.6-2.6 [facility] Mean corpuscular hemoglobin (MCH) determinationOrdered By: Shannen Jung on 08-04-2024 MCH (RBC) [Entitic mass] 29.1 pg 27.0-32.0 [facility] Mean corpuscular hemoglobin concentration (MCHC) determinationOrdered By: White on 08-04-2024 MCHC (RBC) [Mass/Vol] 31.8 g/dL Low 32-36 [facility] Mean platelet volume determi nationOrdered By: White on 08-04-2024 Platelet mean volume (Bld) [Entitic vol] 10.0 fL 6.2-12.0 [facility] Monocyte percentageOrdered B y: White on 08-04-2024 Monocytes/100 WBC (Bld) 13.8 % High 0-10 [facility] Neutrophil percentageOrdered By: White on 08-04-2024 Neutrophils/100 WBC (Bld) 56.9 % 47-70 [facility] Nucleated red blood cell per centageOrdered By: White on 08-04-2024 Nucleated RBC/100 WBC (Bld) [Ratio] 0 % 0-5 [facility] Phosphoruson 08-04-2024 Phosphate [Mass/Vol] 3.3 mg/dL Normal 2.5-4.9 [facility] Comment on above: Performed By: #### L 501.2300, L501.5200 ####[facility] [id number] [place], [place], [id number] Platelet countOrdered By: Lainey tanvir Fabiana on 08-04-2024 Platelets (Bld) [#/Vol] 215 10*3/uL 150-450 [facility] Potassium measurementOrdered By: Shannen White on 08-04-2024 Potassium [Moles/Vol] 3.7 mmol/L 3.5-5.1 [facility] RBC Auto (Bld) [#/Vol]Ordere d By: White on 08-04-2024 RBC (Bld) [#/Vol] 4.09 10*6/uL Low 4.6-6.2 [facility] Serum anion gap measurementO rdered By: Shannen White on 08-04-2024 Anion gap [Moles/Vol] 7 mmol/L 5-15 [facility] Serum globulin measurementOr dered By: Shannen White on 08-04-2024 Globulin (S) [Mass/Vol] 2.9 g/dL 2.2-4.2 [facility] Serum or plasma alanine casas otransferase (ALT) measurementOrdered By: Shannen Jung on 08-04-2024 ALT [Catalytic activity/Vol] 11 U/L Low 16-61 [facility] Serum or plasma albumin iain urement (mass/volume)Ordered By: Shannen Jung 08-04-2024 Albumin [Mass/Vol] 3.3 g/dL 3.2-5.0 [facility] Serum or plasma alkaline joaquin sphatase measurementOrdered By: Shannen Jung on 08-04-2024 ALP [Catalytic activity/Vol] 71 U/L 45-117 [facility] Serum or plasma calcium iain urement (mass/volume)Ordered By: Shannen Jung 08-04-2024 Calcium [Mass/Vol] 9.0 mg/dL 8.5-10.1 [facility] Serum or plasma cholesterol measurement (mass/volume)Ordered By: Shannen Jung 08-04-2024 Cholesterol [Mass/Vol] 104 mg/dL <200 [facility] Comment on above: <200 mg/dL Desirable 200-240 mg/dL Borderline >240 mg/dL High Risk Serum or plasma creatinine m easurement (mass/volume)Ordered By: Shannen Jung 08-04-2024 Creatinine [Mass/Vol] 1.00 mg/dL 0.70-1.30 [facility] Comment on above: The validity of the calculated GFR & GFRAA in patients over 70 years has not been determined. Clinical correlation is essential. Serum or plasma thyroid stim ulating hormone (TSH) measurement (units/volume)Ordered By: Shannen Jung on 08-04-2024 TSH Qn 0.689 uIU/mL 0.358-3.740 [facility] Serum or plasma urea nitroge n measurement (mass/volume)Ordered By: Shannen Jung 08-04-2024 Urea nitrogen [Mass/Vol] 23 mg/dL High 7-18 [facility] Sodium levelOrdered By: Donna Jung on 08-04-2024 Sodium [Moles/Vol] 139 mmol/L 136-145 [facility] Thyroid Stim Hormone (TSH)on 08-04-2024 TSH 0.689 uIU/mL Normal 0.358-3.740 [facility] Comment on above: Performed By: #### L 500.4100, L500.4050, L501.9985, L100.0100, L501.9520 ####[facility] [address] [place], [address] Total proteinOrdered By: John Jung on 08-04-2024 Protein [Mass/Vol] 6.2 g/dL Low 6.4-8.2 [facility] Triglycerides measurementOrd ered By: Shannen Jung on 08-04-2024 Triglyceride [Mass/Vol] 86 mg/dL <199 [facility] Comment on above: The drugs N-Acetylcy steine and Metamizole may falsely depress this assay.Serum Triglycerides Reference Interval Normal <150 mg/dL Borderline high 150 - 199 mg/dL High 200 - 499 mg/dL Very High > or = 500 mg/dL Very low density lipoprotein (VLDL) cholesterol measurementOrdered By: Shannen Jung on 08-04-2024 Very low density lipoprotein (VLDL) cholesterol measurement 17 mg/dL 5-40 [facility] White blood cell (WBC) count Ordered By: Shannen Jung on 08-04-2024 WBC (Bld) [#/Vol] 6.7 10*3/uL 4.4-11.0 [facility] 12 Lead EKGon 08-03-2024 12 Lead EKG [facility] Cardiovascular Services [address] [place] [address] 12 Lead EKG 08/03/24 1809 MR#: [id number] Acct: [id number] Name: TIMUR JIMENEZ Jr. Rep #: [id number] : 1945 78 From: William Vaughn MD Attending Dr: Dr. Jessica Mart MD Status: DIS JUSTO Ordering Dr: Mich Madera DO Date: 08/03/24 Location: [facility] Sex: M C Admitted: 08/03/24 Test Reason : STROKE ALERT Blood Pressure : */* mmHG Vent. Rate : 107 BPM Atrial Rate : 107 BPM P-R Int : 190 ms QRS Dur : 90 ms QT Int : 344 ms P-R-T Axes : 66 -67 67 degrees QTcB Int : 459 ms Sinus tachycardia with occasional Premature ventricular complexes Left axis deviation Abnormal ECG Confirmed by JOHANA WEAVER, MACARIO ([id number]), photography editor MARYAM ALLEN ([id number]) on 08/07/2024 6:09:17 AM Referred By: Confirmed By: MACARIO VAUGHN MD 08/07/24 0609 Date William Vaughn MD CC: Dr. Mimi Santa MD; Dr. Jessica Mart MD; Dr. Mich Madera, DO Signed Normal [facility] Activated partial thrombopla stin time (aPTT) in platelet poor plasma by coagulation aOrdered By: Mich Madera on 08-03-2024 aPTT Coag (PPP) [Time] 26.8 s 24.1-36.2 [facility] Basic Metabolic Profile (BMP )on 08-03-2024 BUN/CRE 16.9 RATIO Normal 10-20 [facility] Comment on above: Order Comment: 'TROP ' Serial specimen #1, #2 or #3: 1 Performed By: #### L 300.4310, L501.4020, L100.0100, L300.3900, L500.2500 ####[facility] [address] [place], [address] CA,Total 9.5 mg/dL Normal 8.5-10.1 [facility] Comment on above: Order Comment: 'TROP ' Serial specimen #1, #2 or #3: 1 Performed By: #### L 300.4310, L501.4020, L100.0100, L300.3900, L500.2500 ####[facility] [address] [place], [address] Chloride [Moles/Vol] 107 mmol/L Normal 98-107 [facility] Comment on above: Order Comment: 'TROP ' Serial specimen #1, #2 or #3: 1 Performed By: #### L 300.4310, L501.4020, L100.0100, L300.3900, L500.2500 ####[facility] [address] [place], [address] CO2 [Moles/Vol] 25.0 mmol/L Normal 21.0-32.0 [facility] Comment on above: Order Comment: 'TROP ' Serial specimen #1, #2 or #3: 1 Performed By: #### L 300.4310, L501.4020, L100.0100, L300.3900, L500.2500 ####[facility] [address] [place], [address] Creatinine [Mass/Vol] 1.54 mg/dL High 0.70-1.30 [facility] Comment on above: Order Comment: 'TROP ' Serial specimen #1, #2 or #3: 1 Result Comment: The validity of the calculated GFR GFRAA in patients over 70 years has not been determined. Clinical correlation is essential. Performed By: #### L 300.4310, L501.4020, L100.0100, L300.3900, L500.2500 ####[facility] [address] [place], [address] ECRCL 38.86 ml/min Normal [facility] Comment on above: Order Comment: 'TROP ' Serial specimen #1, #2 or #3: 1 Performed By: #### L 300.4310, L501.4020, L100.0100, L300.3900, L500.2500 ####[facility] [address] [place], [address] EST GFR - AA 57 mL/min Low >60 [facility] Comment on above: Order Comment: 'TROP ' Serial specimen #1, #2 or #3: 1 Result Comment: Afri can Cymraes GFR Calc Performed By: #### L 300.4310, L501.4020, L100.0100, L300.3900, L500.2500 ####[facility] [address] [place], [address] GAP 9 Normal 5-15 [facility] Comment on above: Order Comment: 'TROP ' Serial specimen #1, #2 or #3: 1 Performed By: #### L 300.4310, L501.4020, L100.0100, L300.3900, L500.2500 ####[facility] [address] [place], [address] GFR/1.73 sq M.predicted among non-blacks MDRD (S/P/Bld) [Vol rate/Area] 47 mL/min/{1.73_m2} Low >60 [facility] Comment on above: Order Comment: 'TROP ' Serial specimen #1, #2 or #3: 1 Result Comment: Non- GFR Calc Performed By: #### L 300.4310, L501.4020, L100.0100, L300.3900, L500.2500 ####[facility] [address] [place], [address] Glucose [Mass/Vol] 109 mg/dL High 74-106 [facility] Comment on above: Order Comment: 'TROP ' Serial specimen #1, #2 or #3: 1 Result Comment: Fast ing Glucose result from 100 to 125 mg/dL suggests IMPAIRED HOMEOSTASIS per A.D.A. criteria. Performed By: #### L 300.4310, L501.4020, L100.0100, L300.3900, L500.2500 ####[facility] [address] [place], [address] Potassium [Moles/Vol] 3.3 mmol/L Low 3.5-5.1 [facility] Comment on above: Order Comment: 'TROP ' Serial specimen #1, #2 or #3: 1 Performed By: #### L 300.4310, L501.4020, L100.0100, L300.3900, L500.2500 ####[facility] [address] [place], [address] Sodium [Moles/Vol] 141 mmol/L Normal 136-145 [facility] Comment on above: Order Comment: 'TROP ' Serial specimen #1, #2 or #3: 1 Performed By: #### L 300.4310, L501.4020, L100.0100, L300.3900, L500.2500 ####[facility] [address] [place], [address] Urea nitrogen [Mass/Vol] 26 mg/dL High 7-18 [facility] Comment on above: Order Comment: 'TROP ' Serial specimen #1, #2 or #3: 1 Performed By: #### L 300.4310, L501.4020, L100.0100, L300.3900, L500.2500 ####[facility] [address] [place], [address] CBC W/Diff, Automatedon 07-12 Absolute Lymph 1.82 X10 3/uL Normal 0.83-4.51 [facility] Comment on above: Performed By: #### L 300.4310, L501.4020, L100.0100, L300.3900, L500.2500 ####[facility] [address] [place], [address] Absolute Neut 6.2 X10 3/uL Normal 2.0-7.7 [facility] Comment on above: Performed By: #### L 300.4310, L501.4020, L100.0100, L300.3900, L500.2500 ####[facility] [address] [place], [address] Basophils/100 WBC (Bld) 0.4 % Normal 0-1 [facility] Comment on above: Performed By: #### L 300.4310, L501.4020, L100.0100, L300.3900, L500.2500 ####[facility] [address] [place], [address] Eosinophils/100 WBC (Bld) 0.0 % Normal 0-5 [facility] Comment on above: Performed By: #### L 300.4310, L501.4020, L100.0100, L300.3900, L500.2500 ####[facility] [address] [place], [address] Erythrocyte distribution width (RBC) [Ratio] 14.9 % High 11.6-14.6 [facility] Comment on above: Performed By: #### L 300.4310, L501.4020, L100.0100, L300.3900, L500.2500 ####[facility] [address] [place], [address] Hematocrit (Bld) [Volume fraction] 39.4 % Low 40-54 [facility] Comment on above: Performed By: #### L 300.4310, L501.4020, L100.0100, L300.3900, L500.2500 ####[facility] [address] [place], [address] Hemoglobin (Bld) [Mass/Vol] 13.0 g/dL Normal 13.0-16.5 [facility] Comment on above: Performed By: #### L 300.4310, L501.4020, L100.0100, L300.3900, L500.2500 ####[facility] [address] [place], [address] IG% 0.600 Normal 0.0-0.9 [facility] Comment on above: Result Comment: IG% - Immature Granulocytes (promyelocytes, myelocytes and metamyelocytes) > 1% indicates that a LEFT SHIFT is Present. Performed By: #### L 300.4310, L501.4020, L100.0100, L300.3900, L500.2500 ####[facility] [address] [place], [address] Lymphocytes/100 WBC (Bld) 19.1 % Normal 19-41 [facility] Comment on above: Performed By: #### L 300.4310, L501.4020, L100.0100, L300.3900, L500.2500 ####[facility] [address] [place], [address] MCH (RBC) [Entitic mass] 29.7 pg Normal 27.0-32.0 [facility] Comment on above: Performed By: #### L 300.4310, L501.4020, L100.0100, L300.3900, L500.2500 ####[facility] [address] [place], [address] MCHC (RBC) [Mass/Vol] 33.0 g/dL Normal 32-36 [facility] Comment on above: Performed By: #### L 300.4310, L501.4020, L100.0100, L300.3900, L500.2500 ####[facility] [address] [place], [address] MCV (RBC) [Entitic vol] 90.2 fL Normal 80-94 [facility] Comment on above: Performed By: #### L 300.4310, L501.4020, L100.0100, L300.3900, L500.2500 ####[facility] [address] [place], [address] Monocytes/100 WBC (Bld) 14.6 % High 0-10 [facility] Comment on above: Performed By: #### L 300.4310, L501.4020, L100.0100, L300.3900, L500.2500 ####[facility] [address] [place], [address] Neutrophils/100 WBC (Bld) 65.3 % Normal 47-70 [facility] Comment on above: Performed By: #### L 300.4310, L501.4020, L100.0100, L300.3900, L500.2500 ####[facility] [address] [place], [address] Nucleated RBC (Bld) [#/Vol] 0 10*3/uL Normal 0-5 [facility] Comment on above: Performed By: #### L 300.4310, L501.4020, L100.0100, L300.3900, L500.2500 ####[facility] [address] [place], [address] Platelet mean volume (Bld) [Entitic vol] 9.8 fL Normal 6.2-12.0 [facility] Comment on above: Performed By: #### L 300.4310, L501.4020, L100.0100, L300.3900, L500.2500 ####[facility] [address] [place], [address] Platelets (Bld) [#/Vol] 230 10*3/uL Normal 150-450 [facility] Comment on above: Performed By: #### L 300.4310, L501.4020, L100.0100, L300.3900, L500.2500 ####[facility] [address] [place], [address] RBC (Bld) [#/Vol] 4.37 10*6/uL Low 4.6-6.2 [facility] Comment on above: Performed By: #### L 300.4310, L501.4020, L100.0100, L300.3900, L500.2500 ####[facility] [address] [place], [address] RDW SD 49.6 fl High 35.1-43.9 [facility] Comment on above: Performed By: #### L 300.4310, L501.4020, L100.0100, L300.3900, L500.2500 ####[facility] [address] [place], [address] WBC (Bld) [#/Vol] 9.5 10*3/uL Normal 4.4-11.0 [facility] Comment on above: Performed By: #### L 300.4310, L501.4020, L100.0100, L300.3900, L500.2500 ####[facility] [address] [place], [address] Chest 1 Viewon 08-03-2024 Chest 1 View [facility] Imaging Services [address] [place] [address] Chest 1 View MR#: [id number] Acct: [id number] Name: TIMUR JIMENEZ Jr. Rep #: [id number] : 1945 78 From: Cruz Perez MD PCP: Dr. Mimi Santa MD Status: REG ER Study: Chest 1 View Date of Exam: 08/03/24 Exam# [id number] Ordering Dr: Mich Madera DO [id number] STUDY: X-RAY CHEST REASON FOR EXAM: Male, 78 years old. Neuro deficit, acute, stroke suspected TECHNIQUE: AP portable COMPARISON: May 03, 2024 FINDINGS: Lungs are hyperinflated but clear.. There is no demonstrated pleural abnormality. Normal size heart. Normal mediastinum and santa. Normal visualized pulmonary arteries. Mildly calcified aortic arch and descending thoracic aorta. Mild degenerative changes of thoracic spine.. Normal visualized ribs, clavicles, and shoulders. There is no demonstrated abnormality of the visualized soft tissue structures of the upper abdomen. RAD/Chest 1 View IMPRESSION: Hyperinflation but no acute cardiopulmonary pathology. Electronically Signed: Cruz Perez MD at 18:52 EST Reading Location ID and State: [facility] / [place] Tel , Service support , CC: Dr. Mimi Santa MD; Dr. Mich Madera DO Building Appraiser: Signed Normal [facility] Echo Completeon 08-03-2024 Echo Complete [facility] Cardiovascular Services [address] [place] [address] Echo Complete 08/04/24 1034 MR#: [id number] Acct: [id number] Name: TIMUR JIMENEZ Jr. Rep #: [id number] : 1945 78 From: William Vaughn MD Attending Dr: Dr. Jessica Mart MD Status: ADM JUSTO Ordering Dr: Shannen Jung MD Date: 08/03/24 Location: U Sex: M C Admitted: 08/03/24 Reason For Study: TIA/CVA Procedure This was a 2D Doppler, Color Flow transthoracic echocardiogram. Exam performed portable in patient room. Left Ventricle Normal LV size. The estimated ejection fraction is 65 %. No evidence for diastolic dysfunction. No regional wall motion abnormalities noted. Right Ventricle Normal RV size. Normal systolic function. Atria The left and right atria are normal. No doppler evidence for ASD. Mitral Valve There is no mitral valve stenosis. No mitral valve insufficiency. Tricuspid Valve There is no tricuspid stenosis. No tricuspid valve insufficiency. Aortic Valve Trisinus/trileaflet aortic valve. There is no aortic stenosis. No aortic valve insufficiency. Pulmonic Valve There is no pulmonic valvular stenosis. No pulmonic valve insufficiency. Great Vessels Normal aortic root. Pericardium/Pleural No pericardial effusion. MMode/2D Measurements Calculations LVIDd: 5.1 cm IVSd: 0.75 cm LAV(MOD-bp): 35.1 ml LVIDs: 3.2 cm LVPWd: 0.78 cm LAV(MOD-bp) Indexed: 19.0 ml/m2 FS: 38.3 % LAV(MOD-sp2): 32.3 ml LAV(MOD-sp4): 30.6 ml _ SV(MOD-sp4): 46.1 ml SV(sp4-el): 43.0 ml LVAd ap4: 25.1 cm2 LVLd ap4: 8.0 cm SI(MOD-sp4): 25.0 ml/m2 EDV(MOD-sp4): 70.4 ml EDV(sp4-el): 66.8 ml LVAs ap4: 13.6 cm2 LVLs ap4: 6.6 cm ESV(MOD-sp4): 24.3 ml ESV(sp4-el): 23.8 ml EF(MOD-sp4): 65.5 % EF(sp4-el): 64.4 % _ LA A4 area: 14.1 cm2 RA A4 area: 14.8 cm2 Time Measurements MV dec time: 0.09 sec Doppler Measurements Calculations MV E max miesha: 86.5 cm/sec Lat Peak E' Miesha: 12.4 cm/sec Med Peak E' Miesha: 7.3 cm/sec MV A max miesha: 101.1 cm/sec E/E' lat: 7.0 E/E' med: 11.8 MV E/A: 0.86 _ MV dec slope: 945.6 cm/sec2 Ao V2 max: 144.7 cm/sec LV V1 max: 135.6 cm/sec Ao max P.4 mmHg LV V1 max P.4 mmHg Ao V2 mean: 91.0 cm/sec LV V1 mean P.8 mmHg Ao mean P.0 mmHg LV V1 mean: 92.2 cm/sec Ao V2 VTI: 24.2 cm LV V1 VTI: 22.8 cm AV (velocity ratio): 0.94 _ PA V2 max: 117.5 cm/sec PA V2 mean: 80.0 cm/sec ECHO/Echo Complete Interpretation Summary The estimated ejection fraction is 65 %. No evidence for diastolic dysfunction. Ordering Physician: Shannen Jugn Referring Physician: Jenn Mora Performed By: Lolly Peralta RCS 08/04/24 1328 Date William Vaughn MD CC: Dr. Shannen Jung MD; Dr. Mimi Santa MD; Dr. Jessica Mart MD Date Dictated: 08/04/24 1034 Date Transcribed: 08/04/24 1328 Building Appraiser: [facility] Emergency Department Summary on 08-03-2024 Emergency Department Summary [facility] Medical Records Department [address] [place] [address] Emergency Department Summary 08/03/24 MR#: [id number] Acct: [id number] Name: TIMUR JIMENEZ Jr. Rep #: [id number] : 1945 78 From: Mich Madera DO PCP: Dr. Mimi Santa MD Status:ADM JUSTO Location: [address] History of Present Illness Chief Complaint: Stroke Alert [facility] Medical History (Updated 08/03/24 @ 19:[address] Shannen Jung MD) Benign essential tremor Chronic pain syndrome Neuropathy Tobacco use HLD (hyperlipidemia) HTN (hypertension) Bronchiectasis PUD (peptic ulcer disease) TIA (transient ischemic attack) Perforated ulcer COPD (chronic obstructive pulmonary disease) Heart attack Home Medications ???Medication ???Instructions ???Recorded ???Last Taken ???Type atorvastatin 40 mg tablet 40 mg PO QHS cholesterol 08/13/22 08/02/24 History cholecalciferol (vitamin D3) 50 50 mcg PO QODAY vitamin 08/13/22 08/02/24 History mcg (2,000 unit) tablet cyclobenzaprine 10 mg tablet 10 mg PO QHS PRN PRN muscle spasms 08/13/22 08/02/24 History fluticasone 250 mcg-salmeterol 50 1 inh inhalation BID breathing 08/13/22 08/03/24 History mcg/dose blistr powdr for inhalation gabapentin 600 mg tablet 600 mg PO BID nerve pain 08/13/22 08/03/24 History ipratropium 0.5 mg-albuterol 3 mg 3 ml inhalation Q6H PRN Shortness 08/13/22 08/03/24 History (2.5 mg base)/3 mL nebulization Of Breath soln isosorbide mononitrate 30 mg 30 mg PO DAILY heart 08/13/22 08/03/24 History tablet,extended release 24 hr lisinopril 5 mg tablet 5 mg PO DAILY blood pressure 08/13/22 08/03/24 History metoprolol succinate 100 mg 100 mg PO DAILY blood pressure 08/13/22 08/03/24 History tablet,extended release 24 hr pantoprazole 40 mg tablet,delayed 40 mg PO DAILY reflux 08/13/22 08/03/24 History release tramadol 50 mg tablet 50 mg PO Q6H PRN Breakthrough Pain 08/13/22 08/03/24 History trazodone 50 mg tablet 50 mg PO QHS PRN leg cramps 08/13/22 08/02/24 History albuterol sulfate 90 mcg/actuation 2 inh inhalation Q6H PRN shortness 08/03/24 08/03/24 History aerosol inhaler (Ventolin HFA) of breath or wheezing Allergy/AdvReac Type Severity Reaction Status Date / Time oxycodone AdvReac Upset Verified 08/03/24 20:32 Stomach Family History Grandmother Lung cancer Father COPD (chronic obstructive pulmonary disease) Grandfather Bone cancer Brother Bone cancer Mother Heart disease Surgical History H/O hernia repair Total knee replacement status Social History household members: spouse Smoking Status: Former smoker Tobacco: How many years used: 65 how long ago did patient quit smoking: Quit 6 months ago (current date 08/03/24), prior 1-1.5 ppd. alcohol intake: former details: Sober x 5 years. substance use type: does not use EXAM Physical Exam Const Vital Signs: 08/03/24 17:30 08/03/24 17:34 08/03/24 17:34 Temperature 96.9 F L Temperature Source Temporal Pulse Rate 118 H 110 H Respiratory Rate 20 H 23 H Blood Pressure 220/147 H 100/53 L Blood Pressure Mean 171 68 Pulse Ox 97 98 Oxygen Delivery Method Room Air Room Air Room Air 08/03/24 17:41 08/03/24 18:00 08/03/24 18:30 Temperature 98.2 F Temperature Source Oral Pulse Rate 104 H 101 H Respiratory Rate 18 18 Blood Pressure 110/93 H 89/65 L Blood Pressure Mean 98 73 Pulse Ox 98 97 Oxygen Delivery Method Room Air Room Air 08/03/24 19:00 08/03/24 19:07 Temperature 97.8 F Temperature Source Pulse Rate 95 95 Respiratory Rate 18 18 Blood Pressure 85/62 L 85/62 L Blood Pressure Mean 69 69 Pulse Ox 96 96 Oxygen Delivery Method Room Air [facility] Narrative Medical decision making narrative: HISTORY OF PRESENT ILLNESS: 78-year-old male presents with concern for acute stroke. Last well was 10 AM on 08/03/2024. He is brought in by his who provides majority history. She states at approximately 10 AM the patient did have a trouble with his speech. He refused coming to the hospital initially. She denies any falls. Denies any blood thinners. States he has problems with his heart, COPD, hypertension. Patient does note issues with his speech as well. REVIEW OF SYSTEMS: Pertinent positives: Speech difficulties Pertinent negatives: Chest pain PHYSICAL EXAM: Nursing triage notes reviewed, Vital signs reviewed Constitutional: please see mdm HENT: MMM Eyes: Pupils equal round and reactive to light, Extraocular muscles intact Neck: No stridor, no JVD, full neck ROM Lungs: Clear t (more content not included)... Normal [facility] H AND P Exam - Hospitaliston 08-03-2024 H&P Exam - Hospitalist [facility] Medical Records Department [address] [place] [address] H P Exam - Hospitalist 08/03/241925 MR#: [id number] Acct: [id number] Name: TIMUR JIMENEZ JrCarmita Rep #: [id number] : 1945 78 From: Shannen Jung MD PCP: Dr. Mimi Santa MD Status:ADM JUSTO Location: [place] [address] HPI - General General Date of Admission: 08/03/24 Date of Service: 08/03/24 Chief Complaint: Slurred speech, difficulty with words, dizziness. HPI Narrative The patient is a 78 y/o M w/ PMHx: Chronic essential tremors, Nonobstructive CAD w/ Hx KS, GERD w/ Hx perforated peptic ulcer/PUD, COPD/bronchiectasis, Hx TIA, Former EtOH abuse, Former Tobacco use, possible CKD underlying disease but uncertain as GFR vacillates although primarily stage I in appearance, HTN, HLD, Chronic neck pain w/ associated Chronic neuropathy w/ chronic LUE radiculopathy who presents to the [facility] ED on 08/03/24 with history of last known well 10 AM 07/30/2024 on day of presentation brought in by his noted that initially had onset of difficulty with his speech specifically slurred speech with expressive aphasia and mild dizziness but refused to present to the hospital however eventually she was able to bring him in. Workup in the ED included T96.9 Temporally, heart rate 118, BP 220/147, respiratory rate 20, 97% on room air with most recent repeat vitals T98.2 Orally, heart rate 101, BP 89/65, respiratory rate 18, 97% room air, CBC with WC of 9.5, and 113, platelet 230 without marked shift, unremarkable coags aside PT 15.6, BMP with potassium 3.3, BUN/plan 26/1.54, GFR 47, glucose 109, troponin 29, CT brain with mild atrophy and periventricular white matter ischemic changes with no acute intracranial findings, CTA head and neck with moderate stenosis bilateral cavernous segments of the internal carotid arteries, severe stenosis of the distal right vertebral artery, moderate stenosis at the origin of the left vertebral artery, chest x-ray with no acute cardiopulmonary findings, EKG with ST with nonspecific changes with no acute evidence of ischemia. In the ED per ED physician she had NIHSS 2 for aphasia and dysarthria. She improved and repeat NIHSS per Stroke Neurologist 1 for mild to moderate dysarthria only. In the ED given patient's symptoms less than 24 hours stroke alert was initiated. ED discussed case with stroke neurologist Dr. Grubbs. Patient did not meet TNK criteria. [facility] Medical History (Updated 08/03/24 @ 19:[address] Shannen Jung MD) Benign essential tremor Chronic pain syndrome Neuropathy Tobacco use HLD (hyperlipidemia) HTN (hypertension) Bronchiectasis PUD (peptic ulcer disease) TIA (transient ischemic attack) Perforated ulcer COPD (chronic obstructive pulmonary disease) Heart attack Home Medications ???Medication ???Instructions ???Recorded ???Last Taken ???Type atorvastatin 40 mg tablet 40 mg PO QHS cholesterol 08/13/22 08/02/24 History cholecalciferol (vitamin D3) 50 50 mcg PO QODAY vitamin 08/13/22 08/02/24 History mcg (2,000 unit) tablet cyclobenzaprine 10 mg tablet 10 mg PO QHS PRN PRN muscle spasms 08/13/22 08/02/24 History fluticasone 250 mcg-salmeterol 50 1 inh inhalation BID breathing 08/13/22 08/03/24 History mcg/dose blistr powdr for inhalation gabapentin 600 mg tablet 600 mg PO BID nerve pain 08/13/22 08/03/24 History ipratropium 0.5 mg-albuterol 3 mg 3 ml inhalation Q6H PRN Shortness 08/13/22 08/03/24 History (2.5 mg base)/3 mL nebulization Of Breath soln isosorbide mononitrate 30 mg 30 mg PO DAILY heart 08/13/22 08/03/24 History tablet,extended release 24 hr lisinopril 5 mg tablet 5 mg PO DAILY blood pressure 08/13/22 08/03/24 History metoprolol succinate 100 mg 100 mg PO DAILY blood pressure 08/13/22 08/03/24 History tablet,extended release 24 hr pantoprazole 40 mg tablet,delayed 40 mg PO DAILY reflux 08/13/22 08/03/24 History release tramadol 50 mg tablet 50 mg PO Q6H PRN Breakthrough Pain 08/13/22 08/03/24 History trazodone 50 mg tablet 50 mg PO QHS PRN leg cramps 08/13/22 08/02/24 History albuterol sulfate 90 mcg/actuation 2 inh inhalation Q6H PRN shortness 08/03/24 08/03/24 History aerosol inhaler (Ventolin HFA) of breath or wheezing Allergy/AdvReac Type Severity Reaction Status Date / Time oxycodone AdvReac Upset Verified 08/03/24 17:30 Stomach Family History Grandmother Lung cancer Father COPD (chronic obstructive pulmonary disease) Grandfather Bone cancer Brother Bone cancer Mother Heart disease Surgical History H/O hernia repair Total knee replacement status Social History household members: spouse Smoking Status: Former smoker (more content not included)... Normal [facility] International normalized rat io (INR) calculationOrdered By: Mihc Madera on 08-03-2024 INR Coag (Bld) [Relative time] 1.2 {INR} [facility] L501.4020on 08-03-2024 TROPONIN-I HS 29 pg/mL Normal 3.0-78.0 [facility] Comment on above: Order Comment: 'TROP ' Serial specimen #1, #2 or #3: 1 Result Comment: Eliane aguilar Note: New Test Units and Gender Specific Reference Ranges. For more information see Policy Stat Procedure [place] High Sensitivity Troponin (TNIH) and attachments. Performed By: #### L 300.4310, L501.4020, L100.0100, L300.3900, L500.2500 ####[facility] [id number] [place], [address] Magnesiumon 08-03-2024 Magnesium [Mass/Vol] 2.2 mg/dL Normal 1.6-2.6 [facility] Comment on above: Order Comment: Comme nts: may add to ED labs Performed By: #### L 501.5200 #### [facility] Laboratory [address] [place], [address] Partial Thromboplast Timeon 08-03-2024 aPTT Coag (Bld) [Time] 26.8 s Normal 24.1-36.2 [facility] Comment on above: Performed By: #### L 300.4310, L501.4020, L100.0100, L300.3900, L500.2500 ####[facility] [id number] [place], [address] Prothrombin Time w/INRon INR Coag (PPP) [Relative time] 1.2 {INR} Normal [facility] Comment on above: Performed By: #### L 300.4310, L501.4020, L100.0100, L300.3900, L500.2500 ####[facility] [id number] [place], [address] PT Coag (PPP) [Time] 15.6 s High 11.7-14.9 [facility] Comment on above: Performed By: #### L 300.4310, L501.4020, L100.0100, L300.3900, L500.2500 ####[facility] [id number] [place], [place], [address] Prothrombin timeOrdered By: Mich Madera on 08-03-2024 PT Coag (PPP) [Time] 15.6 s High 11.7-14.9 [facility] STROKE Brain/Head without Co nton 08-03-2024 STROKE Brain/Head without Cont [facility] Imaging Services [address] [place], [place] [address] STROKE Brain/Head without Cont MR#: [id number] Acct: [id number] Name: TIMUR JIMENEZ Jr. Rep #: [id number] : 1945 M 78 From: Cruz Perez MD PCP: Dr. Mimi Santa MD Status: REG ER Study: STROKE Brain/Head without Cont Date of Exam: 0 08/03/24 Exam# [id number] Ordering Dr: Mich Madera DO ADDENDUM by Dr. Cruz Perez MD on 08/03/24 at 1744 [id number] INDICATION: Neuro deficit, acute, stroke suspected EXAMINATION: CT BRAIN - CT Head Stroke Protocol W/O Contrast Injection TECHNIQUE: Multiple axial images were obtained of the head without intravenous contrast. The protocol utilizes one or more of the following dose reduction techniques: automated exposure control, adjustment of mA and/or kV according to patient size,and/or use of iterative reconstruction technique. IV Contrast dosage and agent: None. RADIATION DOSAGE (If Supplied By Facility): CTDIvol = ( ) mGy, DLP = ( 880.47 ) mGycm COMPARISON: ____ FINDINGS: BRAIN PARENCHYMA: No intra- or extra-axial hemorrhage. No evidence of acute infarct. No intracranial mass or mass effect. Periventricular white matter hypoattenuation likely representing chronic small vessel ischemic changes There is preservation of the dolan/white matter interface. Posterior fossa structures are unremarkable. CSF SPACES: Mild cortical atrophy. No hydrocephalus. Basal cisterns are patent. CALVARIUM, SKULL BASE, PARANASAL SINUSES AND MASTOID AIR CELLS: Clear. No discrete lytic or blastic abnormalities. ORBITS: Both globes, extraocular muscles, optic nerves and retrobulbar fat appear unremarkable. Calcific plaquing of the cavernous carotids bilaterally as well as severe calcific plaquing of the distal left vertebral which appears severely narrowed and right vertebral which appears occluded distally.. 08/03/241748 Date cc: Dr. Mimi Santa MD; Dr. Mich Madera DO * Signed ADDENDUM by Dr. Cruz Perez MD on 08/03/[address]/STROKE Brain/Head without Cont IMPRESSION: Mild atrophy and periventricular white matter ischemic changes.. No mass or acute bleed. If concern for acute infarct MRI recommended especially if symptoms suggest posterior fossa stroke due to severe vertebral artery atherosclerosis N.B. : The above Results were Read Back by Cruz Perez MD to Mich Madera DO, and understanding confirmed on 08/03/2024 17:58:01 (ET). Electronically Signed: Cruz Perez MD at 17:49 EST Reading Location ID and State: [address] [place] [address] Tel , Service support , 08/03/24 3881 Date cc: Dr. Mimi Santa MD; Dr. Mich Madera DO * Signed We are attempting to reach an attending provider to discuss findings. An addendum with communication details will be sent when the communication is complete. [id number] INDICATION: Neuro deficit, acute, stroke suspected EXAMINATION: CT BRAIN - CT Head Stroke Protocol W/O Contrast Injection TECHNIQUE: Multiple axial images were obtained of the head without intravenous contrast. The protocol utilizes one or more of the following dose reduction techniques: automated exposure control, adjustment of mA and/or kV according to patient size,and/or use of iterative reconstruction technique. IV Contrast dosage and agent: None. RADIATION DOSAGE (If Supplied By Facility): CTDIvol = ( ) mGy, DLP = ( 880.47 ) mGycm COMPARISON: ____ FINDINGS: BRAIN PARENCHYMA: No intra- or extra-axial hemorrhage. No evidence of acute infarct. No intracranial mass or mass effect. Periventricular white matter hypoattenuation likely representing chronic small vessel ischemic changes There is preservation of the dolan/white matter interface. Posterior fossa structures are unremarkable. CSF SPACES: Mild cortical atrophy. No hydrocephalus. Basal cisterns are patent. CALVARIUM, SKULL BASE, PARANASAL SINUSES AND MASTOID AIR CELLS: Clear. No discrete lytic or blastic abnormalities. ORBITS: Both globes, extraocular muscles, optic nerves and retrobulbar fat appear unremarkable. Calcific plaquing of the cavernous carotids bilaterally as well as severe calcific plaquing of the distal left vertebral which appears severely narrowed and right vertebral which appears occluded distally.. CT/STROKE Brain/Head without Cont IMPRESSION: Mild atrophy and periventricular white matter ischemic changes.. No mass or acute bleed. If concern for acute infarct MRI recommended especially if symptoms suggest posterior fossa stroke due to severe (more content not included)... Normal [facility] STROKE CTA Head AND Neck W/C onon 08-03-2024 STROKE CTA Head AND Neck W/Con [facility] Imaging Services [address] [place] [address] STROKE CTA Head AND Neck W/Con MR#: [id number] Acct: [id number] Name: JIMENEZTIMUR Jr. Rep #: [id number] : 1945 M 78 From: Jayy Mcclain PCP: Dr. Mimi Santa MD Status: [facility] Study: STROKE CTA Head AND Neck W/Con Date of Exam: 0 08/03/24 Exam# [id number] Ordering Dr: Mich Madera DO ADDENDUM by Dr. Jayy Mauricio MD on 08/03/24 at 1827 [id number] STUDY: CTA HEAD AND NECK WITH CONTRAST REASON FOR EXAM: Male, 78 years old. Neuro deficit, acute, stroke suspected RADIATION DOSAGE (If Supplied By Facility): CTDIvol = ( 23.73 ) mGy, DLP = ( 733.63 ) mGycm TECHNIQUE: CT angiography was performed with a multi-detector CT scanner. Data acquisition was obtained from the skull base through the vertex following intravenous administration of [id number] 100ML. MIP images were reconstructed from the axial data set. Post-processing of the angiographic images was performed, with multiplanar reformation and 3D reconstruction. Individualized dose optimization techniques were used for this CT. The protocol utilizes one or more of the following dose reduction techniques: automated exposure control, adjustment of mA and/or kV according to patient size,and/or use of iterative reconstruction technique. COMPARISON: CT brain August 03, 2024 FINDINGS: Normal bilateral petrous carotid arteries. There is calcified plaque formation of the right cavernous carotid artery, with a moderate stenosis (50-75%). There is calcified plaque formation of the left cavernous carotid artery, with a moderate stenosis (50-75%). Normal right A1 segments of the anterior cerebral artery. Normal left A1 segments of the anterior cerebral artery. Normal intact anterior communicating artery (ACOM). Normal bilateral A2 segments of the anterior cerebral arteries. Normal right M1 and M2 segments of the middle cerebral arteries, with a normal M1 bifurcation. Normal left M1 and M2 segments of the middle cerebral arteries, with a normal M1 bifurcation. There is non-visualization of the right posterior communicating artery (PCOM). There is non-visualization of the left posterior communicating artery (PCOM). Left vertebral artery is dominant. Severe stenosis right vertebral artery with occlusion or near occlusion distally. Less than 50% stenosis left vertebral artery due to diffuse plaque. Normal basilar artery with a normal basilar bifurcation. The visualized bilateral superior cerebellar (SCA) arteries are normal. Normal bilateral P1, P2 and visualized P3 segments of the posterior cerebral arteries. There is no demonstrated aneurysm of the [place] of [place]. There is no demonstrated abnormality of the visualized brain. AORTIC ARCH: Normal visualized aortic arch. Normal origins of the brachiocephalic, left common carotid, and left subclavian arteries. RIGHT CAROTID ARTERIES: Normal right common carotid artery (CCA). Normal right common carotid bulb. Normal origin of the right internal carotid (ICA) artery without a hemodynamically significant stenosis. Normal visualized cervical portion of the right internal carotid artery. Normal origin of the right external carotid artery (ECA). LEFT CAROTID ARTERIES: Normal left common carotid artery (CCA). Normal left common carotid bulb. Normal origin of the left internal carotid (ICA) artery without a hemodynamically significant stenosis. Normal visualized cervical portion of the left internal carotid artery. Normal origin of the left external carotid artery (ECA). VERTEBRAL ARTERIES: Calcified plaque at the origin of the left vertebral artery with probable moderate stenosis. Left vertebral artery is dominant. There is also calcified plaque and mild stenosis of the V4 segment on the left. The right vertebral artery is patent proximally but demonstrates severe stenosis of the V4 segment distally. 08/03/24 182 Date cc: Dr. Mimi Santa MD; Dr. Mich Madera DO * Signed ADDENDUM by Dr. 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 Severe stenosis distal right vertebral artery. Moderate stenosis at the origin of the left vertebral artery. N.B. : The above Results were Read Back by Jayy Mauricio MD to Mich Madera DO, and understanding confirmed on 08/03/2024 18:28:02 (ET). Electronically Signed: Jayy Mauricio MD at 18:27 EST , 08/03/24 1834 Date cc: Dr. Mimi Fitzpatrick (more content not included)... Normal [facility] Troponin IOrdered By: Mich Madera on 08-03-2024 Troponin I 29 pg/mL 3.0-78.0 [facility] Comment on above: Please Note: [place] t Units and Gender Specific Reference Ranges. For more information see Policy Stat Procedure [facility] High Sensitivity Troponin (TNIH) and attachments. 12 Lead EKGon 05-03-2024 12 Lead EKG [facility] Cardiovascular Services [address] [place] [address] 12 Lead EKG 05/03/24 1102 MR#: [id number] Acct: [id number] Name: TIMUR JIMENEZ Jr. Rep #: [id number] : 1945 78 From: Gagandeep Prabhakar MD Attending Dr: Status: DEP ER Ordering Dr: Freddie Ramos DO Date: 05/03/24 Location: ED Sex: M C Admitted: Test Reason : SOB Blood Pressure : / mmHG Vent. Rate : 094 BPM Atrial Rate : 094 BPM P-R Int : 196 ms QRS Dur : 100 ms QT Int : 372 ms P-R-T Axes : 080 -68 066 degrees QTc Int : 465 ms Normal sinus rhythm Left axis deviation Abnormal ECG Confirmed by GAGANDEEP PRABHAKAR MD ([id number]), photography editor MARYAM ALLEN ([id number]) on 05/04/2024 9:59:14 AM Referred By: Confirmed By:GAGANDEEP PRABHAKAR MD 05/04/24 0959 Date Gagandeep Prabhakar MD CC: Dr. Mimi Santa MD; Dr. Freddie Ramos DO Signed Normal [facility] Basic Metabolic Profile (BMP )on 05-03-2024 BUN/CRE 15.0 RATIO Normal 04-29 [facility] Comment on above: Order Comment: 'TROP ' Serial specimen #1, #2 or #3: 1 Performed By: #### L 100.0100, L500.2500, L501.4020 #### [facility] Laboratory [address] [place], [address] CA,Total 9.4 mg/dL Normal 8.5-10.1 [facility] Comment on above: Order Comment: 'TROP ' Serial specimen #1, #2 or #3: 1 Performed By: #### L 100.0100, L500.2500, L501.4020 #### [facility] Laboratory [address] [place], [address] Chloride [Moles/Vol] 104 mmol/L Normal 98-107 [facility] Comment on above: Order Comment: 'TROP ' Serial specimen #1, #2 or #3: 1 Performed By: #### L 100.0100, L500.2500, L501.4020 #### [facility] Laboratory [address] [place], [address] CO2 [Moles/Vol] 23.0 mmol/L Normal 21.0-32.0 [facility] Comment on above: Order Comment: 'TROP ' Serial specimen #1, #2 or #3: 1 Performed By: #### L 100.0100, L500.2500, L501.4020 #### [facility] Laboratory [address] [place], [address] Creatinine [Mass/Vol] 0.73 mg/dL Normal 0.70-1.30 [facility] Comment on above: Order Comment: 'TROP ' Serial specimen #1, #2 or #3: 1 Result Comment: The validity of the calculated GFR GFRAA in patients over 70 years has not been determined. Clinical correlation is essential. Performed By: #### L 100.0100, L500.2500, L501.4020 #### [facility] Laboratory [address] [place], [address] ECRCL 74.81 ml/min Normal [facility] Comment on above: Order Comment: 'TROP ' Serial specimen #1, #2 or #3: 1 Performed By: #### L 100.0100, L500.2500, L501.4020 #### [facility] Laboratory [address] [place], [address] EST GFR - AA 134 mL/min Normal >60 [facility] Comment on above: Order Comment: 'TROP ' Serial specimen #1, #2 or #3: 1 Result Comment: Afri can Cymraes GFR Calc Performed By: #### L 100.0100, L500.2500, L501.4020 #### [facility] Laboratory [address] [place], [address] GAP 9 Normal 5-15 [facility] Comment on above: Order Comment: 'TROP ' Serial specimen #1, #2 or #3: 1 Performed By: #### L 100.0100, L500.2500, L501.4020 #### [facility] Laboratory [address] [place], [address] GFR/1.73 sq M.predicted among non-blacks MDRD (S/P/Bld) [Vol rate/Area] 110 mL/min/{1.73_m2} Normal >60 [facility] Comment on above: Order Comment: 'TROP ' Serial specimen #1, #2 or #3: 1 Result Comment: Non- GFR Calc Performed By: #### L 100.0100, L500.2500, L501.4020 #### [facility] Laboratory [address] [place], [address] Glucose [Mass/Vol] 89 mg/dL Normal 74-106 [facility] Comment on above: Order Comment: 'TROP ' Serial specimen #1, #2 or #3: 1 Performed By: #### L 100.0100, L500.2500, L501.4020 #### [facility] Laboratory [address] [place], [address] Potassium [Moles/Vol] 3.2 mmol/L Low 3.5-5.1 [facility] Comment on above: Order Comment: 'TROP ' Serial specimen #1, #2 or #3: 1 Performed By: #### L 100.0100, L500.2500, L501.4020 #### [facility] Laboratory [address] [place], [address] Sodium [Moles/Vol] 136 mmol/L Normal 136-145 [facility] Comment on above: Order Comment: 'TROP ' Serial specimen #1, #2 or #3: 1 Performed By: #### L 100.0100, L500.2500, L501.4020 #### [facility] Laboratory [address] [place], [address] Urea nitrogen [Mass/Vol] 11 mg/dL Normal 7-18 [facility] Comment on above: Order Comment: 'TROP ' Serial specimen #1, #2 or #3: 1 Performed By: #### L 100.0100, L500.2500, L501.4020 #### [facility] Laboratory [address] [place], [address] CBC W/Diff, Automatedon 10-2 -2023 Absolute Lymph 1.13 X10 3/uL Normal 0.83-4.51 [facility] Comment on above: Performed By: #### L 100.0100, L500.2500, L501.4020 #### [facility] Laboratory [address] [place], [address] Absolute Neut 4.0 X10 3/uL Normal 2.0-7.7 [facility] Comment on above: Performed By: #### L 100.0100, L500.2500, L501.4020 #### [facility] Laboratory [address] [place], [address] Basophils/100 WBC (Bld) 0.3 % Normal 0-1 [facility] Comment on above: Performed By: #### L 100.0100, L500.2500, L501.4020 #### [facility] Laboratory [address] [place], [address] Eosinophils/100 WBC (Bld) 0.0 % Normal 0-5 [facility] Comment on above: Performed By: #### L 100.0100, L500.2500, L501.4020 #### [facility] Laboratory [address] [place], [address] Erythrocyte distribution width (RBC) [Ratio] 14.6 % Normal 11.6-14.6 [facility] Comment on above: Performed By: #### L 100.0100, L500.2500, L501.4020 #### [facility] Laboratory [address], [address] Hematocrit (Bld) [Volume fraction] 37.4 % Low 40-54 [facility] Comment on above: Performed By: #### L 100.0100, L500.2500, L501.4020 #### [facility] Laboratory [address] [place], [address] Hemoglobin (Bld) [Mass/Vol] 12.5 g/dL Low 13.0-16.5 [facility] Comment on above: Performed By: #### L 100.0100, L500.2500, L501.4020 #### [facility] Laboratory [address] [place], [address] IG% 0.300 Normal 0.0-0.9 [facility] Comment on above: Result Comment: IG% - Immature Granulocytes (promyelocytes, myelocytes and metamyelocytes) > 1% indicates that a LEFT SHIFT is Present. Performed By: #### L 100.0100, L500.2500, L501.4020 #### [facility] Laboratory [address] [place], [address] Lymphocytes/100 WBC (Bld) 18.9 % Low 19-41 [facility] Comment on above: Performed By: #### L 100.0100, L500.2500, L501.4020 #### [facility] Laboratory [address] [place], [address] MCH (RBC) [Entitic mass] 30.3 pg Normal 27.0-32.0 [facility] Comment on above: Performed By: #### L 100.0100, L500.2500, L501.4020 #### [facility] Laboratory [address] [place], [address] MCHC (RBC) [Mass/Vol] 33.4 g/dL Normal 32-36 [facility] Comment on above: Performed By: #### L 100.0100, L500.2500, L501.4020 #### [facility] Laboratory [address] [place], [address] MCV (RBC) [Entitic vol] 90.8 fL Normal 80-94 [facility] Comment on above: Performed By: #### L 100.0100, L500.2500, L501.4020 #### [facility] Laboratory [address] [place], [address] Monocytes/100 WBC (Bld) 13.6 % High 0-10 [facility] Comment on above: Performed By: #### L 100.0100, L500.2500, L501.4020 #### [facility] Laboratory [address] [place], [address] Neutrophils/100 WBC (Bld) 66.9 % Normal 47-70 [facility] Comment on above: Performed By: #### L 100.0100, L500.2500, L501.4020 #### [facility] Laboratory [address] [place], [address] Nucleated RBC (Bld) [#/Vol] 0 10*3/uL Normal 0-5 [facility] Comment on above: Performed By: #### L 100.0100, L500.2500, L501.4020 #### [facility] Laboratory [address] [place], [address] Platelet mean volume (Bld) [Entitic vol] 10.1 fL Normal 6.2-12.0 [facility] Comment on above: Performed By: #### L 100.0100, L500.2500, L501.4020 #### [facility] Laboratory [address] [place], [address] Platelets (Bld) [#/Vol] 227 10*3/uL Normal 150-450 [facility] Comment on above: Performed By: #### L 100.0100, L500.2500, L501.4020 #### [facility] Laboratory [address] [place], [address] RBC (Bld) [#/Vol] 4.12 10*6/uL Low 4.6-6.2 [facility] Comment on above: Performed By: #### L 100.0100, L500.2500, L501.4020 #### [facility] Laboratory [address] [place], [address] RDW SD 48.5 fl High 35.1-43.9 [facility] Comment on above: Performed By: #### L 100.0100, L500.2500, L501.4020 #### [facility] Laboratory [address] [place], [address] WBC (Bld) [#/Vol] 6.0 10*3/uL Normal 4.4-11.0 [facility] Comment on above: Performed By: #### L 100.0100, L500.2500, L501.4020 #### [facility] Laboratory [address] [place], [address] Chest 1 View (Portable)on Chest 1 View (Portable) [facility] Imaging Services [address] [place] [address] Chest 1 View (Portable) MR#: [id number] Acct: [id number] Name: TIMUR JIMENEZ Jr. Rep #: [id number] : 1945 M 78 From: Ye jiang MD PCP: Dr. Mimi Santa MD Status: REG ER Study: Chest 1 View (Portable) Date of Exam: 05/03/24 Exam# [id number] Ordering Dr: Freddie Ramos DO [id number] STUDY: X-RAY CHEST REASON FOR EXAM: Male, 78 years old. cough TECHNIQUE: 2 AP portable view of the chest. COMPARISON: None. FINDINGS: No visualized consolidation or infiltrates. Scattered interstitial thickening/fibrosis. There is hyperinflation of the lungs consistent with chronic obstructive lung disease (COPD). There is no demonstrated pleural abnormality. Normal size heart. Normal mediastinum and santa. Normal visualized pulmonary arteries. There is atherosclerotic calcification of the aortic arch with tortuosity. There are diffuse degenerative changes of the visualized thoracic spine. Normal visualized ribs, clavicles, and shoulders. There is no demonstrated abnormality of the visualized soft tissue structures of the upper abdomen. RAD/Chest 1 View (Portable) IMPRESSION: COPD/emphysema Electronically Signed: Ye Gonzalez MD at 13:10 EDT , CC: Dr. Mimi Santa MD; Dr. Freddie Ramos DO Building Appraiser: Signed Normal [facility] Emergency Department Summary on 05-03-2024 Emergency Department Summary [facility] Medical Records Department [address] [place] [id number] Emergency Department Summary 05/03/24 MR#: [id number] Acct: [id number] Name: TIMUR JIMENEZ Jr. Rep #: [id number] : 1945 78 From: Freddie Ramos DO PCP: Dr. Mimi Santa MD Status:DEP ER Location: ED HPI History of Present Illness Chief Complaint: Shortness of Breath Informant: patient Narrative Narrative: 78-year-old male presenting to the emergency room chief complaint of dyspnea. Patient states that over the past 3 days he has had cough shortness of breath hot and cold flashes and rhinorrhea. He notes that he has a history of COPD has been using his aerosols. 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 He does not wear home oxygen. No diarrhea nor sore throat. He does note that his cough is occasionally productive of sputum. [facility] Medical History Bronchiectasis PUD (peptic ulcer disease) TIA (transient ischemic attack) Perforated ulcer COPD (chronic obstructive pulmonary disease) Heart attack Home Medications ???Medication ???Instructions ???Recorded ???Last Taken ???Type atorvastatin 40 mg tablet 40 mg PO QHS cholesterol 08/13/22 Unknown History cholecalciferol (vitamin D3) 50 50 mcg PO DAILY vitamin 08/13/22 Unknown History mcg (2,000 unit) tablet cyclobenzaprine 10 mg tablet 10 mg PO QHS PRN PRN muscle spasms 08/13/22 Unknown History fluticasone 250 mcg-salmeterol 50 1 inh inhalation BID breathing 08/13/22 Unknown History mcg/dose blistr powdr for inhalation gabapentin 900 mg PO/SL QHS nerve pain 08/13/22 Unknown History gabapentin 600 mg tablet 600 mg PO DAILY nerve pain 08/13/22 Unknown History ipratropium 0.5 mg-albuterol 3 mg 3 ml inhalation Q6H PRN Shortness 08/13/22 Unknown History (2.5 mg base)/3 mL nebulization Of Breath soln isosorbide mononitrate 30 mg 30 mg PO DAILY heart 08/13/22 Unknown History tablet,extended release 24 hr lisinopril 5 mg tablet 5 mg PO DAILY blood pressure 08/13/22 Unknown History metoprolol succinate 100 mg 100 mg PO DAILY blood pressure 08/13/22 Unknown History tablet,extended release 24 hr pantoprazole 40 mg tablet,delayed 40 mg PO DAILY reflux 08/13/22 Unknown History release tiotropium bromide 2.5 2 puff inhalation BID breathing 08/13/22 Unknown History mcg/actuation mist for inhalation (Spiriva Respimat) tramadol 50 mg tablet 50 mg PO Q6H PRN Breakthrough Pain 08/13/22 Unknown History trazodone 50 mg tablet 50 mg PO QHS PRN leg cramps 08/13/22 Unknown History guaifenesin 1,200 mg tablet, 1,200 mg PO BID #0 tabs 08/18/22 Unknown Rx extended release 12 hr (Mucus Relief ER) prednisone 10 mg tablet 10 mg PO DAILY #40 tabs 08/18/22 Unknown Rx nirmatrelvir 300 mg (150 mg See Rx Instructions PO .COMPLEX 05/03/24 Unknown Rx x2)-ritonavir 100 mg tablet,dose #30 tabs pack (Paxlovid) prednisone 20 mg tablet 60 mg (3 x 20 mg) PO DAILY #15 05/03/24 Unknown Rx TABLETS Allergy/AdvReac Type Severity Reaction Status Date / Time oxycodone AdvReac Upset Verified 05/03/24 10:49 Stomach Family History Grandmother Lung cancer Father COPD (chronic obstructive pulmonary disease) Grandfather Bone cancer Brother Bone cancer Surgical History H/O hernia repair Total knee replacement status Social History Smoking Status: Former smoker Tobacco: How many years used: 65 how long ago did patient quit smokin months ago substance use type: does not use ROS ROS ED Constitutional Constitutional ED: Reports chills and sweats; Denies weight loss Eyes Eyes: Denies change in vision or diplopia ENT ENT ED: Reports rhinorrhea; Denies ear pain or sore throat Cardiovascular Cardiovascular: Denies chest pain, orthopnea, palpitations or racing heartbeat Respiratory/Chest Respiratory/Chest: Reports cough, dyspnea, dyspnea on exertion and sputum; Denies orthopnea Gastrointestinal Gastrointestinal: Denies abdominal pain, diarrhea, nausea or vomiting Genitourinary Genitourinary ED: Denies dysuria, hematuria or urinary frequency Musculoskeletal Musculoskeletal: Denies arthralgias or myalgias Integumentary Denies abscess or rash Neurologic Neurologic: Denies headache(s) or weakness Psychiatric Psychiatric: Denies anxiety, depression, suicidal ideation or suicidal thoughts Endocrine Endocrinology: Denies polydipsia, polyphagia or polyuria Allergic/Immunologic Allergic/Immunologic ED: Denies mouth swelling, tongue swelling or urticaria EXAM Physical Exam Const Vital Signs: 05/03/24 (more content not included)... Normal [facility] L501.4020on 05-03-2024 TROPONIN-I HS 8 pg/mL Normal 3.0-78.0 [facility] Comment on above: Order Comment: 'TROP ' Serial specimen #1, #2 or #3: 1 Result Comment: Eliane aguilar Note: New Test Units and Gender Specific Reference Ranges. For more information see Policy Stat Procedure [facility] High Sensitivity Troponin (TNIH) and attachments. Performed By: #### L 100.0100, L500.2500, L501.4020 #### [facility] Laboratory [address] [place], [address] M100.678on 05-03-2024 M100.678 Copy of report sent to Infection Control Printer [id number] 05/03/24 8482 ZHENAcousticeye. FLUABV+SARS-CoV-2+RS V Pnl Resp ALEXUS+probe FLUABV+SARS-CoV-2+RS V Pnl Resp ALEXUS+probe SARS-CoV-2 (COVID 19) A Positive A INFLUENZA A Negative INFLUENZA B Negative RSV PCR Negative SARS-CoV-2 (COVID 19 PCR) Normal [facility] Comment on above: Performed By: #### M 100.671 ####[facility] [address] [place], [place], [id number] XR ABDOMEN 1 VIEWon 01-25-20 XR ABDOMEN 1 VIEW Interpreted By: José Gomez, STUDY: XR ABDOMEN 1 VIEW; 01/25/2024 11:14 am INDICATION: Signs/Symptoms:KIDNE Y STONES. COMPARISON: None. ACCESSION NUMBER(S): [id number] ORDERING CLINICIAN: BRIDGER WILEY FINDINGS: Abdomen, two [...] José Gomez 01/26/2024 9:23 PM Dictation workstation: [id number] [facility] CT ABDOMEN/PELVIS WOon 11-13 CT ABDOMEN/PELVIS WO [place] [address] Patient: TIMUR JIMENEZ Phone#: : [phone] Age: 78 Gender: M Pt. Type: Out Account: [id number] Location: [facility] Ordering: MIMI SANTA Exam Date: 11/14/2023/7:22 Family Phys: Charge Code: [id number] Physician: [place] Order #: [id number] Dose#: [id number] PROCEDURE: CT ABDOMEN/PELVIS WITHOUT CONTRAST COMPARISON: [facility], CT, ABDOMEN/PELVIS W CON, 10/07/2020, 16:14. INDICATIONS: [...] 78 Gender: M Pt. Type: Out Account: [id number] Location: 052 Ordering: MIMI SANTA Exam Date: 11/14/2023/7:22 Family Phys: Charge Code: [id number] Physician: [place] Order #: [id number] Dose#: 8.60 3. Dense aortic and branch artery calcification. Dictated by: Giselle Humphries MD on 11/14/2023 at 16:42 Approved by: Giselle Humphires MD on 11/14/2023 at 17:13 Normal [facility] Absolute lymphocyte countOrd ered By: Dr. Grubbs on 08-18-2022 Lymphocytes Auto (Unsp spec) [#/Vol] 0.83 10*3/uL 0.83-4.51 [facility] Basophil percentageOrdered B y: Dr. Grubbs on 08-18-2022 Basophils/100 WBC (Bld) 0.3 % 0-1 [facility] Chloride [Moles/Vol] 104 mmol/L 98-107 [facility] Eosinophils/100 WBC (Bld) 0.0 % 0-5 [facility] Glucose [Mass/Vol] 137 mg/dL 74-106 [facility] Comment on above: Fasting Glucose resu lt greater than or equal to 126 mg/dL suggests DIABETES MELLITUS per A.D.A. criteria. Neutrophils (Bld) [#/Vol] 7.4 10*3/uL 2.0-7.7 [facility] Neutrophils/100 WBC (Bld) 80.3 % 47-70 [facility] Potassium [Moles/Vol] 3.9 mmol/L 3.5-5.1 [facility] Sodium [Moles/Vol] 135 mmol/L 136-145 [facility] WBC (Bld) [#/Vol] 9.2 10*3/uL 4.4-11.0 [facility] Blood erythrocytes count (nu mber/volume)Ordered By: Dr. Grubbs on 08-18-2022 RBC (Bld) [#/Vol] 4.41 10*6/uL 4.6-6.2 [facility] Blood hemoglobin measurement (mass/volume)Ordered By: Dr. Grubbs on 08-18-2022 Hemoglobin (Bld) [Mass/Vol] 14.6 g/dL 13.0-16.5 [facility] Blood lymphocytes/100 leukoc ytesOrdered By: Dr. Grubbs on 08-18-2022 Lymphocytes/100 WBC (Bld) 9.0 % 19-41 [facility] Blood monocytes/100 leukocyt esOrdered By: Dr. Grubbs on 08-18-2022 Monocytes/100 WBC (Bld) 8.1 % 0-10 [facility] Blood platelet mean volumeOr dered By: Dr. Grubbs on 08-18-2022 Platelet mean volume (Bld) [Entitic vol] 10.2 fL 6.2-12.0 [facility] Determination of erythrocyte mean corpuscular volume (MCV)Ordered By: Dr. Grubbs on 08-18-2022 MCV (RBC) [Entitic vol] 97.3 fL 80-94 [facility] Hematocrit Auto (Bld) [Volum e fraction]Ordered By: Dr. Grubbs on 08-18-2022 Hematocrit (Bld) [Volume fraction] 42.9 % 40-54 [facility] Laboratory - Chemistry and C hemistry - challengeOrdered By: Dr. Grubbs on 08-18-2022 CO2 [Moles/Vol] 24.0 mmol/L 21.0-32.0 [facility] Urea nitrogen/Creatinine [Mass ratio] 32.2 mg/mg 10-20 [facility] Laboratory - Hematology and Cell countsOrdered By: Dr. Grubbs on 08-18-2022 Erythrocyte distribution width (RBC) [Entitic vol] 52.7 fL 35.1-43.9 [facility] Erythrocyte distribution width (RBC) [Ratio] 14.6 % 11.6-14.6 [facility] Immature granulocytes/100 WBC (Bld) 2.300 % 0.0-0.9 [facility] Comment on above: IG% - Immature Granu locytes (promyelocytes, myelocytes and metamyelocytes) > 1% indicates that a LEFT SHIFT is Present. MCH (RBC) [Entitic mass] 33.1 pg 27.0-32.0 [facility] Nucleated RBC/100 WBC (Bld) [Ratio] 0 % 0-5 [facility] MCHC Auto (RBC) [Mass/Vol]Or dered By: Dr. Grubbs on 08-18-2022 MCHC (RBC) [Mass/Vol] 34.0 g/dL 32-36 [facility] No Panel InformationOrdered By: Dr. Grubbs on 08-18-2022 Estimated Creatinine Clearance Calc 68.63 ml/min [facility] Estimated GFR (MDRD) Amer 101 mL/min >60 [facility] Comment on above: GFR Calc Estimated GFR (MDRD) Non-Af Amer 84 mL/min >60 [facility] Comment on above: Non- GFR Calc Platelets bldOrdered By: Dr. Grubbs on 08-18-2022 Platelets (Bld) [#/Vol] 228 10*3/uL 150-450 [facility] Serum or plasma calcium iain urement (mass/volume)Ordered By: Dr. Grubbs on 08-18-2022 Calcium [Mass/Vol] 9.0 mg/dL 8.5-10.1 [facility] Serum or plasma creatinine m easurement (mass/volume)Ordered By: Dr. Grbubs on 08-18-2022 Creatinine [Mass/Vol] 0.93 mg/dL 0.70-1.30 [facility] Comment on above: The validity of the calculated GFR & GFRAA in patients over 70 years has not been determined. Clinical correlation is essential. Serum or plasma urea nitroge n measurement (mass/volume)Ordered By: Dr. Grubbs on 08-18-2022 Urea nitrogen [Mass/Vol] 30 mg/dL 7-18 [facility] Thin prep Papanicolaou smear with manual screeningOrdered By: Dr. Grubbs on 08-18-2022 Thin prep Papanicolaou smear with manual screening 7 5-15 [facility] Basophil percentageOrdered B y: Dr. Grubbs on 08-15-2022 Basophil percentage 2.9 mg/dL 2.5-4.9 [facility] Bilirubin [Mass/Vol] 0.60 mg/dL 0.20-1.00 [facility] Comment on above: For patients on eltr ombopag therapy, use of Dimension Empire TBIL is not recommended. Protein [Mass/Vol] 6.5 g/dL 6.4-8.2 [facility] Laboratory - Chemistry and C hemistry - challengeOrdered By: Dr. Grubbs on 08-15-2022 ALP [Catalytic activity/Vol] 49 U/L 45-117 [facility] ALT [Catalytic activity/Vol] 20 U/L 16-61 [facility] Free T4 [Mass/Vol] 1.24 ng/dL 0.76-1.46 [facility] Globulin (S) [Mass/Vol] 3.1 g/dL 2.2-4.2 [facility] Magnesium [Mass/Vol] 2.2 mg/dL 1.6-2.6 [facility] Laboratory - Microbiology an d Antimicrobial susceptibilityOrdered By: Dr. Grubbs on 08-15-2022 Respiratory pathogens DNA and RNA 12b panel ALEXUS+probe (Unsp spec) [facility] No Panel InformationOrdered By: Dr. Grubbs on 08-15-2022 Thyroid Stimulating Hormone (TSH) 0.26 uIU/mL 0.358-3.74 [facility] Serum or plasma albumin iain urement (mass/volume)Ordered By: Dr. Grubbs on 08-15-2022 Albumin [Mass/Vol] 3.4 g/dL 3.2-5.0 [facility] Serum or plasma albumin/glob ulin mass ratioOrdered By: Dr. Grubbs on 08-15-2022 Albumin/Globulin [Mass ratio] 1.1 {ratio} 0.9-2.4 [facility] Thin prep Papanicolaou smear with manual screeningOrdered By: Dr. Grubbs on 08-15-2022 Thin prep Papanicolaou smear with manual screening 19 U/L 15-37 [facility] Assessment of wrist artery p atency prior to arterial punctureOrdered By: Dr. Lowe on 08-13-2022 Arterial patency Wrist artery --pre arterial puncture Positive [facility] Base excessOrdered By: Dr. Nav montoya on 08-13-2022 Base excess Calc (BldV) [Moles/Vol] -4 mmol/L -2-2 [facility] Basophil percentageOrdered B y: Dr. Lowe on 08-13-2022 Basophil percentage 20.8 mmol/L 22-26 [facility] Basophils/100 WBC (Bld) 92 % 95-99 [facility] CO2 (BldA) [Partial pressure ]Ordered By: Dr. Lowe on 08-13-2022 CO2 (Bld) [Partial pressure] 31.3 mm[Hg] 35-45 [facility] No Panel InformationOrdered By: Dr. Lowe on 08-13-2022 Blood Gas Liter Flow 10.0 /min [facility] Blood Gas Sample Site R Radial [facility] Blood Gas Specimen Type ART [facility] Blood Gas Total CO2 22 mmol/L [facility] Oxygen Delivery Device Cannula [facility] Oxygen (BldA) [Partial press ure]Ordered By: Dr. Lowe on 08-13-2022 Oxygen (Bld) [Partial pressure] 60 mmHG 75-100 [facility] Urine Legionella pneumophila antigen detectionOrdered By: Dr. Ribeiro on 08-13-2022 L. pneumophila Ag Ql (U) [facility] pH measurementOrdered By: Dr Carmita Lowe on 08-13-2022 pH (Unsp spec) 7.43 [pH] 7.35-7.45 [facility] CVFLURVon 06-29-2022 FLU A PCR Negative Normal Negative [facility] ([place]) Comment on above: Result Comment: Note s Performed By: #### C VFLURV #### [place] [address] FLU B PCR Negative Normal Negative [facility] [place] Comment on above: Result Comment: Note s Performed By: #### C VFLURV #### [place] [address] RSV PCR Negative Normal Negative [facility] ([place] Comment on above: Result Comment: Note s Performed By: #### C VFLURV #### [address] [address] SARS-CoV-2 (COVID-19) RNA ALEXUS+probe Ql (Unsp spec) Negative Normal Negative [facility] ([place] Comment on above: Result Comment: Note s [...] results. Performed By: #### C VFLURV #### [address] [address] SCAN OTHER ORDERSon 04-25-20 19 Ordered by an unspecified provider. [facility] PROGRESSon 10-05-2018 Protein mass conc HNO ID: [id number] Author: Cassidy Kasper Service: ? Author Type: Rock Dust Sprayer Type: Progress Notes Filed: 10/05/2018 10:11 AM Note Text: [facility] AMPHIBIOUS VEHICLE CREWMAN QUICKNOTE Provider Action/FYI: I spoke with jenn and [facility]. Dr. Clrak removed as pcp. Patient identified by name and . Cassidy Kasper, [facility] Normal [facility] PROGRESSon 10-02-2018 Protein mass conc HNO ID: [id number] Author: Maria G Velazquez Service: ? Author Type: Nurse Practitioner Type: Progress Notes Filed: 10/05/2018 10:11 AM Note Text: Needs OV then will place labs. Maria G Velazquez APRN.FLORICULTURE TEACHER Normal [facility]ai [facility] TIMUR JIMENEZ ([id number]) 1945 M Date Time Provider Department 09/29/18 CASSIDY KASPER) FAMP[facility] During your visit today, we recorded the following information about you: Cassidy Kasper CMA 10/05/2018 10:[address] [facility] CARE GAP REGISTRY DOCUMENTATION (OUTSIDE TEAMLET) Provider [...] office visit:Physical next available with pcp or bundling machine operator TRESA Lemus APRN.FELICITY 10/05/2018 10:11 AM Signed Needs OV then will place labs. Maria G Velazquez APRN.FELICITY Kasper CMA 10/05/2018 10:11 AM Signed POPULATION [facility] AMPHIBIOUS VEHICLE CREWMAN QUICKNOTE Provider Action/FYI: I spoke with jenn and he [facility] there. Dr. Clark removed as pcp. Patient identified by name and . Cassidy Kasper CMA Allergies As of Date: 09/29/2018 Noted Allergy Reaction VENOM-YELLOW JACKET 01/07/2016 7 - Swelling Date Reviewed: 09/23/2017 Reviewed by: Connie Bhatia LPN - Fully Assessed Reason for Visit: PHMA/Care Gap Outreach [3605] Primary Visit Diagnosis:Hyperlipid emia, mixed [E78.2] Other Visit Diagnoses:Hypertensi on, essential [I10] Obstructive chronic bronchitis with exacerbation (HCC) [J44.1] Order(s):LIPID PANEL BASIC [SQLIPB] Order #: [id number] FUTURE COMP METABOLIC PANEL [SQCMP] Order #: [id number] FUTURE CBC [SQCBC] Order #: [id number] FUTURE Prescriptions as of 09/29/2018 Sig: OXYCODONE [...] 90 MCG/* Inhale 2 Puffs as instructed. BUDESONIDE-FORMOTERO L HFA 160* Inhale 2 Puffs as instructed [...] [E66.3] INVALID FOR* Encounter Status:Closed by CASSIDY KASPER CMA on 10/05/18 Normal [facility] PROGRESSon 09-29-2018 Protein mass conc HNO ID: [id number] Author: Cassidy Kasper Service: ? Author Type: Rock Dust Sprayer Type: Progress Notes Filed: 10/05/2018 10:11 AM Note Text: [facility] CARE GAP REGISTRY DOCUMENTATION (OUTSIDE TEAMLET) Provider [...] office visit:Physical next available with pcp or bundling machine operator Cassidy Kasper CMA Normal [facility] XR Chest 2 Viewson 8 XR Chest 2 views EXAMINATION TYPE: XR Chest 2 Views DATE OF EXAM : 05/08/2018 11:57 AMHISTORY: H/O CADFINDINGS: The cardiac silhouette is normal. The lungs are expanded and clear. There is no pleural effusion. Pulmonary vascularity is normal.IMPRESSION: [place] you for the opportunity to care for your patient. Workstation ID: [id number] - [id number] FINAL REPORT Dictated By: Trini Santillan MD 05/08/2018 14:03Assigned Physician: Trini Santillan MDviewewilly and Electronically Signed By: Trini Santillan MD 05/08/2018 14:03Transcribed by: YANELY 05/08/2018 14:03Technologist: VIK [facility] Belinda 11-29-2017 [facility] Patient Outreach (INTMWH) TIMUR JIMENEZ ([id number]) 1945 M Date Time Provider Department 11/29/17 XANDER CLARK [facility] During your visit today, we recorded the following information about you: Allergies As of Date: 11/29/2017 Noted Allergy Reaction VENOM-YELLOW JACKET 01/07/2016 7 - Swelling Date Reviewed: 09/23/2017 Reviewed by: Connie Bhatia LPN - Fully Assessed Visit Diagnosis:Medication management [Z79.899] Order(s):LIPID PANEL BASIC [SQLIPB] Order #: [id number] FUTURE Prescriptions as of 11/29/2017 Sig: OXYCODONE [...] 90 MCG/* Inhale 2 Puffs as instructed. BUDESONIDE-FORMOTERO L HFA 160* Inhale 2 Puffs as instructed [...] Status:Closed by EPIC, PRODUSER on 04/21/18 Normal [facility] Vital Signs Date Time Vital Sign Value Performing Clinician Facility 11-21-2024 09:18-0400 Body height 175.[address] Mimi Santa MD Work Phone: [facility] 11-21-2024 09:18-0400 Body mass index (BMI) [Ratio] 24.3 kg/m2 Dr. Mimi Santa MD Work Phone: [facility] 11-21-2024 09:18-0400 Body weight 74.[address] Mimi Santa MD Work Phone: [facility] 11-21-2024 09:18-0400 Diastolic blood pressure 69 mm[Hg] Dr. Mimi Santa MD Work Phone: [facility] 11-21-2024 09:18-0400 Heart rate 53 /min Dr. Mimi Santa MD Work Phone: [facility] 11-21-2024 09:18-0400 Respiratory rate 18 /min Dr. Mimi Santa MD Work Phone: [facility] 11-21-2024 09:18-0400 Systolic blood pressure 111 mm[Hg] Dr. Mimi Santa MD Work Phone: [facility] 08-05-2024 10:21-0500 Body mass index (BMI) [Ratio] 23.8 kg/m2 Dr. Mimi Santa MD Work Phone: [facility] 08-05-2024 08:55-0500 Diastolic blood pressure 84 mm[Hg] Dr. Mimi Santa MD Work Phone: [facility] 08-05-2024 08:55-0500 Heart rate 101 /min Dr. Mimi Santa MD Work Phone: [facility] 08-05-2024 08:55-0500 Respiratory rate 16 /min Dr. Mimi Santa MD Work Phone: [facility] 08-05-2024 08:55-0500 SaO2% (BldA) [Mass fraction] 95 % Dr. Mimi Santa MD Work Phone: [facility] 08-05-2024 08:55-0500 Systolic blood pressure 124 mm[Hg] Dr. Mimi Santa MD Work Phone: [facility] 08-05-2024 05:40-0500 Body weight 73.[address] Mimi Santa MD Work Phone: [facility] 08-05-2024 05:20-0500 Body temperature 98.1 [degF] Dr. Mimi Santa MD Work Phone: [facility] 08-04-2024 08:55-0500 Body height 175.[address] Mimi Santa MD Work Phone: [facility] 01-25-2024 10:38-0400 Body height 175.3 cm Bridger Wiley MD Work Phone: [facility] 01-25-2024 10:38-0400 Body mass index (BMI) [Ratio] 23.63 kg/m2 Bridger Wiley MD Work Phone: [facility] 01-25-2024 10:38-0400 Body weight 72.58 kg Bridger Wiley MD Work Phone: [facility] 01-25-2024 10:38-0400 Diastolic blood pressure 70 mm[Hg] Bridger Wiley MD Work Phone: [facility] 01-25-2024 10:38-0400 Heart rate 62 /min Bridger Wiley MD Work Phone: [facility] 01-25-2024 10:38-0400 Systolic blood pressure 113 mm[Hg] Bridger Wiley MD Work Phone: [facility] 08-18-2022 14:02-0500 Body temperature 97.5 [degF] Out [facility] 08-18-2022 14:02-0500 Diastolic blood pressure 72 mm[Hg] Out [facility] 08-18-2022 14:02-0500 Heart rate 72 /min Out [facility] 08-18-2022 14:02-0500 Inhaled oxygen flow rate 3 L/min Out [facility] 08-18-2022 14:02-0500 Respiratory rate 16 /min Out [facility] 08-18-2022 14:02-0500 SaO2% (BldA) [Mass fraction] 95 % Out [facility] 08-18-2022 14:02-0500 Systolic blood pressure 117 mm[Hg] Out [facility] 08-16-2022 10:49-0500 Body height 175.26 cm Out [facility] 08-16-2022 10:49-0500 Body weight 88.04 kg Out [facility] 08-16-2022 10:00-0500 Inhaled oxygen concentration 45 % Out [facility] 08-12-2022 18:00-0500 Body mass index (BMI) [Ratio] 28.6 kg/m2 Out [facility] 04-27-2019 09:50-0400 BP Diastolic 82 mm[Hg] [facility] 04-27-2019 09:50-0400 BP Systolic 115 mm[Hg] [facility] 04-27-2019 09:50-0400 Pulse (Heart Rate) 85 /min [facility] 04-27-2019 09:50-0400 Pulse Oximetry 94 % [facility] 04-27-2019 09:50-0400 Respiratory Rate 16 /min [facility] 04-27-2019 09:28-0400 Body Temperature 98.4 [degF] [facility] 04-27-2019 08:17-0400 BMI (Body Mass Index) 28.35 kg/m2 [facility] 04-27-2019 08:17-0400 Body weight 87.09 kg [facility] 04-27-2019 08:17-0400 Height 175.3 cm [facility] Encounters Encounter Date Encounter Type Care Provider Facility Start: 11-22-2024 Encounter for preprocedural cardiovascular examination Gagandeep Prabhakar [facility] Start: 11-21-[address] John Santa MD Work Phone: [facility] Start: 11-21-2024 End: 11-21-[address] Gagandeep Prabhakar MD -[facility] Work Phone: Start: 11-21-2024 End: 11-21-[address] Mimi Santa MD Work Phone: [facility] Work Phone: Start: 11-06-2024 End: 11-06-[address] Mimi Santa MD Work Phone: [facility] Work Phone: Start: 11-06-2024 End: 11-06-[address] Mimi Santa MD Work Phone: -Pulmonary Services/Neurology Work Phone: Start: 11-06-2024 End: 11-06-2024 ambulatory Angeles ESCOBEDO Facility:[facility] Start: 08-05-2024 Non-patient / Non-visit Dr. Jessica odell MD -[facility] Work Phone: Start: 08-04-2024 ambulatory William Campos cility:[facility] Start: 08-04-2024 Non-patient / Non-visit Dr. Luna Vaughn MD -[facility] Start: 08-04-2024 Non-patient / Non-visit Dr. Jessica odell MD -[facility] Work Phone: Start: 08-03-2024 Non-patient / Non-visit Dr. Shannen Jung MD -[facility] Work Phone: Start: 08-03-2024 End: 08-05-2024 ambulatory Shannen Jung Facility:[facility] Start: 08-03-2024 End: 08-05-2024 Evaluation and management of inpatient Dr. Jessica Mart MD -Progressive Care Unit Work Phone: Start: 05-03-2024 End: 05-03-2024 Emergency department patient visit Freddie Richard Facility:[facility] Start: 03-06-2024 ambulatory LUIS ROANIYAH De [facility] Amb[facility] Start: 01-26-2024 End: 01-26-2024 Phys/qhp telephone evaluation 11-20 min Bridger Wiley MD Work Phone: [facility] Comment on above: Nocturia; Benign prostatic hyperplasia with lower urinary tract symptoms, symptom details unspecified; Kidney stones Start: 01-26-2024 End: 01-26-2024 ambulatory [facility]ulatory Start: 01-25-2024 End: 01-25-2024 ambulatory [facility] Start: 01-25-2024 End: 01-25-2024 Subsequent hospital visit by physician Tomer [id number] X-Ray [facility] Comment on above: Kidney stones Start: 01-25-2024 End: 01-25-2024 ambulatory BRIDGER WILEY [facility] Ambulatory Start: 01-25-2024 End: 01-25-2024 Office outpatient new 45 minutes Bridger Wiley MD Work Phone: [facility] Comment on above: Kidney stones; Benign prostatic hyperplasia with lower urinary tract symptoms, symptom details unspecified; Nocturia Start: 11-14-2023 End: 11-14-2023 ambulatory MIMI WEAVER [facility] Start: 08-18-2022 Non-patient / [facility]-visit [facility] Start: 08-17-2022 Non-patient / Non-visit [facility] Start: 08-16-2022 Non-patient / Non-visit [facility] Start: 08-16-2022 Non-patient / Non-visit [facility] Start: 08-15-2022 Non-patient / Non-visit [facility] Start: 08-15-2022 Non-patient / Non-visit [facility] Start: 08-14-2022 Non-patient / Non-visit [facility] Start: 08-14-2022 Non-patient / Non-visit [facility] Start: 08-13-2022 Non-patient / Non-visit [facility] Start: 08-13-2022 Non-patient / Non-visit [facility] Start: 08-13-2022 Non-patient / Non-visit [place] [facility] Start: 08-12-2022 Non-patient / Non-visit [facility] Start: 08-12-2022 End: 08-18-2022 Evaluation and management of inpatient [facility] Start: 08-16-2020 End: 08-16-2020 Orders Only Anu Ya Work Phone: [facility] Start: 04-27-2019 End: 04-27-2019 Patient encounter procedure RAFA CAMACHO [facility] Start: 04-27-2019 End: 04-27-2019 Subsequent hospital visit by physician Rafa Camacho Work Phone: [facility] Start: 05-09-2018 End: 05-09-2018 Patient encounter procedure JESSICA ELIZONDO Facility:[facility] Procedures Date Procedure Procedure Detail Performing Clinician Start: 08-04-2024 MRI of brain without contrast Dr. Mimi Santa MD Work Phone: Start: 08-04-2024 Assay of phosphorus inorganic Dr. Mimi Santa MD Work Phone: Start: 08-04-[address] Mimi Santa MD Work Phone: Start: 08-04-2024 Measurement of renal function Dr. Mimi Santa MD Work Phone: Comment on above: GFR Calc Start: 08-03-2024 Plain chest X-ray Dr. John Santa MD Work Phone: Start: 08-03-2024 CT angiography of he ad and neck Dr. Mimi Santa MD Work Phone: Start: 08-03-2024 CT of head without contrast Dr. Mimi Santa MD Work Phone: Start: 08-13-2022 CT angiography of ch est with contrast [facility] Start: 08-13-2022 Plain chest X-ray Out [facility] own Doctor Start: 04-27-2019 Colonoscopy Rafa Camacho Work Phone: Start: 04-25-2019 SCAN OTHER ORDERS Provi radha Not In System Legionella pneumophi la antigen assay [facility] Respiratory Panel (PCR) [facility] Plan of Treatment Date Care Activity Detail Author Start: 09-22-2033 DTaP/Tdap/Td Vaccine s (4 - Td or Tdap) DTaP/Tdap/Td Vaccines (4 - Td or Tdap) [facility] Start: 11-21-2024 Evaluation of diagno stic study results 12 Lead EKG performed by ELENITA [facility] Start: 08-05-2024 Patient discharge [facility] Start: 08-04-2024 [facility] Start: 08-03-2024 Following clinical p athway protocol [facility] Start: 08-03-2024 Aspiration precautions [facility] Start: 08-03-2024 Assessment of risk o f venous thromboembolism [facility] Start: 08-03-2024 Cardiac monitoring [facility] Start: 08-03-2024 Catheterization of vein [facility] Start: 08-03-2024 Consultation [facility] Start: 08-03-2024 Elevation of head of bed [facility] Start: 08-03-2024 Exercises [facility] Start: 08-03-2024 Fall prevention [facility] Start: 08-03-2024 Inhalation therapy procedure [facility] Start: 08-03-2024 Insertion of cathete r into peripheral vein [facility] Start: 08-03-2024 Introduction of urin alisa catheter [facility] Start: 08-03-2024 Measuring intake and output [facility] Start: 08-03-2024 Notification of physician [facility] Start: 08-03-2024 Oxygen therapy [facility] Start: 08-03-2024 Patient referral to dietitian [facility] Start: 08-03-2024 Providing care accor ding to standard [facility] Start: 08-03-2024 Provision of activit y privileges [facility] Start: 08-03-2024 Referral to occupati onal therapist [facility] Start: 08-03-2024 Referral to service [facility] Start: 08-03-2024 Speech therapy assessment [facility] Start: 08-03-2024 Telemedicine consult ation with patient [facility] Start: 08-03-2024 Tobacco use cessatio n education [facility] Start: 08-03-2024 End: 08-03-2024 [facility] Start: 08-03-2024 Admission procedure [facility] Start: 03-11-2024 Influenza vaccination Influenza Vacc ine (#1) [facility] Start: 01-26-2024 End: 01-26-2024 Telemedicine consultation with patient 01/26/2024 7:45 AM EDT Telemedicine [facility] [address] [place] [address] Bridger Wiley MD [address] [place] [address] [facility] Start: 01-25-2024 End: 01-24-2025 XR Abdomen Single view [facility] Service Area Work Phone: Comment on above: Expected: 01/25/2024 , Expires: 01/24/2025 Once for 1 Occurrenc es starting 01/25/2024 until 01/25/2024 Start: 03-11-2023 COVID-19 Vaccine ( season) COVID-19 Vaccine () [facility] Start: 08-18-2022 Patient discharge [facility] Start: 08-16-2022 [facility] Start: 08-16-2022 Physiotherapy of chest [facility] Start: 08-16-2022 [facility] Start: 08-14-2022 Verification routine [facility] Start: 08-13-2022 Consultation [facility] Start: 08-13-2022 Care planning and pr oblem solving actions [facility] Start: 08-13-2022 Airway suction technique [facility] Start: 08-13-2022 Continuous positive airway pressure ventilation treatment [facility] Start: 08-12-2022 Oxygen therapy [facility] Start: 08-12-2022 Assessment of risk o f venous thromboembolism [facility] Start: 08-12-2022 Elevation of head of bed [facility] Start: 08-12-2022 Insertion of cathete r into peripheral vein [facility] Start: 08-12-2022 Patient education [facility] Start: 08-12-2022 Physiotherapy of chest [facility] [employer] Start: 08-12-2022 Providing care accor ding to standard [facility] Start: 08-12-2022 Provision of activit y privileges [facility] Start: 08-12-2022 Referral to occupati onal therapist [facility] Start: 08-12-2022 Referral to service [facility] Start: 08-12-2022 End: 08-12-2022 [facility] Start: 08-12-2022 Admission procedure [facility] Start: 08-12-2022 Following clinical p athway protocol [facility] Start: 08-12-2022 Inhalation therapy procedure [facility] Start: 2006 RSV patient s and/or patients aged 60+ years (1 - 1-dose 60+ series) RSV patients and/or patients aged 60+ years (1 - 1-dose 60+ series) [facility] Start: 1964 Diabetes mellitus screening Diabetes Screening [facility] Start: 1964 Hepatitis C screening Hepatitis C Sc [facility] Start: 1946 Creatinine measurement Creatinine Le miesha [facility] Start: 1946 Echocardiography Echocardiogram [facility] Start: 1946 Lipid panel Lipid Panel [facility] Start: 1946 Medicare Annual Well ness Visit Medicare Annual Wellness Visit (AWV) [facility] Start: 1946 Potassium measurement Potassium Leve l [facility] Start: 1946 Yearly Adult Physical Yearly Adult P hysical [facility] Cardiac event recording [facility] Patient referral [facility] Work Phone: Procedure on tissue specimen [facility] Comment on above: Once for 1 Occurrenc es starting 04/27/2019, 1 completed Immunizations Immunization Date Immunization Notes Care Provider Fa maria ines 05-02-2023 influenza virus vaccine, unspecified formulation Bridger Wiley MD Work Phone: [facility] Work Phone: Payers Date Payer Category Payer Medicare [id number] 2024 Self-pay [id number] 2024 Unknown [id number] 2024 Unknown [id number] 2023 Unknown [id number] [id number] .[id number] 2019 Unknown [id number] 2019 Unknown [facility] xx [id number] 2019-Present xxxxxxxxx [id number] .[id number] 2019 Unknown [facility] xx [id number] 2019-Present [id number] .[id number] 2011 Medicare MEDICARE MEDICAR E PART A & B xxxxxxxxxx 2011-Present [place] xxxxxxxxxx [id number] .[id number] 2011 Medicare MEDICARE MEDICAR E PART A & B [id number] 2011-Present [place] [id number] .[id number] 2011 Medicare [id number] 1945 Unknown [id number] 2.16.840.1.760013.3.579.2.903 1946 Unknown [id number] 2.16.840.1.768723.3.579.2.651 1946 Unknown [id number] 2.16.840.1.818104.3.579.2.124 4 1946 Unknown [id number] 2.16.840.1.372257.3.579.2.124 4 1946 Unknown [id number] 2.16.840.1.882820.3.579.2.903 1946 Unknown [id number] 2.16.840.1.329872.3.579.2.124 3 Unknown [id number] Unknown [id number] Unknown [id number] 2.16.840.1.767423.3.579.2.462 Unknown [id number] 2.16.840.1.835149.3.579.2.462 Unknown [id number] 2.16.840.1.768442.3.579.2.462 Unknown [id number] 2.16.840.1.680596.3.579.2.462 Unknown [id number] 2.16.840.1.832211.3.579.2.462 Unknown [id number] 2.16.840.1.291148.3.579.2.462 Unknown [id number] 2.16.840.1.537167.3.579.2.462 Unknown [id number] 2.16.840.1.583810.3.579.2.462 Unknown [id number] 2.16.840.1.940538.3.579.2.462 Social History Date Type Detail Facility Start: 04-27-2019 End: 01-25-2024 Tobacco smoking status NHIS Current every day smoker [facility] Start: 04-27-2019 End: 01-25-2024 Cigarettes smoked current (pack per day) - Reported [facility] Start: 04-27-2019 End: 04-30-2019 Alcohol intake Current drinker of alcohol (finding) [facility] Start: 04-27-2019 Alcohol Comment occ [facility] Start: 1945 Sex Assigned At Not on file [facility] Start: 04-30-2019 End: 01-25-2024 Tobacco use and exposure Never used [facility] Start: 08-13-2022 Tobacco smoking stat [facility] Unknown if ever smoked [facility] Start: 1945 Sex Assigned At Male [facility] History of tobacco use Cigarette Smoker [facility] Work Phone: Start: 01-25-2024 [facility] Work Phone: Start: 01-15-2024 End: 01-25-2024 Exposure to SARS-CoV-2 (event) Not sure [facility] Start: 08-04-2024 Tobacco smoking stat us NHIS Current some day smoker [facility] Start: 08-05-2024 Tobacco Use Tobacco Use [facility] Goals Date Patient Goal Desired Activity /State Functional Status Date Assessment Result Facility 08-05-2024 Functional status Ambulates [facility] Work Phone: 08-18-2022 Functional status Up ad pelon;Bathroom Priv ilege [facility] Work Phone: Mental Status Date Assessment Result Facility 08-05-2024 Cognitive function Voice/Name [facility] Work Phone: 08-18-2022 Cognitive function Voice/Name [facility] Work Phone: Clinical Notes 06-14-2022 to 08-05-2024 Note Date & Type Note Facility 08-05-2024 Note [facility] Medical Records Department [address] [place] [address] Discharge Summary 08/05/24 0714 MR#: [id number] Acct: [id number] Name: TIMUR JIMENEZ Jr. Rep #: [id number] : 1945 78 From: Jessica Mart MD PCP: Dr. Mimi Santa MD Status:ADM JUSTO Location: [place] [address] Providers Date of Admission: 08/03/24 Primary Care Physician: Dr. Mimi Santa MD Consultations 08/03/24 20:15 Consult: Tele-Neurology Routine Consulting Provider: [facility] Reason for Consult: Acute Ischemic Stroke/TIA EMERGENT Consult: No MD Notified: Yes Date Notified: 08/04/24 Time Notified: 05:44 Method of Notification: Answering Service Nursing Unit Staff Notify [facility] of Tele-Neurology Consult: Yes Reason For Visit: CVA? Diagnosis Discharge Diagnosis (1) CVA (cerebral vascular accident): Status: Acute Code(s): I63.9 - Cerebral infarction, unspecified Plan Patient is a 78-year-old gentleman was brought to the emergency department by the with slurred speech, and dizziness. Last known well was outside the window for TNK. Admitted to a monitored bed for possible CVA workup. 1. Transient ischemic attack ??? Patient presented with expressive aphasia and dysarthria as well as dizziness. Admitted to monitored bed requested for every 4 neurochecks ordered 2D echo as well as MRI. CT of the head and neck obtained on admission demonstrated moderate stenosis bilateral cavernous segments internal carotid arteries. Severe stenosis distal right vertebral artery. Moderate stenosis at the origin of the left vertebral artery. Patient was started on antiplatelet therapy as well as statin therapy [facility] 08/05/2024 MRI did show chronic microvascular ischemic changes. No intracranial hemorrhage, acute infarct, or space occupying lesion seen on this noncontrast MRI of the brain.. 2D echo demonstrated estimated ejection fraction is 65 %. No evidence for diastolic dysfunction. Patient had runs of nonsustained VT was found to have magnesium of 2.0 additional magnesium given. Patient was discharged home with a 30-day event monitor 2. Acute kidney injury ??? Patient started on rehydration with subsequent monitoring of electrolytes ordered ??? Resolved with rehydration 3. Essential hypertension ??? Will allow for permissive hypertension given patient presentation 4. Hypokalemia ??? Corrected for protocol repeat labs ordered for a.m. 5. Dyslipidemia ???Patient is on statin therapy, continued at home dose 6. COPD ??? Currently not in exacerbation aerosol treatment as needed 7. GERD ??? On PPI 7. History of peptic ulcer disease with complication including perforated peptic ulcer ??? Currently on PPI 8. DVT prophylaxis ??? On enoxaparin Time spent in the patient's overall evaluation,decision-making process, review of diagnostic data, adjustment of management, discussion with other providers, nursing nursing and ancillary staff involved in patient's care documentation, 35 Minutes Medications at Discharge Home Medications atorvastatin 40 mg tablet 40 mg PO QHS cholesterol 08/13/22 cholecalciferol (vitamin D3) 50 mcg (2,000 unit) tablet 50 mcg PO QODAY vitamin 08/13/22 cyclobenzaprine 10 mg tablet 10 mg PO QHS PRN PRN muscle spasms 08/13/22 fluticasone 250 mcg-salmeterol 50 mcg/dose blistr powdr for inhalation 1 inh inhalation BID breathing 08/13/22 gabapentin 600 mg tablet 600 mg PO BID nerve pain 08/13/22 ipratropium 0.5 mg-albuterol 3 mg (2.5 mg base)/3 mL nebulization soln 3 ml inhalation Q6H PRN Shortness Of Breath 08/13/22 isosorbide mononitrate 30 mg tablet,extended release 24 hr 30 mg PO DAILY heart 08/13/22 lisinopril 5 mg tablet 5 mg PO DAILY blood pressure 08/13/22 metoprolol succinate 100 mg tablet,extended release 24 hr 100 mg PO DAILY blood pressure 08/13/22 pantoprazole 40 mg tablet,delayed release 40 mg PO DAILY reflux 08/13/22 tramadol 50 mg tablet 50 mg PO Q6H PRN Breakthrough Pain 08/13/22 trazodone 50 mg tablet 50 mg PO QHS PRN leg cramps 08/13/22 albuterol sulfate 90 mcg/actuation aerosol inhaler (Ventolin HFA) 2 inh inhalation Q6H PRN shortness of breath or wheezing 08/03/24 aspirin 81 mg chewable tablet 81 mg PO BREAKFAST #90 tabs 08/05/24 magnesium oxide 400 mg (241.3 mg magnesium) tablet (MagOx) 400 mg PO DAILY #60 tabs 08/05/24 Physical Exam Narrative GENERAL: cooperative HEENT: Atraumatic; normocephalic EYES; Anicteric, Normal Conjunctiva NECK; supple, normal thyroid, RESPIRATORY: Diminished to auscultation CARDIOVASCULAR: Regular S1 S2, GI: soft, normoactive bowel sounds, : No Renal angle tenderness; EXTREMITIES: No edema, no clubbing, MUSCULOSKELETAL: no muscle wasting NEURO: Awake; no lateralizing signs. Tremors at rest SKIN: No Rash PSYCH; Flat affect Weight / BMI (more content not included)... [facility] 08-03-2024 Evaluation note Diagnosis Onset Date Resolution CVA (cerebral vascular accident) resolved August 03, 2024 7:27pm [facility] Work Phone: 1(452) 986-369007-18-2024 History of Present illness Narrative* Bridger Wiley MD - 01/26/2024 7:45 AM EDT Subjective Patient ID: Timur Jimenez Jr. is a 78 y.o. male. Virtual or Telephone Consent A telephone visit (audio only) between the patient (at the originating site) and the provider (at the distant site) was utilized to provide this telehealth service. Verbal consent was requested and obtained from Timur Jimenez Jr. on this date, 01/26/24 for a telehealth visit. HPI Patient is here for KUB results. He was seen yesterday for kidney stone. Hx of kidney stones [facility] but [facility] did not confirm this. Also hx of 1.7cm right renal lesion that is followed with MRI at the [facility]. Chronic BPH sx are mild and stable. Some urgency and frequency. Denies dysuria. Denies hematuria. Nocturia x3-4. He is taking Uroxatral. He has failed Flomax due to side effects. .Most recent PSA was 2.10 on 05/02.. He stats this has always been normal. ED is chronic. He is taking Isosorbide. Review of Systems Constitutional: Negative for chills and fever. HENT: Negative. Eyes: Negative. Respiratory: Negative for cough and shortness of breath. Cardiovascular: Negative for chest pain and leg swelling. Gastrointestinal: Negative for nausea. Endocrine: Negative. Genitourinary: Negative for difficulty urinating. Negative except for documented in HPI Allergic/Immunologic: Negative. Neurological: Alert & oriented X 3 Hematological: Denies blood thinners Psychiatric/Behavioral: Negative. Objective Physical Exam No PE done given the virtual nature of visit. Assessment/Plan Diagnoses and all orders for this visit: Nocturia Benign prostatic hyperplasia with lower urinary tract symptoms, symptom details unspecified Kidney stones All available PSA values reviewed, Options discussed. Questions answered. Diet changes for prostate health discussed and educational information given. Pros/Cons of prostatehealth supplements discussed. Treatment options for LUTS reviewed Discussed timed voiding. Discussed fluid and caffeine intake Treatment options for ED reviewed. Lifestyle change to help prevent UTIs discussed. Encouraged fluid intake. KUB reviewed-No stone seen Flexeril Rx sent to [facility] has repeat MRI scheduled for 11/24 F/U 07/03 documented in this [facility] Work Phone: 1(969) 992-514707-17-2024 History of Present illness Narrative* Bridger Wiley MD - 01/25/2024 10:00 AM EDT Subjective Patient ID: Timur Jimenez Jr. is a 78 y.o. male. HPI Patient is here to establish for kidney stones and a 1.7cm right renal lesion that is being followed with MRI. . He state [facility] that showed left sided stones. No past hx of stones. He also hx of right renal mass that [facility] discovered 1 year ago. He states this is the size of Grape. [facility] is following this. He gets an MRI every 6 months. Chronic BPH sx are mild and stable. Some urgency and frequency. Denies dysuria. Denies hematuria. Nocturia x3-4. He is taking Uroxatral. He hasfailed Flomax due to side effects. .Most recent PSA was 2.10 on 05/02.. He stats this has always been normal. ED is chronic. He is taking Isosorbide. Review of Systems Constitutional: Negative for chills and fever. HENT: Negative. Eyes: Negative. Respiratory: Negative for cough and shortness of breath. Cardiovascular: Negative for chest pain and leg swelling. Gastrointestinal: Negative for nausea. Endocrine: Negative. Genitourinary: Negative for difficulty urinating. Negative except for documented in HPI Allergic/Immunologic: Negative. Neurological: Alert & oriented X 3 Hematological: Denies blood thinners Psychiatric/Behavioral: Negative. Objective Physical Exam Vitals and nursing note reviewed. Constitutional: General: He is not in acute distress. Appearance: Normal appearance. Pulmonary: Effort: Pulmonary effort is normal. Abdominal: Tenderness: There is no abdominal tenderness. Genitourinary: Comments: Kidneys non palpable bilaterally Bladder non palpable or tender Scrotum no mass, No hydrocele Epididymis- No spermatocele. Non Tender. Testicles: No mass. Symmetric Urethra: No discharge Penis within normal limits... No lesions. circumcised Prostate - symmetric, no nodules. BENIGN Seminal Vesicals: No mass. Sphincter tone: normal Neurological: Mental Status: He is alert. Assessment/Plan Diagnoses and all orders for this visit: Kidney stones Benign prostatic hyperplasia with lower urinary tract symptoms, symptom details unspecified Nocturia MRI x 2 reviewed-[facility] to follow right renal mass. Discussed options for this renal lesion KUB ordered Stone prevention discussed. Diet reviewed. Discussed fluid intake All available PSA values reviewed, Options discussed. Questions answered. Diet changes for prostate health discussed and educational information given. Pros/Cons of prostatehealth supplements discussed. Treatment options for LUTS reviewed Continue uroxatrol Discussed timed voiding. Discussed fluid and caffeine intake Treatment options for ED reviewed. Lifestyle change to help prevent UTIs discussed. Encouraged fluid intake. UA reviewed-Clear F/U virtual with PSA documented in this [facility] Work Phone: 1(213) 319-972002-07-2023 Note. MICRO - Microbiology PROCEDURE: Blood Culture (bacterial) [...] Locations *1: This test was performed at: [facility], [address] [place] [address], [id number]- , [facility] ([place])08-17-2022 Note. MICRO - Microbiology PROCEDURE: Blood Culture (bacterial) [...] Locations *1: This test was performed at: [facility], [address] [place] [address], [id number]- , [facility] ([place])08-17-[address] Grubbs [facility] August 17, 2022 4:47pm Note Date/Time August 17, 2022 4 :47pm [facility] Medical Records Department [address] [place] [address] Progress Note - Hospitalist 08/17/22 1644 MR#: [id number] Acct: [id number] Name: TIMUR JIMENEZ Rep #:[id number] : 1945 76 From: Rupali Grubbs DO PCP: Status:ADM IN Location: [facility] [id number] Reason for Visit Reason for Visit: Diagnoses Elevated white blood cell count, unspecified (08/12/22) Sick-euthyroid syndrome (08/12/22) Acidosis, unspecified (08/12/22) Pneumonia, unspecified organism (08/12/22) Chronic obstructive pulmonary disease with (acute) exacerbation (08/12/22) Bronchiectasis, uncomplicated (08/12/22) Acute and chronic respiratory failure with hypoxia (08/12/22) Hyperglycemia, unspecified (08/12/22) Subjective Subjective Patient is much improved clinically. He states his shortness of breath is improving and his sputum production is decreased. He has been weaned to 7 L heated high flow nasal cannula from 10 L yesterday. Objective Data Objective Data Vital Signs: Vital Signs Temp Pulse Resp BP Pulse Ox O2 Del Method O2 Flow Rate 98.4 F 83 20 H 109/74 96 Nasal Cannula 6 08/17/22 14:52 08/17/22 14:52 08/17/22 14:52 08/17/22 14:52 08/17/22 15:35 08/17/22 16:40 08/17/22 16:40 FiO2 45 08/16/22 10:00 Oxygen Flow Rate (L/min) 6 Oxygen Delivery Method Nasal Cannula Weight: 88.042 kg Body Mass Index (BMI) 28.6 Intake & Output: Intake and Output for Last 24 Hours 08/15/22 08/16/22 08/17/22 23:59 23:59 23:59 Intake Total 1200 / 1200 1400 / 1400 500 / 500 Output Total 2560 / 2560 2500 / 2500 Balance -1360 / -1360 -1100 / -1100 500 / 500 Lab / Micro Data Result Diagrams: 08/16/22 06:10 08/17/22 06:58 Labs: Laboratory Results - last 24 hr 08/17/22 06:58: Sodium 137, Potassium 4.0, Chloride 103, Carbon Dioxide 26.0, Anion Gap 8, BUN 27 H, Creatinine 0.88, Estim Creat Clear Calc 72.53, Est GFR (MDRD) Af Amer 109, Est GFR (MDRD) Non-Af 90, BUN/Creatinine Ratio 30.8 H, Glucose 127 H, Calcium 9.1 Micro: Microbiology 08/15/22 08:34 Mucosa - Nasopharyngeal Respiratory Panel (PCR) - Final 08/12/22 22:50 Sputum, Expectorated/Coughed Gram Stain - Final 08/12/22 22:50 Sputum, Expectorated/Coughed Respiratory Culture - Final Presumptive C albicans 08/13/22 00:10 Urine, Clean Catch Legionella Antigen - Final 08/13/22 00:10 Urine, Clean Catch Streptococcus pneumoniae Antigen (M - Final Physical Exam Const alert, oriented x3, no apparent distress and average body habitus Constitutional Narrative: Older white male sitting up in bed, has been weaned to heated high flow nasal cannula patient appears comfortable, nontoxic, watching television HEENT normocephalic, head/scalp atraumatic and moist oral mucous membranes HEENT Narrative: Edentulous, no thrush Resp normal respiratory effort, no retractions, no use of accessory muscles and clearto auscultation bilaterally Resp Narrative: Diffusely diminished, wheezing has resolved Auscultation: Negative for crackles, rales, rhonchi or wheezes Cardio regular rate, regular rhythm, S1 normal heart sound, S2 normal heart sound, no murmurs, no rub, no gallops and no clicks GI normal to inspection, nondistended, normoactive bowel sounds, soft to palpation,non-tender and non-distended Extremity no clubbing, cyanosis or edema Extremity Narrative: 2+ pedal pulses Neuro oriented x3, moves all extremities and no focal motor deficits Speech: speech normal Psych affect normal Psych Narrative: Pleasant, appropriately interactive Assessment & Plan Assessment/Plan (1) Acute and chronic respiratory failure with hypoxia: (2) Bronchiectasis: (3) COPD exacerbation: (4) Lactic acidosis: (5) Leukocytosis: (6) Hyperglycemia: (7) Euthyroid sick syndrome: PLAN: Plan Acute hypoxic respiratory failure secondary to acute exacerbation of COPD/bronchiectasis -Continue bronchodilators -Continue mucolytic's -Continue Solu-Medrol every 12 -At the time of discharge we will plan on slow taper of Solu-Medrol -Respiratory viral panel is negative -Strep pneumo and Legionella antigens are negative -CTA of the chest done on admission shows emphysematous changes worse in the upper lobes as well as atelectasis and/or infiltrates at the lung bases with chronic scarring and bronchiectasis -COVID and flu negative at outside facility -Sputum culture thus far is only showing Yolanda albicans -Echocardiogram showed an EF of 70% with estimated pulmonary artery pressure normal and no valvular abnormalities -Currently on heated high flow nasal cannula at 6 L -I did discuss with the patient he would need to be on regular nasal cannula with exertion at 6 L last prior to discharge -Continue daily Lasix and monitor BMPs daily Abnormal TSH -TSH 0.26 -Free T4 assessed and noted to be 1.24 -Suspect euthyroid sick with acute illness Hyperglycemia -Mild -Blood sugars running in the 120-130 range predominantly -Likely related to steroid use -No reason to address further at this time Hyperlipidemia -Continue home atorvastatin Neuropathy -Continue home gabapentin Hypertension -Continue home Imdur -Continue home lisinopril -Continue home metoprolol GERD -Continue home Protonix Chronic pain -Continue home Ultram DVT prophylaxis -Continue enoxaparin 40 mg daily CODE STATUS -DNR CCA with no intubation per discussion on 08/14/2021 Charges/Coding Visit Charges Inpatient E&M: 69610 Subs Hosp L2 08/17/22 7194 <Electronically signed by Rupali Grubbs DO> Cosigner Signature (if applicable): CC: ~ Signed [facility] Work Phone: 1(118) 118-498702-07-[address] Palomino [facility] August 17, 2022 8:34am Note Date/Time August 16, 2022 1 :51pm [facility] Medical Records Department [address] [place] [address] Progress Note - Master Control Engineer 08/16/22 1345 MR#: [id number] Acct: [id number] Name: TIMUR JIMENEZ Jr. Rep #: [id number] : 1945 76 From: Jake Palomino DO PCP: OUT OF TOWN DOCTOR Status:ADM IN Location: [facility] [id number] Assessment & Plan Assessment/Plan (1) COPD exacerbation: PLAN: Plan RECOMMENDATIONS: 1. Continue scheduled bronchodilators and steroids. 2. Continue to wean supplemental oxygen for saturations greater than 90%. 3. Consider ongoing diuresis as tolerated by hemodynamics and renal function. 4. Encourage incentive spirometer use and mobilize patient as tolerated. 5. Recommend close outpatient pulmonary follow-up within 2 weeks of discharge. IMPRESSIONS: 1. Acute hypoxemic respiratory failure Likely secondary to underlying COPD with exacerbation. The patient did have radiographic evidence of bronchiectasis and advanced emphysematous changes. Fornow, it is reasonable to continue scheduled bronchodilators and IV steroids. Continue to wean supplemental oxygen as tolerated for saturations greater than 90%. Lastly, gentle diuresis can be considered as tolerated by hemodynamics andrenal function, given concern for possible underlying heart failure with preserved ejection fraction. 2. History of neuropathy/hypertension/GERD/chronic pain syndrome Complicates care, management, recovery and prognosis. Continue home medicationsas indicated. This note was generated with [employer] dictation software. It may contain incorrectwords, spelling, and punctuation that were not noted in checking the note beforesigning. Subjective Subjective The patient was seen and examined at the bedside this morning. Events from the last 24 hours have been reviewed. The patient is currently afebrile, hemodynamically stable and maintaining appropriate oxygen saturations on 10 L/min. The patient is documented to be overall net -4.7 L for the hospitalization. Objective Data Objective Data The patient's most recent lab work, culture data and imaging studies have all been personally reviewed. Infectious work-up has been unrevealing to date. Surface echocardiogram demonstrated normal LV size and function with an ejection fraction of 70%. Vital Signs: Vital Signs Temp Pulse Resp BP Pulse Ox O2 Del Method O2 Flow Rate 97.2 F L 80 16 133/84 H 93 High Flow 10 08/16/22 09:00 08/16/22 11:22 08/16/22 11:02 08/16/22 11:22 08/16/22 12:17 08/16/22 12:17 08/16/22 12:17 FiO2 45 08/16/22 10:00 Oxygen Flow Rate (L/min) 10 Oxygen Delivery Method High Flow Weight: 194 lb 1.59 oz Body Mass Index (BMI) 28.6 Intake & Output: Intake and Output for Last 24 Hours 08/14/22 08/15/22 08/16/22 23:59 23:59 23:59 Intake Total 1300 / 1540 1200 / 1200 1400 / 1400 Output Total 2800 / 3460 2560 / 2560 2500 / 2500 Balance -1500 / -1920 -1360 / -1360 -1100 / -1100 Lab / Micro Data Attestation: I reviewed the patient's lab results. Result Diagrams: 08/16/22 06:10 08/17/22 06:58 Labs: Laboratory Results - last 24 hr 08/16/22 06:10: WBC 6.9, RBC 4.00 L, Hgb 13.1, Hct 39.3 L, MCV 98.3 H, MCH 32.8 H, MCHC 33.3, RDW Std Deviation 53.5 H, RDW Coeff of Chadd 14.7 H, Plt Count 203, MPV 10.3, Immature Gran % (Auto) 1.500 H, Neut % (Auto) 75.1 H, Lymph % (Auto) 11.8 L, [place] % (Auto) 11.5 H, Eos % (Auto) 0.0, Baso % (Auto) 0.1, Absolute Neuts (auto) 5.2, Absolute Lymphs (auto) 0.81 L, Nucleated RBC % 0 08/16/22 06:10: Sodium 137, Potassium 4.2, Chloride 104, Carbon Dioxide 26.0, Anion Gap 7, BUN 26 H, Creatinine 0.81, Estim Creat Clear Calc 78.80, Est GFR (MDRD) Af Amer 120, Est GFR (MDRD) Non-Af 99, BUN/Creatinine Ratio 32.3 H, Glucose 130 H, Calcium 8.9 Micro: Microbiology 08/15/22 08:34 Mucosa - Nasopharyngeal Respiratory Panel (PCR) - Final 08/12/22 22:50 Sputum, Expectorated/Coughed Gram Stain - Final 08/12/22 22:50 Sputum, Expectorated/Coughed Respiratory Culture - Final Presumptive C albicans 08/13/22 00:10 Urine, Clean Catch Legionella Antigen - Final 08/13/22 00:10 Urine, Clean Catch Streptococcus pneumoniae Antigen (M - Final Physical Exam Const alert and no apparent distress Constitutional Narrative: Currently working with physical therapy. General Appearance: cooperative HEENT normocephalic, head/scalp atraumatic and moist oral mucous membranes Eyes PERRL, EOMs intact bilaterally and conjunctivae normal Neck supple General: trachea midline Chest inspection of chest normal Resp Auscultation: wheezes and diminished lung sounds Cardio regular rate and regular rhythm GI normal to inspection, nondistended, normoactive bowel sounds Extremity no clubbing, cyanosis or edema Skin no rashes or lesions noted Neuro oriented x3, CN's II-XII intact bilaterally and moves all extremities Psych cooperative and affect normal Charges/Coding Visit Charges Inpatient E&M: 01037 Subs Hosp L2 08/17/22 0834 <Electronically signed by Jake Palomino DO> Cosigner Signature (if applicable): CC: ~ Signed [facility] Work Phone: [phone]) 859-200602-06-[address] Grubbs [facility] August 16, 2022 3:11pm Note Date/Time August 16, 2022 3 :11pm [facility] Medical Records Department [address] [place] [id number] Progress Note - Hospitalist 08/16/22 1502 MR#: [id number] Acct: [id number] Name: TIMUR JIMENEZ Rep #:[id number] : 1945 76 From: Rupali Grubbs DO PCP: OUT OF TOWN DOCTOR Status:ADM IN Location: [facility] [id number] Subjective Subjective Patient reports that overall he does feel like he is improving. He did state hegot a little bit of a bloody nose on high flow yesterday. Breathing is overall better. Objective Data Objective Data Vital Signs: Vital Signs Temp Pulse Resp BP Pulse Ox O2 Del Method O2 Flow Rate 97.2 F L 80 16 133/84 H 94 High Flow 10 08/16/22 09:00 08/16/22 11:22 08/16/22 11:02 08/16/22 11:22 08/16/22 14:35 08/16/22 14:35 08/16/22 14:35 FiO2 45 08/16/22 10:00 Oxygen Flow Rate (L/min) 10 Oxygen Delivery Method High Flow Weight: 88.042 kg Body Mass Index (BMI) 28.6 Intake & Output: Intake and Output for Last 24 Hours 08/14/22 08/15/22 08/16/22 23:59 23:59 23:59 Intake Total 1300 / 1540 1200 / 1200 1400 / 1400 Output Total 2800 / 3460 2560 / 2560 2500 / 2500 Balance -1500 / -1920 -1360 / -1360 -1100 / -1100 Lab / Micro Data Result Diagrams: 08/16/22 06:10 08/16/22 06:10 Labs: Laboratory Results - last 24 hr 08/16/22 06:10: WBC 6.9, RBC 4.00 L, Hgb 13.1, Hct 39.3 L, MCV 98.3 H, MCH 32.8 H, MCHC 33.3, RDW Std Deviation 53.5 H, RDW Coeff of Chadd 14.7 H, Plt Count 203, MPV 10.3, Immature Gran % (Auto) 1.500 H, Neut % (Auto) 75.1 H, Lymph % (Auto) 11.8 L, [place] % (Auto) 11.5 H, Eos % (Auto) 0.0, Baso % (Auto) 0.1, Absolute Neuts (auto) 5.2, Absolute Lymphs (auto) 0.81 L, Nucleated RBC % 0 08/16/22 06:10: Sodium 137, Potassium 4.2, Chloride 104, Carbon Dioxide 26.0, Anion Gap 7, BUN 26 H, Creatinine 0.81, Estim Creat Clear Calc 78.80, Est GFR (MDRD) Af Amer 120, Est GFR (MDRD) Non-Af 99, BUN/Creatinine Ratio 32.3 H, Glucose 130 H, Calcium 8.9 Micro: Microbiology 08/15/22 08:34 Mucosa - Nasopharyngeal Respiratory Panel (PCR) - Final 08/12/22 22:50 Sputum, Expectorated/Coughed Gram Stain - Final 08/12/22 22:50 Sputum, Expectorated/Coughed Respiratory Culture - Final Presumptive C albicans 08/13/22 00:10 Urine, Clean Catch Legionella Antigen - Final 08/13/22 00:10 Urine, Clean Catch Streptococcus pneumoniae Antigen (M - Final Physical Exam Const alert, oriented x3, no apparent distress and average body habitus Constitutional Narrative: Older white male sitting up in bed, currently on Airvo, patient appears comfortable, nontoxic, watching television HEENT normocephalic, head/scalp atraumatic and moist oral mucous membranes HEENT Narrative: Mallampati 2, no thrush Neck supple and no JVD Resp normal respiratory effort, no retractions and no use of accessory muscles Resp Narrative: Diffusely diminished, diffuse scattered wheezes greater at the bases in the apices, air movement is improved Auscultation: wheezes; Negative for crackles, rales or rhonchi Cardio regular rate, regular rhythm, S1 normal heart sound, S2 normal heart sound, no murmurs, no rub, no gallops and no clicks GI normal to inspection, nondistended, normoactive bowel sounds, soft to palpation and non-tender Extremity no clubbing, cyanosis or edema Extremity Narrative: 2+ pedal pulses Neuro oriented x3, moves all extremities and no focal motor deficits Speech: speech normal Psych affect normal Psych Narrative: Pleasant, appropriately interactive Assessment & Plan Assessment/Plan (1) Acute and chronic respiratory failure with hypoxia: (2) Bronchiectasis: (3) COPD exacerbation: (4) Lactic acidosis: (5) Leukocytosis: (6) Hyperglycemia: (7) Euthyroid sick syndrome: PLAN: Plan Acute hypoxic respiratory failure secondary to acute exacerbation of COPD/bronchiectasis -Continue bronchodilators -Continue mucolytic's -Continue Solu-Medrol every 12 -Respiratory viral panel is negative -Strep pneumo and Legionella antigens are negative -CTA of the chest done on admission shows emphysematous changes worse in the upper lobes as well as atelectasis and/or infiltrates at the lung bases with chronic scarring and bronchiectasis -COVID and flu negative at outside facility -Sputum culture thus far is only showing Yolanda albicans -Echocardiogram showed an EF of 70% with estimated pulmonary artery pressure normal and no valvular abnormalities -Currently on Airvo at 60 L/min and 45% FiO2 -Will trial high flow nasal cannula -We will discontinue antibiotics -We will go ahead and dose another 20 mg IV push today and reassess tomorrow as it seemed that the 20 mg dose did help some yesterday Abnormal TSH -TSH 0.26 -Free T4 assessed and noted to be 1.24 -Suspect euthyroid sick with acute illness Hyperglycemia -Mild -Blood sugars running in the 120-130 range predominantly -Likely related to steroid use -No reason to address further at this time Hyperlipidemia -Continue home atorvastatin Neuropathy -Continue home gabapentin Hypertension -Continue home Imdur -Continue home lisinopril -Continue home metoprolol GERD -Continue home Protonix Chronic pain -Continue home Ultram DVT prophylaxis -Continue enoxaparin 40 mg daily CODE STATUS -DNR CCA with no intubation per discussion on 08/14/2021 Charges/Coding Visit Charges Inpatient E&M: 10825 Subs Hosp L2 Reason for Visit Reason for Visit: Diagnoses Chronic obstructive pulmonary disease with (acute) exacerbation (08/12/22) Bronchiectasis, uncomplicated (08/12/22) Acute and chronic respiratory failure with hypoxia (08/12/22) 08/16/22 1511 <Electronically signed by Rupali Grubbs DO> Cosigner Signature (if applicable): CC: ~ Signed [facility] Work Phone: [phone]) 188-955002-05-[address] Grubbs [facility] August 15, 2022 2:57pm Note Date/Time August 15, 2022 2 :53pm [facility] System Medical Records Department [address] [place] [id number] Progress Note - Hospitalist 08/15/22 1450 MR#: [id number] Acct: [id number] Name: TIMUR JIMENEZ JrCarmita Rep #:[id number] : 1945 76 From: Rupali Grubbs DO PCP: OUT OF TOWN DOCTOR Status:ADM IN Location: [facility] [id number] Subjective Subjective Patient subjectively reports that he feels much better. Has been weaned to Airvo at 60 L/min with an FiO2 of 64%. I think we can trial him on high flow today and this also was discussed with him by pulmonary medicine. He denies anycurrent issues. Objective Data Objective Data Vital Signs: Vital Signs Temp Pulse Resp BP Pulse Ox O2 Del Method O2 Flow Rate 99.1 F 84 18 110/67 93 High Flow 15 08/15/22 08:45 08/15/22 11:12 08/15/22 11:12 08/15/22 08:47 08/15/22 11:12 08/15/22 11:12 08/15/22 11:12 FiO2 49 08/15/22 08:45 Oxygen Flow Rate (L/min) 15 Oxygen Delivery Method High Flow Weight: 88.042 kg Body Mass Index (BMI) 28.6 Intake & Output: Intake and Output for Last 24 Hours 08/13/22 08/14/22 08/15/22 23:59 23:59 23:59 Intake Total 815 / 1215 1300 / 1540 480 / 480 Output Total 1550 / 2000 2800 / 3460 1260 / 1260 Balance -735 / -785 -1500 / -1920 -780 / -780 Lab / Micro Data Result Diagrams: 08/15/22 06:10 08/15/22 06:10 Labs: Laboratory Results - last 24 hr 08/15/22 06:10: WBC 9.3, RBC 3.92 L, Hgb 12.7 L, Hct 39.6 L, MCV 101.0 H, MCH 32.4 H, MCHC 32.1, RDW Std Deviation 56.0 H, RDW Coeff of Chadd 15.0 H, Plt Count 211, MPV 10.2, Immature Gran % (Auto) 1.000 H, Neut % (Auto) 82.6 H, Lymph % (Auto) 8.6 L, [place] % (Auto) 7.7, Eos % (Auto) 0.0, Baso % (Auto) 0.1, Absolute Neuts (auto) 7.7, Absolute Lymphs (auto) 0.80 L, Nucleated RBC % 0 08/15/22 06:10: Sodium 137, Potassium 4.3, Chloride 103, Carbon Dioxide 26.0, Anion Gap 8, BUN 25 H, Creatinine 0.85, Estim Creat Clear Calc 75.09, Est GFR (MDRD) Af Amer 113, Est GFR (MDRD) Non-Af 93, BUN/Creatinine Ratio 29.4 H, Glucose 117 H, Calcium 9.0, Phosphorus 2.9, Magnesium 2.2, Total Bilirubin 0.60,AST 19, ALT 20, Alkaline Phosphatase 49, Total Protein 6.5, Albumin 3.4, Globulin 3.1, Albumin/Globulin Ratio 1.1, TSH 0.26 L 08/15/22 06:10: Free T4 1.24 Micro: Microbiology 08/15/22 08:34 Mucosa - Nasopharyngeal Respiratory Panel (PCR) - Final 08/12/22 22:50 Sputum, Expectorated/Coughed Gram Stain - Final 08/12/22 22:50 Sputum, Expectorated/Coughed Respiratory Culture - Final Presumptive C albicans 08/13/22 00:10 Urine, Clean Catch Legionella Antigen - Final 08/13/22 00:10 Urine, Clean Catch Streptococcus pneumoniae Antigen (M - Final Physical Exam Const alert, oriented x3, no apparent distress and average body habitus Constitutional Narrative: Older white male sitting up in bed, currently on Airvo, patient appears comfortable, nontoxic, watching television HEENT normocephalic, head/scalp atraumatic and moist oral mucous membranes HEENT Narrative: No thrush Resp normal respiratory effort, no retractions and no use of accessory muscles Resp Narrative: Diffusely diminished, diffuse scattered wheezes greater at the bases in the apices Auscultation: wheezes; Negative for crackles, rales or rhonchi Cardio regular rate, regular rhythm, S1 normal heart sound, S2 normal heart sound, no murmurs, no rub, no gallops and no clicks GI normal to inspection, nondistended, normoactive bowel sounds, soft to palpation,non-tender and non-distended Extremity no clubbing, cyanosis or edema Extremity Narrative: 2+ pedal pulses Neuro oriented x3, moves all extremities and no focal motor deficits Speech: speech normal Psych affect normal Psych Narrative: Pleasant, appropriately interactive Assessment & Plan Assessment/Plan (1) Acute and chronic respiratory failure with hypoxia: (2) Bronchiectasis: (3) COPD exacerbation: (4) Lactic acidosis: (5) Leukocytosis: (6) Hyperglycemia: (7) Euthyroid sick syndrome: PLAN: Plan Acute hypoxic respiratory failure secondary to acute exacerbation of COPD/bronchiectasis -Continue bronchodilators -Continue mucolytic's -Continue steroids at current dose -Respiratory viral panel is negative -Strep pneumo and Legionella antigens are negative -CTA of the chest done on admission shows emphysematous changes worse in the upper lobes as well as atelectasis and/or infiltrates at the lung bases with chronic scarring and bronchiectasis -COVID and flu negative at outside facility -Sputum culture thus far is only showing Yolanda albicans -Echocardiogram showed an EF of 70% with estimated pulmonary artery pressure normal and no valvular abnormalities -Currently on Airvo at 60 L/min and 64% FiO2 -Continue empiric antibiotics for now -If cultures are negative on Tuesday we will discontinue antibiotics -We will trial IV Lasix 20 mg IV push x1 dose to see if this helps with FiO2 wean Abnormal TSH -TSH 0.26 -Free T4 assessed and noted to be 1.24 -Suspect euthyroid sick with acute illness Leukocytosis -Normalized Lactic acidosis -Resolved Hyperglycemia -Mild -Blood sugars running in the 120s predominantly -Likely related to steroid use -No reason to address further at this time Hyperlipidemia -Continue home atorvastatin Neuropathy -Continue home gabapentin Hypertension -Continue home Imdur -Continue home lisinopril -Continue home metoprolol GERD -Continue home Protonix Chronic pain -Continue home Ultram DVT prophylaxis -Continue enoxaparin 40 mg daily CODE STATUS -DNR CCA with no intubation per discussion on 08/14/2021 Charges/Coding Visit Charges Inpatient E&M: 02838 Subs Hosp L2 08/15/22 7302 <Electronically signed by Rupali Grubbs DO> Cosigner Signature (if applicable): CC: ~ Signed [facility] Work Phone: [phone]) [phone] Snyder [facility] August 15, 2022 9:50am Note Date/Time August 15, 2022 8 :37am [facility] Health System Medical Records Department [address] [place] [id number] Progress Note - Master Control Engineer 08/15/22 0833 MR#: [id number] Acct: [id number] Name: TIMUR JIMENEZ Jr. Rep #: : 1945 76 From: Flip Snyder MD PCP: OUT OF TOWN DOCTOR Status:ADM IN Location: [place] [address] Assessment & Plan Assessment/Plan (1) COPD exacerbation: PLAN: Plan RECOMMENDATIONS: 1. Continue bronchodilators and mucolytic. Wean steroids 2. Wean Airvo as tolerated. Likely transition to nasal cannula later today 3. Patient will need a walking oximetry prior to discharge 4. Wean supplemental oxygen as tolerated 5. Okay to discontinue antibiotics from my perspective IMPRESSIONS: 1. Acute hypoxic respiratory failure secondary to COPD/bronchiectasis exacerbation Patient does not appear to have any significant infiltrate on CT scan of the chest. However, patient does have bronchiectasis and advanced emphysematouschanges. Patient is appropriately being treated with bronchodilators, steroids,antibiotics and mucolytic's. Likely okay to discontinue antibiotics from my perspective. Echocardiogram is suggestive of diastolic dysfunction. Patient does not have significant lower extremity edema to suggest congestive heart failure, but does carry a diagnosis of previous [place]. Patient appears to be responding well to therapy,, so will wean steroids 2. Advanced age/lack of air defense control officer/hyperglycemia Complicates care, management, recovery and prognosis. We will continue towatch blood sugars on daily labs. Cannot exclude the need for sliding scale insulin and basal insulin given the need for steroids secondary to problem #1. Patient will need an outpatient established air defense control officer to evaluate for complications and optimization of baseline function. Subjective Subjective Patient did well overnight. Patient subjectively feels improved compared to yesterday. Patient still has some shortness of breath with exertion, but overall feels he is moving in the right direction. Cough frequency is also improving. Objective Data Objective Data Vital Signs: Vital Signs Temp Pulse Resp BP Pulse Ox O2 Del Method O2 Flow Rate 36.8 C 80 20 H 105/62 93 Airvo 60 08/15/22 03:40 08/15/22 07:04 08/15/22 07:04 08/15/22 03:40 08/15/22 07:04 08/15/22 07:57 08/15/22 07:57 FiO2 64 08/15/22 07:57 Oxygen Flow Rate (L/min) 60 Oxygen Delivery Method Airvo Weight: 88.042 kg Body Mass Index (BMI) 28.6 Intake & Output: Intake and Output for Last 24 Hours 08/13/22 08/14/22 08/15/22 23:59 23:59 23:59 Intake Total 815 / 1215 1300 / 1540 480 / 480 Output Total 1550 / 2000 2800 / 3460 1260 / 1260 Balance -735 / -785 -1500 / -1920 -780 / -780 Lab / Micro Data Attestation: I reviewed the patient's lab results. Result Diagrams: 08/15/22 06:10 08/15/22 06:10 Labs: Laboratory Results - last 24 hr 08/15/22 06:10: WBC 9.3, RBC 3.92 L, Hgb 12.7 L, Hct 39.6 L, MCV 101.0 H, MCH 32.4 H, MCHC 32.1, RDW Std Deviation 56.0 H, RDW Coeff of Chadd 15.0 H, Plt Count 211, MPV 10.2, Immature Gran % (Auto) 1.000 H, Neut % (Auto) 82.6 H, Lymph % (Auto) 8.6 L, [place] % (Auto) 7.7, Eos % (Auto) 0.0, Baso % (Auto) 0.1, Absolute Neuts (auto) 7.7, Absolute Lymphs (auto) 0.80 L, Nucleated RBC % 0 08/15/22 06:10: Sodium 137, Potassium 4.3, Chloride 103, Carbon Dioxide 26.0, Anion Gap 8, BUN 25 H, Creatinine 0.85, Estim Creat Clear Calc 75.09, Est GFR (MDRD) Af Amer 113, Est GFR (MDRD) Non-Af 93, BUN/Creatinine Ratio 29.4 H, Glucose 117 H, Calcium 9.0, Phosphorus 2.9, Magnesium 2.2, Total Bilirubin 0.60,AST 19, ALT 20, Alkaline Phosphatase 49, Total Protein 6.5, Albumin 3.4, Globulin 3.1, Albumin/Globulin Ratio 1.1, TSH 0.26 L Micro: Microbiology 08/12/22 22:50 Sputum, Expectorated/Coughed Gram Stain - Final 08/12/22 22:50 Sputum, Expectorated/Coughed Respiratory Culture - Final Presumptive C albicans 08/13/22 00:10 Urine, Clean Catch Legionella Antigen - Final 08/13/22 00:10 Urine, Clean Catch Streptococcus pneumoniae Antigen (M - Final Radiography Diagnostic Testing: Radiology Impression Echocardiogram 08/13/22 10:45 Interpretation Summary The estimated ejection fraction is 70 %. Unable to assess diastolic dysfunction. Ordering Physician: Flip Snyder Referring Physician: NO PCP Performed By: Lolly Peralta RCS Physical Exam Const alert and oriented x3 Constitutional Narrative: On Airvo during my evaluation General Appearance: frail; Negative for in distress HEENT normocephalic and head/scalp atraumatic Eyes PERRL, EOMs intact bilaterally, conjunctivae normal and no scleral icterus Neck full ROM, supple and no JVD Chest Chest: abnormal inspection of the chest increased A-P diameter Resp Auscultation: wheezes expiratory wheezes (Improved compared to previous) and lower bilaterally; Negative for rales or rhonchi Cardio regular rate, regular rhythm, S1 normal heart sound, S2 normal heart sound, no murmurs, no rub and no gallops GI normal to inspection, nondistended, normoactive bowel sounds Extremity General Extremity: clubbing; Negative for edema Skin Skin Narrative: Dermal atrophy noted Neuro oriented x3, CN's II-XII intact bilaterally, moves all extremities and no focal motor deficits Psych cooperative and affect normal Charges/Coding Visit Charges Inpatient E&M: 48108 Subs Hosp L2 08/15/22 0950 <Electronically signed by Flip Snyder MD> Cosigner Signature (if applicable): CC: ~ Signed [facility] Work Phone: 1(633) 386-381402-04-[address] Grubbs [facility] August 14, 2022 4:10pm Note Date/Time August 14, 2022 1 0:53am [facility] Medical Records Department [address] [place] [address] Progress Note - Hospitalist 08/14/22 1041 MR#: [id number] Acct: [id number] Name: TIMUR JIMENEZ Jr. Rep #:[id number] : 1945 76 From: Rupali Grubbs DO PCP: OUT OF TOWN DOCTOR Status:ADM IN Location: [place] [address]- 1 Subjective Subjective Mr. Jimenez is a 76-year-old white male who presented to the emergency department on 08/12/2022 with worsening shortness of breath that has persistently gotten worse over the 2 days prior to presentation. At baseline he is on 2 L supplemental oxygen for his COPD but beginning the day prior to presentation he got more short of breath and developed coughing with production of yellow phlegm. His shortness of breath worsen and he presented to an outside ER because of that. He was found to have a right-sided pneumonia as well as a lactic acid of 6 on presentation. He was checked for influenza and COVID both of which were negative. He received ceftriaxone and azithromycin and transfer was requested to [facility]. Since being hospitalized he required increased FiO2 requirements up to 10 L/min and was very dyspneic but subjectively reported he was improved prior to presentation outside hospital. He was NT suctioned yesterday which he reported helped him considerably. He does carry a diagnosis of COPD however he is never followed up as an outpatient with pulmonary medicine or had pulmonary function test. He is on triple therapyat home along with supplemental oxygen as noted above. Patient states he is compliant at baseline. He does have an appointment to follow-up with a air defense control officer at the [place] in September. He was evaluated by pulmonary medicine and given thefact that there is no significant infiltrate on the CTA of his chest pneumonia diagnosis is in doubt however it is suspected he has bronchiectasis and advancedemphysematous COPD. He is currently on 15 L of heated high flow nasal cannula, but did require Airvo at 40 L/min and an FiO2 of 70% through the night. Patient does feel his breathing is overall better. He remains on Airvo at this time. Having some sputum production. I did review utilization of the Acapella with him and discussed its importance. CODE STATUS reviewed the patient he opted for DNR CCA okay for short-term intubation. Objective Data Objective Data Vital Signs: Vital Signs Temp Pulse Resp BP Pulse Ox O2 Del Method O2 Flow Rate 98.1 F 87 16 119/68 93 High Flow 15 08/14/22 08:56 08/14/22 08:59 08/14/22 08:56 08/14/22 08:59 08/14/22 08:56 08/14/22 08:56 08/14/22 08:56 FiO2 70 08/14/22 07:30 Oxygen Flow Rate (L/min) 15 Oxygen Delivery Method High Flow Weight: 88.042 kg Body Mass Index (BMI) 28.6 Intake & Output: Intake and Output for Last 24 Hours 08/12/22 08/13/22 02 23:59 23:59 23:59 Intake Total 815 / 1215 600 / 600 Output Total 1550 / 2000 750 / 750 Balance -735 / -785 -150 / -150 Lab / Micro Data Result Diagrams: 08/14/22 06:35 08/14/22 06:35 Labs: Laboratory Results - last 24 hr 08/14/22 06:35: WBC 12.9 H, RBC 3.94 L, Hgb 13.0, Hct 39.7 L, MCV 100.8 H, MCH 33.0 H, MCHC 32.7, RDW Std Deviation 55.9 H, RDW Coeff of Chadd 15.1 H, Plt Count 199, MPV 10.1, Immature Gran % (Auto) 0.900, Neut % (Auto) 87.9 H, Lymph % (Auto) 5.8 L, [place] % (Auto) 5.2, Eos % (Auto) 0.0, Baso % (Auto) 0.2, Absolute Neuts (auto) 11.4 H, Absolute Lymphs (auto) 0.75 L, Nucleated RBC % 0 08/14/22 06:35: Sodium 136, Potassium 4.7, Chloride 104, Carbon Dioxide 26.0, Anion Gap 6, BUN 23 H, Creatinine 0.77, Estim Creat Clear Calc 63.83, Est GFR (MDRD) Af Amer 126, Est GFR (MDRD) Non-Af 104, BUN/Creatinine Ratio 29.8 H, Glucose 122 H, Calcium 9.3 Micro: Microbiology 08/12/22 22:50 Sputum, Expectorated/Coughed Gram Stain - Final 08/12/22 22:50 Sputum, Expectorated/Coughed Respiratory Culture - Preliminary Culture exhibits no growth. 08/13/22 00:10 Urine, Clean Catch Legionella Antigen - Final 08/13/22 00:10 Urine, Clean Catch Streptococcus pneumoniae Antigen (M - Final Physical Exam Const alert and oriented x3 Constitutional Narrative: Older white male sitting up in a chair at the bedside, currently on Airvo, family at bedside, patient appears comfortable nontoxic HEENT head/scalp atraumatic and moist oral mucous membranes HEENT Narrative: Dentition is poor, Mallampati is 2, no thrush Head and Scalp: normocephalic Resp Resp Narrative: Diffusely diminished, bibasilar wheezes Auscultation: wheezes; Negative for crackles or rhonchi Cardio regular rate, regular rhythm, S1 normal heart sound, S2 normal heart sound, no murmurs, no rub, no gallops and no clicks GI normal to inspection, nondistended, normoactive bowel sounds, soft to palpation,non-tender and non-distended Extremity no clubbing, cyanosis or edema Extremity Narrative: 2+ pedal pulses Neuro oriented x3, moves all extremities and no focal motor deficits Speech: speech normal Psych affect normal Psych Narrative: Pleasant, appropriately interactive Assessment & Plan Assessment/Plan (1) Acute and chronic respiratory failure with hypoxia: (2) Bronchiectasis: (3) COPD exacerbation: (4) Lactic acidosis: (5) Leukocytosis: (6) Hyperglycemia: PLAN: Plan Acute hypoxic respiratory failure secondary to acute exacerbation of COPD/bronchiectasis -Continue bronchodilators -Continue mucolytic's -Continue steroids at current dose -Check respiratory viral panel -Strep pneumo and Legionella antigens are negative Sputum culture is pending -Echocardiogram pending -Currently on heated high flow nasal cannula at 15 L -Wean as able -Baseline supplemental O2 is 2 L -Continue empiric antibiotics for now -If cultures are negative on Tuesday we will discontinue antibiotics -May be able to consider additional diuretics depending on echocardiogram Leukocytosis -Was normal on presentation -Have trended up -Likely related to steroids with demargination of neutrophils Lactic acidosis -Suspect related to hypoxia -Likely resolved -Patient clinically improving -No reason to reassess at this time -Anion gap is normal Hyperglycemia -Mild -Blood sugars running in the 120s predominantly -Likely related to steroid use -No reason to address further at this time Hyperlipidemia -Continue home atorvastatin Neuropathy -Continue home gabapentin Hypertension -Continue home Imdur -Continue home lisinopril -Continue home metoprolol GERD -Continue home Protonix Chronic pain -Continue home Ultram DVT prophylaxis -Continue enoxaparin 40 mg daily CODE STATUS -DNR CCA with no intubation per discussion at the bedside today Charges/Coding Visit Charges Inpatient E&M: 05716 Subs Hosp L2 08/14/22 1610 <Electronically signed by Rupali Grubbs DO> Cosigner Signature (if applicable): CC: ~ Signed [facility] Work Phone: 1(544) 850-356102-04-[address] Snyder [facility] August 14, 2022 8:42am Note Date/Time August 14, 2022 8 :21am [facility] Medical Records Department [address] [place] [address] Progress Note - Master Control Engineer 08/14/22 0819 MR#: [id number] Acct: [id number] Name: TIMUR JIMENEZ Jr. Rep #: : [id number] From: Flip Snyder MD PCP: OUT OF TOWN DOCTOR Status:ADM IN Location: [facility] [id number] Assessment & Plan Assessment/Plan (1) COPD exacerbation: PLAN: Plan RECOMMENDATIONS: 1. Continue bronchodilators, steroids at current dosing, mucolytic 2. Wean Airvo as tolerated. Likely transition to nasal cannula once 50% or less 3. Obtain echocardiogram for pulmonary hypertension 4. Wean supplemental oxygen as tolerated 5. Potentially discontinue antibiotics if culture negative at 48 hours 6. No need to transfer to intensive care unit at this time IMPRESSIONS: 1. Acute hypoxic respiratory failure secondary to COPD/bronchiectasis exacerbation Patient does not appear to have any significant infiltrate on CT scan of the chest. However, patient does have bronchiectasis and advanced emphysematouschanges. Patient is appropriately being treated with bronchodilators, steroids,antibiotics and mucolytic's. Would recommend continuing antibiotics until sputum culture can be evaluated. Will obtain an echocardiogram for evaluation of pulmonary hypertension as a confounding factor. Patient does not have significant lower extremity edema to suggest congestive heart failure, but does carry a diagnosis of previous KS. Patient appears to be responding well to therapy, but will keep steroids at the current dosing until oxygenation improves 2. Advanced age/lack of air defense control officer/hyperglycemia Complicates care, management, recovery and prognosis. We will continue towatch blood sugars on daily labs. Cannot exclude the need for sliding scale insulin and basal insulin given the need for steroids secondary to problem #1. Patient will need an outpatient established air defense control officer to evaluate for complications and optimization of baseline function. Subjective Subjective Patient did well overnight. Patient did have to be transition to Airvo to maintain oxygen saturations. Patient states the vest has been helpful in dealing with secretions. Patient continues to have shortness of breath with minimal exertion. Objective Data Objective Data Vital Signs: Vital Signs Temp Pulse Resp BP Pulse Ox O2 Del Method O2 Flow Rate 36.6 C 79 24 H 116/85 H 94 Airvo 40 08/14/22 02:45 08/14/22 07:21 08/14/22 07:21 08/14/22 02:45 08/14/22 02:45 08/14/22 07:30 08/14/22 07:30 FiO2 70 08/14/22 07:30 Oxygen Flow Rate (L/min) 40 Oxygen Delivery Method Airvo Weight: 88.042 kg Body Mass Index (BMI) 28.6 Intake & Output: Intake and Output for Last 24 Hours 08/12/22 08/13/22 08/14/22 23:59 23:59 23:59 Intake Total 815 / 1215 600 / 600 Output Total 1550 / 2000 750 / 750 Balance -735 / -785 -150 / -150 Lab / Micro Data Attestation: I reviewed the patient's lab results. Result Diagrams: 08/14/22 06:35 08/14/22 06:35 Labs: Laboratory Results - last 24 hr 08/14/22 06:35: WBC 12.9 H, RBC 3.94 L, Hgb 13.0, Hct 39.7 L, MCV 100.8 H, MCH 33.0 H, MCHC 32.7, RDW Std Deviation 55.9 H, RDW Coeff of Chadd 15.1 H, Plt Count 199, MPV 10.1, Immature Gran % (Auto) 0.900, Neut % (Auto) 87.9 H, Lymph % (Auto) 5.8 L, [place] % (Auto) 5.2, Eos % (Auto) 0.0, Baso % (Auto) 0.2, Absolute Neuts (auto) 11.4 H, Absolute Lymphs (auto) 0.75 L, Nucleated RBC % 0 08/14/22 06:35: Sodium 136, Potassium 4.7, Chloride 104, Carbon Dioxide 26.0, Anion Gap 6, BUN 23 H, Creatinine 0.77, Estim Creat Clear Calc 63.83, Est GFR (MDRD) Af Amer 126, Est GFR (MDRD) Non-Af 104, BUN/Creatinine Ratio 29.8 H, Glucose 122 H, Calcium 9.3 Micro: Microbiology 08/12/22 22:50 Sputum, Expectorated/Coughed Gram Stain - Final 08/12/22 22:50 Sputum, Expectorated/Coughed Respiratory Culture - Preliminary Culture exhibits no growth. 08/13/22 00:10 Urine, Clean Catch Legionella Antigen - Final 08/13/22 00:10 Urine, Clean Catch Streptococcus pneumoniae Antigen (M - Final Radiography Diagnostic Testing: Radiology Impression Chest CTA 08/13/22 08:34 IMPRESSION: Emphysematous changes worse in the upper lobes. Atelectasis and/or infiltrates at the lung bases superimposed on chronic scarring and bronchiectasis. Electronically Signed: Ricky Pino MD at 9:40 EST , Physical Exam Const alert and oriented x3 Constitutional Narrative: On Airvo during my evaluation General Appearance: frail; Negative for in distress HEENT normocephalic and head/scalp atraumatic Eyes PERRL, EOMs intact bilaterally, conjunctivae normal and no scleral icterus Neck full ROM, supple and no JVD Chest Chest: abnormal inspection of the chest increased A-P diameter Resp Auscultation: wheezes expiratory wheezes and lower bilaterally; Negative for rales or rhonchi Cardio regular rhythm, S1 normal heart sound, S2 normal heart sound, no murmurs, no ruband no gallops Rate: tachycardic GI normal to inspection, nondistended, normoactive bowel sounds Extremity General Extremity: clubbing; Negative for edema Skin Skin Narrative: Dermal atrophy noted Neuro oriented x3, CN's II-XII intact bilaterally, moves all extremities and no focal motor deficits Psych cooperative and affect normal Charges/Coding Visit Charges Inpatient E&M: 53598 Subs Hosp L3 08/14/22 0842 <Electronically signed by Flip Snyder MD> Cosigner Signature (if applicable): CC: ~ Signed [facility] Work Phone: [phone]) [phone] Lowe [facility] August 13, 2022 5:10pm Note Date/Time August 13, 2022 5 :10pm [facility] Medical Records Department [address] [place] [address] Progress Note - Hospitalist 08/13/22 1705 MR#: [id number] Acct: [id number] Name: TIMUR JIMENEZ Jr. Rep #:[id number] : 1945 76 From: Juan Lowe DO PCP: OUT OF TOWN DOCTOR Status:ADM IN Location: [place] [address]- Subjective Subjective Patient was seen and examined today, his oxygen requirement is increased today, at the time of this dictation, he is on Airvo. Pulmonary medicine saw the patient today and recommended continuing bronchodilators, IV corticosteroids, and antibiotic coverage-they felt that the patient had a flareup of his bronchiectasis and COPD. Patient's oxygen requirement at home is usually 2 L. He states he has been on oxygen since June of last year. Pulmonary medicine does not think the patient has a community-acquired pneumonia. Objective Data Objective Data Vital Signs: Vital Signs Temp Pulse Resp BP Pulse Ox O2 Del Method O2 Flow Rate 98.4 F 111 H 16 122/74 H 96 Airvo 40 08/13/22 14:35 08/13/22 15:46 08/13/22 15:22 08/13/22 14:35 08/13/22 15:22 08/13/22 15:22 08/13/22 15:22 FiO2 79 08/13/22 15:22 Oxygen Flow Rate (L/min) 40 Oxygen Delivery Method Airvo Weight: 88.042 kg Body Mass Index (BMI) 28.6 Intake & Output: Intake and Output for Last 24 Hours 08/11/22 08/12/22 08/13/22 23:59 23:59 23:59 Intake Total 575 / 575 Output Total 1200 / 1200 Balance -625 / -625 Lab / Micro Data Result Diagrams: 08/13/22 05:32 08/13/22 05:32 Labs: Laboratory Results - last 24 hr 08/13/22 05:32: WBC 10.2, RBC 4.12 L, Hgb 13.4, Hct 40.7, MCV 98.8 H, MCH 32.5 H, MCHC 32.9, RDW Std Deviation 53.1 H, RDW Coeff of Chadd 14.7 H, Plt Count 186, MPV 10.4, Immature Gran % (Auto) 0.800, Neut % (Auto) 88.9 H, Lymph % (Auto) 6.9L, [place] % (Auto) 2.9, Eos % (Auto) 0.1, Baso % (Auto) 0.4, Absolute Neuts (auto)9.1 H, Absolute Lymphs (auto) 0.70 L, Nucleated RBC % 0 08/13/22 05:32: Sodium 136, Potassium 3.7, Chloride 102, Carbon Dioxide 25.0, Anion Gap 9, BUN 18, Creatinine 0.75, Estim Creat Clear Calc 63.83, Est GFR (MDRD) Af Amer 130, Est GFR (MDRD) Non-Af 108, BUN/Creatinine Ratio 24.0 H, Glucose 126 H, Calcium 9.2 Micro: Microbiology 08/12/22 22:50 Sputum, Expectorated/Coughed Gram Stain - Final 08/12/22 22:50 Sputum, Expectorated/Coughed Respiratory Culture - Preliminary Culture exhibits no growth. 08/13/22 00:10 Urine, Clean Catch Legionella Antigen - Final 08/13/22 00:10 Urine, Clean Catch Streptococcus pneumoniae Antigen (M - Final ABG Data ABG results: ABG 08/13/22 07:32 Specimen Type ART Sample Site R Radial pH 7.43 Bicarbonate Actual 20.8 L Total CO2 22 Base Excess -4 L O2 Saturation 92 L ABG pCO2 31.3 L ABG pO2 60 L Deven Test Positive O2 Delivery Device Cannula Liter Flow 10.0 Radiography Diagnostic Testing: Radiology Impression Chest X-Ray 08/13/22 02:11 IMPRESSION: No acute findings in the chest. Electronically Signed: Jose Luis Lackey MD at 3:03 EST , Chest CTA 08/13/22 08:34 IMPRESSION: Emphysematous changes worse in the upper lobes. Atelectasis and/or infiltrates at the lung bases superimposed on chronic scarring and bronchiectasis. Electronically Signed: Ricky Pino MD at 9:40 EST , Physical Exam Const alert, oriented x3, no apparent distress and average body habitus Constitutional Narrative: Patient appears older than his stated age General Appearance: cooperative, well kempt and well developed Orientation / Consciousness: awake, oriented to person, oriented to place and oriented to time HEENT normocephalic, head/scalp atraumatic and moist oral mucous membranes Eyes PERRL, EOMs intact bilaterally and conjunctivae normal Neck supple, no JVD, thyroid normal and no carotid bruits General: trachea midline Resp normal respiratory effort, no retractions and no use of accessory muscles Resp Narrative: Patient has expiratory rhonchi at the right base, overall breath sounds are diminished bilaterally Auscultation: rhonchi right lower; Negative for rales or wheezes Cardio regular rate, regular rhythm, S1 normal heart sound, S2 normal heart sound, no murmurs, no rub and no gallops GI normal to inspection, nondistended, normoactive bowel sounds, soft to palpation,non-tender and non-distended Extremity no clubbing, cyanosis or edema Skin no rashes or lesions noted General Skin Exam: no breakdown Neuro oriented x3, CN's II-XII intact bilaterally, moves all extremities, no focal motor deficits and no sensory deficits noted Sensorium / Orientation: awake, alert, oriented to person, oriented to place andoriented to time Speech: speech normal Psych affect normal Assessment & Plan Assessment/Plan (1) COPD exacerbation: PLAN: Plan 1. Exacerbation of COPD-patient will remain on his present medications, pulmonary medicine is participating in his care #2 acute on chronic hypoxic respiratory failure-pulse ox will be monitored, oxygen will be adjusted accordingly #3 coronary artery disease-complicates care, medical course, recovery, and prognosis #4 hyperlipidemia-patient is on atorvastatin #5 bronchiectasis-patient will remain on Levaquin at this time, pulmonary medicine is participating in his care. Total clinical time spent by myself addressing with patient's medical issues, reviewing all the data, and collaborating with the patient's care team: 37 minutes Charges/Coding Visit Charges Inpatient E&M: 86532 Subs Hosp L2 08/13/22 1710 <Electronically signed by Juan Tereletsky DO> Cosigner Signature (if applicable): CC: ~ Signed [facility] Work Phone: [phone]) 668-122302-03-[address] Snyder [facility] August 13, 2022 12:45pm Note Date/Time August 13, 2022 1 0:52am [facility] Medical Records Department [address] [place] [address] Consultation - Master Control Engineer 08/13/22 1041 MR#: [id number] Acct: [id number] Name: TIMUR JIMENEZ Jr. Rep #:[id number] : 1945 76 From: Flip Snyder MD PCP: OUT OF TOWN DOCTOR Status:ADM IN Location: [facility] [id number] Assessment & Plan Assessment/Plan (1) COPD exacerbation: PLAN: Plan RECOMMENDATIONS: 1. Continue bronchodilators, steroids, mucolytic 2. Consider transitioning to Airvo 3. Obtain echocardiogram for pulmonary hypertension 4. Wean supplemental oxygen as tolerated 5. Continue antibiotics pending sputum culture 6. No need to transfer to intensive care unit at this time IMPRESSIONS: 1. Acute hypoxic respiratory failure secondary to COPD/bronchiectasis exacerbation Patient does not appear to have any significant infiltrate on CT scan of the chest. However, patient does have bronchiectasis and advanced emphysematouschanges. Patient is appropriately being treated with bronchodilators, steroids,antibiotics and mucolytic's. Would recommend continuing antibiotics until sputum culture can be evaluated. Will obtain an echocardiogram for evaluation of pulmonary hypertension as a confounding factor. Patient does not have significant lower extremity edema to suggest congestive heart failure, but does carry a diagnosis of previous KS. 2. Advanced age/lack of air defense control officer/hyperglycemia Complicates care, management, recovery and prognosis. We will continue towatch blood sugars on daily labs. Cannot exclude the need for sliding scale insulin and basal insulin given the need for steroids secondary to problem #1. Patient will need an outpatient established air defense control officer to evaluate for complications and optimization of baseline function. HPI Consult Data Date of Consult: 08/13/22 HPI Narrative Reason for Consultation: Hypoxic respiratory failure HPI Narrative: TIMUR HUDSON, is a 76 M, with past medical history listed below, who presents as a direct transfer from [facility] secondary to hypoxic respiratory failure. Patient does carry diagnosis of COPD and is on 2 L nasal cannula chronically. Patient reportedly started to develop increased shortness of breath and coughing productive of yellow sputum over the last 2 to 3 days. Patient reportedly had a right-sided pneumonia with a lactate of 6. Viral studies were negative as an outpatient. Patient did receive ceftriaxone and azithromycin prior to discharge/transfer. Since being at [facility], patient has required increased FiO2 up to 10 L/min. Patient states he is very dyspneic, but overall feels subjectively improved compared to previous. Patient did have an NT suction thismorning and thought this was significantly helpful. Patient still has shortnessof breath with minimal exertion and feels that in retrospect he has been going downhill for months. Patient does carry diagnosis of COPD. Patient states he is never seen a air defense control officer or had a pulmonary function test previously. Patient is on tripletherapy at home along with 2 L nasal cannula. Patient states he is readily compliant with his supplemental oxygen. Patient states that his breathing is gotten so poor that he actually quit smoking recently. Patient states he is to meet with a air defense control officer at the [place] in September and was hoping to make it till then. Patient is not aware of any sick contacts. Patient denies any current chest pain, palpitations, nausea or vomiting. Patient has not had any aspiration events. Patient is not reporting any lower extremity edema. Patient is not aware of any other work-up. Patient has not had a history of PE that he is aware of. Review of systems otherwise negative from a constitutional, HEENT, respiratory, cardiovascular, GI, genitourinary, musculoskeletal, skin, neurologic, psychiatric and hematologic system unless stated above. [facility] Medical History COPD (chronic obstructive pulmonary disease) Heart attack Perforated ulcer PUD (peptic ulcer disease) TIA (transient ischemic attack) Home Medications atorvastatin 40 mg tablet 40 mg PO QHS Check with primary doctor 08/13/22 [History Last Taken Unknown] cholecalciferol (vitamin D3) 50 mcg (2,000 unit) tablet 50 mcg PO DAILY Check with primary doctor 08/13/22 [History Last Taken Unknown] cyclobenzaprine 10 mg tablet 10 mg PO QHS PRN PRN muscle spasms 08/13/22 [History Last Taken Unknown] fluticasone 250 mcg-salmeterol 50 mcg/dose blistr powdr for inhalation 1 inh inhalation BID Check with primary doctor 08/13/22 [History Last Taken Unknown] gabapentin 900 mg PO/SL QHS Check with primary doctor 08/13/22 [History Last Taken Unknown] gabapentin 600 mg tablet 600 mg PO DAILY Check with primary doctor 08/13/22 [History Last Taken Unknown] ipratropium 0.5 mg-albuterol 3 mg (2.5 mg base)/3 mL nebulization soln 3 ml inhalation Q6H PRN Shortness Of Breath 08/13/22 [History Last Taken Unknown] isosorbide mononitrate 30 mg tablet,extended release 24 hr 30 mg PO DAILY Check with primary doctor 08/13/22 [History Last Taken Unknown] lisinopril 5 mg tablet 5 mg PO DAILY Check with primary doctor 08/13/22 [History Last Taken Unknown] metoprolol succinate 100 mg tablet,extended release 24 hr 100 mg PO DAILY Check with primary doctor 08/13/22 [History Last Taken Unknown] pantoprazole 40 mg tablet,delayed release 40 mg PO DAILY Check with primary doctor 08/13/22 [History Last Taken Unknown] tiotropium bromide 2.5 mcg/actuation mist for inhalation (Spiriva Respimat) 2 puff inhalation BID Check with primary doctor 08/13/22 [History Last Taken Unknown] tramadol 50 mg tablet 50 mg PO Q6H PRN Breakthrough Pain 08/13/22 [History Last Taken Unknown] trazodone 50 mg tablet 50 mg PO QHS PRN leg cramps 08/13/22 [History Last Taken Unknown] Allergy/AdvReac Type Severity Reaction Status Date / Time oxycodone AdvReac Upset Verified 08/12/22 18:32 Stomach Family History Grandmother Lung cancer Father COPD (chronic obstructive pulmonary disease) Grandfather Bone cancer Brother Bone cancer Surgical History H/O hernia repair Total knee replacement status Social History Smoking Status: Former smoker Tobacco: How many years used: 65 how long ago did patient quit smokin months ago substance use type: does not use ROS ROS Narrative See HPI Physical Exam Const alert and oriented x3 General Appearance: in distress Positive for moderate (Respiratory) and frail HEENT normocephalic and head/scalp atraumatic HEENT Narrative: Slight temporal wasting noted Eyes PERRL, EOMs intact bilaterally, conjunctivae normal and no scleral icterus Neck full ROM, supple and no JVD Chest Chest: abnormal inspection of the chest increased A-P diameter Resp Auscultation: wheezes expiratory wheezes and lower bilaterally; Negative for rales or rhonchi Cardio regular rhythm, S1 normal heart sound, S2 normal heart sound, no murmurs, no ruband no gallops Rate: tachycardic GI normal to inspection, nondistended, normoactive bowel sounds Extremity General Extremity: clubbing; Negative for edema Skin Skin Narrative: Dermal atrophy noted Neuro oriented x3, CN's II-XII intact bilaterally, moves all extremities and no focal motor deficits Psych Activity / Motor Behavior: restless Mood & Affect: anxious Medical Records Data Attestation: I reviewed the patient's medical records Lab / Micro Data Attestation: I reviewed the patient's lab results. Result Diagrams: 08/13/22 05:32 08/13/22 05:32 Labs: Laboratory Results - last 24 hr 08/13/22 05:32: WBC 10.2, RBC 4.12 L, Hgb 13.4, Hct 40.7, MCV 98.8 H, MCH 32.5 H, MCHC 32.9, RDW Std Deviation 53.1 H, RDW Coeff of Chadd 14.7 H, Plt Count 186, MPV 10.4, Immature Gran % (Auto) 0.800, Neut % (Auto) 88.9 H, Lymph % (Auto) 6.9L, [place] % (Auto) 2.9, Eos % (Auto) 0.1, Baso % (Auto) 0.4, Absolute Neuts (auto)9.1 H, Absolute Lymphs (auto) 0.70 L, Nucleated RBC % 0 08/13/22 05:32: Sodium 136, Potassium 3.7, Chloride 102, Carbon Dioxide 25.0, Anion Gap 9, BUN 18, Creatinine 0.75, Estim Creat Clear Calc 63.83, Est GFR (MDRD) Af Amer 130, Est GFR (MDRD) Non-Af 108, BUN/Creatinine Ratio 24.0 H, Glucose 126 H, Calcium 9.2 Micro: Microbiology 08/13/22 00:10 Urine, Clean Catch Legionella Antigen - Final 08/13/22 00:10 Urine, Clean Catch Streptococcus pneumoniae Antigen (M - Final ABG Data ABG results: ABG 08/13/22 07:32 Specimen Type ART Sample Site R Radial pH 7.43 Bicarbonate Actual 20.8 L Total CO2 22 Base Excess -4 L O2 Saturation 92 L ABG pCO2 31.3 L ABG pO2 60 L Deven Test Positive O2 Delivery Device Cannula Liter Flow 10.0 Attestation: I personally reviewed and interpreted this ABG as follows: (Partially compensated metabolic acidosis with increased AA gradient) Radiology Impression Chest X-Ray 08/13/22 02:11 IMPRESSION: No acute findings in the chest. Electronically Signed: Jose Luis Lackey MD at 3:03 EST , Chest CTA 08/13/22 08:34 IMPRESSION: Emphysematous changes worse in the upper lobes. Atelectasis and/or infiltrates at the lung bases superimposed on chronic scarring and bronchiectasis. Electronically Signed: Ricky Pino MD at 9:40 EST , Charges/Coding Visit Charges Inpatient E&M: 90154 Init Hosp L3 08/13/22 1245 <Electronically signed by Flip Snyder MD> Cosigner Signature (if applicable): CC: MARTIN Timmons; Dr. Flip Snyder MD; Dr. Jake Palomino DO; Dr. Divya DO; Dr. Romie Pino MD; Dr. Regulo Neil MD~ Signed [facility] Work Phone: 1(320) [phone] [facility] [facility] August 13, 2022 6:50am Note Date/Time August 13, 2022 6 :50am [facility] Medical Records Department [address] [place] [address] Progress Note 08/13/22 0646 MR#: [id number] Acct: [id number] Name: TIMUR JIMENEZ JrCarmita Rep #: : [id number] From: Sima Emmanuel MD PCP: OUT OF TOWN DOCTOR Status:ADM IN Location: [place] [address] Progress Note Called to see at 3am progressive shortness of breath. Patient was admitted as atransfer from pulmonary emergency room. He was reportedly more short of breath, his oxygen requirement had gone up to 7 to 8 L of oxygen Stat chest x-ray is negative for acute infiltrate Patient's prednisone was changed to IV Solu-Medrol for acute COPD exacerbation He was continued on breathing treatment. Physical exam shows a mildly dyspneic patient on 7 to 8 L of oxygen, oxygen sat was 91% Focused Chest exam: Mild use of accessory muscles of respiration, diminished breath sounds, scattered wheezes Further reports of worsening hypoxia to 10 L; ABG requested, pulmonology consulted 08/13/22 0650 <Electronically signed by Sima Emmanuel MD> Sima Emmanuel MD Cosigner Signature (if applicable): CC: ~ Signed [facility] Work Phone: 1(750) 308-272702-02-2023 History and physical note Author Dr. Ribeiro [facility] August 12, 2022 6:32pm Note Date/Time August 12, 2022 6 :32pm [facility] Medical Records Department [address] [place] [address] H&P Exam - Hospitalist 08/12/22 1826 MR#: [id number] Acct: [id number] Name: TIMUR JIMENEZ JrCarmita Rep #: : [id number] From: Felix Ribeiro DO PCP: OUT OF TOWN DOCTOR Status:ADM IN Location: [place] [address] HPI - General General Date of Admission: 08/12/22 Date of Service: 08/12/22 Chief Complaint: shortness of breath HPI Narrative TIMUR JIMENEZ, is a 76 M who presents 2 days of shortness of breath. Patient today was doing well and had been off oxygen, patient normally is on oxygen around 2 L due to his underlying COPD, but beginning yesterday, started getting more short of breath and coughing. Patient was coughing up some yellow phlegm. Shortness of breath just got worse and presented to [place] ED today. Patient was found to have a right-sided pneumonia as well as a lactic acid of 6. Patient was checked for influenza and COVID which were both negative. Patient received ceftriaxone and azithromycin there. Patient requested transfer to [facility] Medical History (Updated 08/12/22 @ 18:[address] Felix Ribeiro DO) COPD (chronic obstructive pulmonary disease) Heart attack Perforated ulcer PUD (peptic ulcer disease) TIA (transient ischemic attack) Allergy/AdvReac Type Severity Reaction Status Date / Time oxycodone AdvReac Upset Verified 08/12/22 18:32 Stomach Family History Grandmother Lung cancer Father COPD (chronic obstructive pulmonary disease) Grandfather Bone cancer Brother Bone cancer Surgical History H/O hernia repair Total knee replacement status Social History Smoking Status: Former smoker Tobacco: How many years used: 65 how long ago did patient quit smokin months ago substance use type: does not use ROS ROS Narrative All review of systems were negative except as mentioned above in the history of present illness and the other review of systems. Vital Signs Vital Signs Vital Signs: 08/12/22 18:00 Temperature 36.7 C Temperature Source Oral Pulse Rate 100 Respiratory Rate 22 H Blood Pressure 146/86 H Blood Pressure Mean 106 Blood Pressure Source Monitor Blood Pressure Position Semi-Fowlers Blood Pressure Location Left Arm Pulse Ox 94 Oxygen Delivery Method Nasal Cannula Oxygen Flow Rate (L/min) 3 Weight Weight: 88.042 kg Body Mass Index (BMI) 28.6 Physical Exam Narrative - Physical Exam General: Alert, Oriented x3, Cooperative HEENT: Atraumatic, PERRLA, EOMI, Normocephalic Oral: Moist Mucosa, No Gingival or Mucosal Lesions/ Ulcerations Neck: Supple, No JVD, Negative Carotid Bruits Lungs: Diminished. Faint wheeze. Cardiovascular: Regular rate, Normal S1, Normal S2, No murmurs Abdomen: Bowel Sounds Present, Soft, Non Tender, Non-Distended, No Hepato-splenomegaly Extremities: No clubbing, No cyanosis, No edema, Capillary Refill Less than 3 Seconds Skin: No rashes, No breakdown Musculoskeletal: No Tenderness to Palpation of Joints or Extremities Neurological: Neuro grossly intact Psych/Mental Status: Normal Affect, Appropriate Results Lab / Micro Data Lab results narrative: CBC: White count 10, hemoglobin 14, platelets 198 BMP: Sodium 132, potassium 4, creatinine 1.12 Troponin 8.7 Influenza a and B- COVID-19 negative Lactic acid of 6 and subsequent lactic acid of 2.7 Chest x-ray not available Assessment & Plan Assessment/Plan (1) Pneumonia: PLAN: Suspect pneumococcal Check sputum culture, strep and Legionella antigens Outside hospital, influenza and COVID-19 were negative Continue with antibiotics with ceftriaxone and azithromycin which he received atthe outside hospital Pep therapy (2) COPD exacerbation: PLAN: Steroids and bronchodilators (3) Lactic acidosis: PLAN: Probably due to his respiratory distress and not sepsis. Currently patient is stable. PLAN: Plan Chronic conditions * CAD * PUD VTE prophylaxis with enoxaparin. Charges/Coding Visit Charges Inpatient E&M: 65480 Init Hosp L3 08/12/221831 <Electronically signed by Felix Ribeiro DO> Cosigner Signature (if applicable): CC: Dr. Felix Ribeiro DO~ Signed [facility] Work Phone: [phone]) 497-381412-05-2022 Note. MICRO - Microbiology PROCEDURE: Blood Culture (bacterial) [...] Locations *1: This test was performed at: [address], [address] [place] [address])06-14-2022 Note. MICRO - Microbiology PROCEDURE: Blood Culture (bacterial) [...] Locations *1: This test was performed at: [address], [address] [place] [address] ([place])Discharge summary Author Dr. Grubbs [facility] August 18, 2022 1:19pm Note Date/Time August 18, 2022 1 :02pm [facility] Medical Records Department [address] [place] [address] Discharge Summary 08/18/22 1301 MR#: [id number] Acct: [id number] Name: TIMUR JIMENEZ Jr. Rep #:[id number] : 1945 76 From: Rupali Grubbs DO PCP: Status:ADM IN Location: [facility] [id number] Providers Date of Admission: 08/12/22 Date of Discharge: 08/18/22 Consultations 08/13/22 06:45 Consult: Master Control Engineer / Pulmonary Medicine Routine Consulting Provider: [facility] Reason for Consult: Resp failure EMERGENT Consult: No MD Notified: Yes Date Notified: 08/13/22 Time Notified: 06:45 Method of Notification: Text Reason For Visit: PNEUMONIA Diagnosis Discharge Diagnosis (1) Acute and chronic respiratory failure with hypoxia: Status: Chronic Code(s): J96.21 - Acute and chronic respiratory failure with hypoxia (2) Bronchiectasis: Status: Acute Code(s): J47.9 - Bronchiectasis, uncomplicated (3) COPD exacerbation: Status: Chronic Code(s): J44.1 - Chronic obstructive pulmonary disease with (acute) exacerbation (4) Lactic acidosis: Status: Acute Code(s): E87.20 - Acidosis, unspecified (5) Leukocytosis: Status: Acute Code(s): D72.829 - Elevated white blood cell count, unspecified (6) Hyperglycemia: Status: Acute Code(s): R73.9 - Hyperglycemia, unspecified (7) Euthyroid sick syndrome: Status: Acute Code(s): E07.81 - Sick-euthyroid syndrome Medications at Discharge Home Medications atorvastatin 40 mg tablet 40 mg PO QHS Check with primary doctor 08/13/22 cholecalciferol (vitamin D3) 50 mcg (2,000 unit) tablet 50 mcg PO DAILY Check with primary doctor 08/13/22 cyclobenzaprine 10 mg tablet 10 mg PO QHS PRN PRN muscle spasms 08/13/22 fluticasone 250 mcg-salmeterol 50 mcg/dose blistr powdr for inhalation 1 inh inhalation BID Check with primary doctor 08/13/22 gabapentin 900 mg PO/SL QHS Check with primary doctor 08/13/22 gabapentin 600 mg tablet 600 mg PO DAILY Check with primary doctor 08/13/22 ipratropium 0.5 mg-albuterol 3 mg (2.5 mg base)/3 mL nebulization soln 3 ml inhalation Q6H PRN Shortness Of Breath 08/13/22 isosorbide mononitrate 30 mg tablet,extended release 24 hr 30 mg PO DAILY Check with primary doctor 08/13/22 lisinopril 5 mg tablet 5 mg PO DAILY Check with primary doctor 08/13/22 metoprolol succinate 100 mg tablet,extended release 24 hr 100 mg PO DAILY Check with primary doctor 08/13/22 pantoprazole 40 mg tablet,delayed release 40 mg PO DAILY Check with primary doctor 08/13/22 tiotropium bromide 2.5 mcg/actuation mist for inhalation (Spiriva Respimat) 2 puff inhalation BID Check with primary doctor 08/13/22 tramadol 50 mg tablet 50 mg PO Q6H PRN Breakthrough Pain 08/13/22 trazodone 50 mg tablet 50 mg PO QHS PRN leg cramps 08/13/22 guaifenesin 1,200 mg tablet, extended release 12 hr (Mucus Relief ER) 1,200 mg PO BID #0 tabs 08/18/22 prednisone 10 mg tablet 10 mg PO DAILY #40 tabs 08/18/22 Hospital Course Operations None Procedures 2-D Echocardiogram and - (CTA of the chest) Summary of Care Provided Minutes Spent on Discharge: 37 Hospital Course: Mr. Jimenez is a 76-year-old white male who presented to the emergency department at an outside hospital on 08/12/2022 with worsening shortness of breaththat was persistently worsening over 2 days prior to presentation. At baseline the patient reported he was on 2 L of supplemental oxygen however when reviewed with his DME supplier he is actually supposed to be on 3 L. The day prior to presentation he became more short of breath and developed a cough with production of yellow sputum. His shortness of breath was worse so he presented to an outside emergency department. He was found to have a right-sided pneumonia as well as a lactic acid of 6 on presentation. He was assessed for COVID and influenza, both of which were negative. He received ceftriaxone and azithromycin and transferred to [facility]. He was initially maintained on azithromycin and ceftriaxone. His oxygen requirements steadily increased to the point where he did require Airvo but we were slowly able to wean him back tohis baseline 3 L x 2 02/27/2023. We did assess a strep pneumo and Legionella antigen both of which were negative, respiratory viral panel which was negative,and a sputum culture which only showed Yolanda albicans. Antibiotic therapy wasdiscontinued. Because of his increase in FiO2 requirements, pulmonary medicine was consulted and recommended obtaining an echocardiogram. His EF was 70% and he had no valvular abnormalities. He was maintained on steroids, aggressive pulmonary toilet, incentive spirometry and Pep therapy, and supplemental oxygen. As noted he slowly improved with time and we were able to test him with an ambulatory pulse ox on 08/18/2022 which demonstrated him requiring 3 L at rest andwith exertion. This is his baseline oxygen requirement. He was discharged homewith a slow steroid taper and the prescription was faxed to his pharmacy. We also recommended to continue Mucinex at discharge as well. We did ask him to follow-up with pulmonary medicine within the next month and he is to call tomorrow to make an appointment. He is also to follow-up with his PCP at the [facility] the next 2 to 4 weeks. Discharge diagnoses: Acute on chronic hypoxic respiratory failure-resolved Acute exacerbation of COPD Bronchiectasis Euthyroid sick Hyperglycemia Hyperlipidemia Neuropathy Hypertension GERD Chronic pain Physical Exam Narrative Patient report she is feeling well and anxious to go home Const alert, oriented x3, no apparent distress and average body habitus Constitutional Narrative: Older white male sitting up in bed, on nasal cannula at 3 L, patient appears comfortable, nontoxic, watching television General Appearance: cooperative, comfortable, well kempt and well developed Orientation / Consciousness: awake, oriented to person, oriented to place and oriented to time Exam Limitations: no limitations Nutritional Appearance: overweight HEENT normocephalic, head/scalp atraumatic and moist oral mucous membranes HEENT Narrative: A dentulous, Mallampati 2, no thrush, mild hearing loss Eyes PERRL, EOMs intact bilaterally and conjunctivae normal Eyes Narrative: No scleral icterus Neck no lymphadenopathy, supple, no JVD, thyroid normal and no carotid bruits General: trachea midline Resp normal respiratory effort, no retractions, no use of accessory muscles and clearto auscultation bilaterally Resp Narrative: Diffusely diminished but air movement has improved dramatically since admission,all adventitious sounds are resolved Auscultation: Negative for crackles, rales, rhonchi or wheezes Cardio regular rate, regular rhythm, S1 normal heart sound, S2 normal heart sound, no murmurs, no rub, no gallops and no clicks GI normal to inspection, nondistended, normoactive bowel sounds, soft to palpation,non-tender and non-distended Extremity normal to inspection and no clubbing, cyanosis or edema Extremity Narrative: 2+ pedal pulses Skin no rashes or lesions noted, no wounds, skin turgor normal and no jaundice Neuro oriented x3, CN's II-XII intact bilaterally, moves all extremities, no focal motor deficits and no sensory deficits noted Sensorium / Orientation: awake, alert, oriented to person, oriented to place andoriented to time Speech: speech normal Psych affect normal Psych Narrative: Pleasant, appropriately interactive Weight / BMI Weight Weight: 88.042 kg Body Mass Index (BMI) 28.6 ABG / Lab / Microbiology Data Result Diagrams: 08/18/22 05:29 08/18/22 05:29 Laboratory: Laboratory Results - last 24 hr 08/18/22 05:29: WBC 9.2, RBC 4.41 L, Hgb 14.6, Hct 42.9, MCV 97.3 H, MCH 33.1 H,MCHC 34.0, RDW Std Deviation 52.7 H, RDW Coeff of Chadd 14.6, Plt Count 228, MPV 10.2, Immature Gran % (Auto) 2.300 H, Neut % (Auto) 80.3 H, Lymph % (Auto) 9.0 L, [place] % (Auto) 8.1, Eos % (Auto) 0.0, Baso % (Auto) 0.3, Absolute Neuts (auto) 7.4, Absolute Lymphs (auto) 0.83, Nucleated RBC % 0 08/18/22 05:29: Sodium 135 L, Potassium 3.9, Chloride 104, Carbon Dioxide 24.0, Anion Gap 7, BUN 30 H, Creatinine 0.93, Estim Creat Clear Calc 68.63, Est GFR (MDRD) Af Amer 101, Est GFR (MDRD) Non-Af 84, BUN/Creatinine Ratio 32.2 H, Glucose 137 H, Calcium 9.0 Microbiology: Microbiology 08/15/22 08:34 Mucosa - Nasopharyngeal Respiratory Panel (PCR) - Final 08/12/22 22:50 Sputum, Expectorated/Coughed Gram Stain - Final 08/12/22 22:50 Sputum, Expectorated/Coughed Respiratory Culture - Final Presumptive C albicans 08/13/22 00:10 Urine, Clean Catch Legionella Antigen - Final 08/13/22 00:10 Urine, Clean Catch Streptococcus pneumoniae Antigen (M - Final D/C Instructions Discharge Diet: Low fat / Low cholesterol Discharge Activity: Return to Normal Activity Meaningful Use Info Meaningful Use Diagnoses (Choose all that apply): None applicable Discharge Plan Admission Admit Date/Time: 08/12/22 18:22 Primary Reason for Your Visit: Shortness of breath Attending Provider: Rupali Grubbs Consulting Providers: Flip Snyder ; Jake Palomino ; Romie Pino ; Regulo Neil ; Kimberlee Timmons TRUCK CRANE OPERATOR ; Felix Ribeiro ; Juan Lowe Instructions Additional Instructions / Restrictions: 1. Please wear 3 L of oxygen at all times Discharge Orders/Prescriptions Prescriptions: New Mucus Relief ER 1,200 mg Tablet Extended Release 12hr 1,200 mg PO BID Qty: 0 0RF prednisone 10 mg tablet 10 mg PO DAILY Qty: 40 0RF Rx Instructions: 4 tablets x 4 days, 3 tablets x 4 days, 2 tablets x 4 days, 1 tablet x 4 days Continued cyclobenzaprine 10 mg Tablet 10 mg PO QHS PRN PRN (Reason: muscle spasms) gabapentin 600 mg Tablet 600 mg PO DAILY trazodone 50 mg Tablet 50 mg PO QHS PRN (Reason: leg cramps) gabapentin 900 mg PO/SL QHS atorvastatin 40 mg Tablet 40 mg PO QHS fluticasone propion-salmeterol 250-50 mcg/dose Blister With Device 1 inh INHALATION BID ipratropium-albuterol 0.5 mg-3 mg(2.5 mg base)/3 mL Solution For Nebulization 3 ml INHALATION Q6H PRN (Reason: Shortness Of Breath) isosorbide mononitrate 30 mg Tablet Extended Release 24 Hr 30 mg PO DAILY metoprolol succinate 100 mg Tablet Extended Release 24 Hr 100 mg PO DAILY tramadol 50 mg Tablet 50 mg PO Q6H PRN (Reason: Breakthrough Pain) pantoprazole 40 mg Tablet,Delayed Release (Dr/Ec) 40 mg PO DAILY lisinopril 5 mg Tablet 5 mg PO DAILY cholecalciferol (vitamin D3) 50 mcg (2,000 unit) Tablet 50 mcg PO DAILY Spiriva Respimat 2.5 mcg/actuation Mist 2 puff INHALATION BID Referrals / Follow Up: Jake Palomino DO [Med Staff - Active Staff] - Within 1 Month (Call tomorrow to make an appointment to be seen within the next month) Disposition Disposition (needs filled in before D/C Order can be placed): Home, Self Care Charges/Coding Visit Charges Inpatient E&M: 65776 Disch Hosp >30min 08/18/22 1319 <Electronically signed by Rupali Grubbs DO> Cosigner Signature (if applicable): CC: Dr. Rupali Grubbs DO~ Signed [facility] Work Phone: Evaluation note* Diagnosis Onset Date Resolution Status Bronchiectasis acute Euthyroid sick syndrome acut e Hyperglycemia acute Lactic acidosis acute Leukocytosis acute Acute and chronic respiratory failure with hypoxia chronic COPD exacerbation chronic [facility] Work Phone: Evaluation note* Diagnosis Kidney stones Calculus of kidney Benign prostatic hyperplasia with lower urinary tract symptoms, symptom details unspecified Nocturia documented in this encounter [facility] Work Phone: Evaluation note* Diagnosis Kidney stones Calculus of kidney Nocturia Benign prostatic hyperplasia with lower urinary tract symptoms, symptom details unspecified Kidney stones Calculus of kidney documented in this encounter [facility] Work Phone: Evaluation note* Diagnosis Nocturia Benign prostatic hyperplasia with lower urinary tract symptoms, symptom details unspecified Kidney stones Calculus of kidney documented in this encounter [facility] Work Phone: Reason for referral (narrative)No reason for referral information [facility]WCincinnati [facility] Work Phone: Summary Purpose Family History No Family History Records Found Relationship Condition Age at Onset Recorded Date/T [place] grandmother Malignant neoplasm of lung Unknown father Chronic obstructive pulmonary disease Unk nown grandfather Malignant neoplasm of bone Unknown brother Malignant neoplasm of bone Unknown Relationship Condition Age at Onset Recorded Date/T [place] grandmother Malignant neoplasm of lung Unknown father Chronic obstructive pulmonary disease Unk nown grandfather Malignant neoplasm of bone Unknown brother Malignant neoplasm of bone Unknown mother Cardiac disease Unknown Advance Directives No Advanced Directives Records FoundDocuments on File Type Date Recorded Patient Engineering Design Manager Expl anation Advance Directives and Livin g Will 04/27/2019 7:48 AM Documents on File Type Date Recorded Patient Engineering Design Manager Expl anation Advance Directives and Livin g Will 04/27/2019 7:48 AM Advance Directive Response Recorded Date/ Time Name of Medical Power of Manager Of It Trini Blackwell August 12, 2022 6:06pm Living Will Yes August 12 6:06pm Power of Manager Of It Yes August 12, 2022 6:06pm Advance Directive Response Recorded Date/ Time Living Will Yes August 03 9:16pm Do you have a Healthcare Pow er of Manager Of It? Yes August 03, 2024 9:16pm Name of Medical Power of Manager Of It Trini barrett () August 03, 2024 9:16pm Discharge Instructions * Instructions* Marcy Torres RN [...] Log into your personal health record on [email or web address] and enter U654 in the Education box to learn more about High-Fiber Diet: Care Instructions. Current as of: May 17, 2018 Content Version: 12.1 8638-7259 [email or web address]. Care instructions adapted under license by your healthcare professional. If you have questions about a medical condition or this instruction, always ask your healthcare professional. [employer] disclaims any warranty or liability for your [...] Log into your personal health record on [email or web address] and enter K072 in the Education box to learn more about Diverticulosis: Care Instructions. Current as of: May 17, 2018 Content Version: 12.20055731-6965 [email or web address]. Care instructions adapted under license by your healthcare professional. If you have questions about a medical condition or this instruction, always ask your healthcare professional. [email or web address] disclaims any warranty or liability for your [...] your doctor if you can take an fylj-isw-aksdign medicine. Keep the anal area clean, but [...] or psyllium (available in bulk at most [employer] food stores) and sprinkling it on foods [...] Log into your personal health record on [email or web address] and enter F228 in the Education box to learn more about Hemorrhoids: Care Instructions. Current as of: May 17, 2018 Content Version: 12.20055048-8725 [email or web address]. Care instructions adapted under license by your healthcare professional. If you have questions about a medical condition or this instruction, always ask your healthcare professional. [email or web address] disclaims any warranty or liability for your [...] Log into your personal health record on [email or web address] and enter C571 in the Education box to learn more about Colon Polyps: Care Instructions. Current as of: June 28, 2018 Content Version: 12.20050848-3051 [email or web address]. Care instructions adapted under license by your healthcare professional. If you have questions about a medical condition or this instruction, always ask your healthcare professional. [email or web address] disclaims any warranty or liability for your use of this information. documented in this encounter Chief Complaint and Reason for Visit Chief Complaint PNEUMONIA Pneumonia Pneumonia Pneumonia Pneumonia Pneumonia Pneumonia Pneumonia Pneumonia Pneumonia Pneumonia Pneumonia Reason for Visit Bronchiectasis Euthyroid sick syndrome Hyperglycemia Lactic acidosis Leukocytosis Acute and chronic respiratory failure with hypoxia COPD exacerbation Chief Complaint Admit Date CVA? August 03, 2024 7 :27pm CVA? August 03, 2024 7 :53pm CVA? August 04, 2024 7 :57am CVA? August 05, 2024 7 :14am COPD November 06, 2024 7:2 5am Reason for Visit Admit Date CVA (cerebral vascular accident) August 03, 2024 7:27pm Chief Complaint Admit Date CVA? August 03, 2024 7 :27pm CVA? August 03, 2024 7 :53pm CVA? August 04, 2024 7 :57am CVA? August 05, 2024 7 :14am COPD November 06, 2024 7:2 5am SOB[place]DIZZINESS ([place]) November 21, 2024 9:11a m Reason for Referral Specialty Diagnoses / Procedures Referred By Megan t Referred To Contact Radiology Diagnoses Kidney stones Procedures XR abdomen 1 view Bridger Wiley MD [facility] [place][note 2][address] [place] [address] Referral ID Status Reason Start Date Expiration Date Visits Requested Visits Authorized [id number] Pending Review Perform Procedure 01/25/2024 01/24/2025 1 1 Additional Source Comments (unrecognized sect ion and content) No Status Records FoundNo Status Records FoundNo Status Records FoundNo Status Records FoundNo Status Records FoundNo Status Records FoundNo Status Records FoundNo Status Records FoundNo Status Records Found INFORMATION SOURCE (unrecogn ized section and content) DATE CREATED AUTHOR 06/12/2018 [facility] DATE CREATED AUTHOR AUTHOR'S ORGANIZ ATION 10/09/2018 [facility] DATE CREATED AUTHOR AUTHOR'S ORGANIZ ATION 04/27/2019 [facility] DATE CREATED AUTHOR AUTHOR'S ORGANIZ ATION 08/18/2022 [facility] ([place]) DATE CREATED AUTHOR AUTHOR'S ORGANIZ ATION 11/15/2023 [facility] DATE CREATED AUTHOR AUTHOR'S ORGANIZ ATION 01/29/2024 [facility] DATE CREATED AUTHOR AUTHOR'S ORGANIZ ATION 03/08/2024 [facility] DATE CREATED AUTHOR AUTHOR'S ORGANIZ ATION 09/06/2024 [facility] DATE CREATED AUTHOR AUTHOR'S ORGANIZ ATION 12/05/2024 [facility] Reason for Visit (unrecogniz ed section and content) Status Reason Specialty Diagnoses / Procedures Referre d By Contact Referred To Contact Diagnoses Z12.11 SCREENING COLONOSCOPY Procedures COLONOSCOPY Reason Comments kidney stone Specialty Diagnoses / Procedures Referred By Contac t Referred To Contact Radiology Diagnoses Kidney stones Procedures XR abdomen 1 view Bridger Wiley MD [address] [place] [address] Referral ID Status Reason Start Date Expiration Date Visits Requested Visits Authorized [id number] Pending Review Perform Procedure 01/25/2024 01/24/2025 1 1 Reason Comments kub results Rafa Camacho MD - 04/27/2019 9:02 AM EDT H&P Notes (unrecognized sect ion and content) INTERVAL HISTORY AND PHYSICAL Patient Name: Timur Jimenez Admit Date: [id number] MR #: [id number] : 1945 The H&P has been reviewed and the patient has been examined. I concur with the findings of the H&P. There are no significant changes. It is appropriate to proceed with the planned procedure. Rafa Camacho MD 04/27/2019 9:02 AM documented in this encounter Jessica Romo RN - 04/27/2019 8:21 AM Jessica Pizarro RN - 04/27/2019 8:13 AM EDTHerJessica tabor RN - 04/27/2019 7:57 AM EDT Nursing Notes (unrecognized section and content) carola held d/t CAD history. Pt. States he had a sip of black coffee at 0530 today. Pt. Is allergic to yellow Jackets - eyes got swollen shut - was stung on forehead. Pt is with [facility] documented in this encounter Care Teams (unrecognized sec tion and content) Team Status: Active Member Role Status Dates [facility] Provider Active Team Status: Active Member Role Status Dates Out of [facility] Doctor Primary Care Provider Active Dr. Felix Ribeiro , DO Admit Provider, Attending Provid er, Other Provider Active Team Status: Active Member Role Status Dates Out of [facility] Doctor Primary Care Provider Active Dr. Felix Ribeiro , DO Admit Provider, Other Provider A ctive Dr. Flip Snyder MD Other Provider Active Dr. Jake Palomino , Other Provider Active Dr. Romie Pino MD Other Provider Active Dr. Regulo Neil MD Other Provider Active Kimberlee Timmons TRUCK CRANE OPERATOR, TRUCK CRANE OPERATOR-C Other Provider Active Dr. Sima Emmanuel MD Attending Provider Active Team Status: Active Member Role Status Dates Out of [facility] Doctor Primary Care Provider Active Dr. Felix Ribeiro , DO Admit Provider, Other Provider A ctive Dr. Flip Snyder MD Attending Provider, Other Provid er Active Dr. Jake Palomino , DO Other Provider Active Dr. Romie Pino MD Other Provider Active Dr. Regulo Neil MD Other Provider Active Kimberlee Timmons TRUCK CRANE OPERATOR, TRUCK CRANE OPERATOR-C Other Provider Active Dr. Juan Lowe , DO Other Provider Active Team Status: Active Member Role Status Dates Out of [facility] Doctor Primary Care Provider Active Dr. Felix Ribeiro , DO Admit Provider, Other Provider A ctive Dr. Flip Snyder MD Attending Provider, Other Provid er Active Dr. Jake Palomino , DO Other Provider Active Dr. Romie Pino MD Other Provider Active Dr. Regulo Neil MD Other Provider Active Kimberlee Timmons TRUCK CRANE OPERATOR, TRUCK CRANE OPERATOR-C Other Provider Active Dr. Rupali Grubbs , DO Other Provider Active Dr. Juan Lowe , DO Other Provider Active Team Status: Active Member Role Status Dates Out [facility] Doctor Primary Care Provider Active Dr. William Vaughn MD Attending Provider Activ e Team Status: Active Member Role Status Dates Out [facility] Primary Care Provider Active Dr. Felix Ribeiro , DO Admit Provider, Other Provider A ctive Dr. Flip Snyder MD Other Provider Active Dr. Jake Palomino , DO Other Provider Active Dr. Romie Pino MD Other Provider Active Dr. Regulo Neil MD Other Provider Active Kimberlee Timmons TRUCK CRANE OPERATOR, TRUCK CRANE OPERATOR-C Other Provider Active Dr. Rupali Grubbs , DO Attending Provider, Other Provide r Active Dr. Juan Lowe , DO Other Provider Active Team Status: Active Member Role Status Dates Out [facility] Primary Care Provider Active Dr. Felix Ribeiro , DO Admit Provider, Other Provider A ctive Dr. Flip Snyder MD Other Provider Active Dr. Jake Palomino , DO Attending Provider, Other Provide r Active Dr. Romie Pino MD Other Provider Active Dr. Regulo Neil MD Other Provider Active Kimberlee Timmons TRUCK CRANE OPERATOR, TRUCK CRANE OPERATOR-C Other Provider Active Dr. Rupali Grubbs , DO Other Provider Active Dr. Juan Lowe , DO Other Provider Active Team Status: Active Member Role Status Dates Dr. Felix Ribeiro , DO Admit Provider, Other Provider A ctive Dr. Flip Snyder MD Other Provider Active Dr. Jake Palomino , DO Other Provider Active Dr. Romie Pino MD Other Provider Active Dr. Regulo Neil MD Other Provider Active Kimberlee Timmons TRUCK CRANE OPERATOR, TRUCK CRANE OPERATOR-C Other Provider Active Dr. Rupali Grubbs , DO Attending Provider, Other Provide r Active Dr. Juan Lowe , DO Other Provider Active Team Status: Inactive Member Role Status Dates Dr. Felix Ribeiro , DO Admit Provider, Other Provider A ctive Dr. Flip Snyder MD Other Provider Active Dr. Jake Palomino , DO Other Provider Active Dr. Romie Pino MD Other Provider Active Dr. Regulo Neil MD Other Provider Active Kimberlee Timmons TRUCK CRANE OPERATOR, TRUCK CRANE OPERATOR-C Other Provider Active Dr. Rupali Grubbs DO Attending Provider Active Dr. Juan Lowe DO Other Provider Active Team Status: Active Member Role Status Dates Dr. Mimi Santa MD Primary Care Provider Active Team Status: Inactive Member Role Status Dates Dr. Mimi Santa MD Primary Care Provider Active Start: August 03, 2024 End: August 05, 2024 Dr. Mich Madera DO Emergency Provider Active Start: August 03, 2024 End: August 05, 2024 Dr. Shannen Jung MD Admit Provider Active St art: August 03, 2024 End: August 05, 2024 Dr. Shannen Jung MD Other Provider Active St art: August 03, 2024 End: August 05, 2024 Jacobo Krause MD Other Provider Active Start: robert 2024 End: August 05, 2024 Dr. Ulises Greco MD Other Provider Active Start: August 03, 2024 End: August 05, 2024 Bee Avina MD Other Provider Active Start : August 03, 2024 End: August 05, 2024 Dr. Naz Terrell DO Other Provider Active St art: August 03, 2024 End: August 05, 2024 Dr. Cynthia Lieberman MD Other Provider Active Start: August 03, 2024 End: August 05, 2024 Dr. Umesh Garcia MD Other Provider Active Sta rt: August 03, 2024 End: August 05, 2024 Dr. Katalina Mckenzie MD Other Provider Active Start : August 03, 2024 End: August 05, 2024 Dr. Enmanuel Contreras MD Other Provider Active Start: August 03, 2024 End: August 05, 2024 Dr. Shekhar Mckeon MD Other Provider Active Start : August 03, 2024 End: August 05, 2024 Dr. Nirmal Barbosa MD Other Provider Active Sta rt: August 03, 2024 End: August 05, 2024 Amna Jimenez MD Other Provider Active Start : August 03, 2024 End: August 05, 2024 Dr. Shakeel Varela MD Other Provider Active St art: August 03, 2024 End: August 05, 2024 Dr. Wandy Valenzuela MD Other Provider Active Start : August 03, 2024 End: August 05, 2024 Dr. Roman Younger MD Other Provider Active Sta rt: August 03, 2024 End: August 05, 2024 Dr. Garret Carney MD Other Provider Active Start: August 03, 2024 End: August 05, 2024 Dr. Jani Cordero MD Other Provider Active St art: August 03, 2024 End: August 05, 2024 Dr. Cedric Nielsen MD Other Provider Active Star t: August 03, 2024 End: August 05, 2024 Dr. Jesus Avery MD Other Provider Active St art: August 03, 2024 End: August 05, 2024 Dr. Francine Grubbs MD Other Provider Active Start: August 03, 2024 End: August 05, 2024 Rj Sampson MD Other Provider Active Start: August 03, 2024 End: August 05, 2024 Dr. Jessica Mart MD Attending Provider Active Start: August 03, 2024 End: August 05, 2024 Team Status: Active Member Role Status Dates Dr. Mimi Santa MD Primary Care Provider Active Start: August 03, 2024 Dr. Mich Madera DO Emergency Provider Active Start: August 03, 2024 Dr. Shannen Jung MD Admit Provider Active St art: August 03, 2024 Dr. Shannen Jung MD Attending Provider Active Start: August 03, 2024 Dr. Shannen Jung MD Other Provider Active St art: August 03, 2024 Team Status: Active Member Role Status Dates Dr. Mimi Santa MD Primary Care Provider Active Start: August 04, 2024 Dr. Mich Madera DO Emergency Provider Active Start: August 04, 2024 Dr. Shannen Jung MD Admit Provider Active St art: August 04, 2024 Dr. Shannen Jung MD Other Provider Active St art: August 04, 2024 Jacobo Krause MD Other Provider Active Start: Jc jones 2024 Dr. Ulises Greco MD Other Provider Active Start: August 04, 2024 Bee Avina MD Other Provider Active Start : August 04, 2024 Dr. Naz Terrell DO Other Provider Active St art: August 04, 2024 Dr. Cynthia Lieberman MD Other Provider Active Start: August 04, 2024 Dr. Umesh Garcia MD Other Provider Active Sta rt: August 04, 2024 Dr. Katalina Mckenzie MD Other Provider Active Start : August 04, 2024 Dr. Enmanuel Contreras MD Other Provider Active Start: August 04, 2024 Dr. Shekhar Mckeon MD Other Provider Active Start : August 04, 2024 Dr. Nirmal Barbosa MD Other Provider Active Sta rt: August 04, 2024 Amna Jimenez MD Other Provider Active Start : August 04, 2024 Dr. Shakeel Varela MD Other Provider Active St art: August 04, 2024 Dr. Wandy Valenzuela MD Other Provider Active Start : August 04, 2024 Dr. Roman Younger MD Other Provider Active Sta rt: August 04, 2024 Dr. Garret Carney MD Other Provider Active Start: August 04, 2024 Dr. Jani Cordero MD Other Provider Active St art: August 04, 2024 Dr. Cedric Nielsen MD Other Provider Active Star t: August 04, 2024 Dr. Jesus Avery MD Other Provider Active St art: August 04, 2024 Dr. Francine Grubbs MD Other Provider Active Start: August 04, 2024 Rj Sampson MD Other Provider Active Start: August 04, 2024 Dr. Jessica Mart MD Attending Provider Active Start: August 04, 2024 Dr. Jessica Mart MD Other Provider Active Star t: August 04, 2024 Team Status: Active Member Role Status Dates Dr. Mimi Santa MD Primary Care Provider Active Start: August 04, 2024 Dr. William Vaughn MD Attending Provider Activ e Start: August 04, 2024 Team Status: Active Member Role Status Dates Dr. Mimi Santa MD Primary Care Provider Active Start: August 05, 2024 Dr. Mich Madera DO Emergency Provider Active Start: August 05, 2024 Dr. Shannen Jung MD Admit Provider Active St art: August 05, 2024 Dr. Shannen Jung MD Other Provider Active St art: August 05, 2024 Jacobo Krause MD Other Provider Active Start: Jc jones 2024 Dr. Ulises Greco MD Other Provider Active Start: August 05, 2024 Bee Avina MD Other Provider Active Start : August 05, 2024 Dr. Naz Terrell DO Other Provider Active St art: August 05, 2024 Dr. Cynthia Lieberman MD Other Provider Active Start: August 05, 2024 Dr. Umesh Garcia MD Other Provider Active Sta rt: August 05, 2024 Dr. Katalina Mckenzie MD Other Provider Active Start : August 05, 2024 Dr. Enmanuel Contreras MD Other Provider Active Start: August 05, 2024 Dr. Shekhar Mckeon MD Other Provider Active Start : August 05, 2024 Dr. Nirmal Barbosa MD Other Provider Active Sta rt: August 05, 2024 Amna Jimenez MD Other Provider Active Start : August 05, 2024 Dr. Shakeel Varela MD Other Provider Active St art: August 05, 2024 Dr. Wandy Valenzuela MD Other Provider Active Start : August 05, 2024 Dr. Roman Younger MD Other Provider Active Sta rt: August 05, 2024 Dr. Garret Carney MD Other Provider Active Start: August 05, 2024 Dr. Jani Cordero MD Other Provider Active St art: August 05, 2024 Dr. Cedric Nielsen MD Other Provider Active Star t: August 05, 2024 Dr. Jesus Avery MD Other Provider Active St art: August 05, 2024 Dr. Francine Grubbs MD Other Provider Active Start: August 05, 2024 Rj Sampson MD Other Provider Active Start: August 05, 2024 Dr. Jessica Mart MD Attending Provider Active Start: August 05, 2024 Dr. Jessica Mart MD Other Provider Active Star t: August 05, 2024 Team Status: Inactive Member Role Status Dates Dr. Mimi Santa MD Primary Care Provider Active Start: November 06, 2024 End: November 06, 2024 SHEKHAR PENALOZA Attending Provider Active Start: November 06, 2024 End: November 06, 2024 SHEKHAR PENALOZA Referring Provider Active Start: November 06, 2024 End: November 06, 2024 Team Status: Inactive Member Role Status Dates Dr. Mimi Santa MD Primary Care Provider Active Start: November 21, 2024 End: November 21, 2024 Dr. Mimi Santa MD Referring Provider Active Start: November 21, 2024 End: November 21, 2024 Dr. Gagandeep Prabhakar MD Attending Provider Active S tart: November 21, 2024 End: November 21, 2024 FOR RECORDS PERTAINING TO PATIENTS WHO ARE [...] BE BASED ON THE PRIMARY CLINICAL RECORDS. [employer] provides no warranty or guarantee of the accuracy or completeness of information in this document.
--- NOTE | 2024-12-24 20:02 | STRESSREP ---
Stress Test Report Pharmacologic myocardial perfusion stress test. 79-year-old male with a history of chest pain Resting EKG demonstrates sinus bradycardia with a rate of 50 bpm. Resting blood pressure is 118/74 mmHg. 0.4 mg of regadenoson was infused per usual protocol followed by rapid intravenous saline flush injection. Continuous EKG monitoring was performed. The maximum heart rate was 72 bpm which was 50% of max impacted heart rate the maximum workload was 1 metabolic equivalent. At rest there were no ST or T wave changes noted to suggest ischemia and at peak infusion nonspecific ST changes were noted which did not meet the criteria for ischemia. No clinical angina is noted. The final blood pressure was 118/62 mmHg. Myocardial perfusion protocol. 11.7 mCi of technetium 99m sestamibi was injected at rest. 0.4 mg of regadenoson was infused per usual protocol. At peak infusion 35.2 mCi of technetium 99m sestamibi was injected stress images were obtained stress and rest images were reconstructed and compared in the short axis vertical long and horizontal long axis. Gated images were also obtained. Perfusion SPECT analysis: Review of the stress images demonstrate normal uptake of tracer noted in all areas of the myocardium. The resting images similar demonstrated normal uptake of tracer noted in all areas of the myocardium. No areas of reversibility are noted to suggest ischemia and no previous infarct is noted. Gated SPECT analysis: The gated ejection fraction is 53%. Conclusion: Normal pharmacologic myocardial perfusion stress test. Preserved ejection fraction.
== END | disposition home or self-care (01) ==
PROVIDERS: PCP Internal Medicine; Referring Provider Internal Medicine Cardiovascular Disease; Visit Provider Internal Medicine Cardiovascular Disease
DX: Z01.810 Encounter for preprocedural cardiovascular examination (principal); R42 Dizziness and giddiness; I25.10 Atherosclerotic heart disease of native coronary artery without angina pectoris
CPT/HCPCS: 78452; 93017; A9500; A4216; J2785

== ENCOUNTER 2025-04-11 18:14 | Inpatient (IN) | payer OTHER, SELFPAY ==
[2025-04-11] VITALS (10 sets, daily range): BP systolic 83–115; BP diastolic 60–73; PULSE 105–131; RESP 18–30; TEMP 36.4–37.6; O2SAT 95–97; BMI 21.7; BMI 21.9
--- NOTE | 2025-04-11 18:32 | EDS_ITS ---
HPI History of Present Illness Chief Complaint: Weakness Informant: patient Onset/Context/Timing Onset: Weeks (1) Context: Sudden Onset Timing: Continuous Quality: Weakness Location: Generalized Worsened by: Medications Relieved by: Nothing Narrative Narrative: Patient presents with low blood pressure and generalized weakness that has been getting worse over the past week. Patient states he is on metoprolol and lisinopril for his blood pressure. Patient states he feels weak all over. Family states the patient has not been eating well for the past 2 weeks. Patient admits to a cough with some white sputum. Patient admits to some subjective fevers and chills. Patient admits to occasional blurred vision. Patient also admits to a mild headache. [facility] Medical History Pre-operative cardiovascular examination Iron deficiency anemia Vitamin D deficiency CAD (coronary artery disease) Renal mass Dizziness SOB (shortness of breath) Benign essential tremor Chronic pain syndrome Neuropathy HLD (hyperlipidemia) HTN (hypertension) PUD (peptic ulcer disease) TIA (transient ischemic attack) Perforated ulcer COPD (chronic obstructive pulmonary disease) Heart attack Home Medications ?Medication ?Instructions ?Recorded ?Last Taken ?Type atorvastatin 40 mg tablet 40 mg PO QHS cholesterol 09/3008/02/24 History cholecalciferol (vitamin D3) 50 50 mcg PO QODAY vitami n 08/13/22 08/02/24 History mcg (2,000 unit) tablet cyclobenzaprine 10 mg tablet 10 mg PO QHS PRN PRN musc le spasms 08/13/22 08/02/24 History fluticasone 250 mcg-salmeterol 50 1 inh inhalation BID breathing 08/13/22 08/03/24 History mcg/dose blistr powdr for inhalation gabapentin 600 mg tablet 600 mg PO BID nerve pain 09/3008/03/24 History ipratropium 0.5 mg-albuterol 3 mg 3 ml inhalation Q6H PRN Shortness 08/13/22 08/03/24 History (2.5 mg base)/3 mL nebulization Of Breath soln isosorbide mononitrate 30 mg 30 mg PO DAILY heart 02/0 09/3008/03/24 History tablet,extended release 24 hr lisinopril 5 mg tablet 5 mg PO DAILY blood pressure 08/13/22 08/03/24 History metoprolol succinate 100 mg 100 mg PO DAILY blood pres sure 08/13/22 08/03/24 History tablet,extended release 24 hr pantoprazole 40 mg tablet,delayed 40 mg PO DAILY reflu x 08/13/22 08/03/24 History release tramadol 50 mg tablet 50 mg PO Q6H PRN Breakthroug h Pain 08/13/22 08/03/24 History trazodone 50 mg tablet 50 mg PO QHS PRN leg cramps 08/13/22 08/02/24 History albuterol sulfate 90 mcg/actuation 2 inh inhalation Q6 H PRN shortness 08/03/24 08/03/24 History aerosol inhaler (Ventolin HFA) of breath or wheezing aspirin 81 mg chewable tablet 81 mg PO BREAKFAST #90 t abs 08/05/24 Unknown Rx magnesium oxide 400 mg (241.3 mg 400 mg PO DAILY #60 t abs 08/05/24 Unknown Rx magnesium) tablet (MagOx) budesonide 160 mcg-glycopyr 9 2 inh inhalation BID Unknown History mcg-formot 4.8 mcg/actuation HFA inhaler (Breztri Aerosphere) ferrous sulfate 325 mg (65 mg 325 mg PO .QOD 10/29/24 Unknown History iron) tablet loratadine 10 mg capsule (Allergy 10 mg PO QDAY Unknown History Relief (loratadine)) roflumilast 250 mcg tablet 500 mcg PO QDAY 10/29/24 Un known History Allergy/AdvReac Type Severity Reaction Status Date / Time bee venom protein (honey bee) Allergy Severe Angioedema Verified 04/11/25 18:15 oxycodone AdvReac Upset Verified 04/11/25 18:15 Stomach Family History Grandmother Lung cancer Father COPD (chronic obstructive pulmonary disease) Grandfather Bone cancer Brother Bone cancer Mother Heart disease Surgical History H/O hernia repair Total knee replacement status Social History (Updated 04/11/25 @ 22:[address] Shannen Jung MD) household members: spouse Smoking Status: Former smoker Tobacco: How many years used: 66 how long ago did patient quit smoking: Quit ~ 6 months prior to presentation 08/03/24, prior 1-1.5 ppd. alcohol intake: former details: Sober x 5 years. substance use type: does not use ROS ROS ED Constitutional Constitutional ED: Reports chills, fever(s) and subjective Eyes Eyes: Reports blurry vision; Denies change in vision ENT ENT ED: Denies rhinorrhea or sore throat Cardiovascular Cardiovascular: Denies chest pain or palpitations Respiratory/Chest Respiratory/Chest: Reports cough and sputum; Denies dyspnea Gastrointestinal Gastrointestinal: Denies nausea or vomiting Genitourinary Genitourinary ED: Denies dysuria or hematuria Musculoskeletal Musculoskeletal: Reports back pain; Denies neck pain Integumentary Denies abscess or rash Neurologic Neurologic: Reports headache(s) and weakness Allergic/Immunologic Allergic/Immunologic ED: Denies mouth swelling or urticaria EXAM Physical Exam Const Vital Signs: 04/11/25 18:15 04/11/25 18:35 04/11/25 18:55 Temperature 99.6 F H Temperature Source Oral Pulse Rate 131 H 119 H Pulse Rate [Lying] Pulse Rate [Sitting (for 1 minute prior to obtaining)] Pulse Rate [Standing (for 1 minute prior to obtaining)] Respiratory Rate 27 H 19 H Respiratory Effort Normal Respiratory Pattern Tachypnea Blood Pressure 93/63 104/68 Blood Pressure [Lying] Blood Pressure [Sitting (for 1 minute prior to obtaining)] Blood Pressure [Standing (for 1 minute prior to obtaining)] Blood Pressure Mean 73 80 Blood Pressure Mean [Lying] Blood Pressure Mean [Sitting (for 1 minute prior to obtaining)] Blood Pressure Mean [Standing (for 1 minute prior to obtaining)] Pulse Ox 95 95 Oxygen Delivery Method Room Air Room Air 04/11/25 18:59 04/11/25 19:17 04/11/25 20:00 Temperature 98.8 F 98.7 F Temperature Source Oral Oral Pulse Rate 115 H 111 H Pulse Rate [Lying] 108 H Pulse Rate [Sitting (for 1 minute prior to obtaining)] 110 H Pulse Rate [Standing (for 1 minute prior to obtaining)] 115 H Respiratory Rate 30 H 20 H Respiratory Effort Respiratory Pattern Blood Pressure 104/63 115/68 Blood Pressure [Lying] 90/64 Blood Pressure [Sitting (for 1 minute prior to obtaining)] 86/64 L Blood Pressure [Standing (for 1 minute prior to obtaining)] 83/60 L Blood Pressure Mean 76 83 Blood Pressure Mean [Lying] 72 Blood Pressure Mean [Sitting (for 1 minute prior to obtaining)] 71 Blood Pressure Mean [Standing (for 1 minute prior to obtaining)] 67 Pulse Ox 96 95 Oxygen Delivery Method Room Air Room Air 04/11/25 21:00 04/11/25 22:00 Temperature 98.6 F 97.5 F L Temperature Source Oral Oral Pulse Rate 108 H 105 H Pulse Rate [Lying] Pulse Rate [Sitting (for 1 minute prior to obtaining)] Pulse Rate [Standing (for 1 minute prior to obtaining)] Respiratory Rate 23 H 20 H Respiratory Effort Respiratory Pattern Blood Pressure 90/64 109/71 Blood Pressure [Lying] Blood Pressure [Sitting (for 1 minute prior to obtaining)] Blood Pressure [Standing (for 1 minute prior to obtaining)] Blood Pressure Mean 72 83 Blood Pressure Mean [Lying] Blood Pressure Mean [Sitting (for 1 minute prior to obtaining)] Blood Pressure Mean [Standing (for 1 minute prior to obtaining)] Pulse Ox 97 96 Oxygen Delivery Method Room Air Positive well nourished and well developed General Appearance ED: well developed and NAD HEENT Reports moist mucous membranes Neck supple and no JVD Resp normal respiratory effort Auscultation: diminished lung sounds diffuse Cardio regular rhythm Rate: tachycardic GI non-tender and non-distended Palpation: soft Extremity normal to inspection General Extremety ED: Negative for edema or tenderness General Extremity: Negative for edema Neuro oriented x3, CN's II-XII intact bilaterally and no sensory deficits noted Sensorium / Orientation: alert Motor Exam: general weakness Psych mental status grossly normal MDM MDM MDM Narrative Medical decision making narrative: Differential diagnosis includes cardiac dysrhythmia, cardiac ischemia, pneumonia, sepsis, urinary tract infection, electrolyte abnormality, dehydration, and medication side effect. EKG will be obtained to assess for cardiac dysrhythmia and cardiac ischemia. Chest x-ray will be obtained to assess for pneumonia or bronchitis. CBC will be obtained to assess for leukocytosis and anemia. Basic metabolic profile will be obtained to assess for electrolyte abnormality and renal function. High-sensitivity troponin will be obtained to assess for cardiac ischemia. 2-hour repeat high-sensitivity troponin will be obtained to assess for ongoing cardiac ischemia. D-dimer will be obtained to assess for pulmonary embolism. Lactate will be obtained to assess for sepsis. PT with INR and PTT will be obtained to assess for coagulopathy. History & Record Review Additional record(s) reviewed:: Prior inpatient record, Prior outpatient record, Prior ED visit and Prior labs Lab Data Attestation: I reviewed the patient's lab results. Lab results narrative: CBC was reviewed. There is a mild anemia with a hemoglobin of 11.4 and hematocrit 33.5. Platelets were normal. Basic metabolic profile was reviewed. Potassium was low at 3.2. Sodium was slightly low at 131. The remainder was essentially within normal limits. Serum lactate was reviewed and was normal at 1.3 PT with INR and PTT were reviewed. Pro time was elevated at 18.0 and INR is 1.5. PTT was normal at 34.5. D-dimer was reviewed and was slightly elevated at 0.98. Initial high-sensitivity troponin was reviewed and was normal at 18. Urinalysis was reviewed. There is no evidence of urinary tract infection or hematuria. 2-hour repeat high-sensitivity troponin was reviewed and was normal at 18. Labs: Laboratory Results - last 24 hr 04/11/25 04/11/25 04/11/25 19:20 19:52 21:28 WBC 9.8 RBC 3.77 L Hgb 11.4 L Hct 33.5 L MCV 88.9 MCH 30.2 MCHC 34.0 RDW Std Deviation 45.6 H RDW Coeff of Chadd 14.2 Plt Count 267 MPV 9.4 Immature Gran % (Auto) 1.000 H Neut % (Auto) 83.0 H Lymph % (Auto) 6.7 L F[place]ardo % (Auto) 9.1 Eos % (Auto) 0.0 Baso % (Auto) 0.2 Absolute Neuts (auto) 8.1 H Absolute Lymphs (auto) 0.66 L Nucleated RBC % 0 PT 18.0 H INR 1.5 APTT 34.5 D-Dimer Quant (PE/DVT) 0.98 H* Sodium 131 L Potassium 3.2 L Chloride 98 Carbon Dioxide 18.9 L Anion Gap 14 BUN 16 Creatinine 0.64 L Estim Creat Clear Calc 71.90 Est GFR (MDRD) Non-Af 97 BUN/Creatinine Ratio 24.7 H Glucose 89 Lactic Acid 1.3 Calcium 9.0 Troponin T High Sens 18 Troponin T Hi Sens 2 Hr 18 Urine Color Yellow Urine Clarity Cloudy Urine pH 7.0 Ur Specific [place] 1.010 Urine Protein 30 H Urine Glucose (UA) Normal Urine Ketones 15 H Urine Occult Blood Negative Urine Nitrite Negative Urine Bilirubin 3 H Urine Urobilinogen 12 H Ur Leukocyte Esterase Negative Urine RBC 0 SEEN Urine WBC 0-5 SEEN Ur Squamous Epith Cells 0 SEEN Amorphous Sediment 2+ Urine Bacteria 2+ Urine Mucus 1+ Radiography Diagnostic Testing: Clinical Impression(s) from Imaging Studies Chest CTA 04/11/25 20:49 IMPRESSION: No evidence of pulmonary embolism. Airspace opacities in the lungs consistent with pneumonia. Reading Location: [facility] CTA of the chest was obtained. There is no evidence of pulmonary embolism. There are bilateral airspace opacities consistent with pneumonia in the lower lobes. This was interpreted by the radiologist and was also independently reviewed by myself. EKG Initial EKG: Attestation: I personally reviewed and interpreted this EKG as follows: Interpretation: Sinus Tachycardia (118) and Non-Specific ST Changes Comments: EKG was obtained. On my independent interpretation, shows sinus tachycardia with a rate of 118. KS interval is normal at 178 ms. QRS interval is normal at 102 ms. QTc interval was normal at 440 ms. There is left axis deviation at -69. There is low voltage in the limb leads. There are nonspecific ST-T wave changes noted. Prior EKG tracings: available for review Prior: Unchanged (11/21/2024) Management Discussion w/another healthcare provider: Hospitalist (Dr. Jung) Additional Tests and Interventions Additional Tests or Interventions: Because of the elevated D-dimer, chest x-ray was canceled and CTA of the chest was obtained to assess for pulmonary embolism as well as pneumonia. Blood cultures were obtained to assess for sepsis. Treatment and Re-Evaluation :: Patient was given IV fluids. Patient was given a dose of oral potassium. Patient was started on Rocephin and Zithromax here. Patient was advised of the need for hospitalization. Patient is agreeable with this. Case was discussed with the hospitalist. She will be in to evaluate the patient and admit the patient to her service. Patient understood and was agreeable with the plan. All questions were answered. Discharge Plan Dx/Rx/DC Orders Clinical Impression: Pneumonia, COPD (chronic obstructive pulmonary disease), SOB (shortness of breath), Tobacco use, Hypokalemia Disposition Disposition: Acute Care Hospital [facility]
--- NOTE | 2025-04-11 18:59 | EKG12_ITS ---
Test Reason : HYPOTENSIVE Blood Pressure : */* mmHG Vent. Rate : 118 BPM Atrial Rate : 118 BPM P-R Int : 178 ms QRS Dur : 102 ms QT Int : 314 ms P-R-T Axes : 60 -69 70 degrees QTcB Int : 440 ms Sinus tachycardia Left axis deviation Low voltage QRS Inferior infarct , age undetermined Abnormal ECG Confirmed by DEEP WEAVER, MELANY ([id number]), material expeditor APOORVA PINZON ([id number]) on 04/15/2025 6:18:59 AM Referred By: Confirmed By: MELANY ADAME MD
[2025-04-11] MEDS: 0.9% Normal Saline (1000mL) 1,000 ML 1000 ML IV (19:39)
[2025-04-11 19:40] LABS: Hematocrit 33.5 % (40-54); Hemoglobin 11.4 g/dL (13.0-16.5); Immature Granulocytes Count 0.100 X10^3/uL (0.0-0.0); Mean Corp Hgb Conc 34.0 g/dL (32-36); Mean Corpuscular Volume 88.9 fL (80-94); Mean Platelet Vol. 9.4 fl (6.2-12.0); NRBC Flagged by Analyzer 0 % (0-5); Platelet Count 267 K/mm3 (150-450); RBC Distribution Width CV 14.2 % (11.6-14.6); RBC Distribution Width SD 45.6 fl (35.1-43.9); Red Blood Count 3.77 M/mm3 (4.6-6.2); White Blood Count 9.8 K/mm3 (4.4-11.0)
[2025-04-11 19:58] LABS: Partial Thromboplast Time 34.5 Seconds (24.1-36.2); Prothrombin Time (Protime)PT. 18.0 SECONDS (11.7-14.9)
[2025-04-11 19:59] LABS: Red Blood Cells-Urine 0 SEEN /hpf (0-5); Squamous Epithelial Cells - UA 0 SEEN /hpf (0-5)
[2025-04-11 20:00] LABS: Anion Gap 14 (5-15); BUN 16 mg/dL (4-19); BUN/Creat Ratio 24.7 RATIO (10-20); Calcium,Total 9.0 mg/dL (7.6-11.0); Carbon Dioxide 18.9 mmol/L (21.0-32.0); Chloride 98 mmol/L (98-108); Estimated Creatinine Clearance 71.90 ml/min (50-250); Glucose 89 mg/dL (70-99); Potassium 3.2 mmol/L (3.3-5.1)
[2025-04-11 20:02] LABS: Troponin T High Sensitivity 18 ng/L (<=22)
[2025-04-11 20:08] LABS: Color, Urine Yellow (Yellow); Glucose, Dipstick Normal (Normal); Ketone-Dipstick 15 mg/dl (Negative); Leukocyte Esterase-Dipstick Negative /ul (Negative); Nitrite-Dipstick Negative (Negative); Occult Blood-Urine Negative /ul (Negative); Protein-Dipstick 30 mg/dl (Negative); Specific Gravity, Urine 1.010 (1.002-1.030)
[2025-04-11 20:13] LABS: D-Dimer Quantitative (DVT/PE) 0.98 FEU/ug/m (0.27-0.49)
[2025-04-11 20:17] LABS: Mucous, Urine 1+ /hpf (<or=2+); Urine Bilirubin Dipstick 3 mg/dL (Negative)
--- NOTE | 2025-04-11 20:49 | CT_ITS ---
PROCEDURE: CTA CHEST W/WO CONTRAST 04/11/2025 REASON FOR EXAM: ELEVATED D-DIMER TECHNIQUE: Procedure Code: [id number] Modality: CT Procedure: CTA CHEST W/WO CONTRAST Multiplanar Sagittal and Coronal images were obtained. CONTRAST: Isovue 370 VOLUME: 100 mL One or more dose reduction techniques were used (e.g., Automated exposure control, adjustment of the mA and/or kV according to patient size, use of iterative reconstruction technique). RADIATION DOSE SUMMARY: CTDlvol: 8.3 mGy DLP: 304.53 mGycm COMPARISON: CTA chest 10/11/2022. # of known CTs in the past 12 months: None # of known Cardiac Nuclear Medicine Studies in the past 12 months: None FINDINGS: Thoracic Aorta: No aneurysm. No dissection. Heart: No cardiomegaly. Atherosclerotic calcifications of the coronary arteries. Pulmonary Vessels: No evidence of pulmonary embolism. Hardware: None. Lymph nodes: No nephrolithiasis. Lungs and Airways: Pulmonary emphysema. Airspace opacities in the lower lobes consistent with pneumonia. Pleura: No pleural effusion or pneumothorax. Upper Abdomen: No abdominal abnormalities. Bones: No acute bony abnormalities. CT/CTA Chest W/WO Contrast IMPRESSION: No evidence of pulmonary embolism. Airspace opacities in the lungs consistent with pneumonia. Reading Location: [facility]
[2025-04-11 22:02] LABS: Troponin T High Sens 2 HR 18 ng/L (<=22)
--- NOTE | 2025-04-11 22:17 | HP.PCM.HOS_ITS ---
HPI - General General Date of Admission: 04/11/25 Date of Service: 04/11/25 Chief Complaint: Debility, weakness, dyspnea, cough, F/C. HPI Narrative The patient is a 79 y/o M w/ PMHx: CAD, Chronic normocytic anemia/iron deficiency anemia, Chronic pain syndrome with chronic neuropathy, COPD, GERD with history of perforated ulcer/PUD, HTN, HLD, Benign essential tremor, Former tobacco use, Former EtOH abuse, Nonobstructive CAD w/ Hx TN who presents to the [facility] ED on 04/11/2025 with increased fatigue, malaise worsening over the last week with severe generalized weakness and poor oral intake over the last several weeks with a cough occasionally with productive white sputum as well as subjective fevers and chills, occasional mild headache as well as occasional blurred vision primarily with quick positional changes prompting family to bring patient in for evaluation to be cautious. He denies any recent ill contacts. He denies any marked URI type symptoms also. Workup in the ED included T99.6, heart 131 initially, BP initially 93/63, respiratory rate 27, 95% on room air, orthostatics notable with BP down to 83/60, most recent repeat vitals T97.5, heart rate 105, BP 109/71, respiratory rate 20, 96% room air, respiratory rate 23, 97% on room air, CBC with WC 9.8, hemoglobin 0.4, MCV 88.9, platelet 267 with left shift and lymphopenia, coags with PT 18, D- dimer 0.98, BMP with sodium 131, potassium 3.2, carbon oxide 18.9, BUN/creatinine 16/0.64, GFR 97, lactic acid 1.3, troponin initial 18 with repeat delta troponin 2-hour 18, urinalysis cloudy, protein 30, ketone 15, negative nitrite, negative leukocyte esterase, urine WBCs 0-5 with bacteria noted 2+, chest CTA with no acute pulmonary emboli evident with airspace opacities in the lungs in the lower lobes consistent with pneumonia, rapid SARS COVID/Emberson/RSV PCR negative, blood culture x 2 pending per ED. In the ED patient ministered 2 L normal saline as well as azithromycin 500 mg IV x 1, Rocephin 2 g IV x 1 as well as 40 mill equivalents potassium x 1. [facility] Medical History Pre-operative cardiovascular examination Iron deficiency anemia Vitamin D deficiency CAD (coronary artery disease) Renal mass Dizziness SOB (shortness of breath) Benign essential tremor Chronic pain syndrome Neuropathy HLD (hyperlipidemia) HTN (hypertension) PUD (peptic ulcer disease) TIA (transient ischemic attack) Perforated ulcer COPD (chronic obstructive pulmonary disease) Heart attack Home Medications ?Medication ?Instructions ?Recorded ?Last Taken ?Type atorvastatin 40 mg tablet 40 mg PO QHS cholesterol 09/3008/02/24 History cholecalciferol (vitamin D3) 50 50 mcg PO QODAY vitami n 08/13/22 08/02/24 History mcg (2,000 unit) tablet cyclobenzaprine 10 mg tablet 10 mg PO QHS PRN PRN musc le spasms 08/13/22 08/02/24 History fluticasone 250 mcg-salmeterol 50 1 inh inhalation BID breathing 08/13/22 08/03/24 History mcg/dose blistr powdr for inhalation gabapentin 600 mg tablet 600 mg PO BID nerve pain 09/3008/03/24 History ipratropium 0.5 mg-albuterol 3 mg 3 ml inhalation Q6H PRN Shortness 08/13/22 08/03/24 History (2.5 mg base)/3 mL nebulization Of Breath soln isosorbide mononitrate 30 mg 30 mg PO DAILY heart 02/0 09/3008/03/24 History tablet,extended release 24 hr lisinopril 5 mg tablet 5 mg PO DAILY blood pressure 08/13/22 08/03/24 History metoprolol succinate 100 mg 100 mg PO DAILY blood pres sure 08/13/22 08/03/24 History tablet,extended release 24 hr pantoprazole 40 mg tablet,delayed 40 mg PO DAILY reflu x 08/13/22 08/03/24 History release tramadol 50 mg tablet 50 mg PO Q6H PRN Breakthroug h Pain 08/13/22 08/03/24 History trazodone 50 mg tablet 50 mg PO QHS PRN leg cramps 08/13/22 08/02/24 History albuterol sulfate 90 mcg/actuation 2 inh inhalation Q6 H PRN shortness 08/03/24 08/03/24 History aerosol inhaler (Ventolin HFA) of breath or wheezing aspirin 81 mg chewable tablet 81 mg PO BREAKFAST #90 t abs 08/05/24 Unknown Rx magnesium oxide 400 mg (241.3 mg 400 mg PO DAILY #60 t abs 08/05/24 Unknown Rx magnesium) tablet (MagOx) budesonide 160 mcg-glycopyr 9 2 inh inhalation BID Unknown History mcg-formot 4.8 mcg/actuation HFA inhaler (Breztri Aerosphere) ferrous sulfate 325 mg (65 mg 325 mg PO .QOD 10/29/24 Unknown History iron) tablet loratadine 10 mg capsule (Allergy 10 mg PO QDAY Unknown History Relief (loratadine)) roflumilast 250 mcg tablet 500 mcg PO QDAY 10/29/24 Un known History Allergy/AdvReac Type Severity Reaction Status Date / Time bee venom protein (honey bee) Allergy Severe Angioedema Verified 04/11/25 18:15 oxycodone AdvReac Upset Verified 04/11/25 18:15 Stomach Family History Grandmother Lung cancer Father COPD (chronic obstructive pulmonary disease) Grandfather Bone cancer Brother Bone cancer Mother Heart disease Surgical History H/O hernia repair Total knee replacement status Social History (Updated 04/11/25 @ 22:[address] Shannen Jung MD) household members: spouse Smoking Status: Former smoker Tobacco: How many years used: 65 how long ago did patient quit smoking: Quit ~ 6 months prior to presentation 08/03/24, prior 1-1.5 ppd. alcohol intake: former details: Sober x 5 years. substance use type: does not use ROS ROS Narrative Admission Review of Systems: CONSTITUTIONAL: No weight loss, + fever, chills, weakness or fatigue. HEENT: + Occasional blurred vision with positional changes, headache. Eyes: No visual loss,double vision or yellow sclerae. Ears, Nose, Throat: No hearing loss, sneezing, congestion, runny nose or sore throat. SKIN: No rash or itching, lesions, wounds. CARDIOVASCULAR: No chest pain, chest pressure or chest discomfort, palpitations, edema, orthopnea, syncopal events. RESPIRATORY: + Dyspnea, worse with exertion, mildly productive cough. No marked wheezing or hemoptysis. GASTROINTESTINAL: + Poor oral intake/anorexia/lack of appetite. No nausea, vomiting or diarrhea, abdominal pain, melena, BRBPR. GENITOURINARY: No dysuria, frequency, urgency or retention. NEUROLOGICAL: + Headache, occasional blurred vision especially with quick positional changes. No syncope, paralysis, ataxia, numbness or tingling in the extremities, focal weakness, change in bowel or bladder control, seizure. MUSCULOSKELETAL: + muscle, back pain, joint pain or stiffness. HEMATOLOGIC: + Chronic anemia, easy bleeding/bruising. LYMPHATICS: No enlarged nodes. No history of splenectomy. PSYCHIATRIC: No history of depression or anxiety. ENDOCRINOLOGIC: No reports of sweating, cold or heat intolerance. No polyuria or polydipsia. ALLERGIES: + History of angioedema, allergic rhinitis. Vital Signs Vital Signs Vital Signs: 04/11/25 18:15 04/11/25 18:35 04/11/25 18:55 Temperature 99.6 F H Temperature Source Oral Pulse Rate 131 H 119 H Pulse Rate [Lying] Pulse Rate [Sitting (for 1 minute prior to obtaining)] Pulse Rate [Standing (for 1 minute prior to obtaining)] Respiratory Rate 27 H 19 H Respiratory Effort Normal Respiratory Pattern Tachypnea Blood Pressure 93/63 104/68 Blood Pressure [Lying] Blood Pressure [Sitting (for 1 minute prior to obtaining)] Blood Pressure [Standing (for 1 minute prior to obtaining)] Blood Pressure Mean 73 80 Blood Pressure Mean [Lying] Blood Pressure Mean [Sitting (for 1 minute prior to obtaining)] Blood Pressure Mean [Standing (for 1 minute prior to obtaining)] Pulse Ox 95 95 Oxygen Delivery Method Room Air Room Air 04/11/25 18:59 04/11/25 19:17 04/11/25 20:00 Temperature 98.8 F 98.7 F Temperature Source Oral Oral Pulse Rate 115 H 111 H Pulse Rate [Lying] 108 H Pulse Rate [Sitting (for 1 minute prior to obtaining)] 110 H Pulse Rate [Standing (for 1 minute prior to obtaining)] 115 H Respiratory Rate 30 H 20 H Respiratory Effort Respiratory Pattern Blood Pressure 104/63 115/68 Blood Pressure [Lying] 90/64 Blood Pressure [Sitting (for 1 minute prior to obtaining)] 86/64 L Blood Pressure [Standing (for 1 minute prior to obtaining)] 83/60 L Blood Pressure Mean 76 83 Blood Pressure Mean [Lying] 72 Blood Pressure Mean [Sitting (for 1 minute prior to obtaining)] 71 Blood Pressure Mean [Standing (for 1 minute prior to obtaining)] 67 Pulse Ox 96 95 Oxygen Delivery Method Room Air Room Air 04/11/25 21:00 Temperature 98.6 F Temperature Source Oral Pulse Rate 108 H Pulse Rate [Lying] Pulse Rate [Sitting (for 1 minute prior to obtaining)] Pulse Rate [Standing (for 1 minute prior to obtaining)] Respiratory Rate 23 H Respiratory Effort Respiratory Pattern Blood Pressure 90/64 Blood Pressure [Lying] Blood Pressure [Sitting (for 1 minute prior to obtaining)] Blood Pressure [Standing (for 1 minute prior to obtaining)] Blood Pressure Mean 72 Blood Pressure Mean [Lying] Blood Pressure Mean [Sitting (for 1 minute prior to obtaining)] Blood Pressure Mean [Standing (for 1 minute prior to obtaining)] Pulse Ox 97 Oxygen Delivery Method Room Air Weight Weight: 147 lb 4.301 oz Body Mass Index (BMI) 21.7 Physical Exam Narrative Physical Examination: General: Awake, alert, oriented x 3, mildly hard of hearing, remains cooperative, seated upright in ED bed, fatigued, ill-appearing. Skin: Normal color, normal turgor, no icterus, no cyanosis except very stage ecchymoses, abrasions evident. HEENT: AT/NC, EOMI, PERRLA, dry MM, no carotid bruits or JVD noted. Lungs: Notably diminished, greater bases, mildly increased respiratory rate but no distress, no markedly appreciated rales, ronchi or wheezing. Heart: Mildly tachycardic with regular rhythm; no gallop, rub audible. Abdomen: Soft, NTTP, ND, hyperactive BS, no appreciated HSM. Extremities: No cyanosis, no clubbing, no significant distal edema noted. Neurological: Patient awake, alert, oriented x 3, cognitive function intact; pupils equally reactive to light and accommodation, cranial nerves grossly normal, moving all 4 extremities, no focal deficits, strength preserved. Psychiatric: Affect appears normal, no acute evidence of depressive or anxiety feelings. Results Lab / Micro Data 04/11/25 19:20 04/11/25 19:20 Labs: Laboratory Results - last 24 hr 04/11/25 19:20: WBC 9.8, RBC 3.77 L, Hgb 11.4 L, Hct 33.5 L, MCV 88.9, MCH 30.2, MCHC 34.0, RDW Std Deviation 45.6 H, RDW Coeff of Chadd 14.2, Plt Count 267, MPV 9.4, Immature Gran % (Auto) 1.000 H, Neut % (Auto) 83.0 H, Lymph % (Auto) 6.7 L, Graves % (Auto) 9.1, Eos % (Auto) 0.0, Baso % (Auto) 0.2, Absolute Neuts (auto) 8.1 H, Absolute Lymphs (auto) 0.66 L, Nucleated RBC % 0, PT 18.0 H, INR 1.5, APTT 34.5, D-Dimer Quant (PE/DVT) 0.98 H*, Sodium 131 L, Potassium 3.2 L, Chloride 98, Carbon Dioxide 18.9 L, Anion Gap 14, BUN 16, Creatinine 0.64 L, Estim Creat Clear Calc 71.90, Est GFR (MDRD) Non-Af 97, BUN/Creatinine Ratio 24.7 H, Glucose 89, Lactic Acid 1.3, Calcium 9.0, Troponin T High Sens 18 04/11/25 19:52: Urine Color Yellow, Urine Clarity Cloudy, Urine pH 7.0, Ur Specific [place] 1.010, Urine Protein 30 H, Urine Glucose (UA) Normal, Urine Ketones 15 H, Urine Occult Blood Negative, Urine Nitrite Negative, Urine Bilirubin 3 H, Urine Urobilinogen 12 H, Ur Leukocyte Esterase Negative, Urine RBC 0 SEEN, Urine WBC 0-5 SEEN, Ur Squamous Epith Cells 0 SEEN, Amorphous Sediment 2+, Urine Bacteria 2+, Urine Mucus 1+ 04/11/25 21:28: Troponin T Hi Sens 2 Hr 18 Micro: Microbiology 04/11/25 19:20 Mucosa - Nose SARS-CoV-2, Influenza & RSV (PCR) - Final Imaging Radiology Impression Chest CTA 04/11/25 20:49 IMPRESSION: No evidence of pulmonary embolism. Airspace opacities in the lungs consistent with pneumonia. Reading Location: [facility] Assessment & Plan Assessment/Plan (1) Pneumonia: PLAN: Plan The patient is a 79 y/o M w/ PMHx: CAD, Chronic normocytic anemia/iron deficiency anemia, Chronic pain syndrome with chronic neuropathy, COPD, GERD with history of perforated ulcer/PUD, HTN, HLD, Benign essential tremor, Former tobacco use, Former EtOH abuse, Nonobstructive CAD w/ Hx TN who presents to the [facility] ED on 04/11/2025 with increased fatigue, malaise worsening over the last week with severe generalized weakness and poor oral intake over the last several weeks with a cough occasionally with productive white sputum as well as subjective fevers and chills, occasional mild headache as well as occasional blurred vision primarily with quick positional changes prompting family to bring patient in for evaluation to be cautious. #1. Adult FTT secondary to Acute bilateral lower lobe pneumonia unclear organism, community-acquired with associated hypotension suspected primarily secondary to recently poor intake/dehydration as noted #2: Will admit to PCU, maintain on fall precautions, currently not requiring oxygen but if necessary will supplement and wean as tolerated to room air, will continue judicious IV fluids, will temporally hold home inhalers in the interim transition to ATC budesonide therapy PRN albuterol, maintained on IV Rocephin and Azithromycin, HOB, IS parameters w/ pending sputum cultures, full respiratory viral panel and urine antigens. Bld cx x 2 obtained in the ED. PT/OT/case management consulted for discharge planning. Will plan repeat orthostatics in the a.m. following overnight hydration. #2. Hyponatremia, suspect hypovolemic component given acute presentation #1: Admission sodium 131, chloride 98, will continue to judiciously hydrate and repeat CMP in AM. #3. Hypokalemia: Admission K+ 3.2, magnesium level requested, supplementation given, repeat level in AM. #4. Nonobstructive CAD: Patient does have history of previous TN x 2, felt likely appropriate related to age and exposure possibly agent orange, previous cardiac catheterization nonobstructive, will continue aspirin therapy, holding hypertensive regimen given presentation as noted, continue statin therapy. [facility]. Chronic Kidney Disease Stage II per GFR trending although has somewhat vacillated but more recently in 2024 appears more consistent with likely stage II versus stage I: Admission BUN/Cr 16/0.64, GFR 97, baseline renal function primarily 0.7-1.0, repeat BMP in AM. #5. Chronic normocytic anemia/iron deficiency anemia: Admission hemoglobin 11.4, MCV 88.9, per records has vacillated, has ranged from 11-13, most recent previous to this 08/04/2024 hemoglobin 11.9 at that time, continue to trend CBC, continue iron supplementation. #6. Chronic COPD/bronchiectasis: Complicates presentation as noted above #1, Will hold home inhalers in the interim maintain on ATC budesonide therapy, PRN albuterol, HOB, IS parameters. #7. Hypertension: Hypotensive presentation, holding all hypertensive regimen, add back once appropriate. #8. Hyperlipidemia: Continue home statin regimen. #9. Chronic pain syndrome/chronic neuropathy: Continue patient on gabapentin regimen with hold for sedation/hypotension if needed. #10. GERD: History of peptic ulcer disease with perforation, continue patient on PPI. #11. Chronic essential tremors: Temporarily holding beta-ashwin therapy, notable chronic essential tremors primarily upper extremities. #12. DVT prophylaxis: Lovenox. #13. CODE status: Patient AIDA is not in place but his would be his medical decision maker and living will is currently in place. Discussed CODE status at length including difference between FULL code, DNR-CCA and DNR-CC status. Following discussions about the differences in these status, requested DNR-CCA, no intubation. Clarified with examples and confirmed his CODE STATUS request. Advanced Care Planning Face to Face Time: 16 minutes. Charges/Coding Visit Charges Inpatient E&M: 35086 Init Hosp L3 Procedures Hospitalists Procedures: 71562 Advncd Care Plan 30 Min
[2025-04-11] MEDS: Ceftriaxone 2 GM in 0.9% Normal Saline (50mL MB+) 50 ML IV (22:19)
--- NOTE | 2025-04-11 22:28 | PCA ---
[facility] CALLED, CHART FAX[facility]. SPOKE WITH JACY
[2025-04-11] MEDS: Potassium Chloride Oral Tablet 20 MEQ 40 MEQ PO (22:48)
[2025-04-11 23:26] LABS: Magnesium 2.0 mg/dL (1.5-2.2)
[2025-04-11 23:30] LABS: Troponin T High Sens 4 HR 18 ng/L (<=22)
[2025-04-12] VITALS (10 sets, daily range): BP systolic 100–118; BP diastolic 58–71; PULSE 94–106; RESP 16–20; TEMP 36.6–37; O2SAT 95–99; BMI 23.1
--- OUTSIDE RECORDS SUMMARY | 2025-04-12 00:55 | XMS RPT_ITS | CCD ---
Author Organization [facility] CliniSyaz Care Team Providers Care Retail Gift Card Merchandising Name Role Phone JESSICA ELIZONDO Unavailable Unavailable [...] Dr. Flip Snyder Other Provider Dr. Jake Palomino Other Provider Dr. Romie Pino Other Provider Dr. Regulo Neil Other Provider Unavailab pao Timmons SYSTEMS TECHNICIAN, SYSTEMS TECHNICIAN-C Kimberlee Other Provider Dr. Sima Emmanuel Attending Provider Dr. Flip Snyder Attending Provider Dr. Juan [...] Provider Cassy VELASCO, Dr. Epps Emergency Provider [phone] Fabiana WEAVER, Dr. Shannen Harley Admit Provider [...] Clinton Other Provider Unavailable Johana WEAVER, Dr. Thomas Attending Provider [place] CORRIGAN Attending Provider [phone] CA CORRIGAN Referring Provider [phone] Jenn WEAVER, Dr. Mora Referring Provider [phone] Vanna WEAVER, Dr. Donis Attending Provider Jenn WEAVER, Dr. Mora Primary Care Provider [phone] Vanna WEAVER, Dr. Donis Referring Provider [phone] Vanna WEAVER, Dr. Donis Other Provider [phone] Del SYSTEMS TECHNICIAN-CJamila Attending Provider [phone] Shannen Jung L Admitting Unavailable White, Shannen L Consulting Unavailable Shannen Jung L Attending Unavailable Santa, Babbaljeet Primary Care Unavailable Gagandeep Prabhakar Attending Unavailable Santa, Babbaljeet Primary Care Unavailable Santa, Babbaljeet Referring Unavailable DAYRON GODFREY Referring Unavailable Jake Palomino Attending Unavailable Santa, Babbaljeet Primary Care Unavailable William Vaughn Attending Unavailabl e Santa, Babbaljeet Primary Care Unavailable Gagandeep Prabhakar Referring Unavailable Gagandeep Prabhakar Attending Unavailable Santa, Babbaljeet Primary Care Unavailable DAYRON GODFREY Attending Unavailable Freddie Ramos Attending Unavailable Santa, Babbaljeet Primary Care Unavailable Fabiana Shannen L Admitting Unavailable Jacobo Krause Consulting Unavailable Santa, Babbaljeet Primary Care Unavailable Jessica Mart Attending Unavailable Adeli, Amir Consulting Unavailable Hinduja, Bee Consulting Unavailable Xander, Naz Consulting Unavailable Zha, Cynthia Consulting Unavailable Radha, Umesh Consulting Unavailable Jonah, Katalina Consulting Unavailable Bittar Enmanuel Consulting Unavailable Shekhar Mckeon Consulting Unavailable Nirmal Barbosa Consulting Unavailable Amna Jimenez Consulting Unavailable Shakeel Varela Consulting Unavailable Wandy Valenzuela Consulting Unavailable Roman Younger Consulting Unavailable Garret Carneyzat Consulting UnavailJani Storey Consulting Unavailable Nielsen, Rami Consulting Unavailable Gena Jesus Consulting Unavailable Francine Grubbs Consulting Unavailable Rj Sampson Consulting Unavailable White, Shannen L Consulting Unavailable Jamila Mathis NP Attending Unavailable Santa, Babbaljeet Primary Care Unavailable Vanna, Gagandeep Referring Unavailable Vanna, Jeannette Attending Unavailable Vanna, Jeannette Consulting Unavailable Santa, Babbaljeet Primary Care Unavailable Santa, Babbaljeet Primary Care Unavailable Shannen Jung Admitting Unavailable Jacobo Krause Consulting Unavailable Jessica Mart Attending Unavailable AdeUlises junior Consulting Unavailable Hinduja, Bee Consulting Unavailable Xander, Naz Consulting Unavailable Zha, Cynthia Consulting Unavailable Radha, Umesh Consulting Unavailable Jonah Katalina Consulting Unavailable BittarEnmanuel Consulting Unavailable Shekhar Mckeon Consulting Unavailable Nirmal Barbosa Consulting Unavailable BeAmna fernandez Consulting Unavailable Shakeel Varela Consulting Unavailable Wandy Valenzuela Consulting Unavailable Roman Younger Consulting Unavailable Garret Carney Consulting UnavailJani Storey Consulting Unavailable NielsenCedric magdaleno Consulting Unavailable Jesus Avery Consulting Unavailable Francine Grubbs Consulting Unavailable Rj Sampson Consulting Unavailable Shannen Jung Consulting Unavailable Jessica Mart Consulting Unavailable Allergies Allergy Classification Reported Allergen(s) Allergy Type Date of Onset Reaction(s) Facility (9 sources) oxyCODONE; Translations: [OXYCODONE] Drug Allergy 3 [facility] (1 source) oxyCODONE Drug Allergy [facility] Repository (1 source) BEE STING; Translations: [BEE STING] Propensity to adverse reactions (disorder) [facility] Repository (5 sources) tamsulosin; Translations: [TAMSULOSIN] Drug Allergy 3 Dizziness [facility] 3 Repository (9 sources) BEE VENOM PROTEIN (HONEY BEE); Translations: [BEE VENOM PROTEIN (HONEY BEE)] Propensity to adverse reactions to drug (disorder) 4 Unknown [facility] 3 Repository (5 sources) VENOM-YELLOW JACKET; Translations: [VENOM-YELLOW JACKET] Propensity to adverse reactions to drug (disorder) 6 Swelling [facility] 3 Repository (1 source) oxyCODONE Drug Allergy 5 [facility] Repository Medications Current Medications Medication Drug Class(es) Dates Sig (Normalized) Sig (Original) acetaminophen 325 mg oral tablet (3 sources) Start: 08-09-2022 acetaminophen (Tylenol) 325 mg tablet Take 1 tablet (325 mg) by mouth. 08/09/2022 Active [id number] 200 actuat albuterol 0.09 mg/actuat metered dose inhaler (7 sources) beta2-Adrenergic Agonist Start: 08-03-2024 Albuterol Sulfate [...] / ipratropium bromide 0.167 mg/ml inhalation solution (7 sources) Anticholinergic, beta2-Adrenergic Agonist Start: 06-06-2023 ipratropium-albuteroL [...] oral tablet (3 sources) alpha-Adrenergic Kim Start: take 1 tablet by mouth every twenty-four hours alfuzosin (Uroxatral) 10 mg 24 hr tablet Take 1 tablet (10 mg) by mouth. 11/17/2023 Active aspirin 81 mg chewable tablet (6 sources) Platelet Aggregation Inhibitor, Nonsteroidal Anti-inflammatory Drug Start: take 1 tablet by mouth at breakfast Aspirin 81 mg Tablet,Chewable Active 81 mg PO WITH BREAKFAST 90 August 05, 2024 1:00am Start: 12-03-2022 aspirin 500 mg EC tablet Take by mouth. 12/03/2022 Active atorvastatin 40 mg oral tablet (9 sources) HMG-CoA Reductase Inhibitor Start: 08-13-2022 take [...] a day . 0 Active Budesonide-Glyco pyr-Formoterol (6 sources) Corticosteroid, beta2-Adrenergic Agonist Start: 10-29-2024 Budesonide-Glycopy r-Formoterol (Breztri Aerosphere) 160-9-4.8 mcg/actuation HFA aerosol inhaler Active 2 NMA INHALATION TWICE A DAY October 29, 2024 12:00am Start: 01-23-2024 budesonide-gly copyr-formoterol (BREZTRI) 160-9-4.8 mcg/actuation HFA aerosol inhaler Inhale. 01/23/2024 Active cholecalciferol 0.05 mg oral tablet (7 sources) Vitamin D Start: 08-13-2022 take 1 tablet by mouth every other day Cholecalciferol (Vitamin D3) 50 mcg (2,000 unit) Tablet Active 50 ug PO EVERY OTHER DAY August 13, 2022 1:00am Start: 08-13-2022 cholecalcifero l (Vitamin D-3) 50 MCG (1999 UT) tablet Take by mouth. 08/13/2022 Active cyclobenzaprine hydrochloride 10 mg oral tablet (7 sources) Muscle Relaxant Start: 01-26-2024 take 1 [...] Active ferrous sulfate 325 mg oral tablet (3 sources) Start: 10-29-2024 take 1 tablet by mouth every other day Ferrous Sulfate 325 mg (65 mg iron) tablet Active 325 mg PO .QOD October 29, 2024 12:00am fexofenadine hydrochloride 180 mg oral tablet (3 sources) Histamine-1 Receptor Antagonist Start: 09-20-2023 fexofenadine (Megha) 180 mg tablet Take 1 tablet (180 mg) by mouth. 09/20/2023 Active Fluticasone Propion-Salmeterol (4 sources) Corticosteroid, beta2-Adrenergic Agonist Start: 08-13-2022 Fluticasone Propion-Salmeterol 250-50 mcg/dose Blister With Device Active 1 NMA INHALATION TWICE A DAY August 13, 2022 1:00am Start: 08-13-2022 Fluticasone Pr opion-Salmeterol Active 1 INH INHALATION TWICE A DAY August 13, 2022 12:00am gabapentin 300 mg oral capsule (12 sources) Anti-epileptic Agent Start: 11-08-2023 gabapenti n [...] (eight) hours (Days supply per fill: {DAYS SUPPLY:}) . 0 04/27/2019 Discontinued (Stop Taking at Discharge) 24 hr isosorbide mononitrate 30 mg extended release oral tablet (7 sources) Nitrate Vasodilator Start: 08-13-2022 take 1 [...] 2022 1:00am lisinopril 5 mg oral tablet (6 sources) Angiotensin Converting Enzyme Inhibitor Start: 08-13-2022 take 1 tablet by mouth once daily Lisinopril 5 mg Tablet Active 5 mg PO DAILY August 13, 2022 1:00am take 1 tablet by mouth once rhett y lisinopril (PRINIVIL,ZESTRIL) 5 MG tablet Take 5 mg by mouth daily . 0 Active loratadine 10 mg oral tablet (3 sources) Start: 10-29-2024 take 1 capsule by mouth once daily Loratadine (Allergy Relief (Loratadine)) 10 mg capsule Active 10 mg PO daily October 29, 2024 12:00am losartan potassium 25 mg oral tablet (3 sources) Angiotensin 2 Receptor Kim Start: 10-20-2023 losartan (Cozaar) 25 mg tablet Take 1 tablet (25 mg) by mouth. 10/20/2023 Active magnesium oxide 400 mg oral tablet (3 sources) Start: 08-05-2024 take 1 tablet by mouth once daily Magnesium Oxide (Magox) 400 mg (241.3 mg magnesium) tablet Active 400 mg PO DAILY 60 August 05, 2024 1:00am meloxicam 15 mg oral tablet (2 sources) Nonsteroidal Anti-inflammatory Drug take 1 tablet by mouth once daily meloxicam (MOBIC) 15 MG tablet Take 15 mg by mouth daily . 0 Active 24 hr metoprolol succinate 100 mg extended release oral tablet (9 sources) beta-Adrenergic Kim Start: 08-13-2022 take 1 [...] pantoprazole 40 mg delayed release oral tablet (7 sources) Proton Pump Inhibitor Start: 08-13-2022 take 1 tablet by mouth once daily Pantoprazole 40 mg Tablet,Delayed Release (Dr/Ec) Active 40 mg PO DAILY August 13, 2022 1:00am Roflumilast (6 sources) Phosphodiesterase 4 Inhibitor Start: 10-29-2024 take [...] Active traMADol hydrochloride 50 mg oral tablet (4 sources) Opioid Agonist Start: 08-13-2022 take 1 tablet by mouth every six hours as needed for pain Tramadol 50 mg Tablet Active 50 mg PO EVERY 6 HOURS as needed for Breakthrough Pain August 13, 2022 1:00am traZODone hydrochloride 50 mg oral tablet (4 sources) Serotonin Reuptake Inhibitor Start: 08-13-2022 take [...] guaiFENesin 1200 mg extended release oral tablet (4 sources) Start: 08-18-2022 End: 08-03-2024 take 1 [...] (150 mg x 2)-100 mg tablets,dose pack (3 sources) Start: 05-03-2024 End: 08-03-2024 Nirmatrelvir-Subhash navir [...] by anesthesia predniSONE 20 mg oral tablet (10 sources) Start: 05-03-2024 End: 08-03-2024 take 3 [...] 60 actuat tiotropium 0.0025 mg/actuat inhalation spray (6 sources) Anticholinergic Start: 08-13-2022 End: 08-03-2024 take 2.5 ug by inhalation twice daily Tiotropium [place] (Spiriva Respimat) 2.5 mcg/actuation Mist Discontinued 2 NMA INHALATION TWICE A DAY August 13, 2022 1:00am August 03, 2024 8:14pm Start: 08-13-2022 take 1 puff(s) by in halation twice daily Tiotropium [place] (Spiriva Respimat) 2.5 mcg/actuation Mist Active 2 PUFF INHALATION TWICE A DAY August 13, 2022 12:00am take 1 capsule by in halation once daily tiotropium (SPIRIVA) [address] 18 mcg into inhaler and inhale daily . 0 Active Problems Active Problems Problem Classification Problem Date Documented Date Episodic/Chronic Acute cerebrovascular disease (6 sources) Cerebrovascular accident; Translations: [Cerebral infarction, unspecified] Onset: 08-06-2024 08-13-2024 Chronic Acute myocardial infarction (3 sources) Myocardial infarction; Translations: [Acute myocardial infarction, unspecified] 10-29-2024 Chronic Comment on above: Nonobstructive CAD Chronic obstructive pulmonary disease and bronchiectasis (17 sources) Bronchiectasis; Translations: [Bronchiectasis, uncomplicated] Onset: 11-26-2024 08-14-2022 Chronic Conditions associated with dizziness or vertigo (5 sources) Dizziness; Translations: [Dizziness and giddiness] Onset: 11-22-2024 10-29-2024 Episodic Coronary atherosclerosis and other heart disease (4 sources) Coronary arteriosclerosis; Translations: [Atherosclerotic heart disease of [place] coronary artery without angina pectoris] Onset: 11-22-2024 10-29-2024 Chronic Deficiency and other anemia (3 sources) Iron deficiency anemia; Translations: [Iron deficiency anemia, unspecified] 10-29-2024 Episodic Diabetes mellitus without complication (5 sources) Hyperglycemia; Translations: [Hyperglycemia, unspecified] 08-14-2022 Episodic Diseases of white blood cells (5 sources) Leukocytosis; Translations: [Elevated white blood cell count, unspecified] 08-14-2022 Chronic Disorders of lipid metabolism (5 sources) Hyperlipidemia; Translations: [Hyperlipidemia, unspecified] Onset: 11-22-2024 10-29-2024 Chronic Essential hypertension (5 sources) Hypertensive disorder; Translations: [Essential (primary) hypertension] Onset: 11-22-2024 10-29-2024 Chronic Fluid and electrolyte disorders (5 sources) Lactic acidosis; Translations: [Lactic acidosis] 08-12-2022 Episodic Gastroduodenal ulcer (except hemorrhage) (6 sources) Peptic ulcer with perforation; Translations: [Chronic or unspecified peptic ulcer, site unspecified, with perforation] 10-29-2024 Chronic Genitourinary symptoms and ill-defined conditions (4 sources) Nocturia; Translations: [Nocturia] Onset: 01-25-2024 Episodic Hyperplasia of prostate (4 sources) Benign prostatic hyperplasia with lower urinary tract symptoms; Translations: [Benign prostatic hyperplasia] Onset: 01-25-2024 Chronic Nutritional deficiencies (3 sources) Vitamin D deficiency; Translations: [Vitamin D deficiency, unspecified] 10-29-2024 Chronic Other diseases of kidney and ureters (3 sources) Renal mass; Translations: [Other specified disorders of kidney and ureter] 10-29-2024 Chronic Other hereditary and degenerative nervous system conditions (3 sources) Essential tremor; Translations: [Essential tremor] 10-29-2024 Chronic Other lower respiratory disease (3 sources) Dyspnea; Translations: [Shortness of breath] 10-29-2024 Episodic Other lower respiratory disease (1 source) Shortness of breath; Translations: [Shortness of breath] Onset: 11-22-2024 Episodic Other nervous system disorders (3 sources) Neuropathy; Translations: [Polyneuropathy, unspecified] 10-29-2024 Chronic Other nervous system disorders (3 sources) Chronic pain syndrome; Translations: [Chronic pain syndrome] 10-29-2024 Chronic Respiratory failure; insufficiency; arrest (adult) (5 sources) Rrach-bo-snauwgk respiratory failure; Translations: [Acute and chronic respiratory failure with hypoxia] 08-14-2022 Chronic Thyroid disorders (5 sources) Sick-euthyroid syndrome; Translations: [Sick-euthyroid syndrome] 08-15-2022 Episodic Transient cerebral ischemia (4 sources) Transient cerebral ischemia; Translations: [Transient cerebral ischemic attack, unspecified] Onset: 08-23-2024 10-29-2024 Chronic Viral infection (3 sources) Disease caused by 2019-nCoV; Translations: [COVID-19] 10-29-2024 Episodic Past or Other Problems Problem Classification Problem Date Documented Da te Episodic/Chronic Calculus of urinary tract (7 sources) Calculus of kidney; Translations: [Kidney stone] Onset: 01-25-2024 Episodic Unclassified (3 sources) Onset: 01-25-2024 01-25-2024 Results Test Name Value Interpretation Reference Range Facility Cardiovascular stress test r eportOrdered By: Gagandeep Prabhakar on 12-24-2024 Study report [facility] [address] [place] [address] MR#: [id number] Acct: [id number] Name: TIMUR JIMENEZ Rep #: [id number] : 1945 79 From: Gagandeep Prabhakar MD Primary Care: Dr. Mimi Santa MD Sta tus: REG CLI Referring Dr: Gagandeep Prabhakar MD Sex: M C Stress Test Report Pharmacologic myocardial perfusion stress test. 79-year-old male with a history of chest pain Resting EKG demonstrates sinus bradycardia with a rate of 50 bpm. Resting bloodpressure is 118/74 mmHg. 0.4 mg of regadenoson was infused per usual protocol followed by rapid intravenous saline flush injection. Continuous EKG monitoringwas performed. The maximum heart rate was 72 bpm which was 50% of max impacted heart rate the maximum workload was 1 metabolic equivalent. At rest there were no ST or T wave changes noted to suggest ischemia and at peak infusion nonspecific ST changes were noted which did not meet the criteria for ischemia. No clinical angina is noted. The final blood pressure was 118/62 mmHg. Myocardial perfusion protocol. 11.7 mCi of technetium 99m sestamibi was injected at rest. 0.4 mg of regadenoson was infused per usual protocol. At peak infusion 35.2 mCi of technetium 99m sestamibi was injected stress images were obtained stress and rest images were reconstructed and compared in the short axis vertical long and horizontal long axis. Gated images were also obtained. Perfusion SPECT analysis: Review of the stress images demonstrate normal uptake of tracer noted in all areas of the myocardium. The resting images similar demonstrated normal uptake of tracer noted in all areas of the myocardium. No areas of reversibility are noted to suggest ischemia and no previous infarct is noted. Gated SPECT analysis: The gated ejection fraction is 53%. Conclusion: Normal pharmacologic myocardial perfusion stress test. Preserved ejection fraction. 12/24/242005 Date _ Gagandeep Prabhakar MD CC: Dr. Mimi Santa MD; Dr. Gagandeep Prabhakar MD ~ Date Dictated: 12/24/242001 Date Transcribed: 12/24/242001 Storeperson: [place] Signed [facility] Work Phone: Stress Reporton 12-24-2024 Stress Report [facility] [address] [place] [address] MR#: [id number] Acct: [id number] Name: TIMUR JIMENEZ JrCarmita Rep #: [id number] : 1945 79 From: Gagandeep Prabhakar MD Primary Care: Dr. Mimi Santa MD Status: REG CLI Referring Dr: Gagandeep Prabhakar MD Sex: M C Stress Test Report Pharmacologic myocardial perfusion stress test. 79-year-old male with a history of chest pain Resting EKG demonstrates sinus bradycardia with a rate of 50 bpm. Resting blood pressure is 118/74 mmHg. 0.4 mg of regadenoson was infused per usual protocol followed by rapid intravenous saline flush injection. Continuous EKG monitoring was performed. The maximum heart rate was 72 bpm which was 50% of max impacted heart rate the maximum workload was 1 metabolic equivalent. At rest there were no ST or T wave changes noted to suggest ischemia and at peak infusion nonspecific ST changes were noted which did not meet the criteria for ischemia. No clinical angina is noted. The final blood pressure was 118/62 mmHg. Myocardial perfusion protocol. 11.7 mCi of technetium 99m sestamibi was injected at rest. 0.4 mg of regadenoson was infused per usual protocol. At peak infusion 35.2 mCi of technetium 99m sestamibi was injected stress images were obtained stress and rest images were reconstructed and compared in the short axis vertical long and horizontal long axis. Gated images were also obtained. Perfusion SPECT analysis: Review of the stress images demonstrate normal uptake of tracer noted in all areas of the myocardium. The resting images similar demonstrated normal uptake of tracer noted in all areas of the myocardium. No areas of reversibility are noted to suggest ischemia and no previous infarct is noted. Gated SPECT analysis: The gated ejection fraction is 53%. Conclusion: Normal pharmacologic myocardial perfusion stress test. Preserved ejection fraction. 12/24/242005 Date Gagandeep Prabhakar MD CC: Dr. Mimi Santa MD; Dr. Gagandeep Prabhakar MD Date Dictated: 12/24/242001 Date Transcribed: 12/24/242001 Storeperson: [place] Signed Normal [facility] 12 [place] [facility] [place]-21-2024 12 Lead EKG performed by [facility] [address] [place] [address] 12 Lead EKG [place] [facility] [place] 11/21/24 0919 MR#: [id number] Acct: [id number] Name: TIMUR JIMENEZ Jr. Rep #: [id number] : 1945 79 From: Gagandeep Prabhakar MD Attending Dr: Dr. Gagandeep Prabhakar MD Status: DEP A MB Ordering Dr: Gagandeep Prabhakar MD Date: 11/21/24 [place] [facility] [place]: M C Admitted: BMS/12 Lead E[place] [facility] [place] Report Interpretation ------Sinus Bradycardia -First degree A-V block Sabiha = 224-Left axis -anterior fascicular block. -Old anterior infarct. Low voltage with rightward P-axis and rotation -possible pulmonary disease. ABNORMAL Electronically signed on 11/28/2024 at 09:40 by Gagandeep Prabhakar [employer] Version 8610 11/28/2442 Date Gagandeep Prabhakar MD CC: Dr. Mimi Santa MD Date Dictated: 11/21/24918 Date Transcribed: 11/21/24918 Storeperson: [place] Signed Normal [facility] Cardiology Visit Reporton Cardiology Visit Report [facility] [address] [place] [address] OFFICE VISIT Date of Service: 11/21/24 MR#: [id number] Acct: [id number] Name: TONYTIMUR Rep #: [id number] : 1945 Provider: Dr. Gagandeep Prabhakar MD Age/Sex: 79/M [place] [facility] [place]: Signed HPI HPI History of Present Illness Details: 79-year-old man from the [facility] with a history of hypertension hyperlipidemia [...] last stress test which she had in 2017 demonstrated no evidence of reversible ischemia. 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 Required: No Accompanied by: Self Is patient [...] mg 30 mg PO DAILY heart 08/13/22 04/08/04 History tablet,extended release 24 hr lisinopril 5 [...] 160 mcg-glycopyr 9 2 inh inhalation BID 10/29/2410/10 History mcg-formot 4.8 mcg/actuation HFA inhaler (Breztri [...] meds and did not bring a list [facility] Medical History Pre-operative cardiovascular examination Iron deficiency anemia Vitamin D deficiency CAD (coronary artery disease) Renal mass Dizziness SOB (shortness of breath) Benign essential tremor Chronic pain syndrome Neuropathy HLD (hyperlipidemia) HTN (hypertension) PUD (peptic ulcer disease) TIA (transient ischemic attack) Perforated ulcer COPD (chronic obstructive pulmonary disease) Heart attack Surgical History ... Normal [facility] Absolute lymphocyte countOrd ered By: Shannen Jung on 08-04-2024 Lymphocytes Auto (Unsp spec) [#/Vol] 1.92 10*3/uL 0.83-4.51 [facility] Absolute neutrophil countOrd ered By: Shannen Fabiana on 08-04-2024 Neutrophils (Bld) [#/Vol] 3.8 10*3/uL 2.0-7.7 [facility] Albumin to globulin ratioOrd ered By: Shannen Jung on 08-04-2024 Albumin/Globulin [Mass ratio] 1.1 {ratio} 0.9-2.4 [facility] Automated lymphocyte count a s percentage of total leukocytesOrdered By: Shannen Jung on 08-04-2024 Lymphocytes/100 WBC Auto (Unsp spec) 28.6 % 19-41 [facility] Basophil percentageOrdered B y: Shannen Fabiana on 08-04-2024 Basophils/100 WBC (Bld) 0.3 % 0-1 [facility] Bilirubin, totalOrdered By: Shannen Jung on 08-04-2024 Bilirubin [Mass/Vol] 0.60 mg/dL 0.20-1.00 [facility] Comment on above: For patients on eltr ombopag therapy, use of Dimension Capac TBIL is not recommended. Blood urea nitrogen (BUN)/cr eatinine ratioOrdered By: Shannen Jung on 08-04-2024 Urea nitrogen/Creatinine [Mass ratio] 23.0 mg/mg High 10-20 [facility] Brain without Contraston Brain without Contrast [facility] Imaging Services [address] [place] [address] Brain without Contrast MR#: [id number] Acct: [id number] Name: TIMUR JIMENEZ Jr. Rep #: [id number] : 1945 M 78 From: Bi Nava MD PCP: Dr. Mimi Santa MD Status: ADM JUSTO Study: Brain without Contrast Date of Exam: 08/04/24 Exam# [id number] Ordering Dr: Shannen Jung MD [id number] STUDY: MRI BRAIN WITHOUT CONTRAST REASON FOR [...] Signed: Bi Nava MD at 16:56 EST Reading Location ID and State: [facility] / [place] Tel , Service support , CC: Dr. Shannen Jung MD; Dr. Mimi Santa MD Storeperson: Signed Normal [facility] CBC W/Diff, Automatedon 07-12 Absolute Lymph 1.92 X10 3/uL Normal 0.83-4.51 [facility] Comment on above: Performed By: #### L 500.4100, L500.4050, L501.9985, L100.0100, L501.9520 ####[facility] [address] [place], [address] Absolute Neut 3.8 X10 3/uL Normal 2.0-7.7 [facility] Comment on above: Performed By: #### L 500.4100, L500.4050, L501.9985, L100.0100, L501.9520 ####[facility] [address] [place], [address] Basophils/100 WBC (Bld) 0.3 % Normal 0-1 [facility] Comment on above: Performed By: #### L 500.4100, L500.4050, L501.9985, L100.0100, L501.9520 ####[facility] [address] [place], [address] Eosinophils/100 WBC (Bld) 0.0 % Normal 0-5 [facility] Comment on above: Performed By: #### L 500.4100, L500.4050, L501.9985, L100.0100, L501.9520 ####[facility] [address] [place], [address] Erythrocyte distribution width (RBC) [Ratio] 14.8 % High 11.6-14.6 [facility] Comment on above: Performed By: #### L 500.4100, L500.4050, L501.9985, L100.0100, L501.9520 ####[facility] [address] [place], [address] Hematocrit (Bld) [Volume fraction] 37.4 % Low 40-54 [facility] Comment on above: Performed By: #### L 500.4100, L500.4050, L501.9985, L100.0100, L501.9520 ####[facility] [address] [place], [address] Hemoglobin (Bld) [Mass/Vol] 11.9 g/dL Low 13.0-16.5 [facility] Comment on above: Performed By: #### L 500.4100, L500.4050, L501.9985, L100.0100, L501.9520 ####[facility] [address] [place], [address] IG% 0.400 Normal 0.0-0.9 [facility] Comment on above: Result Comment: IG% - Immature Granulocytes (promyelocytes, myelocytes and metamyelocytes) > 1% indicates that a LEFT SHIFT is Present. Performed By: #### L 500.4100, L500.4050, L501.9985, L100.0100, L501.9520 ####[facility] [address] [place], [address] Lymphocytes/100 WBC (Bld) 28.6 % Normal 19-41 [facility] Comment on above: Performed By: #### L 500.4100, L500.4050, L501.9985, L100.0100, L501.9520 ####[facility] [address] [place], [address] MCH (RBC) [Entitic mass] 29.1 pg Normal 27.0-32.0 [facility] Comment on above: Performed By: #### L 500.4100, L500.4050, L501.9985, L100.0100, L501.9520 ####[facility] [address] [place], [address] MCHC (RBC) [Mass/Vol] 31.8 g/dL Low 32-36 [facility] Comment on above: Performed By: #### L 500.4100, L500.4050, L501.9985, L100.0100, L501.9520 ####[facility] [address] [place], [address] MCV (RBC) [Entitic vol] 91.4 fL Normal 80-94 [facility] Comment on above: Performed By: #### L 500.4100, L500.4050, L501.9985, L100.0100, L501.9520 ####[facility] [address] [place], [address] Monocytes/100 WBC (Bld) 13.8 % High 0-10 [facility] Comment on above: Performed By: #### L 500.4100, L500.4050, L501.9985, L100.0100, L501.9520 ####[facility] [address] [place], [address] Neutrophils/100 WBC (Bld) 56.9 % Normal 47-70 [facility] Comment on above: Performed By: #### L 500.4100, L500.4050, L501.9985, L100.0100, L501.9520 ####[facility] [address] [place], [address] Nucleated RBC (Bld) [#/Vol] 0 10*3/uL Normal 0-5 [facility] Comment on above: Performed By: #### L 500.4100, L500.4050, L501.9985, L100.0100, L501.9520 ####[facility] [address] [place], [address] Platelet mean volume (Bld) [Entitic vol] 10.0 fL Normal 6.2-12.0 [facility] Comment on above: Performed By: #### L 500.4100, L500.4050, L501.9985, L100.0100, L501.9520 ####[facility] [address] [place], [address] Platelets (Bld) [#/Vol] 215 10*3/uL Normal 150-450 [facility] Comment on above: Performed By: #### L 500.4100, L500.4050, L501.9985, L100.0100, L501.9520 ####[facility] [address] [place], [address] RBC (Bld) [#/Vol] 4.09 10*6/uL Low 4.6-6.2 [facility] Comment on above: Performed By: #### L 500.4100, L500.4050, L501.9985, L100.0100, L501.9520 ####[facility] [address] [place], [address] RDW SD 50.0 fl High 35.1-43.9 [facility] Comment on above: Performed By: #### L 500.4100, L500.4050, L501.9985, L100.0100, L501.9520 ####[facility] [address] [place], [address] WBC (Bld) [#/Vol] 6.7 10*3/uL Normal 4.4-11.0 [facility] Comment on above: Performed By: #### L 500.4100, L500.4050, L501.9985, L100.0100, L501.9520 ####[facility] [address] [place], [address] Carbon dioxide measurementOr dered By: Shannen Jung on 08-04-2024 CO2 [Moles/Vol] 23.0 mmol/L 21.0-32.0 [facility] Chloride measurementOrdered By: Shannen Jung on 08-04-2024 Chloride [Moles/Vol] 109 mmol/L High 98-107 [facility] Comprehensive Metabolic Prof ilon 08-04-2024 Albumin [Mass/Vol] 3.3 g/dL Normal 3.2-5.0 [facility] Comment on above: Performed By: #### L 500.4100, L500.4050, L501.9985, L100.0100, L501.9520 ####[facility] [address] [place], [address] Albumin/Globulin [Mass ratio] 1.1 {ratio} Normal 0.9-2.4 [facility] Comment on above: Performed By: #### L 500.4100, L500.4050, L501.9985, L100.0100, L501.9520 ####[facility] [address] [place], [address] ALK P 71 U/L Normal 45-117 [facility] Comment on above: Performed By: #### L 500.4100, L500.4050, L501.9985, L100.0100, L501.9520 ####[facility] [address] [place], [address] ALT [Catalytic activity/Vol] 11 U/L Low 16-61 [facility] Comment on above: Performed By: #### L 500.4100, L500.4050, L501.9985, L100.0100, L501.9520 ####[facility] [address] [place], [address] AST [Catalytic activity/Vol] 11 U/L Low 15-37 [facility] Comment on above: Performed By: #### L 500.4100, L500.4050, L501.9985, L100.0100, L501.9520 ####[facility] [address] [place], [address] Bilirubin [Mass/Vol] 0.60 mg/dL Normal 0.20-1.00 [facility] Comment on above: Result Comment: For patients on eltrombopag therapy, use of Dimension Capac TBIL is not recommended. Performed By: #### L 500.4100, L500.4050, L501.9985, L100.0100, L501.9520 ####[facility] [address] [place], [address] BUN/CRE 23.0 RATIO High 10-20 [facility] Comment on above: Performed By: #### L 500.4100, L500.4050, L501.9985, L100.0100, L501.9520 ####[facility] [address] [place], [address] CA,Total 9.0 mg/dL Normal 8.5-10.1 [facility] Comment on above: Performed By: #### L 500.4100, L500.4050, L501.9985, L100.0100, L501.9520 ####[facility] [address] [place], [address] Chloride [Moles/Vol] 109 mmol/L High 98-107 [facility] Comment on above: Performed By: #### L 500.4100, L500.4050, L501.9985, L100.0100, L501.9520 ####[facility] [address] [place], [address] CO2 [Moles/Vol] 23.0 mmol/L Normal 21.0-32.0 [facility] Comment on above: Performed By: #### L 500.4100, L500.4050, L501.9985, L100.0100, L501.9520 ####[facility] [address] [place], [address] Creatinine [Mass/Vol] 1.00 mg/dL Normal 0.70-1.30 [facility] Comment on above: Result Comment: The validity of the calculated GFR GFRAA in patients over 70 years has not been determined. Clinical correlation is essential. Performed By: #### L 500.4100, L500.4050, L501.9985, L100.0100, L501.9520 ####[facility] [address] [place], [address] ECRCL 61.86 ml/min Normal [facility] Comment on above: Performed By: #### L 500.4100, L500.4050, L501.9985, L100.0100, L501.9520 ####[facility] [address] [place], [address] EST GFR - AA 93 mL/min Normal >60 [facility] Comment on above: Result Comment: Afri can [place]an GFR Calc Performed By: #### L 500.4100, L500.4050, L501.9985, L100.0100, L501.9520 ####[facility] [address] [place], [address] GAP 7 Normal 5-15 [facility] Comment on above: Performed By: #### L 500.4100, L500.4050, L501.9985, L100.0100, L501.9520 ####[facility] [address] [place], [address] GFR/1.73 sq M.predicted among non-blacks MDRD (S/P/Bld) [Vol rate/Area] 77 mL/min/{1.73_m2} Normal >60 [facility] Comment on above: Result Comment: Non- GFR Calc Performed By: #### L 500.4100, L500.4050, L501.9985, L100.0100, L501.9520 ####[facility] [address] [place], [address] Globulin (S) [Mass/Vol] 2.9 g/dL Normal 2.2-4.2 [facility] Comment on above: Performed By: #### L 500.4100, L500.4050, L501.9985, L100.0100, L501.9520 ####[facility] [address] [place], [address] Glucose [Mass/Vol] 101 mg/dL Normal 74-106 [facility] Comment on above: Result Comment: Fast ing Glucose result from 100 to 125 mg/dL suggests IMPAIRED HOMEOSTASIS per A.D.A. criteria. Performed By: #### L 500.4100, L500.4050, L501.9985, L100.0100, L501.9520 ####[facility] [address] [place], [address] Potassium [Moles/Vol] 3.7 mmol/L Normal 3.5-5.1 [facility] Comment on above: Performed By: #### L 500.4100, L500.4050, L501.9985, L100.0100, L501.9520 ####[facility] [address] [place], [address] Sodium [Moles/Vol] 139 mmol/L Normal 136-145 [facility] Comment on above: Performed By: #### L 500.4100, L500.4050, L501.9985, L100.0100, L501.9520 ####[facility] [address] [place], [address] T PROT 6.2 g/dL Low 6.4-8.2 [facility] Comment on above: Performed By: #### L 500.4100, L500.4050, L501.9985, L100.0100, L501.9520 ####[facility] [address] [place], [address] Urea nitrogen [Mass/Vol] 23 mg/dL High 7-18 [facility] Comment on above: Performed By: #### L 500.4100, L500.4050, L501.9985, L100.0100, L501.9520 ####[facility] [address] [place], [address] Eosinophil percentageOrdered By: Shannen White on 08-04-2024 Eosinophils/100 WBC (Bld) 0.0 % 0-5 [facility] Erythrocyte distribution wid th ratioOrdered By: Shannen Jung on 08-04-2024 Erythrocyte distribution width (RBC) [Ratio] 14.8 % High 11.6-14.6 [facility] Erythrocyte distribution wid th standard deviationOrdered By: Shannen Fabiana on 08-04-2024 Erythrocyte distribution width (RBC) [Ratio] 50.0 fl High 35.1-43.9 [facility] Glomerular filtration rate ( GFR) estimationOrdered By: Shannen Fabiana on 08-04-2024 GFR/1.73 sq M.predicted among non-blacks MDRD (S/P/Bld) [Vol rate/Area] 77 mL/min/{1.73_m2} >60 [facility] Comment on above: Non- GFR Calc Glucose measurementOrdered B y: Shannen Fabiana on 08-04-2024 Glucose [Mass/Vol] 101 mg/dL 74-106 [facility] Comment on above: Fasting Glucose resu lt from 100 to 125 mg/dL suggests IMPAIRED HOMEOSTASIS per A.D.A. criteria. Hematocrit Auto (Bld) [Volum e fraction]Ordered By: Shannen Jung on 08-04-2024 Hematocrit (Bld) [Volume fraction] 37.4 % Low 40-54 [facility] Hemoglobin A1con 08-04-2024 HbA1c (Bld) [Mass fraction] 5.4 % Normal 3.8-5.6 [facility] Comment on above: Result Comment: Norm al < 5.7 % Prediabetic 5.7 - 6.4 % Diabetic >or= 6.5 % Please note range changes. Performed By: #### L 500.4100, L500.4050, L501.9985, L100.0100, L501.9520 ####[facility] [address] [place], [place], [address] Hemoglobin A1c percentageOrd ered By: Shannen Jung on 08-04-2024 HbA1c (Bld) [Mass fraction] 5.4 % 3.8-5.6 [facility] Comment on above: Normal < 5.7 % Predi abetic 5.7 - 6.4 % Diabetic >or= 6.5 % Please note range changes. Hemoglobin measurementOrdere d By: Shannen Jung on 08-04-2024 Hemoglobin (Bld) [Mass/Vol] 11.9 g/dL Low 13.0-16.5 [facility] High density lipoprotein (HD L) measurementOrdered By: Shannen Jung on 08-04-2024 Cholesterol in HDL [Mass/Vol] 50 mg/dL >40 [facility] Comment on above: The drugs N-Acetylcy steine and Metamizole may falsely depress this assay. Reference Range HDL <40 mg/dL Low HDL Cholesterol HDL >or= 60 mg/dL High HDL Cholesterol Immature granulocytes/100 WB C Auto (Bld)Ordered By: Shannen Jung on 08-04-2024 Immature granulocytes/100 WBC (Bld) 0.400 % 0.0-0.9 [facility] Comment on above: IG% - Immature Granu locytes (promyelocytes, myelocytes and metamyelocytes) > 1% indicates that a LEFT SHIFT is Present. Laboratory - Chemistry and C hemistry - challengeOrdered By: Shannen Jung on 08-04-2024 AST [Catalytic activity/Vol] 11 U/L Low 15-37 [facility] Lipid Profileon 08-04-2024 Cholesterol [Mass/Vol] 104 mg/dL Normal 200 [facility] Comment on above: Result Comment: <200 mg/dL Desirable 200-240 mg/dL Borderline >240 mg/dL High Risk Performed By: #### L 500.4100, L500.4050, L501.9985, L100.0100, L501.9520 ####[facility] [address] [place], [address] Cholesterol in HDL [Mass/Vol] 50 mg/dL Normal [facility] Comment on above: Result Comment: The drugs N-Acetylcysteine and Metamizole may falsely depress this assay. Reference Range HDL <40 mg/dL Low HDL Cholesterol HDL >or= 60 mg/dL High HDL Cholesterol Performed By: #### L 500.4100, L500.4050, L501.9985, L100.0100, L501.9520 ####[facility] [address] [place], [address] Cholesterol in LDL [Mass/Vol] 37 mg/dL Normal 0-130 [facility] Comment on above: Performed By: #### L 500.4100, L500.4050, L501.9985, L100.0100, L501.9520 ####[facility] [address] [facility] [place], [address] Cholesterol in VLDL [Mass/Vol] 17 mg/dL Normal 5-40 [facility] Comment on above: Performed By: #### L 500.4100, L500.4050, L501.9985, L100.0100, L501.9520 ####[facility] [address] [facility] [place], [address] Triglyceride [Mass/Vol] 86 mg/dL Normal [facility] Comment on above: Result Comment: The drugs N-Acetylcysteine and Metamizole may falsely depress this assay. Serum Triglycerides Reference Interval Normal <150 mg/dL Borderline high 150 - 199 mg/dL High 200 - 499 mg/dL Very High > or = 500 mg/dL Performed By: #### L 500.4100, L500.4050, L501.9985, L100.0100, L501.9520 ####[facility] [address] [place], [address] Low density lipoprotein (LDL ) cholesterol measurementOrdered By: Shannen Jung on 08-04-2024 Cholesterol in LDL [Mass/Vol] 37 mg/dL 0-130 [facility] MCV (mean corpuscular volume ) determinationOrdered By: Shannen Jung on 08-04-2024 MCV (RBC) [Entitic vol] 91.4 fL 80-94 [facility] MR/CON.PCM.NEon 08-04-2024 MR/CON.PCM.NE [facility] Medical Records Department [address] [place] [address] Consultation - Neurology 08/04/24 0850 MR#: [id number] Acct: [id number] Name: TIMUR JIMENEZ Rep #: [id number] : 1945 78 From: Bee Avina MD PCP: Dr. Mimi Santa MD Status:ADM JUSTO Location: [place] [address] Assessment and Plan: Stroke Assessment/Plan TIMUR JIMENEZ Jr. is a 78 M with a history of Chronic essential tremors, Nonobstructive CAD w/ Hx NV, GERD w/ Hx perforated peptic ulcer/PUD, COPD/bronchiectasis, [...] Chronic essential tremors, Nonobstructive CAD w/ Hx NV, GERD w/ Hx perforated peptic ulcer/PUD, COPD/bronchiectasis, [...] changes with no acute evidence of ischemia. [facility] Medical History (Updated 08/03/24 @ 19:57 by [...] aerosol inha (more content not included)... Normal [facility] Magnesiumon 08-04-2024 Magnesium [Mass/Vol] 2.0 mg/dL Normal 1.6-2.6 [facility] Comment on above: Performed By: #### L 501.2300, L501.5200 ####[facility] [address] [place], [place], [address] Magnesium measurementOrdered By: Jessica Mart on 08-04-2024 Magnesium [Mass/Vol] 2.0 mg/dL 1.6-2.6 [facility] Mean corpuscular hemoglobin (MCH) determinationOrdered By: Shannen Jung on 08-04-2024 MCH (RBC) [Entitic mass] 29.1 pg 27.0-32.0 [facility] Mean corpuscular hemoglobin concentration (MCHC) determinationOrdered By: Fabiana on 08-04-2024 MCHC (RBC) [Mass/Vol] 31.8 g/dL Low 32-36 [facility] Mean platelet volume determi nationOrdered By: Fabiana on 08-04-2024 Platelet mean volume (Bld) [Entitic vol] 10.0 fL 6.2-12.0 [facility] Monocyte percentageOrdered B y: Fabiana on 08-04-2024 Monocytes/100 WBC (Bld) 13.8 % High 0-10 [facility] Neutrophil percentageOrdered By: Fabiana on 08-04-2024 Neutrophils/100 WBC (Bld) 56.9 % 47-70 [facility] Nucleated red blood cell per centageOrdered By: Fabiana on 08-04-2024 Nucleated RBC/100 WBC (Bld) [Ratio] 0 % 0-5 [facility] Phosphoruson 08-04-2024 Phosphate [Mass/Vol] 3.3 mg/dL Normal 2.5-4.9 [facility] Comment on above: Performed By: #### L 501.2300, L501.5200 ####[facility] [address] [place], [address] Platelet countOrdered By: Lainey ramey Fabiana on 08-04-2024 Platelets (Bld) [#/Vol] 215 10*3/uL 150-450 [facility] Potassium measurementOrdered By: Shannen Jung on 08-04-2024 Potassium [Moles/Vol] 3.7 mmol/L 3.5-5.1 [facility] RBC Auto (Bld) [#/Vol]Ordere d By: Shannen Jung on 08-04-2024 RBC (Bld) [#/Vol] 4.09 10*6/uL Low 4.6-6.2 [facility] Serum anion gap measurementO rdered By: Shannen Jung on 08-04-2024 Anion gap [Moles/Vol] 7 mmol/L 5-15 [facility] Serum globulin measurementOr dered By: Shannen Jung on 08-04-2024 Globulin (S) [Mass/Vol] 2.9 g/dL 2.2-4.2 [facility] Serum or plasma alanine casas otransferase (ALT) measurementOrdered By: Shannen Jung on 08-04-2024 ALT [Catalytic activity/Vol] 11 U/L Low 16-61 [facility] Serum or plasma albumin iain urement (mass/volume)Ordered By: Shannen Jung on 08-04-2024 Albumin [Mass/Vol] 3.3 g/dL 3.2-5.0 [facility] Serum or plasma alkaline joaquin sphatase measurementOrdered By: Shannen Jung on 08-04-2024 ALP [Catalytic activity/Vol] 71 U/L 45-117 [facility] Serum or plasma calcium iain urement (mass/volume)Ordered By: Shannen Jung on 08-04-2024 Calcium [Mass/Vol] 9.0 mg/dL 8.5-10.1 [facility] Serum or plasma cholesterol measurement (mass/volume)Ordered By: Shannen Jung on 08-04-2024 Cholesterol [Mass/Vol] 104 mg/dL <200 [facility] Comment on above: <200 mg/dL Desirable 200-240 mg/dL Borderline >240 mg/dL High Risk Serum or plasma creatinine m easurement (mass/volume)Ordered By: Shannen Jung on 08-04-2024 Creatinine [Mass/Vol] 1.00 mg/dL 0.70-1.30 [facility] Comment on above: The validity of the calculated GFR & GFRAA in patients over 70 years has not been determined. Clinical correlation is essential. Serum or plasma thyroid stim ulating hormone (TSH) measurement (units/volume)Ordered By: Shannen Jung on 08-04-2024 TSH Qn 0.689 uIU/mL 0.358-3.740 [facility] Serum or plasma urea nitroge n measurement (mass/volume)Ordered By: Shannen Jung on 08-04-2024 Urea nitrogen [Mass/Vol] 23 mg/dL High 7-18 [facility] Sodium levelOrdered By: Donna Jung on 08-04-2024 Sodium [Moles/Vol] 139 mmol/L 136-145 [facility] Thyroid Stim Hormone (TSH)on 08-04-2024 TSH 0.689 uIU/mL Normal 0.358-3.740 [facility] Comment on above: Performed By: #### L 500.4100, L500.4050, L501.9985, L100.0100, L501.9520 ####[facility] [address] [place], [address] Total proteinOrdered By: John Jung on 08-04-2024 Protein [Mass/Vol] 6.2 g/dL Low 6.4-8.2 [facility] Triglycerides measurementOrd ered By: Shannen Jung on 08-04-2024 Triglyceride [Mass/Vol] 86 mg/dL <199 [facility] Comment on above: The drugs N-Acetylcy steine and Metamizole may falsely depress this assay.Serum Triglycerides Reference Interval Normal <150 mg/dL Borderline high 150 - 199 mg/dL High 200 - 499 mg/dL Very High > or = 500 mg/dL Very low density lipoprotein (VLDL) cholesterol measurementOrdered By: Shannen Jung on 08-04-2024 Very low density lipoprotein (VLDL) cholesterol measurement 17 mg/dL 5-40 [facility] White blood cell (WBC) count Ordered By: Shannen Jung on 08-04-2024 WBC (Bld) [#/Vol] 6.7 10*3/uL 4.4-11.0 [facility] 12 Lead EKGon 08-03-2024 12 Lead EKG [facility] Cardiovascular Services [address] [place] [address] 12 Lead EKG 08/03/24 1809 MR#: [id number] Acct: [id number] Name: TIMUR JIMENEZ Jr. Rep #: [id number] : 1945 78 From: William Vaughn MD Attending Dr: Dr. Jessica Mart MD Status: DIS JUSTO Ordering Dr: Mich Madera DO Date: 08/03/24 Location: [facility] Sex: M C Admitted: 08/03/24 Test Reason [...] Abnormal ECG Confirmed by JOHANA WEAVER, MACARIO ([id number]), staff editor MARYAM ALLEN ([id number]) on 08/07/2024 6:09:17 AM Referred By: Confirmed By: MACARIO VAUGHN MD 08/07/24 0609 Date William Vaughn MD CC: Dr. Mimi Santa MD; Dr. Jessica Mart MD; Dr. Mich Madera DO Signed Normal [facility] Activated partial thrombopla stin time (aPTT) in platelet poor plasma by coagulation aOrdered By: Mich Madera on 08-03-2024 aPTT Coag (PPP) [Time] 26.8 s 24.1-36.2 [facility] Basic Metabolic Profile (BMP )on 08-03-2024 BUN/CRE 16.9 RATIO Normal 10-20 [facility] Comment on above: Order Comment: 'TROP ' Serial specimen #1, #2 or #3: 1 Performed By: #### L 300.4310, L501.4020, L100.0100, L300.3900, L500.2500 ####[facility] [address] [place], [address] CA,Total 9.5 mg/dL Normal 8.5-10.1 [facility] Comment on above: Order Comment: 'TROP ' Serial specimen #1, #2 or #3: 1 Performed By: #### L 300.4310, L501.4020, L100.0100, L300.3900, L500.2500 ####[facility] [address] [place], [address] Chloride [Moles/Vol] 107 mmol/L Normal 98-107 [facility] Comment on above: Order Comment: 'TROP ' Serial specimen #1, #2 or #3: 1 Performed By: #### L 300.4310, L501.4020, L100.0100, L300.3900, L500.2500 ####[facility] [address] [place], [address] CO2 [Moles/Vol] 25.0 mmol/L Normal 21.0-32.0 [facility] Comment on above: Order Comment: 'TROP ' Serial specimen #1, #2 or #3: 1 Performed By: #### L 300.4310, L501.4020, L100.0100, L300.3900, L500.2500 ####[facility] [address] [place], [address] Creatinine [Mass/Vol] 1.54 mg/dL High 0.70-1.30 [facility] Comment on above: Order Comment: 'TROP ' Serial specimen #1, #2 or #3: 1 Result Comment: The validity of the calculated GFR GFRAA in patients over 70 years has not been determined. Clinical correlation is essential. Performed By: #### L 300.4310, L501.4020, L100.0100, L300.3900, L500.2500 ####[facility] [address] [place], [address] ECRCL 38.86 ml/min Normal [facility] Comment on above: Order Comment: 'TROP ' Serial specimen #1, #2 or #3: 1 Performed By: #### L 300.4310, L501.4020, L100.0100, L300.3900, L500.2500 ####[facility] [address] [place], [address] EST GFR - AA 57 mL/min Low >60 [facility] Comment on above: Order Comment: 'TROP ' Serial specimen #1, #2 or #3: 1 Result Comment: Afri can [place] GFR Calc Performed By: #### L 300.4310, L501.4020, L100.0100, L300.3900, L500.2500 ####[facility] [address] [place], [address] GAP 9 Normal 5-15 [facility] Comment on above: Order Comment: 'TROP ' Serial specimen #1, #2 or #3: 1 Performed By: #### L 300.4310, L501.4020, L100.0100, L300.3900, L500.2500 ####[facility] [address] [place], [address] GFR/1.73 sq M.predicted among non-blacks MDRD (S/P/Bld) [Vol rate/Area] 47 mL/min/{1.73_m2} Low >60 [facility] Comment on above: Order Comment: 'TROP ' Serial specimen #1, #2 or #3: 1 Result Comment: Non- GFR Calc Performed By: #### L 300.4310, L501.4020, L100.0100, L300.3900, L500.2500 ####[facility] [address] [place], [address] Glucose [Mass/Vol] 109 mg/dL High 74-106 [facility] Comment on above: Order Comment: 'TROP ' Serial specimen #1, #2 or #3: 1 Result Comment: Fast ing Glucose result from 100 to 125 mg/dL suggests IMPAIRED HOMEOSTASIS per A.D.A. criteria. Performed By: #### L 300.4310, L501.4020, L100.0100, L300.3900, L500.2500 ####[facility] [address] [place], [address] Potassium [Moles/Vol] 3.3 mmol/L Low 3.5-5.1 [facility] Comment on above: Order Comment: 'TROP ' Serial specimen #1, #2 or #3: 1 Performed By: #### L 300.4310, L501.4020, L100.0100, L300.3900, L500.2500 ####[facility] [address] [place], [address] Sodium [Moles/Vol] 141 mmol/L Normal 136-145 [facility] Comment on above: Order Comment: 'TROP ' Serial specimen #1, #2 or #3: 1 Performed By: #### L 300.4310, L501.4020, L100.0100, L300.3900, L500.2500 ####[facility] [address] [place], [address] Urea nitrogen [Mass/Vol] 26 mg/dL High 7-18 [facility] Comment on above: Order Comment: 'TROP ' Serial specimen #1, #2 or #3: 1 Performed By: #### L 300.4310, L501.4020, L100.0100, L300.3900, L500.2500 ####[facility] [address] [place], [address] CBC W/Diff, Automatedon 01-2 4-2025 Absolute Lymph 1.82 X10 3/uL Normal 0.83-4.51 [facility] Comment on above: Performed By: #### L 300.4310, L501.4020, L100.0100, L300.3900, L500.2500 ####[facility] [address] [place], [address] Absolute Neut 6.2 X10 3/uL Normal 2.0-7.7 [facility] Comment on above: Performed By: #### L 300.4310, L501.4020, L100.0100, L300.3900, L500.2500 ####[facility] [address] [place], [address] Basophils/100 WBC (Bld) 0.4 % Normal 0-1 [facility] Comment on above: Performed By: #### L 300.4310, L501.4020, L100.0100, L300.3900, L500.2500 ####[facility] [address] [place], [address] Eosinophils/100 WBC (Bld) 0.0 % Normal 0-5 [facility] Comment on above: Performed By: #### L 300.4310, L501.4020, L100.0100, L300.3900, L500.2500 ####[facility] [address] [place], [address] Erythrocyte distribution width (RBC) [Ratio] 14.9 % High 11.6-14.6 [facility] Comment on above: Performed By: #### L 300.4310, L501.4020, L100.0100, L300.3900, L500.2500 ####[facility] [address] [place], [address] Hematocrit (Bld) [Volume fraction] 39.4 % Low 40-54 [facility] Comment on above: Performed By: #### L 300.4310, L501.4020, L100.0100, L300.3900, L500.2500 ####[facility] [address] [place], [address] Hemoglobin (Bld) [Mass/Vol] 13.0 g/dL Normal 13.0-16.5 [facility] Comment on above: Performed By: #### L 300.4310, L501.4020, L100.0100, L300.3900, L500.2500 ####[facility] [address] [place], [address] IG% 0.600 Normal 0.0-0.9 [facility] Comment on above: Result Comment: IG% - Immature Granulocytes (promyelocytes, myelocytes and metamyelocytes) > 1% indicates that a LEFT SHIFT is Present. Performed By: #### L 300.4310, L501.4020, L100.0100, L300.3900, L500.2500 ####[facility] [address] [place], [address] Lymphocytes/100 WBC (Bld) 19.1 % Normal 19-41 [facility] Comment on above: Performed By: #### L 300.4310, L501.4020, L100.0100, L300.3900, L500.2500 ####[facility] [address] [place], [address] MCH (RBC) [Entitic mass] 29.7 pg Normal 27.0-32.0 [facility] Comment on above: Performed By: #### L 300.4310, L501.4020, L100.0100, L300.3900, L500.2500 ####[facility] [address] [place], [address] MCHC (RBC) [Mass/Vol] 33.0 g/dL Normal 32-36 [facility] Comment on above: Performed By: #### L 300.4310, L501.4020, L100.0100, L300.3900, L500.2500 ####[facility] [address] [place], [address] MCV (RBC) [Entitic vol] 90.2 fL Normal 80-94 [facility] Comment on above: Performed By: #### L 300.4310, L501.4020, L100.0100, L300.3900, L500.2500 ####[facility] [address] [place], [address] Monocytes/100 WBC (Bld) 14.6 % High 0-10 [facility] Comment on above: Performed By: #### L 300.4310, L501.4020, L100.0100, L300.3900, L500.2500 ####[facility] [address] [place], [address] Neutrophils/100 WBC (Bld) 65.3 % Normal 47-70 [facility] Comment on above: Performed By: #### L 300.4310, L501.4020, L100.0100, L300.3900, L500.2500 ####[facility] [address] [place], [address] Nucleated RBC (Bld) [#/Vol] 0 10*3/uL Normal 0-5 [facility] Comment on above: Performed By: #### L 300.4310, L501.4020, L100.0100, L300.3900, L500.2500 ####[facility] [address] [place], [address] Platelet mean volume (Bld) [Entitic vol] 9.8 fL Normal 6.2-12.0 [facility] Comment on above: Performed By: #### L 300.4310, L501.4020, L100.0100, L300.3900, L500.2500 ####[facility] [address] [place], [address] Platelets (Bld) [#/Vol] 230 10*3/uL Normal 150-450 [facility] Comment on above: Performed By: #### L 300.4310, L501.4020, L100.0100, L300.3900, L500.2500 ####[facility] [address] [place], [address] RBC (Bld) [#/Vol] 4.37 10*6/uL Low 4.6-6.2 [facility] Comment on above: Performed By: #### L 300.4310, L501.4020, L100.0100, L300.3900, L500.2500 ####[facility] [address] [place], [address] RDW SD 49.6 fl High 35.1-43.9 [facility] Comment on above: Performed By: #### L 300.4310, L501.4020, L100.0100, L300.3900, L500.2500 ####[facility] [address] [place], [address] WBC (Bld) [#/Vol] 9.5 10*3/uL Normal 4.4-11.0 [facility] Comment on above: Performed By: #### L 300.4310, L501.4020, L100.0100, L300.3900, L500.2500 ####[facility] [address] [place], [address] Chest 1 Viewon 08-03-2024 Chest 1 View [facility] Imaging Services [address] [place] [address] Chest 1 View MR#: [id number] Acct: [id number] Name: TIMUR JIMENEZ Jr. Rep #: [id number] : 1945 M 78 From: Cruz Perez MD PCP: Dr. Mimi Santa MD Status: REG ER Study: Chest 1 View Date of Exam: 08/03/24 Exam# [id number] Ordering Dr: Mich Madera DO [id number] STUDY: X-RAY CHEST REASON FOR EXAM: Male, [...] 18:52 EST Reading Location ID and State: [facility] / [place] Tel , Service support , CC: Dr. Mimi Santa MD; Dr. Mich Madera DO Storeperson: Signed Normal [facility] Echo Completeon 08-03-2024 Echo Complete [facility] Cardiovascular Services [address] [place] [address] Echo Complete 08/04/24 1034 MR#: [id number] Acct: [id number] Name: TIMUR JIMENEZ JrCarmita Rep #: [id number] : 1945 78 From: William Vaughn MD Attending Dr: Dr. Jessica Mart MD Status: ADM JUSTO Ordering Dr: Shannen Jung MD Date: 08/03/24 Location: [facility] Sex: M C Admitted: 08/03/24 Reason For [...] evidence for diastolic dysfunction. Ordering Physician: Shannen Jung Referring Physician: Jenn Mora Performed By: Lolly Peralta RCS 08/04/24 1328 Date William Vaughn MD CC: Dr. Shannen Jung MD; Dr. Mimi Santa MD; Dr. Jessica Mart MD Date Dictated: 08/04/24 1034 Date Transcribed: 08/04/24 1328 Storeperson: Signed Normal [facility] Emergency Department Summary on 08-03-2024 Emergency Department Summary [facility] Medical Records Department [address] [place] [address] Emergency Department Summary 08/03/24 MR#: [id number] Acct: [id number] Name: TIMUR JIMENEZ JrCarmita Rep #: [id number] : 1945 78 From: Mich Madera DO PCP: Dr. Mimi Santa MD Status:ADM JUSTO Location: [address] History of Present Illness Chief Complaint: Stroke Alert [facility] Medical History (Updated 08/03/24 @ 19:57 by [...] 96 96 Oxygen Delivery Method Room Air MDM MDM MDM Narrative Medical decision making narrative: HISTORY OF [...] Clear t (more content not included)... Normal [facility] H AND P Exam - Hospitaliston 08-03-2024 H&P Exam - Hospitalist [facility] Medical Records Department [address] [place] [address] H P Exam - Hospitalist 08/03/241925 MR#: [id number] Acct: [id number] Name: TIMUR JIMENEZ Jr. Rep #: [id number] : 1945 78 From: Shannen Jung MD PCP: Dr. Mimi Santa MD Status:ADM JUSTO Location: [place] [address] HPI - General General Date of Admission: 08/03/24 Date of Service: 08/03/24 Chief Complaint: Slurred speech, difficulty with words, dizziness. HPI Narrative The patient is a 78 y/o M w/ PMHx: Chronic essential tremors, Nonobstructive CAD w/ Hx NV, GERD w/ Hx perforated peptic ulcer/PUD, COPD/bronchiectasis, Hx TIA, Former EtOH abuse, Former Tobacco use, possible CKD underlying disease but uncertain as GFR vacillates although primarily stage I in appearance, HTN, HLD, Chronic neck pain w/ associated Chronic neuropathy w/ chronic LUE radiculopathy who presents to the [facility] ED on 08/03/24 with history of last [...] Grubbs. Patient did not meet TNK criteria. [facility] Medical History (Updated 08/03/24 @ 19:57 by [...] Former smoker (more content not included)... Normal [facility] International normalized rat io (INR) calculationOrdered By: Mich Madera on 08-03-2024 INR Coag (Bld) [Relative time] 1.2 {INR} [facility] L501.4020on 08-03-2024 TROPONIN-I HS 29 pg/mL Normal 3.0-78.0 [facility] Comment on above: Order Comment: 'TROP ' Serial specimen #1, #2 or #3: 1 Result Comment: Eliane aguilar Note: New Test Units and Gender Specific Reference Ranges. For more information see Policy Stat Procedure Capac High Sensitivity Troponin (TNIH) and attachments. Performed By: #### L 300.4310, L501.4020, L100.0100, L300.3900, L500.2500 ####[facility] [address] [place], [place], [address] Magnesiumon 08-03-2024 Magnesium [Mass/Vol] 2.2 mg/dL Normal 1.6-2.6 [facility] Comment on above: Order Comment: Comme nts: may add to ED labs Performed By: #### L 501.5200 #### [facility] [address] [place], [address] Partial Thromboplast Timeon 08-03-2024 aPTT Coag (Bld) [Time] 26.8 s Normal 24.1-36.2 [facility] Comment on above: Performed By: #### L 300.4310, L501.4020, L100.0100, L300.3900, L500.2500 ####[facility] [address] [place], [address] Prothrombin Time w/INRon INR Coag (PPP) [Relative time] 1.2 {INR} Normal [facility] Comment on above: Performed By: #### L 300.4310, L501.4020, L100.0100, L300.3900, L500.2500 ####[facility] [address] [place], [address] PT Coag (PPP) [Time] 15.6 s High 11.7-14.9 [facility] Comment on above: Performed By: #### L 300.4310, L501.4020, L100.0100, L300.3900, L500.2500 ####[facility] [address] [place], [address] Prothrombin timeOrdered By: Mich Madera on 08-03-2024 PT Coag (PPP) [Time] 15.6 s High 11.7-14.9 [facility] STROKE Brain/Head without Co nton 08-03-2024 STROKE Brain/Head without Cont [facility] Imaging Services [address] [place] [address] STROKE Brain/Head without Cont MR#: [id number] Acct: [id number] Name: JIMENEZTIMUR Jr. Rep #: [id number] : 1945 M 78 From: Cruz Perez MD PCP: Dr. Mimi Santa MD Status: REG ER Study: STROKE Brain/Head without Cont Date of Exam: 0 08/03/24 Exam# [id number] Ordering Dr: Mich Madera DO ADDENDUM by Dr. Cruz Perez MD on 08/03/24 at 1747 [id number] INDICATION: Neuro deficit, acute, stroke suspected EXAMINATION: [...] Dr. Cruz Perez MD on 08/03/[address]/STROKE Brain/Head without Cont IMPRESSION: Mild atrophy [...] 17:49 EST Reading Location ID and State: [address] [place] [address] Tel , Service support , 08/03/24 1804 Date cc: Dr. Mimi Santa MD; Dr. Mich Madera DO * Signed We are attempting to reach an attending provider to discuss findings. An addendum with communication details will be sent when the communication is complete. [id number] INDICATION: Neuro deficit, acute, stroke suspected EXAMINATION: [...] to severe (more content not included)... Normal [facility] STROKE CTA Head AND Neck W/C onon 08-03-2024 STROKE CTA Head AND Neck W/Con [facility] Imaging Services [address] [place], [place] [address] STROKE CTA Head AND Neck W/Con MR#: [id number] Acct: [id number] Name: TIMUR JIMENEZ JrCarmita Rep #: [id number] : 1945 M 78 From: Jayy Mcclain PCP: Dr. Mimi Santa MD Status: REG ER Study: STROKE CTA Head AND Neck W/Con Date of Exam: 0 08/03/24 Exam# [id number] Ordering Dr: Mich Madera DO ADDENDUM by Dr. Jayy Mauricio MD on 08/03/24 at 1827 [id number] STUDY: CTA HEAD AND NECK WITH CONTRAST REASON FOR EXAM: Male, 78 years old. Neuro deficit, acute, stroke suspected RADIATION DOSAGE (If Supplied By Facility): CTDIvol = ( 23.73 ) mGy, DLP = ( 733.63 ) mGycm TECHNIQUE: CT angiography was performed with a multi-detector CT scanner. Data acquisition was obtained from the skull base through the vertex following intravenous administration of [id number] 100ML. MIP images were reconstructed from the [...] There is no demonstrated aneurysm of the [place]. There is no demonstrated abnormality [...] severe stenosis of the V4 segment distally. 01/24/25 1827 Date cc: Dr. Mimi Santa MD; Dr. [...] Mimi Fitzpatrick (more content not included)... Normal [facility] Troponin IOrdered By: Mich Madera on 08-03-2024 Troponin I 29 pg/mL 3.0-78.0 [facility] Comment on above: Please Note: [place] t Units and Gender Specific Reference Ranges. For more information see Policy Stat Procedure Capac High Sensitivity Troponin (TNIH) and attachments. 12 Lead EKGon 05-03-2024 12 Lead EKG [facility] Cardiovascular Services [address] [place] [address] 12 Lead EKG 05/03/24 1102 MR#: [id number] Acct: [id number] Name: JIMENEZTIMUR Jr. Rep #: [id number] : 1945 78 From: Gagandeep Prabhakar MD [...] Abnormal ECG Confirmed by GAGANDEEP PRABHAKAR MD ([id number]), staff editor MARYAM ALLEN ([id number]) on 05/04/2024 9:59:14 AM Referred By: Confirmed By:GAGANDEEP PRABHAKAR MD 05/04/24958 Date Gagandeep Prabhakar MD CC: Dr. Mimi Santa MD; Dr. Freddie Ramos DO Signed Normal [facility] Basic Metabolic Profile (BMP )on 05-03-2024 BUN/CRE 15.0 RATIO Normal -20 [facility] Comment on above: Order Comment: 'TROP ' Serial specimen #1, #2 or #3: 1 Performed By: #### L 100.0100, L500.2500, L501.4020 #### [facility] [address] [place], [address] CA,Total 9.4 mg/dL Normal 8.5-10.1 [facility] Comment on above: Order Comment: 'TROP ' Serial specimen #1, #2 or #3: 1 Performed By: #### L 100.0100, L500.2500, L501.4020 #### [facility] [address] [place], [address] Chloride [Moles/Vol] 104 mmol/L Normal 98-107 [facility] Comment on above: Order Comment: 'TROP ' Serial specimen #1, #2 or #3: 1 Performed By: #### L 100.0100, L500.2500, L501.4020 #### [facility] [address] [place], [address] CO2 [Moles/Vol] 23.0 mmol/L Normal 21.0-32.0 [facility] Comment on above: Order Comment: 'TROP ' Serial specimen #1, #2 or #3: 1 Performed By: #### L 100.0100, L500.2500, L501.4020 #### [facility] [address] [place], [address] Creatinine [Mass/Vol] 0.73 mg/dL Normal 0.70-1.30 [facility] Comment on above: Order Comment: 'TROP ' Serial specimen #1, #2 or #3: 1 Result Comment: The validity of the calculated GFR GFRAA in patients over 70 years has not been determined. Clinical correlation is essential. Performed By: #### L 100.0100, L500.2500, L501.4020 #### [facility] [address] [place], [address] ECRCL 74.81 ml/min Normal [facility] Comment on above: Order Comment: 'TROP ' Serial specimen #1, #2 or #3: 1 Performed By: #### L 100.0100, L500.2500, L501.4020 #### [facility] [address] [place], [address] EST GFR - AA 134 mL/min Normal >60 [facility] Comment on above: Order Comment: 'TROP ' Serial specimen #1, #2 or #3: 1 Result Comment: Afri can [place] GFR Calc Performed By: #### L 100.0100, L500.2500, L501.4020 #### [facility] [address] [place], [address] GAP 9 Normal 5-15 [facility] Comment on above: Order Comment: 'TROP ' Serial specimen #1, #2 or #3: 1 Performed By: #### L 100.0100, L500.2500, L501.4020 #### [facility] [address] [place], [address] GFR/1.73 sq M.predicted among non-blacks MDRD (S/P/Bld) [Vol rate/Area] 110 mL/min/{1.73_m2} Normal >60 [facility] Comment on above: Order Comment: 'TROP ' Serial specimen #1, #2 or #3: 1 Result Comment: Non- GFR Calc Performed By: #### L 100.0100, L500.2500, L501.4020 #### [facility] [address] [place], [address] Glucose [Mass/Vol] 89 mg/dL Normal 74-106 [facility] Comment on above: Order Comment: 'TROP ' Serial specimen #1, #2 or #3: 1 Performed By: #### L 100.0100, L500.2500, L501.4020 #### [facility] [address] [place], [address] Potassium [Moles/Vol] 3.2 mmol/L Low 3.5-5.1 [facility] Comment on above: Order Comment: 'TROP ' Serial specimen #1, #2 or #3: 1 Performed By: #### L 100.0100, L500.2500, L501.4020 #### [facility] [address] [place], [address] Sodium [Moles/Vol] 136 mmol/L Normal 136-145 [facility] Comment on above: Order Comment: 'TROP ' Serial specimen #1, #2 or #3: 1 Performed By: #### L 100.0100, L500.2500, L501.4020 #### [facility] [address] [place], [address] Urea nitrogen [Mass/Vol] 11 mg/dL Normal 7-18 [facility] Comment on above: Order Comment: 'TROP ' Serial specimen #1, #2 or #3: 1 Performed By: #### L 100.0100, L500.2500, L501.4020 #### [facility] [address] [place], [address] CBC W/Diff, Automatedon 10-2 -2023 Absolute Lymph 1.13 X10 3/uL Normal 0.83-4.51 [facility] Comment on above: Performed By: #### L 100.0100, L500.2500, L501.4020 #### [facility] [address] [place], [address] Absolute Neut 4.0 X10 3/uL Normal 2.0-7.7 [facility] Comment on above: Performed By: #### L 100.0100, L500.2500, L501.4020 #### [facility] [address] [place], [address] Basophils/100 WBC (Bld) 0.3 % Normal 0-1 [facility] Comment on above: Performed By: #### L 100.0100, L500.2500, L501.4020 #### [facility] [address] [place], [address] Eosinophils/100 WBC (Bld) 0.0 % Normal 0-5 [facility] Comment on above: Performed By: #### L 100.0100, L500.2500, L501.4020 #### [facility] [address] [place], [address] Erythrocyte distribution width (RBC) [Ratio] 14.6 % Normal 11.6-14.6 [facility] Comment on above: Performed By: #### L 100.0100, L500.2500, L501.4020 #### [facility] [address] [place], [address] Hematocrit (Bld) [Volume fraction] 37.4 % Low 40-54 [facility] Comment on above: Performed By: #### L 100.0100, L500.2500, L501.4020 #### [facility] [address] [place], [address] Hemoglobin (Bld) [Mass/Vol] 12.5 g/dL Low 13.0-16.5 [facility] Comment on above: Performed By: #### L 100.0100, L500.2500, L501.4020 #### [facility] [address] [place], [address] IG% 0.300 Normal 0.0-0.9 [facility] Comment on above: Result Comment: IG% - Immature Granulocytes (promyelocytes, myelocytes and metamyelocytes) > 1% indicates that a LEFT SHIFT is Present. Performed By: #### L 100.0100, L500.2500, L501.4020 #### [facility] [address] [place], [address] Lymphocytes/100 WBC (Bld) 18.9 % Low 19-41 [facility] Comment on above: Performed By: #### L 100.0100, L500.2500, L501.4020 #### [facility] [address] [place], [address] MCH (RBC) [Entitic mass] 30.3 pg Normal 27.0-32.0 [facility] Comment on above: Performed By: #### L 100.0100, L500.2500, L501.4020 #### [facility] [address] [place], [address] MCHC (RBC) [Mass/Vol] 33.4 g/dL Normal 32-36 [facility] Comment on above: Performed By: #### L 100.0100, L500.2500, L501.4020 #### [facility] [address] [place], [address] MCV (RBC) [Entitic vol] 90.8 fL Normal 80-94 [facility] Comment on above: Performed By: #### L 100.0100, L500.2500, L501.4020 #### [facility] [address] [place], [address] Monocytes/100 WBC (Bld) 13.6 % High 0-10 [facility] Comment on above: Performed By: #### L 100.0100, L500.2500, L501.4020 #### [facility] [address] [place], [address] Neutrophils/100 WBC (Bld) 66.9 % Normal 47-70 [facility] Comment on above: Performed By: #### L 100.0100, L500.2500, L501.4020 #### [facility] [address] [place], [address] Nucleated RBC (Bld) [#/Vol] 0 10*3/uL Normal 0-5 [facility] Comment on above: Performed By: #### L 100.0100, L500.2500, L501.4020 #### [facility] [address] [place], [address] Platelet mean volume (Bld) [Entitic vol] 10.1 fL Normal 6.2-12.0 [facility] Comment on above: Performed By: #### L 100.0100, L500.2500, L501.4020 #### [facility] [address] [place], [address] Platelets (Bld) [#/Vol] 227 10*3/uL Normal 150-450 [facility] Comment on above: Performed By: #### L 100.0100, L500.2500, L501.4020 #### [facility] [address] [place], [address] RBC (Bld) [#/Vol] 4.12 10*6/uL Low 4.6-6.2 [facility] Comment on above: Performed By: #### L 100.0100, L500.2500, L501.4020 #### [facility] [address] [place], [address] RDW SD 48.5 fl High 35.1-43.9 [facility] Comment on above: Performed By: #### L 100.0100, L500.2500, L501.4020 #### [facility] [address] [place], [address] WBC (Bld) [#/Vol] 6.0 10*3/uL Normal 4.4-11.0 [facility] Comment on above: Performed By: #### L 100.0100, L500.2500, L501.4020 #### [facility] [address] [place], [address] Chest 1 View (Portable)on Chest 1 View (Portable) [facility] Imaging Services [address] [place] [address] Chest 1 View (Portable) MR#: [id number] Acct: [id number] Name: TIMUR JIMENEZ Jr. Rep #: [id number] : 1945 M 78 From: Ye jiang MD PCP: Dr. Mimi Santa MD Status: REG ER Study: Chest 1 View (Portable) Date of Exam: 05/03/24 Exam# [id number] Ordering Dr: Freddie Ramos DO [id number] STUDY: X-RAY CHEST REASON FOR EXAM: Male, [...] Mimi Santa MD; Dr. Freddie Ramos DO Storeperson: Signed Normal [facility] Emergency Department Summary on 05-03-2024 Emergency Department Summary [facility] Medical Records Department [address] [place] [address] Emergency Department Summary 05/03/24 MR#: [id number] Acct: [id number] Name: TIMUR JIMENEZ Jr. Rep #: [id number] : 1945 78 From: Freddie Ramos DO [...] been using his aerosols. He called his rumper at the [facility] in [place] who referred him to emergency. He does not wear home oxygen. No diarrhea nor sore throat. He does note that his cough is occasionally productive of sputum. [facility] Medical History Bronchiectasis PUD (peptic ulcer disease) [...] Date / Time oxycodone AdvReac Upset Verified 10/24/24 10:49 Stomach Family History Grandmother Lung cancer [...] Signs: 05/03/24 (more content not included)... Normal [facility] L501.4020on 05-03-2024 TROPONIN-I HS 8 pg/mL Normal 3.0-78.0 [facility] Comment on above: Order Comment: 'TROP ' Serial specimen #1, #2 or #3: 1 Result Comment: Eliane aguialr Note: New Test Units and Gender Specific Reference Ranges. For more information see Policy Stat Procedure Capac High Sensitivity Troponin (TNIH) and attachments. Performed By: #### L 100.0100, L500.2500, L501.4020 #### [facility], [address] M100.678on 05-03-2024 [id number] Copy of report sent to Infection Control Printer MS#[id number] 05/03/24 7365 MUKESH. FLUABV+SARS-CoV-2+RS V Pnl Resp ALEXUS+probe FLUABV+SARS-CoV-2+RS V Pnl Resp ALEXUS+probe SARS-CoV-2 (COVID 19) A Positive A INFLUENZA A Negative INFLUENZA B Negative RSV PCR Negative SARS-CoV-2 (COVID 19 PCR) Normal [facility] Comment on above: Performed By: #### M 100.678 ####[facility] [address] [place], [address] XR ABDOMEN 1 VIEWon 01-25-20 XR ABDOMEN 1 VIEW Interpreted By: José Gomez, STUDY: XR ABDOMEN 1 VIEW; 01/25/2024 11:14 am INDICATION: Signs/Symptoms:KIDNE Y STONES. COMPARISON: None. ACCESSION NUMBER(S): [id number] ORDERING CLINICIAN: BRIDGER WILEY FINDINGS: Abdomen, two [...] José Gomez 01/26/2024 9:23 PM Dictation workstation: [id number] [facility] CT ABDOMEN/PELVIS WO 11-13 CT ABDOMEN/PELVIS [place] [address] Patient: TIMUR JIMENEZ Phone#: : 1945 Age: 78 Gender: M Pt. Type: Out Account: [id number] Location: [facility] Ordering: MIMI SANTA Exam Date: 11/14/2023/7:22 Family Phys: Charge Code: 480595 Physician: [place] Order #: [id number] Dose#: 8.60 PROCEDURE: CT ABDOMEN/PELVIS WITHOUT CONTRAST COMPARISON: [facility], CT, ABDOMEN/PELVIS W CON, 10/07/2020, 16:14. [...] 78 Gender: M Pt. Type: Out Account: [id number] Location: [facility] Ordering: MIMI SANTA Exam Date: 11/14/2023/7:22 Family Phys: Charge Code: 609280 Physician: [place] Order #: [id number] Dose#: 8.60 3. Dense aortic and branch artery calcification. Dictated by: Giselle Humphries MD on 11/14/2023 at 16:42 Approved by: Giselle Humphries MD on 11/14/2023 at 17:13 Normal [facility] Absolute lymphocyte countOrd ered By: Dr. Grubbs on 08-18-2022 Lymphocytes Auto (Unsp spec) [#/Vol] 0.83 10*3/uL 0.83-4.51 [facility] Basophil percentageOrdered B y: Dr. Grubbs on 08-18-2022 Basophils/100 WBC (Bld) 0.3 % 0-1 [facility] Chloride [Moles/Vol] 104 mmol/L 98-107 [facility] Eosinophils/100 WBC (Bld) 0.0 % 0-5 [facility] Glucose [Mass/Vol] 137 mg/dL 74-106 [facility] Comment on above: Fasting Glucose resu lt greater than or equal to 126 mg/dL suggests DIABETES MELLITUS per A.D.A. criteria. Neutrophils (Bld) [#/Vol] 7.4 10*3/uL 2.0-7.7 [facility] Neutrophils/100 WBC (Bld) 80.3 % 47-70 [facility] Potassium [Moles/Vol] 3.9 mmol/L 3.5-5.1 [facility] Sodium [Moles/Vol] 135 mmol/L 136-145 [facility] WBC (Bld) [#/Vol] 9.2 10*3/uL 4.4-11.0 [facility] Blood erythrocytes count (nu mber/volume)Ordered By: Dr. Grubbs on 08-18-2022 RBC (Bld) [#/Vol] 4.41 10*6/uL 4.6-6.2 [facility] Blood hemoglobin measurement (mass/volume)Ordered By: Dr. Grubbs on 08-18-2022 Hemoglobin (Bld) [Mass/Vol] 14.6 g/dL 13.0-16.5 [facility] Blood lymphocytes/100 leukoc ytesOrdered By: Dr. Grubbs on 08-18-2022 Lymphocytes/100 WBC (Bld) 9.0 % 19-41 [facility] Blood monocytes/100 leukocyt esOrdered By: Dr. Grubbs on 08-18-2022 Monocytes/100 WBC (Bld) 8.1 % 0-10 [facility] Blood platelet mean volumeOr dered By: Dr. Grubbs on 08-18-2022 Platelet mean volume (Bld) [Entitic vol] 10.2 fL 6.2-12.0 [facility] Determination of erythrocyte mean corpuscular volume (MCV)Ordered By: Dr. Grubbs on 08-18-2022 MCV (RBC) [Entitic vol] 97.3 fL 80-94 [facility] Hematocrit Auto (Bld) [Volum e fraction]Ordered By: Dr. Grubbs on 08-18-2022 Hematocrit (Bld) [Volume fraction] 42.9 % 40-54 [facility] - Chemistry and C hemistry - challengeOrdered By: Dr. Grubbs on 08-18-2022 CO2 [Moles/Vol] 24.0 mmol/L 21.0-32.0 [facility] Urea nitrogen/Creatinine [Mass ratio] 32.2 mg/mg 10-20 [facility] - Hematology and Cell countsOrdered By: Dr. Grubbs on 08-18-2022 Erythrocyte distribution width (RBC) [Entitic vol] 52.7 fL 35.1-43.9 [facility] Erythrocyte distribution width (RBC) [Ratio] 14.6 % 11.6-14.6 [facility] Immature granulocytes/100 WBC (Bld) 2.300 % 0.0-0.9 [facility] Comment on above: IG% - Immature Granu locytes (promyelocytes, myelocytes and metamyelocytes) > 1% indicates that a LEFT SHIFT is Present. MCH (RBC) [Entitic mass] 33.1 pg 27.0-32.0 [facility] Nucleated RBC/100 WBC (Bld) [Ratio] 0 % 0-5 [facility] MCHC Auto (RBC) [Mass/Vol]Or dered By: Dr. Grubbs on 08-18-2022 MCHC (RBC) [Mass/Vol] 34.0 g/dL 32-36 [facility] No Panel InformationOrdered By: Dr. Grubbs on 08-18-2022 Estimated Creatinine Clearance Calc 68.63 ml/min [facility] Estimated GFR (MDRD) Amer 101 mL/min >60 [facility] Comment on above: GFR Calc Estimated GFR (MDRD) Non-Af Amer 84 mL/min >60 [facility] Comment on above: Non- GFR Calc Platelets bldOrdered By: Dr. Grubbs on 08-18-2022 Platelets (Bld) [#/Vol] 228 10*3/uL 150-450 [facility] Serum or plasma calcium iain urement (mass/volume)Ordered By: Dr. Grubbs on 08-18-2022 Calcium [Mass/Vol] 9.0 mg/dL 8.5-10.1 [facility] Serum or plasma creatinine m easurement (mass/volume)Ordered By: Dr. Grubbs on 08-18-2022 Creatinine [Mass/Vol] 0.93 mg/dL 0.70-1.30 [facility] Comment on above: The validity of the calculated GFR & GFRAA in patients over 70 years has not been determined. Clinical correlation is essential. Serum or plasma urea nitroge n measurement (mass/volume)Ordered By: Dr. Grubbs on 08-18-2022 Urea nitrogen [Mass/Vol] 30 mg/dL 7-18 [facility] Thin prep Papanicolaou smear with manual screeningOrdered By: Dr. Grubbs on 08-18-2022 Thin prep Papanicolaou smear with manual screening 7 5-15 [facility] Basophil percentageOrdered B y: Dr. Grubbs on 08-15-2022 Basophil percentage 2.9 mg/dL 2.5-4.9 [facility] Bilirubin [Mass/Vol] 0.60 mg/dL 0.20-1.00 [facility] Comment on above: For patients on eltr ombopag therapy, use of Dimension Capac TBIL is not recommended. Protein [Mass/Vol] 6.5 g/dL 6.4-8.2 [facility] Laboratory - Chemistry and C hemistry - challengeOrdered By: Dr. Grubbs on 08-15-2022 ALP [Catalytic activity/Vol] 49 U/L 45-117 [facility] ALT [Catalytic activity/Vol] 20 U/L 16-61 [facility] Free T4 [Mass/Vol] 1.24 ng/dL 0.76-1.46 [facility] Globulin (S) [Mass/Vol] 3.1 g/dL 2.2-4.2 [facility] Magnesium [Mass/Vol] 2.2 mg/dL 1.6-2.6 [facility] Laboratory - Microbiology an d Antimicrobial susceptibilityOrdered By: Dr. Grubbs on 08-15-2022 Respiratory pathogens DNA and RNA 12b panel ALEXUS+probe (Unsp spec) [facility] No Panel InformationOrdered By: Dr. Grubbs on 08-15-2022 Thyroid Stimulating Hormone (TSH) 0.26 uIU/mL 0.358-3.74 [facility] Serum or plasma albumin iain urement (mass/volume)Ordered By: Dr. Grubbs on 08-15-2022 Albumin [Mass/Vol] 3.4 g/dL 3.2-5.0 [facility] Serum or plasma albumin/glob ulin mass ratioOrdered By: Dr. Grubbs on 08-15-2022 Albumin/Globulin [Mass ratio] 1.1 {ratio} 0.9-2.4 [facility] Thin prep Papanicolaou smear with manual screeningOrdered By: Dr. Grubbs on 08-15-2022 Thin prep Papanicolaou smear with manual screening 19 U/L 15-37 [facility] Assessment of wrist artery p atency prior to arterial punctureOrdered By: Dr. Lowe on 08-13-2022 Arterial patency Wrist artery --pre arterial puncture Positive [facility] Base excessOrdered By: Dr. Nav montoya on 08-13-2022 Base excess Calc (BldV) [Moles/Vol] -4 mmol/L -2-2 [facility] Basophil percentageOrdered B y: Dr. Lowe on 08-13-2022 Basophil percentage 20.8 mmol/L 22-26 [facility] Basophils/100 WBC (Bld) 92 % 95-99 [facility] CO2 (BldA) [Partial pressure ]Ordered By: Dr. Lowe on 08-13-2022 CO2 (Bld) [Partial pressure] 31.3 mm[Hg] 35-45 [facility] No Panel InformationOrdered By: Dr. Lowe on 08-13-2022 Blood Gas Liter Flow 10.0 /min [facility] Blood Gas Sample Site R Radial [facility] Blood Gas Specimen Type ART [facility] Blood Gas Total CO2 22 mmol/L [facility] Oxygen Delivery Device Cannula [facility] Oxygen (BldA) [Partial press ure]Ordered By: Dr. Lowe on 08-13-2022 Oxygen (Bld) [Partial pressure] 60 mmHG 75-100 [facility] Urine Legionella pneumophila antigen detectionOrdered By: Dr. Ribeiro on 08-13-2022 L. pneumophila Ag Ql (U) [facility] pH measurementOrdered By: Dr Carmita Lowe on 08-13-2022 pH (Unsp spec) 7.43 [pH] 7.35-7.45 [facility] CVFLURVon 06-29-2022 FLU A PCR Negative Normal Negative [facility] ([place]) Comment on above: Result Comment: Note s Performed By: #### C VFLURV #### [place] [address] FLU B PCR Negative Normal Negative [facility] ([place]) Comment on above: Result Comment: Note s Performed By: #### C VFLURV #### [place] [id number] RSV PCR Negative Normal Negative [facility] ([place]) Comment on above: Result Comment: Note s Performed By: #### C VFLURV #### [place] [address] SARS-CoV-2 (COVID-19) RNA ALEXUS+probe Ql (Unsp spec) Negative Normal Negative [facility] ([place]) Comment on above: Result Comment: Note s [...] results. Performed By: #### C VFLURV #### [place] [id number] [place] [address] SCAN OTHER ORDERSon 04-25-20 19 Ordered by an unspecified provider. [facility] PROGRESSon 10-05-2018 Protein mass conc HNO ID: [id number] Author: Cassidy Kasper Service: ? Author Type: Tobacco Drummer Type: Progress Notes Filed: 10/05/2018 10:11 AM Note Text: POPULATION HEALTH HUSBANDRY PERSON QUICKNOTE Provider Action/FYI: I spoke with jenn and [facility] Dr. Clark removed as pcp. Patient identified by name and . Cassidy Kasper CMA [facility] PROGRESSon 10-02-2018 Protein mass conc HNO ID: [id number] Author: Maria G Velazquez Service: ? Author Type: Nurse Practitioner Type: Progress Notes Filed: 10/05/2018 10:11 AM Note Text: Needs OV then will place labs. Maria G Velazquez APRN.[facility] [place] 09[facility]29-[facility] (F[facility] TIMUR JIMENEZ ([id number]) 1945 M Date Time Provider Department 09/29/18 CASSIDY KASPER) MARIOLA During your visit today, we recorded the following information about you: Cassidy Kasper CMA 10/05/2018 10:11 AM Signed PHMA CARE GAP REGISTRY DOCUMENTATION (OUTSIDE TEAMLET) [...] office visit:Physical next available with pcp or unpaid intern TRESA Lemus APRN.FELICITY 10/05/2018 10:11 AM Signed Needs OV then will place labs. Maria G Velazquez APRN.FELICITY Kasper CMA 10/05/2018 10:11 AM Signed POPULATION HEALTH HUSBANDRY PERSON QUICKNOTE Provider Action/FYI: I spoke with jenn [...] [J44.1] Order(s):LIPID PANEL BASIC [SQLIPB] Order #: [id number] FUTURE COMP METABOLIC PANEL [SQCMP] Order #: [id number] FUTURE CBC [SQCBC] Order #: [id number] FUTURE Prescriptions as of 09/29/2018 Sig: OXYCODONE [...] Status:Closed by CASSIDY KASPER CMA on 10/05/18 [facility] PROGRESSon 09-29-2018 Protein mass conc HNO ID: [id number] Author: Cassidy Kasper Service: ? Author Type: Tobacco Drummer Type: Progress Notes Filed: 10/05/2018 10:11 AM Note Text: [facility] CARE GAP REGISTRY DOCUMENTATION (OUTSIDE TEAMLET) Provider [...] office visit:Physical next available with pcp or unpaid intern Cassidy Kasper CMA Normal [facility] XR Chest 2 Viewson 8 XR Chest 2 views EXAMINATION TYPE: XR Chest 2 Views DATE OF EXAM : 05/08/2018 11:57 AMHISTORY: H/O CADFINDINGS: The cardiac silhouette is normal. The lungs are expanded and clear. There is no pleural effusion. Pulmonary vascularity is normal.IMPRESSION: Normal chestNvkeenan Kwan thanks you for the opportunity to care for your patient. Workstation ID: [id number] FINAL REPORT Dictated By: Trini Santillan MD 05/08/2018 14:03Assigned Physician: Trini Santillan MD and Electronically Signed By: Trini Santillan MD 05/08/2018 14:03Transcribed by: YANELY 05/08/2018 14:03Technologist: VIK Normal [facility] [place] 11-29-2017 CNPUTREA Patient Outreach (INTMWH) TIMUR JIMENEZ ([id number]) 1945 M Date Time Provider Department 11/29/17 [facility] During your visit today, we recorded the following information about you: Allergies As of Date: 11/29/2017 Noted Allergy Reaction VENOM-YELLOW JACKET 01/07/2016 7 - Swelling Date Reviewed: 09/23/2017 Reviewed by: Connie Bhatia LPN - Fully Assessed Visit Diagnosis:Medication management [Z79.899] Order(s):LIPID PANEL BASIC [SQLIPB] Order #: [id number] FUTURE Prescriptions as of 11/29/2017 Sig: OXYCODONE [...] Status:Closed by EPIC, PRODUSER on 04/21/18 Normal [facility] Vital Signs Date Time Vital Sign Value Performing Clinician Facility 11-21-2024 09:18-0400 Body height 175.[address] Mimi Santa MD Work Phone: [facility] 11-21-2024 09:18-0400 Body mass index (BMI) [Ratio] 24.3 kg/m2 Dr. Mimi Santa MD Work Phone: [facility] 11-21-2024 09:18-0400 Body weight 74.[address] Mimi Santa MD Work Phone: [facility] 11-21-2024 09:18-0400 Diastolic blood pressure 69 mm[Hg] Dr. Mimi Santa MD Work Phone: [facility] 11-21-2024 09:18-0400 Heart rate 53 /min Dr. Mimi Santa MD Work Phone: [facility] 11-21-2024 09:18-0400 Respiratory rate 18 /min Dr. Mimi Santa MD Work Phone: [facility] 11-21-2024 09:18-0400 Systolic blood pressure 111 mm[Hg] Dr. Mimi Santa MD Work Phone: [facility] 08-05-2024 10:21-0500 Body mass index (BMI) [Ratio] 23.8 kg/m2 Dr. Mimi Santa MD Work Phone: [facility] 08-05-2024 08:55-0500 Diastolic blood pressure 84 mm[Hg] Dr. Mimi Santa MD Work Phone: [facility] 08-05-2024 08:55-0500 Heart rate 101 /min Dr. Mimi Santa MD Work Phone: [facility] 08-05-2024 08:55-0500 Respiratory rate 16 /min Dr. Mimi Santa MD Work Phone: [facility] 08-05-2024 08:55-0500 SaO2% (BldA) [Mass fraction] 95 % Dr. Mimi Santa MD Work Phone: [facility] 08-05-2024 08:55-0500 Systolic blood pressure 124 mm[Hg] Dr. Mimi Santa MD Work Phone: [facility] 08-05-2024 05:40-0500 Body weight 73.[address] Mimi Santa MD Work Phone: [facility] 08-05-2024 05:20-0500 Body temperature 98.1 [degF] Dr. Mimi Santa MD Work Phone: [facility] 08-04-2024 08:55-0500 Body height 175.[address] Mimi Santa MD Work Phone: [facility] 01-25-2024 10:38-0400 Body height 175.3 cm Bridger Wiley MD Work Phone: 3(887)018-443280 [address] 01-25-2024 10:38-0400 Body mass index (BMI) [Ratio] 23.63 kg/m2 Bridger Wiley MD Work Phone: 1(689)[phone] [place] [address] 01-25-2024 10:38-0400 Body weight 72.58 kg Bridger Wiley MD Work Phone: 2(650)386-305680 [address] 01-25-2024 10:38-0400 Diastolic blood pressure 70 mm[Hg] Bridger Wiley MD Work Phone: [facility] 01-25-2024 10:38-0400 Heart rate 62 /min Bridger Wiley MD Work Phone: [facility] 01-25-2024 10:38-0400 Systolic blood pressure 113 mm[Hg] Bridger Wiley MD Work Phone: 3(334)[phone] [place] [address] 08-18-2022 14:02-0500 Body temperature 97.5 [degF] Out [facility] 08-18-2022 14:02-0500 Diastolic blood pressure 72 mm[Hg] Out [facility] 08-18-2022 14:02-0500 Heart rate 72 /min Out [facility] 08-18-2022 14:02-0500 Inhaled oxygen flow rate 3 L/min [facility] 08-18-2022 14:02-0500 Respiratory rate 16 /min Out [facility] 08-18-2022 14:02-0500 SaO2% (BldA) [Mass fraction] 95 % Out [facility] 08-18-2022 14:02-0500 Systolic blood pressure 117 mm[Hg] [facility] 08-16-2022 10:49-0500 Body height 175.26 cm [facility] 08-16-2022 10:49-0500 Body weight 88.04 kg [facility] 08-16-2022 10:00-0500 Inhaled oxygen concentration 45 % [facility] 08-12-2022 18:00-0500 Body mass index (BMI) [Ratio] 28.6 kg/m2 [facility] 04-27-2019 09:50-0400 BP Diastolic 82 mm[Hg] [facility] 04-27-2019 09:50-0400 BP Systolic 115 mm[Hg] [facility] 04-27-2019 09:50-0400 Pulse (Heart Rate) 85 /min [facility] 04-27-2019 09:50-0400 Pulse Oximetry 94 % [facility] 04-27-2019 09:50-0400 Respiratory Rate 16 /min [facility] 04-27-2019 09:28-0400 Body Temperature 98.4 [degF] [facility] 04-27-2019 08:17-0400 BMI (Body Mass Index) 28.35 kg/m2 [facility] 04-27-2019 08:17-0400 Body [facility] 87.09 [facility]-27-[facility] 08:17-0400 Height 175.3 cm [facility] Encounters Encounter Date Encounter Type Care Provider Facility Start: 01-16-2025 Encounter for preprocedural cardiovascular examination Gagandeep Vanna [facility] Start: 12-25-2024 Non-patient / Non-visit Jamila lawrence SYSTEMS TECHNICIAN-C -[facility] Work Phone: Start: 12-25-2024 [facility] Start: 12-24-2024 ambulatory [facility] Facility:[facility] Start: 12-24-2024 Non-patient / Non-visit Dr. Alicia WEAVER -[facility] Start: 12-21-2024 End: 12-21-[address] Mimi Santa MD Work Phone: [facility] Work Phone: Start: 12-21-2024 End: 12-21-[address] Gagandeep Prabhakar MD -Cardiovascular Services Work Phone: Start: 12-21-2024 End: 12-21-2024 ambulatory [facility] Facility:[facility] Start: 11-21-2024 End: 11-21-[address] Gagandeep Prabhakar MD -[facility] Work Phone: Start: 11-21-2024 End: 11-21-[address] Gagandeep Prabhakar MD [facility] Start: 11-21-2024 End: 11-21-[address] Mimi Santa MD Work Phone: [facility] Work Phone: Start: 11-06-2024 End: 11-06-[address] Mimi Santa MD Work Phone: [facility] Work Phone: Start: 11-06-2024 End: 11-06-[address] Mimi Santa MD Work Phone: -Pulmonary Services/Neurology Work Phone: Start: 11-06-2024 End: 11-06-2024 ambulatory [facility] Facility:[facility] Start: 08-05-2024 Non-patient / Non-visit Dr. Jessica odell MD -[facility] Work Phone: Start: 08-04-2024 ambulatory William Vaughn Fa cility:[facility] Start: 08-04-2024 Non-patient / Non-visit Dr. Luna Vaughn MD -[facility] Start: 08-04-2024 Non-patient / Non-visit Dr. Jessica odell MD -[facility] Work Phone: Start: 08-03-2024 Non-patient / Non-visit Dr. Shannen Jung MD -[facility] Work Phone: Start: 08-03-2024 End: 08-05-2024 ambulatory Shannen Jung Facility:[facility] Start: 08-03-2024 End: 08-05-2024 Evaluation and management of inpatient Dr. Jessica Mart MD -Progressive Care Unit Work Phone: Start: 05-03-2024 End: 05-03-2024 Emergency department patient visit Freddie Ramos Facility:[facility] Start: 03-06-2024 ambulatory LU[facility]ie Amb[facility] Start: 01-26-2024 End: 01-26-2024 Phys/qhp telephone evaluation 11-20 min Bridger Wiley MD Work Phone: [facility] Comment on above: Nocturia; Benign prostatic hyperplasia with lower urinary tract symptoms, symptom details unspecified; Kidney stones Start: 01-26-2024 End: 01-26-2024 ambulatory [facility] Ambulatory Start: 01-25-2024 End: 01-25-[address] [facility] Start: 01-25-2024 End: 01-25-2024 Subsequent hospital visit by physician Tomer Romano X-Ray [facility] Comment on above: Kidney stones Start: 01-25-2024 End: 01-25-2024 ambulatory [facility] Ambulatory Start: 01-25-2024 End: 01-25-2024 Office outpatient new 45 minutes Bridger Wiley MD Work Phone: [facility] Comment on above: Kidney stones; Benign prostatic hyperplasia with lower urinary tract symptoms, symptom details unspecified; Nocturia Start: 11-14-2023 End: 11-14-2023 ambulatory MIMI SANTA [facility] Start: 08-18-2022 Non-patient / Non-visit [facility] Physicians Start: 08-17-2022 Non-patient / Non-visit [facility] Inpatient Physicians Start: 08-16-2022 Non-patient / Non-visit [facility] Inpatient Physicians Start: 08-16-2022 Non-patient / Non-visit [facility] Start: 08-15-2022 Non-patient / Non-visit [facility] Inpatient Physicians Start: 08-15-2022 Non-patient / Non-visit [facility] Start: 08-14-2022 Non-patient / Non-visit [facility] Inpatient Physicians Start: 08-14-2022 Non-patient / Non-visit [facility] Start: 08-13-2022 Non-patient / Non-visit [facility] Start: 08-13-2022 Non-patient / Non-visit [facility] Start: 08-13-2022 Non-patient / Non-visit [facility] Inpatient Physicians Start: 08-12-2022 Non-patient / Non-visit [facility] Inpatient Physicians Start: 08-12-2022 End: 08-18-2022 Evaluation and management of inpatient [facility] Start: 08-16-2020 End: 08-16-2020 Orders Only Anu Ya Work Phone: [facility] Covid Vaccine [facility] Start: 04-27-2019 End: 04-27-2019 Patient encounter procedure RAFA CAMACHO [facility] Start: 04-27-2019 End: 04-27-2019 Subsequent hospital visit by physician Rafa Camacho Work Phone: [facility] Start: 05-09-2018 End: 05-09-2018 Patient encounter procedure JESSICA ELIZONDO Facility:[facility] Procedures Date Procedure Procedure Detail Performing Clinician Start: 12-21-2024 Cardiovascular stres s test using pharmacologic stress agent Dr. Mimi Santa MD Work Phone: Start: 11-21-2024 Evaluation of diagno stic study results Dr. Mimi Santa MD Work Phone: Start: 08-04-2024 MRI of brain without contrast [...] [place] Doctor Respiratory Panel (PCR) Out [facility] Doctor Plan of Treatment Date Care Activity Detail Author Start: 09-22-2033 DTaP/Tdap/Td Vaccine s (4 - Td or Tdap) DTaP/Tdap/Td Vaccines (4 - Td or Tdap) [facility] Start: 11-21-2024 Evaluation of diagno stic study results 12 Lead EKG performed by BMS [facility] Start: 08-05-2024 Patient discharge [facility] Start: 08-04-[address] [facility] Start: 08-03-2024 Following clinical p athway protocol [facility] Start: 08-03-2024 Aspiration precautions [facility] Start: 08-03-2024 Assessment of risk o f venous thromboembolism [facility] Start: 08-03-2024 Cardiac monitoring [facility] Start: 08-03-2024 Catheterization of vein [facility] Start: 08-03-[address] [facility] Start: 08-03-2024 Elevation of head of bed [facility] Start: 08-03-[address] [facility] Start: 08-03-2024 Fall prevention [facility] Start: 08-03-2024 Inhalation therapy procedure [facility] Start: 08-03-2024 Insertion of cathete r into peripheral vein [facility] Start: 08-03-2024 Introduction of urin alisa catheter [facility] Start: 08-03-2024 Measuring intake and output [facility] Start: 08-03-2024 Notification of physician [facility] Start: 08-03-2024 Oxygen therapy [facility] Start: 08-03-2024 Patient referral to dietitian [facility] Start: 08-03-2024 Providing care accor ding to standard [facility] Start: 08-03-2024 Provision of activit y privileges [facility] Start: 08-03-2024 Referral to occupati onal therapist [facility] Start: 08-03-2024 Referral to service [facility] Start: 08-03-2024 Speech therapy assessment [facility] Start: 08-03-2024 Telemedicine consult ation with patient [facility] Start: 08-03-2024 Tobacco use cessatio n education [facility] Start: 08-03-2024 End: 08-03-2024 [facility] Start: 08-03-2024 Admission procedure [facility] Start: 03-11-2024 Influenza vaccination Influenza Vacc ine (#1) [facility] Start: 01-26-2024 End: 01-26-2024 Telemedicine consultation with patient 01/26/2024 7:45 AM EDT Telemedicine [facility] [address] [place] [id number] Bridger Wiley MD [address] [place] [address] [facility] Start: 01-25-2024 End: 01-24-2025 XR Abdomen Single view [facility] Service Area Work Phone: Comment on above: Expected: 01/25/2024 , Expires: 01/24/2025 Once for 1 Occurrenc es starting 01/25/2024 until 01/25/2024 Start: 03-11-2023 COVID-19 Vaccine ( season) COVID-19 Vaccine ( season) [facility] Start: 08-18-2022 Patient discharge [facility] Start: 08-16-[address] [facility] Start: 08-16-2022 Physiotherapy of chest [facility] Start: 08-16-[address] [facility] Start: 08-14-2022 Verification routine [facility] Start: 08-13-[address] [facility] Start: 08-13-2022 Care planning and pr oblem solving actions [facility] Start: 08-13-2022 Airway suction technique [facility] Start: 08-13-2022 Continuous positive airway pressure ventilation treatment [facility] Start: 08-12-2022 Oxygen therapy [facility] Start: 08-12-2022 Assessment of risk o f venous thromboembolism [facility] Start: 08-12-2022 Elevation of head of bed [facility] Start: 08-12-2022 Insertion of cathete r into peripheral vein [facility] Start: 08-12-2022 Patient education [facility] Start: 08-12-2022 Physiotherapy of chest [facility] Start: 08-12-2022 Providing care accor ding to standard [facility] Start: 08-12-2022 Provision of activit y privileges [facility] Start: 08-12-2022 Referral to occupati onal therapist [facility] Start: 08-12-2022 Referral to service [facility] Start: 08-12-2022 End: 08-12-2022 [facility] Start: 08-12-2022 Admission procedure [facility] Start: 08-12-2022 Following clinical p athway protocol [facility] Start: 08-12-2022 Inhalation therapy procedure [facility] Start: 2006 RSV patient s and/or patients aged 60+ years (1 - 1-dose 60+ series) RSV patients and/or patients aged 60+ years (1 - 1-dose 60+ series) [facility] Start: 1964 Diabetes mellitus screening Diabetes Screening [facility] Start: 1964 Hepatitis C screening Hepatitis C Sc [facility] Start: 1946 Creatinine measurement Creatinine Le miesha [facility] Start: 1945 Echocardiography Echocardiogram [facility] Start: 1945 Lipid panel Lipid Panel [facility] Start: 1945 Medicare Annual Well ness Visit Medicare Annual Wellness Visit (AWV) [facility] Start: 1945 Potassium measurement Potassium Leve l [facility] Start: 1945 Yearly Adult Physical Yearly Adult P hysical [facility] Cardiac event recording [facility] Patient referral [facility] Work Phone: Procedure on tissue specimen [facility] Comment on above: Once for 1 Occurrenc es starting 04/27/2019, 1 completed Immunizations Immunization Date Immunization Notes Care Provider Andres spann 05-02-2023 influenza virus vaccine, unspecified formulation Bridger Wiley MD Work Phone: [facility] Work Phone: Payers Date Payer Category Payer Medicare [id number] 2024 Self-pay [id number] 2024 Unknown [id number] 2024 Unknown [id number] 2023 Unknown [id number] [id number] .[id number] 2019 Unknown [id number] 2019 Unknown [place] [facility] [id number] 2019-Present xxxxxxxxx [id number] .[id number] 2019 Unknown [place] [facility] xx [id number] 2019-Present [id number] [id number] .[id number] 2011 Medicare MEDICARE MEDICAR E PART A & B xxxxxxxxxx 2011-Present [place] xxxxxxxxxx [id number] .[id number] 2011 Medicare MEDICARE MEDICAR E PART A & B [id number] 2011-Present [place] [id number] .298067.315 2011 Medicare [id number] 1945 Unknown [id number] 2.16.840.1.210884.3.579.2.903 1946 Unknown [id number] 2.16.840.1.621798.3.579.2.651 1946 Unknown [id number] 2.16.840.1.927188.3.579.2.124 4 1946 Unknown [id number] 2.16.840.1.111422.3.579.2.124 4 1946 Unknown [id number] 2.16.840.1.469092.3.579.2.903 1946 Unknown [id number] 2.16.840.1.769820.3.579.2.124 3 Unknown [id number] Unknown [id number] Unknown [id number] 2.16.840.1.175046.3.579.2.462 Unknown [id number] 2.16.840.1.824346.3.579.2.462 Unknown [id number] 2.16.840.1.008644.3.579.2.462 Unknown [id number] 2.16.840.1.074996.3.579.2.462 Unknown [id number] 2.16.840.1.236905.3.579.2.462 Unknown [id number] 2.16.840.1.950395.3.579.2.462 Unknown [id number] 2.16.840.1.774111.3.579.2.462 Unknown [id number] 2.16.840.1.478679.3.579.2.462 Unknown [id number] 2.16.840.1.664262.3.579.2.462 Unknown [id number] 2.16.840.1.046165.3.579.2.462 Unknown [id number] 2.16.840.1.798711.3.579.2.462 Unknown [id number] 2.16.840.1.066376.3.579.2.462 Social History Date Type Detail Facility Start: 04-27-2019 End: 01-25-2024 Tobacco smoking status AZIS Current every day smoker [facility] Start: 04-27-2019 End: 01-25-2024 Cigarettes smoked current (pack per day) - Reported [facility] Start: 04-27-2019 End: 04-30-2019 Alcohol intake Current drinker of alcohol (finding) [facility] Start: 04-27-2019 Alcohol Comment occ [facility] Start: 1945 Sex Assigned At Not on file [facility] Start: 04-30-2019 End: 01-25-2024 Tobacco use and exposure Never used [facility] Start: 08-13-2022 Tobacco smoking stat us AZIS Unknown if ever smoked [facility] Start: 1945 Sex Assigned At Male [facility] History of tobacco use Cigarette Smoker [facility] Work Phone: Start: 01-25-2024 Tobacco use panel [facility] Work Phone: Start: 01-15-2024 End: 01-25-2024 Exposure to SARS-CoV-2 (event) Not sure [facility] Start: 08-04-2024 End: 08-05-2024 Tobacco smoking status NHIS Current some day smoker [facility] Start: 08-05-2024 Tobacco Use Tobacco Use [facility] Goals Date Patient Goal Desired Activity /State Functional Status Date Assessment Result Facility 08-05-2024 Functional status Ambulates [facility] Work Phone: 08-18-2022 Functional status Up ad pelon;Bathroom Priv ilege [facility] Work Phone: Mental Status Date Assessment Result Facility 08-05-2024 Cognitive function Voice/Name [facility] Work Phone: 08-18-2022 Cognitive function Voice/Name [facility] Work Phone: Clinical Notes 06-14-2022 to 11-21-2024 Note Date & Type Note Facility 11-21-2024 Evaluation note Diagnosis Onset Date Resolution HLD (hyperlipidemia) acute November 21, 2024 9:11am Pre-operative cardiovascular examination acute November 21, 2024 9:11am HTN (hypertension) chronic November 212024 9:11am [facility] Work Phone: 1(171) 133-927601-26-2025 [facility] Medical Records Department [address] [place] [address] Discharge Summary 08/05/24 0714 MR#: [id number] Acct: [id number] Name: TIMUR JIMENEZ Jr. Rep #: [id number] : 1945 78 From: Jessica Mart MD PCP: Dr. Mimi Santa MD Status:ADM JUSTO Location: [place] [address] Providers Date of Admission: 08/03/24 Primary Care [...] as statin therapy and consult placed to [facility] teleneuro ??? 08/05/2024 MRI did show chronic microvascular [...] affect Weight / BMI (more content not included)...[facility]01-24-2025 Evaluation note* Diagnosis Onset Date Resolution Status Admit Date CVA (cerebral vascular accident) resolved August 03 7:27pm [facility] Work Phone: 1(905) 837-487507-18-2024 History of Present illness Narrative* Bridger Wiley [...] [facility]. Chronic BPH sx are mild and stable. [...] reviewed-No stone seen Flexeril Rx sent to [facility] has repeat MRI scheduled for 06/03 F/U 07/03 documented in this [facility] Work Phone: 1(874) 530-347807-17-2024 History of Present illness Narrative* Bridger Wiley MD - 01/25/2024 10:00 AM EDT Subjective Patient ID: Timur Jimenez Jr. is a 78 y.o. male. HPI Patient is here to establish for kidney stones and a 1.7cm right renal lesion that is being followed with MRI. . He state she had imaging done with [facility] that showed left sided stones. No past hx of stones. He also hx of right [facility] that [facility]. He states this is the size of Grape. [facility] is following this. He gets an MRI [...] F/U virtual with PSA documented in this [facility] Work Phone: 1(297) 149-100202-07-2023 Note. MICRO - Microbiology PROCEDURE: Blood Culture [...] Locations *1: This test was performed at: [address], [facility])08-17-2022 Note. MICRO - Microbiology PROCEDURE: Blood Culture [...] Locations *1: This test was performed at: [address], [facility] , [facility]08-17-[address] Grubbs [facility] August 17, 2022 4:47pm Note Date/Time August 17, 2022 4 :47pm [facility] Medical Records Department [address] [place] [address] Progress Note - Hospitalist 08/17/22 1644 MR#: [id number] Acct: [id number] Name: TIMUR JIMENEZ Jr. Rep #:[id number] : 1945 76 From: Rupali Grubbs DO PCP: Status:ADM IN Location: [facility] [id number]- 1 Reason for Visit Reason for Visit: [...] on 08/14/2021 Charges/Coding Visit Charges Inpatient E&M: 68220 Subs Hosp L2 08/17/22 1647 <Electronically signed by Rupali Grubbs DO> Cosigner Signature (if applicable): CC: ~ Signed [facility] Work Phone: 1(465) 681-158702-07-[address] Palomino [facility] August 17, 2022 8:34am Note Date/Time August 16, 2022 1 :51pm [facility] Medical Records Department [address] [place] [address] Progress Note - Engineering Lecturer 08/16/22 1345 MR#: [id number] Acct: [id number] Name: JIMENEZTIMUR Jr. Rep #:[id number] : 1945 76 From: Jake Palomino DO PCP: OUT OF TOWN DOCTOR Status:ADM IN Location: [place] [address] Assessment & Plan Assessment/Plan (1) COPD exacerbation: [...] medicationsas indicated. This note was generated with [employer] dictation software. It may contain incorrectwords, spelling, [...] 75.1 H, Lymph % (Auto) 11.8 L, Coke % (Auto) 11.5 H, Eos % (Auto) [...] affect normal Charges/Coding Visit Charges Inpatient E&M: 80909 Subs Hosp L2 08/17/22 0834 <Electronically signed by Jake Palomino DO> Cosigner Signature (if applicable): CC: ~ Signed [facility] Work Phone: 1(995) 340-826202-06-[address] Grubbs [facility] August 16, 2022 3:11pm Note Date/Time August 16, 2022 3 :11pm [facility] Medical Records Department [address] [place] [address] Progress Note - Hospitalist 08/16/22 1502 MR#: [id number] Acct: [id number] Name: TIMUR JIMENEZ Jr. Rep #:[id number] : 1945 76 From: Rupali Grubbs DO PCP: OUT OF TOWN DOCTOR Status:ADM IN Location: [place] [address] Subjective Subjective Patient reports that overall he [...] 75.1 H, Lymph % (Auto) 11.8 L, Coke % (Auto) 11.5 H, Eos % (Auto) [...] on 08/14/2021 Charges/Coding Visit Charges Inpatient E&M: 60819 Subs Hosp L2 Reason for Visit Reason for Visit: Diagnoses Chronic obstructive pulmonary disease with (acute) exacerbation (08/12/22) Bronchiectasis, uncomplicated (08/12/22) Acute and chronic respiratory failure with hypoxia (08/12/22) 08/16/22 1512 <Electronically signed by Rupali Grubbs DO> Cosigner Signature (if applicable): CC: ~ Signed [facility] Work Phone: 1(346) 116-847902-05-[address] Grubbs [facility] August 15, 2022 2:57pm Note Date/Time August 15, 2022 2 :53pm [facility] Medical Records Department [address] [place] [address] Progress Note - Hospitalist 08/15/22 1450 MR#: [id number] Acct: [id number] Name: TIMUR JIMENEZ Jr. Rep #:[id number] : 1945 76 From: Rupali Grubbs DO PCP: OUT OF TOWN DOCTOR Status:ADM IN Location: [facility] [id number]- 1 Subjective Subjective Patient subjectively reports that [...] 82.6 H, Lymph % (Auto) 8.6 L, Coke % (Auto) 7.7, Eos % (Auto) 0.0, [...] on 08/14/2021 Charges/Coding Visit Charges Inpatient E&M: 74718 Subs Hosp L2 08/15/22 7372 <Electronically signed by Rupali Grubbs DO> Cosigner Signature (if applicable): CC: ~ Signed [facility] Work Phone: 1(772) 755-551002-05-[address] Snyder [facility] August 15, 2022 9:50am Note Date/Time August 15, 2022 8 :37am [facility] Medical Records Department [address] [place] [address] Progress Note - Engineering Lecturer 08/15/22 0833 MR#: [id number] Acct: [id number] Name: TIMUR JIMENEZ Jr. Rep #: : 1945 76 From: Flip Snyder MD PCP: OUT OF TOWN DOCTOR Status:ADM IN Location: [facility] [id number]- 1 Assessment & Plan Assessment/Plan (1) COPD [...] but does carry a diagnosis of previous NV. Patient appears to be responding well to therapy,, so will wean steroids 2. Advanced age/lack of rumper/hyperglycemia Complicates care, management, recovery and prognosis. We will continue towatch blood sugars on daily labs. Cannot exclude the need for sliding scale insulin and basal insulin given the need for steroids secondary to problem #1. Patient will need an outpatient established rumper to evaluate for complications and optimization of [...] 82.6 H, Lymph % (Auto) 8.6 L, Coke % (Auto) 7.7, Eos % (Auto) 0.0, [...] dysfunction. Ordering Physician: Flip Snyder Referring Physician: SHANNON PCP Performed By: Lolly Peralta RCS Physical [...] affect normal Charges/Coding Visit Charges Inpatient E&M: 79324 Subs Hosp L2 08/15/22 6777 <Electronically signed by Flip Snyder MD> Cosigner Signature (if applicable): CC: ~ Signed [facility] Work Phone: 1(601) 535-207902-04-[address] Grubbs [facility] August 14, 2022 4:10pm Note Date/Time August 14, 2022 1 0:53am [facility] Medical Records Department [address] [place] [address] Progress Note - Hospitalist 08/14/22 1041 MR#: [id number] Acct: [id number] Name: TIMUR JIMENEZ Jr. Rep #:[id number] : 1945 76 From: Rupali Grubbs DO PCP: OUT OF TOWN DOCTOR Status:ADM IN Location: [facility] [id number]- 1 Subjective Subjective Mr. Jimenez is a [...] and azithromycin and transfer was requested to [facility]. Since being hospitalized he required increased [...] have an appointment to follow-up with a rumper at the [facility] in September. He was evaluated by pulmonary [...] 87.9 H, Lymph % (Auto) 5.8 L, Coke % (Auto) 5.2, Eos % (Auto) 0.0, [...] bedside today Charges/Coding Visit Charges Inpatient E&M: 51339 Subs Hosp L2 08/14/22 1610 <Electronically signed by Rupali Grubbs DO> Cosigner Signature (if applicable): CC: ~ Signed [facility] Work Phone: 1(248) 658-801102-04-[address] Snyder [facility] August 14, 2022 8:42am Note Date/Time August 14, 2022 8 :21am [facility] Medical Records Department [address] [place] [address] Progress Note - Engineering Lecturer 08/14/22 0819 MR#: [id number] Acct: [id number] Name: TIMUR JIMENEZ Jr. Rep #:[id number] : 1945 76 From: Flip Snyder MD PCP: OUT OF TOWN DOCTOR Status:ADM IN Location: [facility] [id number]- 1 Assessment & Plan Assessment/Plan (1) COPD [...] but does carry a diagnosis of previous NV. Patient appears to be responding well to therapy, but will keep steroids at the current dosing until oxygenation improves 2. Advanced age/lack of rumper/hyperglycemia Complicates care, management, recovery and prognosis. We will continue towatch blood sugars on daily labs. Cannot exclude the need for sliding scale insulin and basal insulin given the need for steroids secondary to problem #1. Patient will need an outpatient established rumper to evaluate for complications and optimization of [...] 87.9 H, Lymph % (Auto) 5.8 L, Coke % (Auto) 5.2, Eos % (Auto) 0.0, [...] affect normal Charges/Coding Visit Charges Inpatient E&M: 91454 Subs Hosp L3 08/14/22 0842 <Electronically signed by Flip Snyder MD> Cosigner Signature (if applicable): CC: ~ Signed [facility] Work Phone: 1(253) 316-436102-03-[address] Lowe [facility] August 13, 2022 5:10pm Note Date/Time August 13, 2022 5 :10pm [facility] Medical Records Department [address] [place] [address] Progress Note - Hospitalist 08/13/22 1705 MR#: [id number] Acct: [id number] Name: TIMUR JIMENEZ JrCarmita Rep #:[id number] : 1945 76 From: Juan Lowe DO PCP: OUT OF TOWN DOCTOR Status:ADM IN Location: [place] [address] Subjective Subjective Patient was seen and examined [...] (Auto) 88.9 H, Lymph % (Auto) 6.9L, Coke % (Auto) 2.9, Eos % (Auto) 0.1, [...] 37 minutes Charges/Coding Visit Charges Inpatient E&M: 66137 Subs Hosp L2 08/13/22 1710 <Electronically signed by Juan Lowe DO> Cosigner Signature (if applicable): CC: ~ Signed [facility] Work Phone: 1(850) 595-467002-03-[address] Snyder [facility] August 13, 2022 12:45pm Note Date/Time August 13, 2022 1 0:52am [facility] Medical Records Department [address] [facility] [place] [address] Consultation - Engineering Lecturer 08/13/22 1041 MR#: [id number] Acct: [id number] Name: TIMUR JIMENEZ JrCarmita Rep #:[id number] : 1945 76 From: Flip Snyder MD PCP: OUT OF TOWN DOCTOR Status:ADM IN Location: [facility] JUM901- 1 Assessment & Plan Assessment/Plan (1) COPD [...] but does carry a diagnosis of previous NV. 2. Advanced age/lack of rumper/hyperglycemia Complicates care, management, recovery and prognosis. We will continue towatch blood sugars on daily labs. Cannot exclude the need for sliding scale insulin and basal insulin given the need for steroids secondary to problem #1. Patient will need an outpatient established rumper to evaluate for complications and optimization of baseline function. HPI Consult Data Date of Consult: 08/13/22 HPI Narrative Reason for Consultation: Hypoxic respiratory failure HPI Narrative: TIMUR HUDSON, is a 76 M, with past medical history listed below, who presents as a direct transfer from [facility] secondary to hypoxic respiratory failure. Patient [...] azithromycin prior to discharge/transfer. Since being at [facility], patient has required increased FiO2 up to [...] Patient states he is never seen a rumper or had a pulmonary function test previously. Patient is on tripletherapy at home along with 2 L nasal cannula. Patient states he is readily compliant with his supplemental oxygen. Patient states that his breathing is gotten so poor that he actually quit smoking recently. Patient states he is to meet with [facility] [place] in [place] and was hoping to make [...] psychiatric and hematologic system unless stated above. [facility] Medical History COPD (chronic obstructive pulmonary disease) [...] (Auto) 88.9 H, Lymph % (Auto) 6.9L, Coke % (Auto) 2.9, Eos % (Auto) 0.1, [...] EST , Charges/Coding Visit Charges Inpatient E&M: 52372 Init Hosp L3 08/13/22 1245 <Electronically signed by Flip Snyder MD> Cosigner Signature (if applicable): CC: MARTIN Timmons; Dr. Flip Snyder MD; Dr. Jake Palomino DO; Dr. Divya DO; Dr. Romie Pino MD; Dr. Regulo Neil MD~ Signed [facility] Work Phone: 1(607) 926-291702-03-[address] Emmanuel [facility] August 13, 2022 6:50am Note Date/Time August 13, 2022 6 :50am [facility] Medical Records Department [address] [place] [id number] Progress Note 08/13/22 0646 MR#: [id number] Acct: [id number] Name: TIMUR JIMENEZ JrCarmita Rep #:[id number] : 1945 76 From: Sima Emmanuel MD PCP: OUT OF TOWN DOCTOR Status:ADM IN Location: [facility] [id number] Progress Note Called to see at 3am [...] Cosigner Signature (if applicable): CC: ~ Signed [facility] Work Phone: 1(897) 929-709402-02-2023 History and physical note Author Dr. Ribeiro [facility] August 12, 2022 6:32pm Note Date/Time August 12, 2022 6 :32pm [facility] Medical Records Department [address] [place] [address] H&P Exam - Hospitalist 08/12/22 1826 MR#: [id number] Acct: [id number] Name: TIMUR JIMENEZ Jr. Rep #:[id number] : 1945 76 From: Felix Ribeiro DO PCP: OUT OF TOWN DOCTOR Status:ADM IN Location: [facility] [id number] HPI - General General Date of Admission: [...] breath just got worse and presented to [place] ED today. Patient was found to have a right-sided pneumonia as well as a lactic acid of 6. Patient was checked for influenza and COVID which were both negative. Patient received ceftriaxone and azithromycin there. Patient requested transfer to [facility]. [facility] Medical History (Updated 08/12/22 @ 18:31 by [...] with enoxaparin. Charges/Coding Visit Charges Inpatient E&M: 33334 Init Hosp L3 08/12/22 4438 <Electronically signed by Felix Ribeiro DO> Cosigner Signature (if applicable): CC: Dr. Felix Ribeiro, DO~ Signed [facility] Work Phone: 1([phone]) 929-778612-05-2022 Note. MICRO - Microbiology PROCEDURE: Blood Culture [...] Locations *1: This test was performed at: [address], [address] [place] [address] ([place])06-14-2022 Note. MICRO - Microbiology PROCEDURE: Blood Culture [...] Locations *1: This test was performed at: [address], [address] [place] [address])Discharge summary Author Dr. Grubbs [facility] August 18, 2022 1:19pm Note Date/Time August 18, 2022 1 :02pm [facility] Medical Records Department [facility] [place] [address] Discharge Summary 08/18/22 1301 MR#: [id number] Acct: [id number] Name: TIMUR JIMENEZ Jr. Rep #:[id number] : 1945 76 From: Rupali Grubbs DO PCP: Status:ADM IN Location: [place] [address] Providers Date of Admission: 08/12/22 Date of Discharge: 08/18/22 Consultations 08/13/22 06:45 Consult: Engineering Lecturer / Pulmonary Medicine Routine Consulting Provider: [facility] Reason for Consult: Resp failure EMERGENT Consult: [...] received ceftriaxone and azithromycin and transferred to [facility]. He was initially maintained on azithromycin [...] to [facility] the next 2 to 4 weeks. [...] 80.3 H, Lymph % (Auto) 9.0 L, Coke % (Auto) 8.1, Eos % (Auto) 0.0, [...] Pino ; Regulo Neil ; Kimberlee Timmons NP ; Felix Ribeiro ; Juan Lowe Instructions [...] Self Care Charges/Coding Visit Charges Inpatient E&M: 03399 Disch Hosp >30min 08/18/22 1319 <Electronically signed by Rupali Grubbs DO> Cosigner Signature (if applicable): CC: Dr. Rupali Grubbs DO~ Signed [facility] Work Phone: Evaluation note* Diagnosis Onset Date Resolution Status Bronchiectasis acute Euthyroid sick syndrome acut e Hyperglycemia acute Lactic acidosis acute Leukocytosis acute Acute and chronic respiratory failure with hypoxia chronic COPD exacerbation chronic [facility] Work Phone: Evaluation note* Diagnosis Kidney stones Calculus of kidney Benign prostatic hyperplasia with lower urinary tract symptoms, symptom details unspecified Nocturia documented in this encounter [facility] Work Phone: Evaluation note* Diagnosis Kidney stones Calculus of kidney Nocturia Benign prostatic hyperplasia with lower urinary tract symptoms, symptom details unspecified Kidney stones Calculus of kidney documented in this encounter [facility] Work Phone: Evaluation note* Diagnosis Nocturia Benign prostatic hyperplasia with lower urinary tract symptoms, symptom details unspecified Kidney stones Calculus of kidney documented in this encounter [facility] Work Phone: Reason for referral (narrative)No reason for referral information availableWMercer [facility] Work Phone: Summary Purpose Family History No [...] FoundDocuments on File Type Date Recorded Patient Public Defender Expl anation Advance Directives and Livin g Will 04/27/2019 7:48 AM Documents on File Type Date Recorded Patient Public Defender Expl anation Advance Directives and Livin g Will 04/27/2019 7:48 AM Advance Directive Response Recorded Date/ Time Name of Medical Power of Ripsaw Matcher Trini dougherty August 12, 2022 6:06pm Living Will Yes August 12 6:06pm Power of Ripsaw Matcher Yes August 12, 2022 6:06pm Advance Directive Response Recorded Date/ Time Living Will Yes August 03 9:16pm Do you have a Healthcare Pow er of Ripsaw Matcher? Yes August 03, 2024 9:16pm Name of Medical Power of Ripsaw Matcher Trini abrrett () August 03, 2024 9:16pm Discharge Instructions [...] Log into your personal health record on [email or web address] and enter U654 in the Education box to learn more about High-Fiber Diet: Care Instructions. Current as of: May 17, 2018 Content Version: .[id number] [employer]. Care instructions adapted under license by your healthcare professional. If you have questions about a medical condition or this instruction, always ask your healthcare professional. [employer] disclaims any warranty or liability for your [...] Log into your personal health record on [email or web address] and enter K072 in the Education box to learn more about Diverticulosis: Care Instructions. Current as of: May 17, 2018 Content Version: 12.20055788-0620 [employer]. Care instructions adapted under license by your healthcare professional. If you have questions about a medical condition or this instruction, always ask your healthcare professional. [employer] disclaims any warranty or liability for your [...] your doctor if you can take an ehkw-twh-nhlwoba medicine. Keep the anal area clean, but [...] or psyllium (available in bulk at most [employer] food stores) and sprinkling it on foods [...] Log into your personal health record on [email or web address] and enter F228 in the Education box to learn more about Hemorrhoids: Care Instructions. Current as of: May 17, 2018 Content Version: 12.20058994-7214 [employer]. Care instructions adapted under license by your healthcare professional. If you have questions about a medical condition or this instruction, always ask your healthcare professional. [employer] disclaims any warranty or liability for your [...] Log into your personal health record on [email or web address] and enter C571 in the Education box to learn more about Colon Polyps: Care Instructions. Current as of: June 28, 2018 Content Version: 12.20057764-4969 [employer]. Care instructions adapted under license by your healthcare professional. If you have questions about a medical condition or this instruction, always ask your healthcare professional. [employer] disclaims any warranty or liability for your [...] SOB[place]DIZZINESS ([facility]) November 21, 2024 9:11a m Chief Complaint Admit Date COPD November 06, 2024 7:2 5am SOB/DIZZINESS ([place]) November 21, 2024 9:11a m CAD December 21, 2024 6:19 am Coronary artery disease December 24, 2024 8:02pm Amb Documentation December 25, 2024 9:32 am Reason for Visit Admit Date HLD (hyperlipidemia) November 21, 2024 9:11 am Pre-operative cardiovascular examination November 21, 2024 9:11am HTN (hypertension) November 21, 2024 9:11a m Reason for Referral Specialty Diagnoses / Procedures Referred By Megan mix Referred To Contact Radiology Diagnoses Kidney stones Procedures XR abdomen 1 view Bridger Wiley MD [address] [place] [address] Referral ID Status Reason Start Date Expiration Date Visits Requested Visits Authorized [id number] Pending Review Perform Procedure 01/25/2024 01/24/2025 1 1 Additional Source Comments (unrecognized sect ion and content) No Status Records FoundNo Status Records FoundNo Status Records FoundNo Status Records FoundNo Status Records FoundNo Status Records FoundNo Status Records FoundNo Status Records FoundNo Status Records Found INFORMATION SOURCE (unrecogn ized section and content) DATE CREATED AUTHOR 06/12/2018 [facility] DATE CREATED AUTHOR AUTHOR'S ORGANIZ ATION 10/09/2018 [facility] DATE CREATED AUTHOR AUTHOR'S ORGANIZ ATION 04/27/2019 [facility] DATE CREATED AUTHOR AUTHOR'S ORGANIZ ATION 08/18/2022 [facility] DATE CREATED AUTHOR AUTHOR'S ORGANIZ ATION 11/15/2023 [facility] DATE CREATED AUTHOR AUTHOR'S ORGANIZ ATION 01/29/2024 [facility] DATE CREATED AUTHOR AUTHOR'S ORGANIZ ATION 03/08/2024 [facility] DATE CREATED AUTHOR AUTHOR'S ORGANIZ ATION 09/06/2024 [facility] DATE CREATED AUTHOR AUTHOR'S ORGANIZ ATION 01/20/2025 [facility] Reason for Visit (unrecogniz ed section and content) Status Reason Specialty Diagnoses / Procedures Referre d By Contact Referred To Contact Diagnoses Z12.11 SCREENING COLONOSCOPY Procedures COLONOSCOPY Reason Comments kidney stone Specialty Diagnoses / Procedures Referred By Contac t Referred To Contact Radiology Diagnoses Kidney stones Procedures XR abdomen 1 view Bridger Wiley MD [address] [id number] Referral ID Status Reason Start Date Expiration Date Visits Requested Visits Authorized [id number] Pending Review Perform Procedure 01/25/2024 01/24/2025 1 1 Reason Comments kub results Rafa Camacho MD - 04/27/2019 9:02 AM EDT H&P Notes (unrecognized sect ion and content) INTERVAL HISTORY AND PHYSICAL Patient Name: Timur Jimenez Admit Date: [id number] MR #: [id number] : 1945 The H&P has been reviewed [...] Team Status: Active Member Role Status Dates [facility] Provider Active Team Status: Active Member Role Status Dates Out of [facility] Doctor Primary Care Provider Active Dr. Felix Ribeiro , DO Admit Provider, Attending Provid er, Other Provider Active Team Status: Active Member Role Status Dates Out of [facility] Doctor Primary Care Provider Active Dr. Felix Ribeiro , DO Admit Provider, Other Provider A ctive Dr. Flip Snyder MD Other Provider Active Dr. Jake Palomino , DO Other Provider Active Dr. Romie Pino MD Other Provider Active Dr. Regulo Neil MD Other Provider Active Kimberlee Timmons SYSTEMS TECHNICIAN, SYSTEMS TECHNICIAN-C Other Provider Active Dr. Sima Emmanuel MD Attending Provider Active Team Status: Active Member Role Status Dates Out [facility] Doctor Primary Care Provider Active Dr. Felix Ribeiro , DO Admit Provider, Other Provider A ctive Dr. Flip Snyder MD Attending Provider, Other Provid er Active Dr. Jake Palomino , DO Other Provider Active Dr. Romie Pino MD Other Provider Active Dr. Regulo Neil MD Other Provider Active Kimberlee Timmons SYSTEMS TECHNICIAN, SYSTEMS TECHNICIAN-C Other Provider Active Dr. Juan Lowe , DO Other Provider Active Team Status: Active Member Role Status Dates Out [facility] Doctor Primary Care Provider Active Dr. Felix Ribeiro , DO Admit Provider, Other Provider A ctive Dr. Flip Snyder MD Attending Provider, Other Provid er Active Dr. Jake Palomino , DO Other Provider Active Dr. Romie Pino MD Other Provider Active Dr. Regulo Neil MD Other Provider Active Kimberlee Timmons SYSTEMS TECHNICIAN, SYSTEMS TECHNICIAN-C Other Provider Active Dr. Rpuali Grubbs , Other Provider Active Dr. Juan Lowe , DO Other Provider Active Team Status: Active Member Role Status Dates Out [facility] Doctor Primary Care Provider Active Dr. William Vaughn MD Attending Provider Activ e Team Status: Active Member Role Status Dates Out [facility] Doctor Primary Care Provider Active Dr. Felix Ribeiro , DO Admit Provider, Other Provider A ctive Dr. Flip Snyder MD Other Provider Active Dr. Jake Palomino , DO Other Provider Active Dr. Romie Pino MD Other Provider Active Dr. Regulo Neil MD Other Provider Active Kimberlee Timmons SYSTEMS TECHNICIAN, SYSTEMS TECHNICIAN-C Other Provider Active Dr. Rupali Grubbs , DO Attending Provider, Other Provide r Active Dr. Juan Lowe , DO Other Provider Active Team Status: Active Member Role Status Dates Out of [facility] Doctor Primary Care Provider Active Dr. Felix Ribeiro , DO Admit Provider, Other Provider A ctive Dr. Flip Snyder MD Other Provider Active Dr. Jake Palomino , DO Attending Provider, Other Provide r Active Dr. Romie Pino MD Other Provider Active Dr. Regulo Neil MD Other Provider Active Kimberlee Timmons SYSTEMS TECHNICIAN, SYSTEMS TECHNICIAN-C Other Provider Active Dr. Rupali Grubbs , [...] Neil MD Other Provider Active Kimberlee Timmons SYSTEMS TECHNICIAN, SYSTEMS TECHNICIAN-C Other Provider Active Dr. Rupali Grubbs , [...] Neil MD Other Provider Active Kimberlee Timmons SYSTEMS TECHNICIAN, SYSTEMS TECHNICIAN-C Other Provider Active Dr. Rupali Grubbs , DO Attending Provider Active Dr. Juan Lowe , DO Other Provider Active Team Status: Active Member Role Status Dates Dr. Mimi Santa MD Primary Care Provider Active Team Status: Inactive Member Role Status Dates Dr. Mimi Santa MD Primary Care Provider Active Start: August 03, 2024 End: August 05, 2024 Dr. Mich Madera , Emergency Provider Active Start: August 03, 2024 End: August 05, 2024 Dr. Shannen Jung MD Admit Provider Active St art: August 03, 2024 End: August 05, 2024 Dr. Shannen Jung MD Other Provider Active St art: August 03, 2024 End: August 05, 2024 Jacobo Krause MD Other Provider Active Start: Jc jones 2024 End: August 05, 2024 Dr. Ulises [...] Jacobo Krause MD Other Provider Active Start: [facility]2024 Dr. Ulises Greco MD Other Provider Active [...] November 21, 2024 End: November 21, 2024 Team Status: Inactive Member Role Status Dates Dr. Mimi Santa MD Primary Care Provider Active Start: December 21, 2024 End: December 21, 2024 Dr. Gagandeep Prabhakar MD Attending Provider Active S tart: December 21, 2024 End: December 21, 2024 Dr. Gagandeep Prabhakar MD Referring Provider Active S tart: December 21, 2024 End: December 21, 2024 Team Status: Active Member Role Status Dates Dr. Mimi Santa MD Primary Care Provider Active Start: December 24, 2024 Dr. Gagandeep Prabhakar MD Attending Provider Active S tart: December 24, 2024 Dr. Gagandeep Prabhakar MD Referring Provider Active S tart: December 24, 2024 Dr. Gagandeep Prabhakar MD Other Provider Active Start : December 24, 2024 Team Status: Active Member Role Status Dates Dr. Mimi Santa MD Primary Care Provider Active Start: December 25, 2024 Jamila Mathis NP, SYSTEMS TECHNICIAN-C Attending Provider Active Start: December 25, 2024 Goals (unrecognized section and content) Goals may be documented in a n alternate section FOR RECORDS PERTAINING TO PATIENTS WHO ARE [...] BE BASED ON THE PRIMARY CLINICAL RECORDS. [facility] [employer] provides no warranty or guarantee of the accuracy or completeness of information in this document.
[2025-04-12] MEDS: 0.9% Normal Saline (1000mL) 1,000 ML 1000 ML IV (01:23)
[2025-04-12] MEDS: Azithromycin 500 MG in 0.9% Normal Saline (250mL Bag) 250 ML 255 MG IV (01:23)
[2025-04-12] MEDS: 0.9% Saline Lock 10 ML Syringe IV (01:24)
[2025-04-12] MEDS: 0.9% Normal Saline (250mL Bag) 250 ML 15 ML IV (01:24)
[2025-04-12] MEDS: Albuterol 2.5 MG/3 ML VIAL.NEB. INHALATION ×4 (02:16→18:52)
[2025-04-12] MEDS: 0.9% Normal Saline (1000mL) 1,000 ML 100 ML IV (02:25)
[2025-04-12 05:58] LABS: Hematocrit 30.5 % (40-54); Hemoglobin 10.2 g/dL (13.0-16.5); Immature Granulocytes Count 0.080 X10^3/uL (0.0-0.0); Mean Corp Hgb Conc 33.4 g/dL (32-36); Mean Corpuscular Volume 90.2 fL (80-94); Mean Platelet Vol. 9.8 fl (6.2-12.0); NRBC Flagged by Analyzer 0 % (0-5); POSITIVE DIFFERENTIAL YES; Platelet Count 263 K/mm3 (150-450); RBC Distribution Width CV 14.2 % (11.6-14.6); RBC Distribution Width SD 47.0 fl (35.1-43.9); Red Blood Count 3.38 M/mm3 (4.6-6.2); White Blood Count 8.6 K/mm3 (4.4-11.0)
[2025-04-12 06:25] LABS: AST(SGOT) 40 U/L (<=37); Alanine Aminotransfer ALT/SGPT 59 U/L (<=46); Albumin, Serum 2.9 g/dL (3.4-4.8); Alkaline Phosphatase 109 U/L (40-129); Anion Gap 13 (5-15); BUN 13 mg/dL (4-19); BUN/Creat Ratio 25.7 RATIO (10-20); Calcium,Total 8.0 mg/dL (7.6-11.0); Carbon Dioxide 14.4 mmol/L (21.0-32.0); Chloride 105 mmol/L (98-108); Estimated Creatinine Clearance 73.63 ml/min (50-250); Globulin 2.8 g/dL (2.2-4.2); Glucose 88 mg/dL (70-99); Potassium 3.3 mmol/L (3.3-5.1)
[2025-04-12] MEDS: Budesonide Respules 0.5 MG/2 ML AMPUL.NEB. INHALATION ×2 (07:32→18:52)
--- NOTE | 2025-04-12 09:25 | PCM.PN.HOSP ---
Reason for Visit Chief Complaint: Debility, weakness, dyspnea, cough, F/C. Objective Data Objective Data Vital Signs: Vital Signs Temp Pulse Resp BP Pulse Ox O2 Del Method 98.1 F 104 H 18 115/71 98 Room Air 04/12/25 09:00 04/12/25 09:00 04/12/25 09:00 04/12/25 09:00 04/12/25 09:00 04/12/25 09:00 Oxygen Delivery Method Room Air Weight: 152 lb 1.903 oz Body Mass Index (BMI) 23.1 Intake & Output: Intake and Output for Last 24 Hours 04/10/25 04/11/25 04/12/25 23:59 23:59 23:59 Intake Total 2321.25 / 2321.25 Balance 2321.25 / 2321.25 Lab / Micro Data 04/12/25 05:05 04/12/25 05:05 Labs: Laboratory Results - last 24 hr 04/11/25 19:20: WBC 9.8, RBC 3.77 L, Hgb 11.4 L, Hct 33.5 L, MCV 88.9, MCH 30.2, MCHC 34.0, RDW Std Deviation 45.6 H, RDW Coeff of Chadd 14.2, Plt Count 267, MPV 9.4, Immature Gran % (Auto) 1.000 H, Neut % (Auto) 83.0 H, Lymph % (Auto) 6.7 L, [place] % (Auto) 9.1, Eos % (Auto) 0.0, Baso % (Auto) 0.2, Absolute Neuts (auto) 8.1 H, Absolute Lymphs (auto) 0.66 L, Nucleated RBC % 0, PT 18.0 H, INR 1.5, APTT 34.5, D-Dimer Quant (PE/DVT) 0.98 H*, Sodium 131 L, Potassium 3.2 L, Chloride 98, Carbon Dioxide 18.9 L, Anion Gap 14, BUN 16, Creatinine 0.64 L, Estim Creat Clear Calc 71.90, Est GFR (MDRD) Non-Af 97, BUN/Creatinine Ratio 24.7 H, Glucose 89, Lactic Acid 1.3, Calcium 9.0, Troponin T High Sens 18 04/11/25 19:52: Urine Color Yellow, Urine Clarity Cloudy, Urine pH 7.0, Ur Specific [place] 1.010, Urine Protein 30 H, Urine Glucose (UA) Normal, Urine Ketones 15 H, Urine Occult Blood Negative, Urine Nitrite Negative, Urine Bilirubin 3 H, Urine Urobilinogen 12 H, Ur Leukocyte Esterase Negative, Urine RBC 0 SEEN, Urine WBC 0-5 SEEN, Ur Squamous Epith Cells 0 SEEN, Amorphous Sediment 2+, Urine Bacteria 2+, Urine Mucus 1+ 04/11/25 21:28: Magnesium 2.0, Troponin T Hi Sens 2 Hr 18 04/11/25 23:00: Troponin T Hi Sens 4Hr 18 04/12/25 05:05: WBC 8.6, RBC 3.38 L, Hgb 10.2 L, Hct 30.5 L, MCV 90.2, MCH 30.2, MCHC 33.4, RDW Std Deviation 47.0 H, RDW Coeff of Chadd 14.2, Plt Count 263, MPV 9.8, Immature Gran % (Auto) 0.900, Neut % (Auto) 83.3 H, Lymph % (Auto) 6.6 L, [place] % (Auto) 8.9, Eos % (Auto) 0.0, Baso % (Auto) 0.3, Absolute Neuts (auto) 7.1, Absolute Lymphs (auto) 0.57 L, Nucleated RBC % 0, Sodium 133, Potassium 3.3, Chloride 105, Carbon Dioxide 14.4 L, Anion Gap 13, BUN 13, Creatinine 0.50 L, Estim Creat Clear Calc 73.63, Est GFR (MDRD) Non-Af 104, BUN/Creatinine Ratio 25.7 H, Glucose 88, Calcium 8.0, Total Bilirubin 0.76, AST 40 H, ALT 59 H, Alkaline Phosphatase 109, Total Protein 5.7 L, Albumin 2.9 L, Globulin 2.8, Albumin/Globulin Ratio 1.0 Micro: Microbiology 04/11/25 23:59 Mucosa - Nasopharyngeal Respiratory Panel (PCR) - Final Rhinovirus 04/11/25 23:00 Nasal Secretion MRSA (PCR) - Final 04/11/25 23:00 Urine, Random Legionella Antigen - Final 04/11/25 23:00 Urine, Random Streptococcus pneumoniae Antigen (M - Final 04/11/25 19:20 Mucosa - Nose SARS-CoV-2, Influenza & RSV (PCR) - Final Radiography Diagnostic Testing: Radiology Impression Chest CTA 04/11/25 20:49 IMPRESSION: No evidence of pulmonary embolism. Airspace opacities in the lungs consistent with pneumonia. Reading Location: [facility] Physical Exam Narrative Seen and examined Patient is malnourished, failure to thrive, cough, came with low blood pressure SBP 90 mmHg, 15 mm drop in systolic from laying to standing and dehydrated Physical exam General: Alert, Oriented x3, Cooperative. BMI 23.1 [place] per square meter HEENT: Atraumatic, PERRLA, EOMI, Normocephalic. Oral: No Gingival or Mucosal Lesions/ Ulcerations Neck: Supple, No JVD, Negative Carotid Bruits Chest wall/Lungs: Air entry diminished in bilateral lung bases. No crepitation/rhonchi Cardiovascular: Regular rate and rhythm, Normal S1,S2, bilateral coarse crepitations lung bases Abdomen: Bowel Sounds Present, Soft, Non Tender, Non-Distended : No dysuria. No renal angle tenderness. No suprapubic tenderness. Extremities: No edema, Capillary Refill Less than 3 Seconds Skin: No rashes, No breakdown Musculoskeletal: Decrease in muscle bulk of lower extremities, craniofacial muscles and rib cage. Mild malnutrition. No Tenderness to Palpation of Joints or Extremities Neurological: Cranial nerves II-XII grossly intact, DTR 2+/4. No acute focal neurological deficit. Psych/Mental Status: Flat affect bilateral coarse crepitations Assessment & Plan Assessment/Plan (1) Pneumonia: PLAN: Plan The patient is a 79 y/o M admitted with generalized weakness, increased fatigue poor oral intake for last several weeks and cough occasionally productive with whitish to room with subjective fever and chills and occasional mild headache. #1. Adult FTT secondary to Acute bilateral lower lobe pneumonia unclear organism, community-acquired due to rhino but may have bacterial secondary infection with associated hypotension suspected primarily secondary to recently poor intake/dehydration patient recommended PCU. Rehydration with IV fluid. On IV Rocephin and Zithromycin.: Respiratory panel positive of rhinovirus. Patient does not look septic clinically therefore sepsis ruled out. Urinary antigens are negative. Triple PCR for SARS-CoV-2, flu and RSV are negative. Gram stain shows 4+ GNR, 2+ GPC, 2+ gram-positive diplococci. #2. Hyponatremia, suspect hypovolemic component given acute presentation #1: Admission sodium 131, chloride 98, will continue to judiciously hydrate and repeat CMP in AM. 04/12: Repeat serum sodium 133 and K 3.3. Bicarb was 18.9 and went to low 14 which seems erroneous. #3. Hypokalemia: Admission K+ 3.2, magnesium level requested, supplementation given, Mild hypokalemia: Replace potassium. #4. Nonobstructive CAD: Patient does have history of previous [place] x 2, felt likely appropriate related to age and exposure possibly agent orange, previous cardiac catheterization nonobstructive, will continue aspirin therapy, holding hypertensive regimen given presentation as noted, continue statin therapy. [facility] Serial troponins are normal. ACS ruled out. #5. Chronic normocytic anemia/iron deficiency anemia: Admission hemoglobin 11.4, MCV 88.9, CBC shows H&H 10.2/30.5 about baseline. Platelet count 263K. #6. Chronic COPD/bronchiectasis: Complicates presentation as noted above #1, Will hold home inhalers in the interim maintain on ATC budesonide therapy, PRN albuterol, HOB, IS parameters. #7. Hypertension: Hypotensive presentation, holding all hypertensive regimen, add back once appropriate. #8. Hyperlipidemia: Continue home statin regimen. #9. Chronic pain syndrome/chronic neuropathy: Continue patient on gabapentin regimen with hold for sedation/hypotension if needed. #10. GERD: History of peptic ulcer disease with perforation, continue patient on PPI. #11. Chronic essential tremors: Temporarily holding beta-ashwin therapy, notable chronic essential tremors primarily upper extremities. #12. DVT prophylaxis: Lovenox. #13. CODE status: Patient HCPOA is not in place but his would be his medical decision maker and living will is currently in place. Discussed CODE status at length including difference between FULL code, DNR-CCA and DNR-CC status. Following discussions about the differences in these status, requested DNR-CCA, no intubation. Clarified with examples and confirmed his CODE STATUS request. Charges/Coding Visit Charges Inpatient E&M: 97947 Subs Hosp L2
--- NOTE | 2025-04-12 09:46 | CASEMGMT ---
Social Work Primary Care Doctor: [place] Speciality doctors: [place] Insurance: [facility], Medicare and [facility] Advanced directives: Patient reported he has a AD and LW. LNOK: , 3 daughters and a son Marital/Social History: Patient lives at home with his . His daughter that lives in [place] helps them if needed. Two daughters live in [place] and 1 son lives in [place]. Living Situation: Patient lives at home with his . He has 3 steps into his home. ADL's/Prior level of functioning: independent Transportation: His drives. He does not drive. DME: [facility], deepak gar[facility], [facility] [place] [facility] history: [facility] and he has participated in outpatient therapy. Support/Community Services: none Mental Health: none Substance abuse history: none Assessment: Patient wants to DC to his home. Patient lives at home with his . [facility]. Social Work to continue to follow. OLVIN Campbell
[2025-04-12] MEDS: ROFLUMILAST 500 MCG TABLET PO (12:01)
--- NOTE | 2025-04-12 13:50 | CASEMGMT ---
Social Work SW spoke with the patient. Patient reported he does not want HH at [place]. OLVIN Campbell
--- NOTE | 2025-04-12 14:17 | CHAPLAIN ---
Type of Pastoral Visit _x__ Initial Visit ___ Follow-up Visit ___ On-call Visit ___ General Patient Visit ___ Spiritual Assessment ___ Family Conference ___ Bereavement ___ Rapid Response ___ Code Blue ___ Other (describe below) Pastoral Care Referral From _x__ Patient ___ Family ___ Nurse ___ Physician ___ On Site Property Manager ___ Online Content Coordinator ___ Other (describe below) Sacrament/Intervention _x__ Active listening ___ Anointing ___ Sikhism ___ Bereavement ___ Communion ___ Shanika exploration ___ _x__ Life review _x__ Prayer ___ Reconciliation ___ Sacrament of Sick ___ Supportive presence ___ Wedding ___ Other (describe below) Pastoral Comments patient gives updates on his health and current situation; pt is pleasant but does not engage much in conversation; pt does talk about his mcc being I just wanted to enjoy some life after work; pt has support from a spouse; pt welcomed a prayer
[2025-04-12] MEDS: Potassium Chloride Oral Tablet 20 MEQ 40 MEQ PO (18:44)
[2025-04-12] MEDS: guaiFENesin/D-Methorphan TAB.SR.12H 2 TABLET PO (18:44)
[2025-04-12] MEDS: Azithromycin 500 MG in 0.9% Normal Saline (250mL Bag) 250 ML 250 MG IV (23:40)
[2025-04-13 04:15] VITALS: BP 114/73; PULSE 92; RESP 18; TEMP 36.6; O2SAT 97
[2025-04-13 04:56] LABS: Hematocrit 29.7 % (40-54); Hemoglobin 9.8 g/dL (13.0-16.5); Immature Granulocytes Count 0.120 X10^3/uL (0.0-0.0); Mean Corp Hgb Conc 33.0 g/dL (32-36); Mean Corpuscular Volume 90.3 fL (80-94); Mean Platelet Vol. 9.7 fl (6.2-12.0); NRBC Flagged by Analyzer 0 % (0-5); Platelet Count 275 K/mm3 (150-450); RBC Distribution Width CV 14.4 % (11.6-14.6); RBC Distribution Width SD 47.9 fl (35.1-43.9); Red Blood Count 3.29 M/mm3 (4.6-6.2); White Blood Count 5.0 K/mm3 (4.4-11.0)
[2025-04-13 05:44] LABS: Anion Gap 11 (5-15); BUN 8 mg/dL (4-19); BUN/Creat Ratio 16.1 RATIO (10-20); Calcium,Total 8.6 mg/dL (7.6-11.0); Carbon Dioxide 16.8 mmol/L (21.0-32.0); Chloride 107 mmol/L (98-108); Estimated Creatinine Clearance 73.63 ml/min (50-250); Glucose 103 mg/dL (70-99); Potassium 3.4 mmol/L (3.3-5.1)
[2025-04-13 05:57] VITALS: BMI 23.0
[2025-04-13 06:58] VITALS: PULSE 89; RESP 16
[2025-04-13] MEDS: Albuterol 2.5 MG/3 ML VIAL.NEB. INHALATION (06:58)
[2025-04-13] MEDS: Budesonide Respules 0.5 MG/2 ML AMPUL.NEB. INHALATION (06:58)
[2025-04-13 07:00] VITALS: PULSE 91
[2025-04-13 09:30] VITALS: BP 106/68; PULSE 92; RESP 18; TEMP 36.6; O2SAT 98
[2025-04-13] MEDS: Potassium Chloride Oral Tablet 20 MEQ 40 MEQ PO (09:39)
[2025-04-13] MEDS: ROFLUMILAST 500 MCG TABLET PO (09:40)
[2025-04-13] MEDS: guaiFENesin/D-Methorphan TAB.SR.12H 2 TABLET PO (09:42)
[2025-04-13 11:00] VITALS: PULSE 84
--- NOTE | 2025-04-13 12:30 | PCM.DC.SUM ---
Providers Date of Admission: 04/11/25 Date of Discharge: 04/13/25 Primary Care Physician: Dr. Abby Barajas MD Reason For Visit: BL PNA, ADULT FTT Diagnosis Discharge Diagnosis (1) Pneumonia: Status: Acute Code(s): J18.9 - Pneumonia, unspecified organism Plan #CAP #Rhinovirus #Generalized weakness # COPD Medications at Discharge Home Medications atorvastatin 40 mg tablet 40 mg PO QHS cholesterol 08/13/22 cholecalciferol (vitamin D3) 50 mcg (2,000 unit) tablet 50 mcg PO QODAY vitamin 08/13/22 cyclobenzaprine 10 mg tablet 10 mg PO QHS PRN PRN muscle spasms 08/13/22 fluticasone 250 mcg-salmeterol 50 mcg/dose blistr powdr for inhalation 1 inh inhalation BID breathing 08/13/22 gabapentin 600 mg tablet 600 mg PO BID nerve pain 08/13/22 ipratropium 0.5 mg-albuterol 3 mg (2.5 mg base)/3 mL nebulization soln 3 ml inhalation Q6H PRN Shortness Of Breath 08/13/22 isosorbide mononitrate 30 mg tablet,extended release 24 hr 30 mg PO DAILY heart 08/13/22 Held on 04/13/25. Instructions: Resume on 04/17/25. metoprolol succinate 100 mg tablet,extended release 24 hr 100 mg PO DAILY blood pressure 08/13/22 Held on 04/13/25. Instructions: Resume on 04/16/25. pantoprazole 40 mg tablet,delayed release 40 mg PO DAILY reflux 08/13/22 tramadol 50 mg tablet 50 mg PO Q6H PRN Breakthrough Pain 08/13/22 trazodone 50 mg tablet 50 mg PO QHS PRN leg cramps 08/13/22 albuterol sulfate 90 mcg/actuation aerosol inhaler (Ventolin HFA) 2 inh inhalation Q6H PRN shortness of breath or wheezing 08/03/24 aspirin 81 mg chewable tablet 81 mg PO BREAKFAST #90 tabs 08/05/24 magnesium oxide 400 mg (241.3 mg magnesium) tablet (MagOx) 400 mg PO DAILY #60 tabs 08/05/24 budesonide 160 mcg-glycopyr 9 mcg-formot 4.8 mcg/actuation HFA inhaler (Breztri Aerosphere) 2 inh inhalation BID 10/29/24 ferrous sulfate 325 mg (65 mg iron) tablet 325 mg PO .QOD 10/29/24 loratadine 10 mg capsule (Allergy Relief (loratadine)) 10 mg PO QDAY 10/29/24 roflumilast 250 mcg tablet 500 mcg PO QDAY 10/29/24 amoxicillin 875 mg-potassium clavulanate 125 mg tablet 1 tab PO BID 4 days #8 tabs 04/13/25 Hospital Course Summary of Care Provided Minutes Spent on Discharge: 32 Hospital Course: 79-year-old male history of coronary artery disease, GERD, COPD who presented [facility] ED 04/11/2025 due to generalized weakness, poor p.o. intake, cough and subjective fever and chills. Patient had CTA suggestive of pneumonia and was started on antibiotics, also had respiratory panel then was positive for rhinovirus. Given the infiltrate and clinical picture patient was continued on CAP coverage. He was found to be orthostatic positive and was started on IV fluids suspected due to poor p.o. intake given acute illness and had improvement in blood pressure and sodium with hydration and holding home blood pressure medications. Patient overall improved and was seen by physical therapy who felt it was reasonable for patient to be discharged home when medically ready without need for nursing facility, patient did not want home health. On day of discharge patient evaluated at bedside, still somewhat weak but feeling much better than he did, is able to get up and move around more, breathing improving. Discussed continue hospitalization versus discharge home and patient and at bedside comfortable with discharge home. Patient discharged home in stable condition with the following discharge instructions: - You will be discharged on another 4 days of Augmentin 875 mg twice daily, take the first dose 04/14 -Given slightly low blood pressures we will hold your lisinopril and isosorbide, it is recommended that you also hold your metoprolol until 04/16 and at that time resume at 50 mg. Please follow-up closely with your primary care physician - Continue home inhalers and other home medications Physical Exam Narrative General: Alert, no apparent distress HEENT: Atraumatic, normocephalic Eyes: Anicteric, normal conjunctiva, extraocular movements grossly intact Neck: Supple Respiratory: Clear to auscultation bilaterally, normal respiratory effort Cardiovascular: Regular rate and rhythm GI: Soft, nontender, nondistended Extremities: No edema Musculoskeletal: Moving all extremities Neuro: No overt focal neurological deficits Skin: No rashes appreciated Psych: Cooperative Medical Records Data Medical Nutrition Assessment Dietitian: Malnutrition Criteria Met Start: 04/12/25 14:07 Freq: Status: Active Protocol: Document 04/12/25 14:07 SB (Rec: 04/12/25 14:07 SB [id number]) Nutrition Malnutrition Evidence of Yes Malnutrition Exists Malnutrition (severe Chronic ): Evidenced By Suboptimal Energy Intake (Moderate),Weight Loss (Severe ) Clinical Problem Chronic Disease or Condition Related Malnutrition Etiology severe related to inadequate oral intake Signs/Symptoms as evidenced by PO meeting <50% of estimated nutrition needs x 2 weeks and 8% unintentional weight loss x 3 months. Status Active Problem Recommendation Dietitian Adjust to liberal regular diet due to signs and Recommendations/ symptoms of malnutrition. Changes Will order chocolate or rosas magic cup with lunch and dinner. Will monitor weight trends. Weight / BMI Weight Weight: 68.9 kg Body Mass Index (BMI) 23.0 ABG / Lab / Microbiology Data 04/13/25 04:27 04/13/25 04:27 Laboratory: Laboratory Results - last 24 hr 04/13/25 04:27: WBC 5.0, RBC 3.29 L, Hgb 9.8 L, Hct 29.7 L, MCV 90.3, MCH 29.8, MCHC 33.0, RDW Std Deviation 47.9 H, RDW Coeff of Chadd 14.4, Plt Count 275, MPV 9.7, Immature Gran % (Auto) 2.400 H, Neut % (Auto) 74.1 H, Lymph % (Auto) 13.1 L, [place]idan % (Auto) 10.0, Eos % (Auto) 0.0, Baso % (Auto) 0.4, Absolute Neuts (auto) 3.7, Absolute Lymphs (auto) 0.65 L, Nucleated RBC % 0, Sodium 135, Potassium 3.4, Chloride 107, Carbon Dioxide 16.8 L, Anion Gap 11, BUN 8, Creatinine 0.53 L, Estim Creat Clear Calc 73.63, Est GFR (MDRD) Non-Af 103, BUN/Creatinine Ratio 16.1, Glucose 103 H, Calcium 8.6 Microbiology: Microbiology 04/11/25 23:25 Sputum, Expectorated/Coughed Gram Stain - Final 04/11/25 23:59 Mucosa - Nasopharyngeal Respiratory Panel (PCR) - Final Rhinovirus 04/11/25 23:00 Nasal Secretion MRSA (PCR) - Final 04/11/25 23:00 Urine, Random Legionella Antigen - Final 04/11/25 23:00 Urine, Random Streptococcus pneumoniae Antigen (M - Final 04/11/25 19:20 Mucosa - Nose SARS-CoV-2, Influenza & RSV (PCR) - Final D/C Instructions DC O2, CPAP, BIPAP Needs Home O2 Discharge instructions: No Meaningful Use Info Meaningful Use Meaningful Use Diagnoses (Choose all that apply): None applicable Discharge Plan Admission Admit Date/Time: 04/11/25 22:19 Primary Reason for Your Visit: Generalized weakness Attending Provider: Sharona Gambino Primary Care Provider: Abby Barajas Consulting Providers: Shannen Jung; Alexsander Beckham Instructions Patient Instructions: ED Fall Prevention Additional Instructions / Restrictions: DISCHARGE INSTRUCTIONS PLEASE READ *Please take this with you to your next doctors appointment* - You will be discharged on another 4 days of Augmentin 875 mg twice daily, take the first dose 04/14. This medication was sent to [facility] pharmacy -Given slightly low blood pressures we will hold your lisinopril and isosorbide, it is recommended that you also hold your metoprolol until 04/16 and at that time resume at a half dose (50 mg). Please follow-up closely with your primary care physician - Continue home inhalers and other home medications -Please call your primary care provider's office upon discharge to schedule a hospital follow up within 1 week. -For any concerning signs or symptoms please call 911 or proceed to the nearest emergency department Discharge Orders/Prescriptions Prescriptions: New amoxicillin-pot clavulanate 875-125 mg tablet 1 tab PO BID 4 Days Qty: 8 0RF Rx Instructions: start 04/14/25 Continued Breztri Aerosphere 160-9-4.8 mcg/actuation HFA aerosol inhaler 2 inh inhalation BID ferrous sulfate 325 mg (65 mg iron) tablet 325 mg PO .QOD Allergy Relief (loratadine) 10 mg capsule 10 mg PO QDAY roflumilast 250 mcg tablet 500 mcg PO QDAY cyclobenzaprine 10 mg Tablet 10 mg PO QHS PRN PRN (Reason: muscle spasms) gabapentin 600 mg Tablet 600 mg PO BID Patient Comments: pt states he takes 2 am and 3 hs trazodone 50 mg Tablet 50 mg PO QHS PRN (Reason: leg cramps) atorvastatin 40 mg Tablet 40 mg PO QHS fluticasone propion-salmeterol 250-50 mcg/dose Blister With Device 1 inh INHALATION BID ipratropium-albuterol 0.5 mg-3 mg(2.5 mg base)/3 mL Solution For Nebulization 3 ml INHALATION Q6H PRN (Reason: Shortness Of Breath) tramadol 50 mg Tablet 50 mg PO Q6H PRN (Reason: Breakthrough Pain) pantoprazole 40 mg Tablet,Delayed Release (Dr/Ec) 40 mg PO DAILY cholecalciferol (vitamin D3) 50 mcg (2,000 unit) Tablet 50 mcg PO QODAY albuterol sulfate [Ventolin HFA] 90 mcg/actuation HFA aerosol inhaler 2 inh inhalation Q6H PRN (Reason: shortness of breath or wheezing) aspirin 81 mg Tablet,Chewable 81 mg PO BREAKFAST Qty: 90 0RF magnesium oxide [MagOx] 400 mg (241.3 mg magnesium) tablet 400 mg PO DAILY Qty: 60 0RF Held isosorbide mononitrate 30 mg Tablet Extended Release 24 Hr 30 mg PO DAILY Hold Instructions: Resume on 04/17/25. metoprolol succinate 100 mg Tablet Extended Release 24 Hr 100 mg PO DAILY Hold Instructions: Resume on 04/16/25. Discontinued lisinopril 5 mg Tablet 5 mg PO DAILY Referrals / Follow Up: Abby Barajas MD [Primary Care Provider, Internal Medicine] - Within 1 Week Disposition Disposition (needs filled in before D/C Order can be placed): Home, Self Care Charges/Coding Visit Charges Inpatient E&M: 60010 Disch Hosp >30min
[2025-04-13 13:50] VITALS: BP 118/70; PULSE 87; RESP 16; TEMP 36.5; O2SAT 100
== END 2025-04-13 14:19 | disposition home or self-care (01) | DRG 194 ==
LOC: ED 22:28 → PCU 22:36
PROVIDERS: Internal Medicine; Admitting Provider Family Medicine; Emergency Provider Emergency Medicine; PCP Internal Medicine; Visit Provider Internal Medicine
DX: J12.89 Other viral pneumonia (principal); J44.0 Chronic obstructive pulmonary disease with (acute) lower respiratory infection; E87.1 Hypo-osmolality and hyponatremia; Z51.5 Encounter for palliative care; Z66 Do not resuscitate; D50.9 Iron deficiency anemia, unspecified; I12.9 Hypertensive chronic kidney disease with stage 1 through stage 4 chronic kidney disease, or unspecified chronic kidney disease; E78.5 Hyperlipidemia, unspecified; E87.6 Hypokalemia; K21.9 Gastro-esophageal reflux disease without esophagitis; N18.2 Chronic kidney disease, stage 2 (mild); G25.0 Essential tremor; I25.10 Atherosclerotic heart disease of native coronary artery without angina pectoris; G62.9 Polyneuropathy, unspecified; I25.2 Old myocardial infarction; J47.9 Bronchiectasis, uncomplicated; R62.7 Adult failure to thrive; Z79.899 Other long term (current) drug therapy; G89.4 Chronic pain syndrome; Z87.891 Personal history of nicotine dependence; Z82.5 Family history of asthma and other chronic lower respiratory diseases; Z79.82 Long term (current) use of aspirin; Z68.23 Body mass index [BMI] 23.0-23.9, adult; B97.89 Other viral agents as the cause of diseases classified elsewhere; Z87.11 Personal history of peptic ulcer disease
CPT/HCPCS: 36415; 71275; 80048; 80053; 81001; 83605; 83735; 84484; 85025; 85379; 85610; 85730; 87040; 87070; 87077; 87186; 87205; 87449; 87631; 87633; 87641; 93005; 94640; 94668; 97116; 97162; 97166; 97802; 99285; Q9967; A4216; J0696